=== PATIENT | female | born 1955 | race Caucasian/White ===

== ENCOUNTER 2017-05-04 15:53 | Inpatient (IN) ==
--- NOTE | 2017-05-04 16:17 | Emergency Department Note ---
Disposition Clinical Impression: Congestive heart failure, Obesity, Atrial fibrillation, Elevated troponin, Renal failure, Hyperkalemia, Anemia, Thrombocytopenia, Elevated C-reactive protein (CRP), Diabetes, Chest pain, Cough, Warfarin anticoagulation, History of heart valve replacement Disposition: Admitted As Inpatient Referrals: Enrique Strange MD [Primary Care Provider] - Forms: ED Satisfaction Letter General Adult HPI - General Chief complaint: ED Shortness of Breath/Dyspnea Stated complaint: missed dialysis Time Seen by Provider: 05/04/17 16:14 Source: patient Limitations: no limitations - History of Present Illness HPI Narrative: 61-year-old female reports to the emergency department with concerns for shortness of breath. The patient missed dialysis yesterday. She states she saw her primary care physician had a chest x-ray and was diagnosed with possible early pneumonia and prescribed azithromycin. She describes a cough which is been producing clear sputum. She has known history of atrial fibrillation and cardiac valve replacement and takes Coumadin. There is no history of coughing up blood or syncope. She has had some muscle cramp type pain in her left chest. There is no history of jaw pain or radiating pain she states that when she walked today her oxygen saturations went down to 73% on her home device. The patient also reports her heart rate went up to 141. The patient has a history of atrial fibrillation. There is no history of weakness or numbness the arms or legs or slurred speech or confusion. No history of bleeding of any sort. The patient denies abdominal pain vomiting or diarrhea. The patient denies any history of chronic oxygen dependency or primary lung disease. There is no history of fall or injury. The patient describes leg swelling and abdominal swelling. There is no history of headaches neck stiffness or rash. Pain Scale: 7 - Related Data Home Medications Medication Instructions Recorded Confirmed Levothyroxine [Synthroid] 88 mcg PO DAILY 06/30/15 05/04/17 [place]-3 Fatty Acids/Epa [Neurepa 1 1 gm PO BID 06/30/15 05/04/17 Gram Capsule] Pregabalin [Lyrica] 50 mg PO BID 06/30/15 05/04/17 ALPRAZolam [Xanax 0.5 MG Tablet] 0.5 mg PO TID PRN 08/07/16 05/04/17 Allopurinol [Zyloprim] 200 mg PO DAILY 08/07/16 05/04/17 Aspirin 81 mg PO DAILY 08/07/16 05/04/17 Atorvastatin [Lipitor] 10 mg PO HS 08/07/16 05/04/17 Biotin [Estrada Biotin] 10,000 mcg PO DAILY 08/07/16 05/04/17 Calcitriol [Rocaltrol] 0.25 mcg PO DAILY 08/07/16 05/04/17 Docusate [Colace] 100 mg PO BID PRN 08/07/16 05/04/17 Folic Acid 1 mg PO DAILY 08/07/16 05/04/17 Nystatin POWDER [Nystop] 1 appl TP BID 08/07/16 05/04/17 Oxycodone HCl 15 mg PO BID PRN 08/07/16 05/04/17 Pantoprazole Sodium [Protonix] 40 mg PO DAILY 08/07/16 05/04/17 Sertraline [Zoloft] 100 mg PO DAILY 08/07/16 05/04/17 Albuterol Sulfate [Proair Hfa] 2 puff IH Q4H PRN 02/07/17 05/04/17 Ipratropium/Albuterol Neb [Duoneb] 3 ml IH TID PRN 02/07/17 05/04/17 Warfarin [Coumadin] 10 mg PO SUMOWETHFR 02/07/17 05/04/17 Azithromycin [Zithromax Tri-Juwan] 500 mg PO DAILY 05/04/17 05/04/17 Budesonide/Formoterol 160/4.5 2 puff IH BIDR 05/04/17 05/04/17 [Symbicort 160/4.5] L. Acidophilus/Pectin, [place] 1 each PO DAILY 05/04/17 05/04/17 [Acidophilus Probiotic Capsule] Loratadine [Claritin] 10 mg PO DAILY 05/04/17 05/04/17 Promethazine [Phenergan] 25 mg PO TID PRN 05/04/17 05/04/17 Renal Vitamin [Renal Caps Softgel] 1 mg PO DAILY 05/04/17 05/04/17 Ropinirole HCl [Requip Xl] 4 mg PO HS 05/04/17 05/04/17 Warfarin [Coumadin] 5 mg PO TUSA 05/04/17 05/04/17 predniSONE [PredniSONE] See Taper PO TAPER 05/04/17 05/04/17 Allergies Allergy/AdvReac Type Severity Reaction Status Date / Time MALACHI Inhibitors Allergy Hives Verified 05/04/17 15:58 cephalexin [From Keflex] Allergy Hives Verified 05/04/17 15:58 cephalothin Allergy Hives Verified 05/04/17 15:58 ciprofloxacin [From Cipro] Allergy See Verified 05/04/17 15:58 Comments clindamycin Allergy Hives Verified 05/04/17 15:58 codeine Allergy Hives Verified 05/04/17 15:58 doxycycline Allergy Difficulty Verified 05/04/17 15:58 Breathing fentanyl Allergy See Verified 05/04/17 15:58 Comments Hydromorphone [From Dilaudid] Allergy See Verified 05/04/17 15:58 Comments metoclopramide [From Reglan] Allergy Hives Verified 05/04/17 15:58 metronidazole Allergy Difficulty Verified 05/04/17 15:58 Breathing NSAIDS (Non-Steroidal Allergy Difficulty Verified 05/04/17 15:58 Anti-Inflamma Breathing Penicillins [PCN] Allergy Hives Verified 05/04/17 15:58 Sulfa (Sulfonamide Allergy Difficulty Verified 05/04/17 15:58 Antibiotics) Breathing sulfamethoxazole Allergy Difficulty Verified 05/04/17 15:58 [From Bactrim] Breathing trimethoprim Allergy Hives Verified 05/04/17 15:58 All systems ED: reviewed and negative except as stated. Past Medical History - Past Medical History Medical history: Reports: arthritis, atrial fibrillation, CHF, COPD, diabetes, dialysis, hyperlipidemia, hypertension, migraine, thyroid disease, valvular heart disease, other Surgical history: Reports: appendectomy, cataract, cholecystectomy, heart valve replacement, orthopedic, other Psychiatric history: Reports: anxiety, depression RESOURCE RECOVERY ENGINEER history: Reports: no RESOURCE RECOVERY ENGINEER history - Social History Smoking Status: Former smoker Smokeless Tobacco Status: No Alcohol use: Reports: none Drug use: Reports: none Physical Exam - General Limitations: no limitations General appearance: alert, in no apparent distress - Head Head exam: atraumatic, normocephalic, normal inspection - Eye Eye exam: Present: normal appearance, PERRL, EOMI - ENT ENT exam: normal exam, normal oropharynx, mucous membranes moist, TM's normal bilaterally, normal external ear exam - Neck Neck exam: Present: normal inspection, full ROM, trachea midline. Absent: tenderness - Chest Chest inspection: Present: symmetric chest wall rise. Absent: tenderness - Respiratory Respiratory exam: Present: prolonged expiratory phase. Absent: normal lung sounds bilaterally, respiratory distress, wheezes, stridor, accessory muscle use - Cardiovascular Cardiovascular exam: Present: irregular rhythm, systolic murmur - Abdominal Exam Abdominal exam: Present: soft, Non-Tender, normal bowel sounds. Absent: tenderness, distention, guarding, rebound, rigidity - Extremities Exam Extremities exam: Present: full ROM, normal capillary refill, pedal edema. Absent: normal inspection, tenderness, joint swelling, calf tenderness - Expanded Lower Extremity Exam Hip/Pelvis exam: Present: full ROM Lower leg exam: Absent: Homans' sign - Back Exam Back exam: Present: normal inspection, full ROM. Absent: tenderness, CVA tenderness (R), CVA tenderness (L), vertebral tenderness - Neurological Exam Neurological exam: Present: alert, oriented X3, CN II-XII intact. Absent: motor sensory deficit - Psychiatric Psychiatric exam: Present: normal affect, normal mood - Skin Skin exam: Present: warm, dry, intact, normal color. Absent: rash, cyanosis, diaphoresis, erythema, pallor, mottled Course Vital Signs Temperature 97.4 F L 05/04/17 15:58 Pulse Rate 94 05/04/17 15:58 Respiratory Rate 28 05/04/17 15:58 Blood Pressure 138/61 05/04/17 15:58 O2 Sat by Pulse Oximetry 95 05/04/17 15:58 Temperature 97.4 F L 05/04/17 15:58 Pulse Rate 93 05/04/17 17:29 Respiratory Rate 18 05/04/17 17:29 Blood Pressure 114/63 05/04/17 17:29 O2 Sat by Pulse Oximetry 93 05/04/17 17:29 Oxygen Delivery Oxygen Delivery Room Air Medical Decision Making - [facility] Narrative Medical decision making narrative: The patient is elderly, and complains of cough with dyspnea, the patient reports her oxygen saturations go down to 73% on room air when she ambulates, she states her heart rate went up to 141, she has a known history of atrial fibrillation, she is expressing some chest discomfort, her troponin is elevated , she also appears to have edema and an elevated BNP with symptomatology consistent with CHF, her CRP is notably elevated and she is anemic as well as thrombocytopenic with an elevated white count, the patient has a known cardiac valve replacement. Based on her multiple medical comorbidities and complaints of dyspnea on exertion hypoxemia and chest discomfort with what appears to be an element of acute CHF based on edema, I thought it would be appropriate to admit the patient to the hospital. The patient is taking 500 mg of azithromycin daily. I do not think the patient is necessarily septic. Her lactic acid is negative. Urinalysis pending. Blood cultures ordered. Hyperkalemia orders placed. I have discussed the case with the hospitalist on- call who has accepted the patient to their care. Aspirin was ordered. The patient is currently stable pending admission. - Lab Data Lab results reviewed: Yes I reviewed the patient's lab results. Result diagrams: 05/04/17 16:26 05/04/17 16:26 Lab Results 05/04/17 05/04/17 05/04/17 Range/Units 16:26 16:26 16:26 WBC 11.9 H (4.3-11.1) K/mcL RBC 3.14 L (3.82-4.97) M/mcL Hgb 9.6 L (11.5-15.4) g/dL Hct 29.5 L (35.3-44.9) % MCV 93.9 (83.0-100.0) fL MCH 30.6 (28.0-33.3) pg MCHC 32.5 (31.6-35.5) g/dL RDW 14.6 H (11.5-14.5) % Plt Count 122 L (140-400) K/mcL MPV 13.1 H (9.4-12.4) fL Immature Gran % 0.5 (0-4) % Seg Neutrophils % 89.6 % Lymphocytes % 4.5 % Monocytes % 4.9 % Eosinophils % 0.3 % Basophils % 0.2 % Neutrophils # 10.7 H (1.6-8.9) K/mcL Lymphocytes # 0.5 L (0.6-4.6) K/mcL Monocytes # 0.6 (0.0-1.3) K/mcL Eosinophils # 0.0 (0.0-0.6) K/mcL Basophils # 0.0 (0.0-0.2) K/mcL PT (9.4-12.1) Seconds INR APTT (26.0-36.0) Seconds Sodium 132 L (136-145) mEq/L Potassium 5.8 H (3.5-4.5) mEq/L Chloride 97 L (98-109) mEq/L Carbon Dioxide 23 (19-29) mEq/L BUN 94 H (7-20) mg/dL Creatinine 9.10 H (0.57-1.11) mg/dL Est GFR ( Amer) 5 L (> 60) Est GFR (Non-Af Amer) 4 L (> 60) BUN/Creatinine Ratio 10 (6-26) Glucose 128 H (70-99) mg/dL Calculated Osmolality 305 H (280-300) Lactic Acid 1.2 (0.5-2.2) mmol/L Calcium 9.5 (8.6-10.8) mg/dL Troponin I (0-0.03) ng/mL C-Reactive Protein (Less than 5) mg/L B-Natriuretic Peptide (0-100) pg/mL 05/04/17 05/04/17 05/04/17 Range/Units 16:26 16:26 16:26 WBC (4.3-11.1) K/mcL RBC (3.82-4.97) M/mcL Hgb (11.5-15.4) g/dL Hct (35.3-44.9) % MCV (83.0-100.0) fL MCH (28.0-33.3) pg MCHC (31.6-35.5) g/dL RDW (11.5-14.5) % Plt Count (140-400) K/mcL MPV (9.4-12.4) fL Immature Gran % (0-4) % Seg Neutrophils % % Lymphocytes % % Monocytes % % Eosinophils % % Basophils % % Neutrophils # (1.6-8.9) K/mcL Lymphocytes # (0.6-4.6) K/mcL Monocytes # (0.0-1.3) K/mcL Eosinophils # (0.0-0.6) K/mcL Basophils # (0.0-0.2) K/mcL PT 23.8 H (9.4-12.1) Seconds INR 2.2 APTT 39.7 H (26.0-36.0) Seconds Sodium (136-145) mEq/L Potassium (3.5-4.5) mEq/L Chloride (98-109) mEq/L Carbon Dioxide (19-29) mEq/L BUN (7-20) mg/dL Creatinine (0.57-1.11) mg/dL Est GFR ( Amer) (> 60) Est GFR (Non-Af Amer) (> 60) BUN/Creatinine Ratio (6-26) Glucose (70-99) mg/dL Calculated Osmolality (280-300) Lactic Acid (0.5-2.2) mmol/L Calcium (8.6-10.8) mg/dL Troponin I (0-0.03) ng/mL C-Reactive Protein 57 H (Less than 5) mg/L B-Natriuretic Peptide 780 H (0-100) pg/mL 05/04/17 Range/Units 16:27 WBC (4.3-11.1) K/mcL RBC (3.82-4.97) M/mcL Hgb (11.5-15.4) g/dL Hct (35.3-44.9) % MCV (83.0-100.0) fL MCH (28.0-33.3) pg MCHC (31.6-35.5) g/dL RDW (11.5-14.5) % Plt Count (140-400) K/mcL MPV (9.4-12.4) fL Immature Gran % (0-4) % Seg Neutrophils % % Lymphocytes % % Monocytes % % Eosinophils % % Basophils % % Neutrophils # (1.6-8.9) K/mcL Lymphocytes # (0.6-4.6) K/mcL Monocytes # (0.0-1.3) K/mcL Eosinophils # (0.0-0.6) K/mcL Basophils # (0.0-0.2) K/mcL PT (9.4-12.1) Seconds INR APTT (26.0-36.0) Seconds Sodium (136-145) mEq/L Potassium (3.5-4.5) mEq/L Chloride (98-109) mEq/L Carbon Dioxide (19-29) mEq/L BUN (7-20) mg/dL Creatinine (0.57-1.11) mg/dL Est GFR ( Amer) (> 60) Est GFR (Non-Af Amer) (> 60) BUN/Creatinine Ratio (6-26) Glucose (70-99) mg/dL Calculated Osmolality (280-300) Lactic Acid (0.5-2.2) mmol/L Calcium (8.6-10.8) mg/dL Troponin I 0.06 H* (0-0.03) ng/mL C-Reactive Protein (Less than 5) mg/L B-Natriuretic Peptide (0-100) pg/mL - Radiology Data Radiology results reviewed: Yes I reviewed the patient's radiology results.
[2017-05-04 16:37] LABS: Basophils % 0.2 %; Eosinophils % 0.3 %; Hematocrit 29.5 % (35.3-44.9); Hemoglobin 9.6 g/dL (11.5-15.4); Immature Granulocytes % 0.5 % (0-4); Lymphocytes # 0.5 K/mcL (0.6-4.6); Lymphocytes % 4.5 %; Mean Corpuscular HGB Conc 32.5 g/dL (31.6-35.5); Mean Corpuscular Hemoglobin 30.6 pg (28.0-33.3); Mean Corpuscular Volume 93.9 fL (83.0-100.0); Mean Platelet Volume 13.1 fL (9.4-12.4); Monocytes # 0.6 K/mcL (0.0-1.3); Monocytes % 4.9 %; Neutrophils # 10.7 K/mcL (1.6-8.9); Platelet Count 122 K/mcL (140-400); Red Blood Count 3.14 M/mcL (3.82-4.97); Red Cell Distribution Width 14.6 % (11.5-14.5); Segmented Neutrophils % 89.6 %
[2017-05-04 16:52] LABS: Calcium 9.5 mg/dL (8.6-10.8); Potassium 5.8 mEq/L (3.5-4.5)
[2017-05-04] MEDS ORDERED: Aspirin 325 MG TABLET PO ONE (17:03)
[2017-05-04 17:05] LABS: INR 2.2; Prothrombin Time 23.8 Seconds (9.4-12.1)
[2017-05-04 17:07] LABS: Activated Partial Thrombo Time 39.7 Seconds (26.0-36.0)
[2017-05-04] MEDS ORDERED: Calcium Gluconate 1,000 MG in D5% in Water 100 ML IVPB ONE (17:57)
[2017-05-04] MEDS ORDERED: Albuterol 2.5 MG/3 ML NEBULIZER IH ONE ×2 (17:57→20:00)
[2017-05-04] MEDS ORDERED: *HR* Dextrose 50 % in Water (Syg) 50 ML SYRINGE IVP ONE ×2 (17:57→20:00)
[2017-05-04] MEDS ORDERED: Insulin Human Regular 10 UNIT in 0.9 % Sodium Chloride 10 ML IV ONE (17:58)
[2017-05-04] MEDS ORDERED: Ondansetron 4 MG/2 ML VIAL IVP PRN (20:43)
[2017-05-04] MEDS ORDERED: Naloxone 0.4 MG/ML INJ IVP PRN (20:43)
[2017-05-04] MEDS ORDERED: ALPRAZolam 0.5 MG TABLET PO PRN (20:46)
[2017-05-04] MEDS ORDERED: Ipratropium/Albuterol Neb 3 ML IH PRN (20:46)
[2017-05-04] MEDS ORDERED: Warfarin perPT PO PRN (20:48)
--- NOTE | 2017-05-04 21:07 | Internal Med History&Physical ---
Date of Encounter: 05/04/17 Time of Encounter: 20:40 Assessment and Plan (1) Acute respiratory distress Current visit: Yes Status: Acute Likely multifactorial Secondary to volume overload given missed HD session and COPD exacerbation patient recently finished steroid taper, however given currently clinical presentation, will resume PO steroids She may benefit from a long steroid taper upon discharge Patient will need HD in am. Nephrology consultation placed with Dr. Muir, please follow up Continue O2 supplementation and bronchodilator support will closely monitor respiratory status Leukocytosis can be secondary to recent prednisone therapy, will monitor off abx at this time Guaifenensin/Dextromorphan prn cough (2) ESRD on hemodialysis Current visit: Yes Status: Acute Patient receives HD on T/Thus/Sat Nephrology consultation requested for continuation of HD, please follow up (3) Hyperkalemia Current visit: Yes Status: Acute Likely secondary to Missed HD session No EKG changes reported patient received Calcium gluconate, insulin, dextrose, bicarb, albuterol therapy in the ER will closely monitor (4) CHF (congestive heart failure) Current visit: Yes Status: Chronic 2D echo from Jul 2016 showed LVEF of 60% with normal LV size and systolic function. Mild diastolic dysfunction of left ventricle will continue home meds and ARRT TECHNOLOGIST therapy for volume removal Qualifiers: Congestive heart failure type: diastolic Congestive heart failure chronicity: chronic Qualified Code(s): I50.32 - Chronic diastolic (congestive ) heart failure (5) COPD (chronic obstructive pulmonary disease) Current visit: Yes Status: Acute concern for COPD exacerbation given clinical presentation will continue PO steroids and bronchodilator support O2 supplementation as needed please obtain O2 qualification test prior to discharge Qualifiers: COPD type: unspecified COPD Qualified Code(s): J44.9 - Chronic obstructive pulmonary disease, unspecified (6) Atrial fibrillation Current visit: Yes Status: Chronic Not reported to be on any rate control medications Anticoagulated with Coumadin monitor INR with goal INR: 2-3, currently therapeutic tele monitoring will continue to closely monitor Qualifiers: Atrial fibrillation type: chronic Qualified Code(s): I48.2 - Chronic atrial fibrillation (7) Elevated troponin Current visit: Yes Status: Chronic NO signs of chest pain patient has history of chronically elevated TNI, current level is the lower than her previous levels (8) Morbid obesity with BMI of 45.0-49.9, adult Current visit: Yes Status: Chronic (9) DVT prophylaxis Current visit: Yes Status: Acute anticoagulated with Coumadin Internal Medicine - H&P: HPI Chief complaint: shortness of breath Admitted From: Home Plans for Post Hospital Care: Home History of present illness: Ms. Loza is a 61 year old female with PMH of CHF, Atrial fibrillation on coumadin, COPD, ESRD on HD, HLD, thyroid disease, valvular heart disease, and morbid obesity who is admitted for management of acute respiratory distress. Patient reports of having chronic bronchitis for which she finished her steroid and abx therapy yesterday, and due to worsening cough, she was not able to make it to her HD appointment yesterday(05/03/17). She states she was not able to get her HD done today either and due to worsening of shortness of breath she decided to come to the ER. She reports of having her O2 saturation in the 70s at home which prompted her visit to the ER. Upon arrival to the ER, patient received nebulizer treatments with improvement of her symptoms. She is currently saturating well on room air and reports of feeling better at rest. Denies any headache, chest pain, abd pain, n/v, fever, or chills. Reports of dry cough for the last several months and finisher her steroid therapy and abx yesterday. Former smoker I had a detailed discussion about patient's advance directives, she wishes to be Full code. Past Med Surg Social Fam HX - Past Medical History Medical history: arthritis, atrial fibrillation, CHF, COPD, diabetes, dialysis, hyperlipidemia, hypertension, migraine, thyroid disease, valvular heart disease , other Psychiatric history: anxiety, depression - Past Surgical History Surgical History: cataract, cholecystectomy, heart valve replacement, orthopedic , other - Social History Smoking Status: Former smoker Smokeless Tobacco Status: No Alcohol use: none Drug use: none - Family History Mother Hx Family Cardiac Disorders: Yes (HTN) Hx Family Endocrine Disorder: Yes (DM) Hx Family Medical Disorders: Yes (kidney failure) Father Hx Family Cardiac Disorders: Yes (HTN) Hx Family Cancer: Yes (lung cancer) Hx Family Endocrine Disorder: Yes (DM) Internal Medicine - H&P: Meds Levothyroxine [Synthroid] 88 mcg PO DAILY 06/30/15 [History] [place]-3 Fatty Acids/Epa [Neurepa 1 Gram Capsule] 1 gm PO BID 08/26/15 [History] Pregabalin [Lyrica] 50 mg PO BID 06/30/15 [History] ALPRAZolam [Xanax 0.5 MG Tablet] 0.5 mg PO TID PRN 08/07/16 [History] Allopurinol [Zyloprim] 200 mg PO DAILY 08/07/16 [History] Aspirin 81 mg PO DAILY 08/07/16 [History] Atorvastatin [Lipitor] 10 mg PO HS 08/07/16 [History] Biotin [Estrada Biotin] 10,000 mcg PO DAILY 08/07/16 [History] Calcitriol [Rocaltrol] 0.25 mcg PO DAILY 08/07/16 [History] Docusate [Colace] 100 mg PO BID PRN 08/07/16 [History] Folic Acid 1 mg PO DAILY 08/07/16 [History] Nystatin POWDER [Nystop] 1 appl TP BID 08/07/16 [History] Oxycodone HCl 15 mg PO BID PRN 08/07/16 [History] Pantoprazole Sodium [Protonix] 40 mg PO DAILY 08/07/16 [History] Sertraline [Zoloft] 100 mg PO DAILY 08/07/16 [History] Albuterol Sulfate [Proair Hfa] 2 puff IH Q4H PRN 02/07/17 [History] Ipratropium/Albuterol Neb [Duoneb] 3 ml IH TID PRN 02/07/17 [History] Warfarin [Coumadin] 10 mg PO SUMOWETHFR 02/07/17 [History] Azithromycin [Zithromax Tri-Juwan] 500 mg PO DAILY 05/04/17 [History] Budesonide/Formoterol 160/4.5 [Symbicort 160/4.5] 2 puff IH BIDR 05/04/17 [ History] L. Acidophilus/Pectin, [place] [Acidophilus Probiotic Capsule] 1 each PO DAILY [History] Loratadine [Claritin] 10 mg PO DAILY 05/04/17 [History] Promethazine [Phenergan] 25 mg PO TID PRN 05/04/17 [History] Renal Vitamin [Renal Caps Softgel] 1 mg PO DAILY 05/04/17 [History] Ropinirole HCl [Requip Xl] 4 mg PO HS 05/04/17 [History] Warfarin [Coumadin] 5 mg PO TUSA 05/04/17 [History] predniSONE [PredniSONE] See Taper PO TAPER 05/04/17 [History] Allergies MALACHI Inhibitors Allergy (Verified 05/04/17 15:58) Hives cephalexin [From Keflex] Allergy (Verified 05/04/17 15:58) Hives cephalothin Allergy (Verified 05/04/17 15:58) Hives ciprofloxacin [From Cipro] Allergy (Verified 05/04/17 15:58) See Comments unsure of reaction clindamycin Allergy (Verified 05/04/17 15:58) Hives codeine Allergy (Verified 05/04/17 15:58) Hives doxycycline Allergy (Verified 05/04/17 15:58) Difficulty Breathing fentanyl Allergy (Verified 05/04/17 15:58) See Comments low heart rate Hydromorphone [From Dilaudid] Allergy (Verified 05/04/17 15:58) See Comments low heart rate metoclopramide [From Reglan] Allergy (Verified 05/04/17 15:58) Hives metronidazole Allergy (Verified 05/04/17 15:58) Difficulty Breathing NSAIDS (Non-Steroidal Anti-Inflamma Allergy (Verified 05/04/17 15:58) Difficulty Breathing Penicillins [PCN] Allergy (Verified 05/04/17 15:58) Hives Sulfa (Sulfonamide Antibiotics) Allergy (Verified 05/04/17 15:58) Difficulty Breathing sulfamethoxazole [From Bactrim] Allergy (Verified 05/04/17 15:58) Difficulty Breathing trimethoprim Allergy (Verified 05/04/17 15:58) Hives All Systems PM: A 10-system review of systems was performed and is negative for pertinent findings except as documented above in the HPI. - Constitutional Constitutional: as per HPI - Constitutional Vitals: Temp Pulse Resp BP Pulse Ox 97.5 F L 82 18 134/74 96 05/04/17 19:55 05/04/17 19:55 05/04/17 20:53 05/04/17 19:55 05/04/17 20:53 General appearance: Present: cooperative, A&O X 3, morbidly obese, no acute distress, answers questions appropriately - Head Head exam: Present: atraumatic, normocephalic - Eye Eye exam: Present: conjuntiva pink, sclera anicteric - Respiratory Respiratory exam: Present: wheezes (diffuse expiratory wheezing). Absent: rales , respiratory distress - Cardiovascular Cardiovascular exam: Present: irregular rhythm, +S1, +S2 - GI/Abdominal GI/Abdominal exam: Present: distended (obese), normal bowel sounds, soft, no peritoneal signs. Absent: tenderness - Extremities Exam Extremities exam: Present: pedal edema, warm, radial pulses palpable and symetrical. Absent: calf tenderness - Neurological Exam Neurological exam: Present: alert, oriented X3 - Psychiatric Psychiatric exam: Present: normal affect, normal mood Internal Med - H&P Results - Labs CBC & Chem 7: 05/04/17 16:26 05/04/17 16:26
[2017-05-04] MEDS: REQUIP 4 MG PO SCH (21:29)
[2017-05-04] MEDS: Nystatin POWDER 30 GM BOTTLE TP SCH (21:30)
[2017-05-04] MEDS: Budesonide/Formoterol 160/4.5 MDI IH SCH (21:46)
[2017-05-04] MEDS: Ipratropium/Albuterol Neb 3 ML IH SCH (21:46)
[2017-05-04] MEDS ORDERED: *HR* Warfarin 5 MG TABLET PO ONE (22:30)
[2017-05-05] MEDS: Ipratropium/Albuterol Neb 3 ML IH SCH ×7 (03:04→23:15)
[2017-05-05] MEDS ORDERED: Albuterol 2.5 MG/3 ML NEBULIZER IH PRN (03:19)
[2017-05-05] MEDS ORDERED: *HR* Heparin 5,000 UNIT/ML VIAL SQ SCH (06:00)
[2017-05-05 06:43] LABS: INR 2.5; Prothrombin Time 28.1 Seconds (9.4-12.1)
[2017-05-05 06:52] LABS: Calcium 9.2 mg/dL (8.6-10.8); Magnesium 2.3 mg/dL (1.6-2.6); Phosphorous 6.3 mg/dL (2.3-4.7); Potassium 5.5 mEq/L (3.5-4.5)
[2017-05-05 06:57] LABS: Basophils # 0.1 K/mcL (0.0-0.2); Basophils % 0.4 %; Eosinophils # 0.1 K/mcL (0.0-0.6); Hematocrit 30.6 % (35.3-44.9); Hemoglobin 9.6 g/dL (11.5-15.4); Immature Granulocytes % 1.1 % (0-4); Lymphocytes # 0.7 K/mcL (0.6-4.6); Lymphocytes % 6.4 %; Mean Corpuscular HGB Conc 31.4 g/dL (31.6-35.5); Mean Corpuscular Hemoglobin 30.3 pg (28.0-33.3); Mean Corpuscular Volume 96.5 fL (83.0-100.0); Mean Platelet Volume 13.6 fL (9.4-12.4); Monocytes # 0.5 K/mcL (0.0-1.3); Monocytes % 4.6 %; Platelet Count 117 K/mcL (140-400); Red Blood Count 3.17 M/mcL (3.82-4.97); Red Cell Distribution Width 14.6 % (11.5-14.5); Segmented Neutrophils % 86.5 %
[2017-05-05] MEDS: Budesonide/Formoterol 160/4.5 MDI IH SCH ×2 (07:41→19:49)
[2017-05-05] MEDS: Folic Acid 1 MG TABLET PO SCH (08:08)
[2017-05-05] MEDS: Loratadine 10 MG TABLET PO SCH (08:08)
[2017-05-05] MEDS: Aspirin 81 MG TAB.CHEW PO SCH (08:08)
[2017-05-05] MEDS: Lactobacillus 1 EACH CAP.SPRINK PO SCH (08:08)
[2017-05-05] MEDS: Renal Vitamin 1 MG CAPSULE PO SCH (08:08)
[2017-05-05] MEDS: *HR* OxyCODONE Immed Rel 15 MG TABLET PO PRN ×2 (08:12→19:53)
[2017-05-05] MEDS: Nystatin POWDER 30 GM BOTTLE TP SCH ×2 (08:30→20:53)
[2017-05-05] MEDS: BIOTIN 10,000 MCG PO SCH (08:30)
[2017-05-05] MEDS ORDERED: 0.9 % Sodium Chloride 250 ML IVC PRN (08:55)
[2017-05-05] MEDS ORDERED: predniSONE 20 MG TABLET PO SCH (09:00)
--- NOTE | 2017-05-05 09:44 | Nephrology Consult Note ---
Date of Encounter: 05/05/17 Time of Encounter: 09:10 Assessment and Plan (1) ESRD on hemodialysis Current Visit: Yes Status: Acute Acute respiratory distress most likely secondary to volume overload given missed HD session and COPD exacerbation. HD today, orders given, keeping TTS schedule. Will monitor. History of Present Illness - Reason for Consult end stage renal disease - History of Present Illness Ms. Appiah is a 61 year old female with ESRD, who dialyzes at [facility] on TTS, last dialysis on Sunday. Other PMH-CHF, Afib, valvular heart disease, COPD, morbid obesity.. Ms. Appiah missed HD on due to ongoing bronchitis, SOB and went to PCP and was placed on steroids and Azithromycin. Ms. Appiah states she became more short of breath evening and progressive weakness and heart rate was up to 140). She states she had a spasmodic productive cough that was tinged pale yellow. Upon arrival to the ER, patient received nebulizer treatments with improvement. Hyperkalemic, received Calcium gluconate, insulin, dextrose, bicarb, albuterol therapy in the ER. This morning seen on HD, states breathing easier and cough much improved. Past Med Surg Social Fam HX - Past Medical History Medical history: arthritis, atrial fibrillation, CHF, COPD, diabetes, dialysis, hyperlipidemia, hypertension, migraine, thyroid disease, valvular heart disease , other Psychiatric history: anxiety, depression - Past Surgical History Surgical History: cataract, cholecystectomy, heart valve replacement, orthopedic , other - Social History Smoking Status: Former smoker Smokeless Tobacco Status: No Alcohol use: none Drug use: none - Family History Mother Hx Family Cardiac Disorders: Yes (HTN) Hx Family Endocrine Disorder: Yes (DM) Hx Family Medical Disorders: Yes (kidney failure) Father Hx Family Cardiac Disorders: Yes (HTN) Hx Family Cancer: Yes (lung cancer) Hx Family Endocrine Disorder: Yes (DM) Medications and Allergies Levothyroxine [Synthroid] 88 mcg PO DAILY 06/30/15 [History] [place]-3 Fatty Acids/Epa [Neurepa 1 Gram Capsule] 1 gm PO BID 06/30/15 [History] Pregabalin [Lyrica] 50 mg PO BID 06/30/15 [History] ALPRAZolam [Xanax 0.5 MG Tablet] 0.5 mg PO TID PRN 08/07/16 [History] Allopurinol [Zyloprim] 200 mg PO DAILY 08/07/16 [History] Aspirin 81 mg PO DAILY 08/07/16 [History] Atorvastatin [Lipitor] 10 mg PO HS 08/07/16 [History] Biotin [Estrada Biotin] 10,000 mcg PO DAILY 08/07/16 [History] Calcitriol [Rocaltrol] 0.25 mcg PO DAILY 08/07/16 [History] Docusate [Colace] 100 mg PO BID PRN 08/07/16 [History] Folic Acid 1 mg PO DAILY 08/07/16 [History] Nystatin POWDER [Nystop] 1 appl TP BID 08/07/16 [History] Oxycodone HCl 15 mg PO BID PRN 08/07/16 [History] Pantoprazole Sodium [Protonix] 40 mg PO DAILY 08/07/16 [History] Sertraline [Zoloft] 100 mg PO DAILY 08/07/16 [History] Albuterol Sulfate [Proair Hfa] 2 puff IH Q4H PRN 02/07/17 [History] Ipratropium/Albuterol Neb [Duoneb] 3 ml IH TID PRN 02/07/17 [History] Warfarin [Coumadin] 10 mg PO SUMOWETHFR 02/07/17 [History] Azithromycin [Zithromax [place]] 500 mg PO DAILY 05/04/17 [History] Budesonide/Formoterol 160/4.5 [Symbicort 160/4.5] 2 puff IH BIDR 05/04/17 [ History] L. Acidophilus/Pectin, [place] [Acidophilus Probiotic Capsule] 1 each PO DAILY [History] Loratadine [Claritin] 10 mg PO DAILY 05/04/17 [History] Promethazine [Phenergan] 25 mg PO TID PRN 05/04/17 [History] Renal Vitamin [Renal Caps Softgel] 1 mg PO DAILY 05/04/17 [History] Ropinirole HCl [Requip Xl] 4 mg PO HS 05/04/17 [History] Warfarin [Coumadin] 5 mg PO TUSA 05/04/17 [History] predniSONE [PredniSONE] See Taper PO TAPER 05/04/17 [History] Allergies MALACHI Inhibitors Allergy (Verified 05/04/17 15:58) Hives cephalexin [From Keflex] Allergy (Verified 05/04/17 15:58) Hives cephalothin Allergy (Verified 05/04/17 15:58) Hives ciprofloxacin [From Cipro] Allergy (Verified 05/04/17 15:58) See Comments unsure of reaction clindamycin Allergy (Verified 05/04/17 15:58) Hives codeine Allergy (Verified 05/04/17 15:58) Hives doxycycline Allergy (Verified 05/04/17 15:58) Difficulty Breathing fentanyl Allergy (Verified 05/04/17 15:58) See Comments low heart rate Hydromorphone [From Dilaudid] Allergy (Verified 05/04/17 15:58) See Comments low heart rate metoclopramide [From Reglan] Allergy (Verified 05/04/17 15:58) Hives metronidazole Allergy (Verified 05/04/17 15:58) Difficulty Breathing NSAIDS (Non-Steroidal Anti-Inflamma Allergy (Verified 05/04/17 15:58) Difficulty Breathing Penicillins [PCN] Allergy (Verified 05/04/17 15:58) Hives Sulfa (Sulfonamide Antibiotics) Allergy (Verified 05/04/17 15:58) Difficulty Breathing sulfamethoxazole [From Bactrim] Allergy (Verified 05/04/17 15:58) Difficulty Breathing trimethoprim Allergy (Verified 05/04/17 15:58) Hives Review of Systems All Systems: reviewed and no additional remarkable complaints except as stated Exam - Vital Signs Vital signs: Initial Vital Signs Temp Pulse Resp BP Pulse Ox 97.4 F L 94 28 138/61 95 05/04/17 15:58 05/04/17 15:58 05/04/17 15:58 05/04/17 15:58 05/04/17 15:58 Vital Signs - Last 8 Hours Temp Pulse Resp BP Pulse Ox 05/05/17 07:03 97.5 F L 113 20 150/82 05/05/17 05:59 22 100 05/05/17 03:53 97.7 F 81 18 156/77 96 05/05/17 03:04 20 94 Intake and Output 05/04/17 05/05/17 05/05/17 23:59 07:59 15:59 Intake Total 120.1 / 120.1 240 / 240 Balance 120.1 / 120.1 240 / 240 Intake: IV Fluids 120.1 / 120.1 HumuLIN R 10 UNIT In 10.1 / 10.1 Normal Saline Flush 10 ML @ 1212 mls/hr IV ONCE ONE Rx#:[id number] Calcium Gluconate 1,000 110 / 110 MG In Dextrose 5% 100 ML @ 220 mls/hr IVPB ONCE ONE Rx#:[id number] Oral 240 / 240 Other: Weight 144.4 kg Patient Weight 05/05/17 23:59 Weight 144.4 kg - General Appearance General appearance: well-developed, well-nourished, appears started age, obese EENT: mucous membranes moist Neck: no JVD, no carotid bruit Respiratory: wheezing Cardiology: no edema, irregular rhythm Gastrointestinal: normoactive bowel sounds, no tenderness Integumentary: warm and dry Neurologic: alert and oriented x3 Psychiatric: mood/affect appropriate, cooperative Results - Lab Results 05/05/17 06:19 05/05/17 06:19 Most recent lab results Calcium 9.2 mg/dL (8.6-10.8) 05/05/17 06:19 Phosphorus 6.3 mg/dL (2.3-4.7) H 05/05/17 06:19 Magnesium 2.3 mg/dL (1.6-2.6) 05/05/17 06:19 Consult Discharge Plan - Plan Referrals: Enrique Strange MD [Primary Care Provider] -
[2017-05-05] MEDS ORDERED: 0.9 % Sodium Chloride 1,000 ML ONE (09:45)
[2017-05-05] MEDS ORDERED: Dextrose Gel 15 GM PO PRN ×2 (15:10)
[2017-05-05] MEDS ORDERED: D5% in Water 1,000 ML IVC PRN (15:10)
[2017-05-05] MEDS ORDERED: *HR* Dextrose 50 % in Water (Syg) 50 ML SYRINGE IVP PRN (15:10)
[2017-05-05] MEDS ORDERED: methylPREDNISolone 60 MG in 0.9 % Sodium Chloride 100 ML IVPB SCH (15:15)
--- NOTE | 2017-05-05 15:16 | Internal Med Progress Note ---
Date of Encounter: 05/05/17 Time of Encounter: 15:12 - Assessment and plan (1) Hyperkalemia Current Visit: Yes Status: Acute Assessment and plan: related to missed HD sessions; received medical management in the ER with calcium gluconate/Albuterol/Insulin/D50; expect to correct with HD today; Telemetry monitoring; (2) Acute exacerbation of chronic obstructive pulmonary disease (COPD) Current Visit: Yes Status: Acute Assessment and plan: Continues to have wheezing and dyspnea; will change steroids to IV Solumedrol and taper down as tolerated. Continue scheduled bronchodilators, supplemental O2 ; empiric antibiotics- IV Levaquin. Chest XRay showed no e/o- Pneumonia; (3) Hypothyroidism Current Visit: Yes Status: Chronic Assessment and plan: resume Levothyroxine; Qualifiers: Hypothyroidism type: unspecified Qualified Code(s): E03.9 - Hypothyroidism , unspecified (4) Atrial fibrillation Current Visit: Yes Status: Chronic Assessment and plan: not on rate control agents at home due to issues with bradycardia in the past, per patient; continue anticoagulation with Coumadin; will use low dose Metoprolol for continued tachycardia, specially in the setting of IV steroids; Qualifiers: Atrial fibrillation type: chronic Qualified Code(s): I48.2 - Chronic atrial fibrillation (5) Diabetes Current Visit: Yes Status: Chronic Assessment and plan: Not on medications ay home; however h/o- steroid-induced hyperglycemia; will start Accucheck blood glucose monitoring with sliding scale insulin; Qualifiers: Diabetes mellitus type: type 2 Diabetes mellitus complication status: with kidney complications Diabetes mellitus complication detail: with chronic kidney disease Diabetes mellitus exterminator termite insulin use: without exterminator termite use Chronic kidney disease stage: on chronic dialysis Qualified Code(s): E11.22 - Type 2 diabetes mellitus with diabetic chronic kidney disease; N18.6 - End stage renal disease; Z99.2 - Dependence on renal dialysis (6) History of heart valve replacement Current Visit: Yes Status: Chronic Assessment and plan: s/p TAVR in Dec 2016; (7) Morbid obesity with BMI of 45.0-49.9, adult Current Visit: Yes Status: Chronic (8) ESRD on hemodialysis Current Visit: Yes Status: Chronic Assessment and plan: Nephrology consulted for HD needs and patient underwent HD today; renal diet; (9) CHF (congestive heart failure) Current Visit: Yes Status: Chronic Qualifiers: Congestive heart failure type: diastolic Congestive heart failure chronicity: chronic Qualified Code(s): I50.32 - Chronic diastolic (congestive ) heart failure - Subjective Interval history: Reports wheezing and dyspnea with intermittent cough; came back from HD today; - Constitutional Vitals: Temp Pulse Resp BP Pulse Ox 97.3 F L 113 20 163/61 95 05/05/17 13:25 05/05/17 07:03 05/05/17 13:25 05/05/17 13:25 05/05/17 07:41 General appearance: Present: cooperative, A&O X 3, morbidly obese, answers questions appropriately - Respiratory Respiratory exam: Present: CTAB, wheezes (B/L diffuse wheezing anteriorly and posteriorly). Absent: accessory muscle use, rales, rhonchi - Cardiovascular Cardiovascular exam: Present: irregular rhythm, +S1, +S2, tachycardia. Absent: diastolic murmur, gallop, rubs, systolic murmur - GI/Abdominal GI/Abdominal exam: Present: normal bowel sounds, soft (obese), no peritoneal signs. Absent: distended, tenderness - Extremities Exam Extremities exam: Present: full ROM, warm, radial pulses palpable and symetrical. Absent: calf tenderness, cyanotic, pedal edema - Neurological Exam Neurological exam: Present: CN II-XII intact, oriented X3, no focal deficits. Absent: pronater drift, facial droop, speech deficit Internal Medicine: Result - Labs CBC & Chem 7: 05/05/17 06:19 05/05/17 06:19 Labs: Short CBC 05/05/17 Range/Units 06:19 WBC 11.6 H (4.3-11.1) K/mcL Hgb 9.6 L (11.5-15.4) g/dL Hct 30.6 L (35.3-44.9) % Plt Count 117 L (140-400) K/mcL Neutrophils # 10.0 H (1.6-8.9) K/mcL BMP 05/05/17 06:19 Sodium 132 L Potassium 5.5 H Chloride 95 L Carbon Dioxide 22 BUN 104 H Creatinine 9.55 H Glucose 140 H Calcium 9.2 Cardiac Enzymes 05/04/17 05/05/17 Range/Units 22:30 06:19 Troponin I 0.08 H* 0.08 H* (0-0.03) ng/mL - ABG Interpretation ABG results: PT/INR, D-dimer PT 28.1 Seconds (9.4-12.1) H 05/05/17 06:19 Consult Discharge Plan - Plan Referrals: Enrique Strange MD [Primary Care Provider] -
[2017-05-05] MEDS ORDERED: methylPREDNISolone 125 MG/2 ML VIAL IVP SCH (16:00)
[2017-05-05] MEDS ORDERED: Levofloxacin 500 MG/100 ML 500 MG/100 ML BAG IVPB SCH (16:00)
[2017-05-05] MEDS ORDERED: levoFLOXacin 500 MG TABLET PO SCH (18:00)
[2017-05-05] MEDS ORDERED: *HR* Warfarin 5 MG TABLET PO SCH (18:00)
[2017-05-05] MEDS: predniSONE 20 MG TABLET PO SCH ×2 (18:36→18:37)
[2017-05-05] MEDS: Insulin LISPRO 300 UNITS/3 ML VIAL SQ SCH (18:38)
[2017-05-05] MEDS: Pregabalin 50 MG CAPSULE PO SCH (20:53)
[2017-05-05] MEDS: REQUIP 4 MG PO SCH (20:53)
[2017-05-05] MEDS ORDERED: Insulin LISPRO 300 UNITS/3 ML VIAL SQ SCH (21:00)
[2017-05-06] MEDS: Ipratropium/Albuterol Neb 3 ML IH SCH ×4 (03:52→16:19)
[2017-05-06 04:09] LABS: Basophils % 0.1 %; Immature Granulocytes % 0.4 % (0-4); Lymphocytes # 0.3 K/mcL (0.6-4.6); Lymphocytes % 3.1 %; Mean Corpuscular HGB Conc 32.1 g/dL (31.6-35.5); Mean Corpuscular Hemoglobin 30.4 pg (28.0-33.3); Mean Corpuscular Volume 94.6 fL (83.0-100.0); Monocytes # 0.3 K/mcL (0.0-1.3); Monocytes % 2.9 %; Neutrophils # 8.9 K/mcL (1.6-8.9); Platelet Count 108 K/mcL (140-400); Red Blood Count 2.96 M/mcL (3.82-4.97); Red Cell Distribution Width 14.6 % (11.5-14.5); Segmented Neutrophils % 93.5 %
[2017-05-06 04:11] LABS: INR 3.2; Prothrombin Time 35.2 Seconds (9.4-12.1)
[2017-05-06 04:21] LABS: Albumin 2.9 g/dL (3.5-5.0); Calcium 8.6 mg/dL (8.6-10.8); Phosphorous 4.7 mg/dL (2.3-4.7); Potassium 5.2 mEq/L (3.5-4.5)
[2017-05-06] MEDS: Budesonide/Formoterol 160/4.5 MDI IH SCH (07:44)
[2017-05-06] MEDS: Insulin LISPRO 300 UNITS/3 ML VIAL SQ SCH (08:01)
[2017-05-06] MEDS: Nystatin POWDER 30 GM BOTTLE TP SCH (08:01)
[2017-05-06] MEDS: Renal Vitamin 1 MG CAPSULE PO SCH (08:06)
[2017-05-06] MEDS: Loratadine 10 MG TABLET PO SCH (08:06)
[2017-05-06] MEDS: Lactobacillus 1 EACH CAP.SPRINK PO SCH (08:06)
[2017-05-06] MEDS: Pregabalin 50 MG CAPSULE PO SCH (08:07)
[2017-05-06] MEDS: predniSONE 20 MG TABLET PO SCH (08:07)
[2017-05-06] MEDS: Aspirin 81 MG TAB.CHEW PO SCH (08:07)
[2017-05-06] MEDS: Folic Acid 1 MG TABLET PO SCH (08:07)
[2017-05-06] MEDS: BIOTIN 10,000 MCG PO SCH (08:08)
[2017-05-06] MEDS ORDERED: Insulin DETEMIR 100 UNIT/ML X5UNITS SQ SCH (09:00)
--- NOTE | 2017-05-06 09:20 | Discharge Summary ---
Date of Encounter: 05/06/17 Time of Encounter: 09:14 - Discharge Diagnosis (1) Hyperkalemia Priority: Primary Status: Acute (2) Acute exacerbation of chronic obstructive pulmonary disease (COPD) Priority: Primary Status: Acute (3) Hypothyroidism Priority: Secondary Status: Chronic Qualifiers: Hypothyroidism type: unspecified Qualified Code(s): E03.9 - Hypothyroidism , unspecified (4) Atrial fibrillation Priority: Secondary Status: Chronic Qualifiers: Atrial fibrillation type: chronic Qualified Code(s): I48.2 - Chronic atrial fibrillation (5) Diabetes Priority: Secondary Status: Chronic Qualifiers: Diabetes mellitus type: type 2 Diabetes mellitus complication status: with kidney complications Diabetes mellitus complication detail: with chronic kidney disease Diabetes mellitus care home insulin use: without termite helper use Chronic kidney disease stage: on chronic dialysis Qualified Code(s): E11.22 - Type 2 diabetes mellitus with diabetic chronic kidney disease; N18.6 - End stage renal disease; Z99.2 - Dependence on renal dialysis (6) History of heart valve replacement Priority: Secondary Status: Chronic (7) Morbid obesity with BMI of 45.0-49.9, adult Priority: Secondary Status: Chronic (8) ESRD on hemodialysis Priority: Secondary Status: Chronic (9) CHF (congestive heart failure) Priority: Secondary Status: Chronic Qualifiers: Congestive heart failure type: diastolic Congestive heart failure chronicity: chronic Qualified Code(s): I50.32 - Chronic diastolic (congestive ) heart failure - Discharge Medications Prescriptions: Levofloxacin [Levaquin] 500 mg PO Q48H #3 tablet predniSONE [PredniSONE] 60 mg PO DAILY 12 Days Home Medications: Levothyroxine [Synthroid] 88 mcg PO DAILY 06/30/15 [History] [place]-3 Fatty Acids/Epa [Neurepa 1 Gram Capsule] 1 gm PO BID 06/30/15 [History] Pregabalin [Lyrica] 50 mg PO BID 06/30/15 [History] ALPRAZolam [Xanax 0.5 MG Tablet] 0.5 mg PO TID PRN 08/07/16 [History] Allopurinol [Zyloprim] 200 mg PO DAILY 08/07/16 [History] Aspirin 81 mg PO DAILY 08/07/16 [History] Atorvastatin [Lipitor] 10 mg PO HS 08/07/16 [History] Biotin [Estrada Biotin] 10,000 mcg PO DAILY 08/07/16 [History] Calcitriol [Rocaltrol] 0.25 mcg PO DAILY 08/07/16 [History] Docusate [Colace] 100 mg PO BID PRN 08/07/16 [History] Folic Acid 1 mg PO DAILY 08/07/16 [History] Nystatin POWDER [Nystop] 1 appl TP BID 08/07/16 [History] Oxycodone HCl 15 mg PO BID PRN 08/07/16 [History] Pantoprazole Sodium [Protonix] 40 mg PO DAILY 08/07/16 [History] Sertraline [Zoloft] 100 mg PO DAILY 08/07/16 [History] Albuterol Sulfate [Proair Hfa] 2 puff IH Q4H PRN 02/07/17 [History] Ipratropium/Albuterol Neb [Duoneb] 3 ml IH TID PRN 02/07/17 [History] Warfarin [Coumadin] 10 mg PO SUMOWETHFR 02/07/17 [History] Budesonide/Formoterol 160/4.5 [Symbicort 160/4.5] 2 puff IH BIDR 05/04/17 [ History] L. Acidophilus/Pectin, [place] [Acidophilus Probiotic Capsule] 1 each PO DAILY [History] Loratadine [Claritin] 10 mg PO DAILY 05/04/17 [History] Promethazine [Phenergan] 25 mg PO TID PRN 05/04/17 [History] Renal Vitamin [Renal Caps Softgel] 1 mg PO DAILY 05/04/17 [History] Ropinirole HCl [Requip Xl] 4 mg PO HS 05/04/17 [History] Warfarin [Coumadin] 5 mg PO TUSA 05/04/17 [History] Calcium Carbonate [Tums] 1,500 mg PO TID 05/05/17 [History] Insulin LISPRO [HumaLOG] 0 units SQ HS vial 05/06/17 [Rx] Insulin LISPRO [HumaLOG] 0 units SQ TIDAC vial 05/06/17 [Rx] Levofloxacin [Levaquin] 500 mg PO Q48H #3 tablet 05/06/17 [Rx] predniSONE [PredniSONE] 60 mg PO DAILY 12 Days 05/06/17 [Rx] Allergies/Adverse Reactions: Allergies MALACHI Inhibitors Allergy (Verified 05/04/17 15:58) Hives cephalexin [From Keflex] Allergy (Verified 05/04/17 15:58) Hives cephalothin Allergy (Verified 05/04/17 15:58) Hives ciprofloxacin [From Cipro] Allergy (Verified 05/04/17 15:58) See Comments unsure of reaction clindamycin Allergy (Verified 05/04/17 15:58) Hives codeine Allergy (Verified 05/04/17 15:58) Hives doxycycline Allergy (Verified 05/04/17 15:58) Difficulty Breathing fentanyl Allergy (Verified 05/04/17 15:58) See Comments low heart rate Hydromorphone [From Dilaudid] Allergy (Verified 05/04/17 15:58) See Comments low heart rate metoclopramide [From Reglan] Allergy (Verified 05/04/17 15:58) Hives metronidazole Allergy (Verified 05/04/17 15:58) Difficulty Breathing NSAIDS (Non-Steroidal Anti-Inflamma Allergy (Verified 05/04/17 15:58) Difficulty Breathing Penicillins [PCN] Allergy (Verified 05/04/17 15:58) Hives Sulfa (Sulfonamide Antibiotics) Allergy (Verified 05/04/17 15:58) Difficulty Breathing sulfamethoxazole [From Bactrim] Allergy (Verified 05/04/17 15:58) Difficulty Breathing trimethoprim Allergy (Verified 05/04/17 15:58) Hives Date of admission: 05/04/17 20:43 Primary care physician: Enrique Strange MD Consults: 05/05/17 09:00 Consult to Dialysis [CONS] ONCE 05/05/17 10:01 Consult to Invasive Line Access Team [CONS] Routine Reason for Consult: limited vascular access Line Type: EPIV Discharging clinician: Ashley Pryor Anticipated date of discharge: 05/06/17 - Patient Status Disposition: Home, Self-Care Condition: Fair Functional capacity at discharge: uses cane/walker Overall status at discharge: patient is progressing back to baseline - Discharge Instructions Instructions: Prednisone (By mouth), Levofloxacin (By mouth) Follow Up With: Enrique Strange MD [Primary Care Provider] - (web request) Additional Instructions: F/up for HD TTS - Diet and Activity Activity: resume usual activities as tolerated Diet: diabetic diet, other (renal/dialysis diet) Hospital course: Ms. Loza is a 61 year old female with the above medical problems who was admitted with worsening cough and respiratory distress. Patient was noted to have one missed hemodialysis session due to feeling ill and was noted to have mild hyperkalemia, which somewhat improved with hemodialysis in the hospital. Patient was noted to be in acute exacerbation of COPD and was started on empiric IV antibiotics along with oral steroids, scheduled bronchodilators, inhaled corticosteroids and supplemental oxygen. Patient did well on this regimen and improved significantly. She remained hemodynamically stable while in the hospital. Nephrology was consulted and patient received her hemodialysis session. Patient continued to require supplemental oxygen while in the hospital. Home oxygen evaluation along with 6 minute walk test was completed today and she would benefit from 2 L/m supplemental oxygen via nasal cannula at home and she is noted to be mobile at home. She is otherwise medically stable for discharge with outpatient follow-up. Patient is noted to have steroid-induced hyperglycemia and she does have short- acting insulin at home but does not follow diabetic diet as her blood sugars are usually controlled. She is encouraged to monitor her blood glucose closely while on steroids and to use her insulin and follow a diabetic diet until she completes her oral steroid regimen and she verbalized understanding. - Time Spent with Patient Total time spent providing and/or coordinating discharge services: Greater than 30 minutes (45 min) - Constitutional Vitals: Temp Pulse Resp BP Pulse Ox 97.6 F 79 22 138/70 97 05/06/17 07:11 05/06/17 07:11 05/06/17 07:11 05/06/17 07:11 05/06/17 07:11 General appearance: Present: cooperative, A&O X 3, morbidly obese, answers questions appropriately - Respiratory Respiratory exam: Present: CTAB. Absent: accessory muscle use, rales, rhonchi, wheezes - Cardiovascular Cardiovascular exam: Present: irregular rhythm, +S1, +S2. Absent: diastolic murmur, gallop, rubs, systolic murmur
--- NOTE | 2017-05-06 09:35 | Nephrology Progress Note ---
Date of Encounter: 05/06/17 Time of Encounter: 09:20 - Assessment and Plan (1) ESRD on hemodialysis Current Visit: Yes Status: Chronic Acute respiratory distress most likely secondary to volume overload given missed HD session and COPD exacerbation. Will dilyzes Sunday in [place], keeping TTS schedule. Subjective Interval history: States feeling much better, breathing easier. No new complaints. Objective - Vital Signs Vital signs: Vital Signs Temp Pulse Resp BP Pulse Ox 05/06/17 07:11 97.6 F 79 22 138/70 97 05/06/17 04:37 97.6 F 80 18 132/72 96 05/06/17 03:54 18 97 05/05/17 23:17 18 97 05/05/17 23:16 98.2 F 73 20 116/59 95 05/05/17 19:51 18 96 05/05/17 19:43 97.5 F L 87 18 135/67 95 05/05/17 16:05 98.4 F 110 24 138/75 05/05/17 15:44 18 96 05/05/17 13:25 97.3 F L 20 163/61 05/05/17 12:40 136/62 05/05/17 12:25 136/62 05/05/17 12:10 149/76 05/05/17 11:55 165/68 05/05/17 11:40 154/78 05/05/17 11:25 174/78 05/05/17 11:10 174/78 05/05/17 10:55 154/77 05/05/17 10:40 133/77 05/05/17 10:25 158/69 05/05/17 10:10 177/69 05/05/17 09:55 173/61 05/05/17 09:40 97.5 F L 22 178/71 Intake and Output 05/05/17 05/06/17 05/06/17 23:59 07:59 15:59 Intake Total 120 / 120 Balance 120 / 120 Intake: Oral 120 / 120 Other: Weight 145.9 kg Blood Glucose* 338 246 Patient Weight 05/06/17 23:59 Weight 145.9 kg - General Appearance General appearance: Present: well-developed, well-nourished, appears started age , obese EENT: Present: mucous membranes moist Neck: Present: no JVD Respiratory: Present: wheezing Cardiology: Present: no edema, regular rate, regular rhythm Gastrointestinal: Present: normoactive bowel sounds, no tenderness Integumentary: Present: warm and dry Neurologic: Present: alert and oriented x3 Psychiatric: Present: mood/affect appropriate, cooperative - Lab 05/06/17 03:00 05/06/17 03:00 Most recent lab results Calcium 8.6 mg/dL (8.6-10.8) 05/06/17 03:00 Phosphorus 4.7 mg/dL (2.3-4.7) 05/06/17 03:00 Magnesium 2.3 mg/dL (1.6-2.6) 05/05/17 06:19 Consult Discharge Plan - Plan Additional Instructions: F/up for HD TTS Referrals: Enrique Strange MD [Primary Care Provider] - Prescriptions: Levofloxacin [Levaquin] 500 mg PO Q48H #3 tablet predniSONE [PredniSONE] 60 mg PO DAILY 12 Days
[2017-05-06 10:50] VITALS: BP 155/79
[2017-05-06] MEDS ORDERED: Insulin LISPRO 300 UNITS/3 ML VIAL SQ SCH ×2 (11:30→21:00)
[2017-05-06] MEDS ORDERED: *HR* Warfarin 5 MG TABLET PO SCH (18:00)
--- NOTE | 2017-05-07 09:47 | Electrocardiograph Report ---
[address] [address] Test Date: 2017-05-04 Pat Name: Sandra Loza Department: 102 Room: 2A Gender: F Senior Environmental Consultant: [facility] : 1955 Requested By: Ministerio Humphrey Order Number: [id number] Reading MD: Chapin Moe MD Measurements Intervals [place] Rate: 95 P: [place]: 0 QRS: 44 QRSD: 112 T: 63 QT: 352 QTc: 405 Interpretive Statements ATRIAL FIBRILLATION Electronically Signed On 05-07-2017 9:46:27 EDT by Chapin Moe MD
[2017-05-07 10:56] LABS: Hepatitis B Surface Antibody 0.43 mIU/mL; Hepatitis B Surface Antigen Nonreactive (Nonreactive)
== END 2017-05-06 16:27 | disposition home or self-care (01) | DRG 190 ==
LOC: EMEROO 15:53 → 2ANU 15:53 → SUATTDRO 20:43
PROVIDERS: ADMIT Internal Medicine; ATTEND Internal Medicine

== ENCOUNTER 2017-06-09 06:23 | Inpatient (IN) ==
[2017-06-09] MEDS ORDERED: 0.9 % Sodium Chloride 1,000 ML IVC ONE (06:44)
--- NOTE | 2017-06-09 07:14 | Emergency Department Note ---
Disposition Clinical Impression: Hospital-acquired pneumonia, Anemia, Elevated troponin, ESRD on hemodialysis, Atrial fibrillation, Acute electrocardiogram changes Disposition: Admitted As Inpatient Condition: Fair General Adult HPI - General Chief complaint: ED Shortness of Breath/Dyspnea Stated complaint: SOB Time Seen by Provider: 06/09/17 06:28 Source: patient Limitations: no limitations - History of Present Illness Pain Scale: 6 - Related Data Home Medications Medication Instructions Recorded Confirmed Levothyroxine [Synthroid] 88 mcg PO DAILY 06/30/15 06/09/17 [place]-3 Fatty Acids/Epa [Neurepa 1 1 gm PO BID 06/30/15 06/09/17 Gram Capsule] Pregabalin [Lyrica] 50 mg PO BID 06/30/15 06/09/17 ALPRAZolam [Xanax 0.5 MG Tablet] 0.5 mg PO TID PRN 08/07/16 06/09/17 Allopurinol [Zyloprim] 200 mg PO DAILY 08/07/16 06/09/17 Aspirin 81 mg PO DAILY 08/07/16 06/09/17 Atorvastatin [Lipitor] 10 mg PO HS 08/07/16 06/09/17 Biotin [Estrada Biotin] 10,000 mcg PO DAILY 08/07/16 06/09/17 Calcitriol [Rocaltrol] 0.25 mcg PO DAILY 08/07/16 06/09/17 Docusate [Colace] 100 mg PO BID PRN 08/07/16 06/09/17 Folic Acid 1 mg PO DAILY 08/07/16 06/09/17 Nystatin POWDER [Nystop] 1 appl TP BID 08/07/16 06/09/17 Oxycodone HCl 15 mg PO BID PRN 08/07/16 06/09/17 Pantoprazole Sodium [Protonix] 40 mg PO DAILY 08/07/16 06/09/17 Sertraline [Zoloft] 100 mg PO DAILY 08/07/16 06/09/17 Albuterol Sulfate [Proair Hfa] 2 puff IH Q4H PRN 02/07/17 06/09/17 Ipratropium/Albuterol Neb [Duoneb] 3 ml IH TID PRN 02/07/17 06/09/17 Warfarin [Coumadin] 10 mg PO [place] 02/07/17 06/09/17 Budesonide/Formoterol 160/4.5 2 puff IH BIDR 05/04/17 06/09/17 [Symbicort 160/4.5] Loratadine [Claritin] 10 mg PO DAILY 05/04/17 06/09/17 Promethazine [Phenergan] 25 mg PO TID PRN 05/04/17 06/09/17 Renal Vitamin [Renal Caps Softgel] 1 mg PO DAILY 05/04/17 06/09/17 Ropinirole HCl [Requip Xl] 4 mg PO HS 05/04/17 06/09/17 Warfarin [Coumadin] 5 mg PO TUTHFR 05/04/17 06/09/17 Calcium Carbonate [Tums] 1,500 mg PO TID 05/05/17 06/09/17 Allergies Allergy/AdvReac Type Severity Reaction Status Date / Time MALACHI Inhibitors Allergy Hives Verified 05/04/17 15:58 cephalexin [From Keflex] Allergy Hives Verified 05/04/17 15:58 cephalothin Allergy Hives Verified 05/04/17 15:58 ciprofloxacin [From Cipro] Allergy See Verified 05/04/17 15:58 Comments clindamycin Allergy Hives Verified 05/04/17 15:58 codeine Allergy Hives Verified 05/04/17 15:58 doxycycline Allergy Difficulty Verified 05/04/17 15:58 Breathing fentanyl Allergy See Verified 05/04/17 15:58 Comments Hydromorphone [From Dilaudid] Allergy See Verified 05/04/17 15:58 Comments metoclopramide [From Reglan] Allergy Hives Verified 05/04/17 15:58 metronidazole Allergy Difficulty Verified 05/04/17 15:58 Breathing NSAIDS (Non-Steroidal Allergy Difficulty Verified 05/04/17 15:58 Anti-Inflamma Breathing Penicillins [PCN] Allergy Hives Verified 05/04/17 15:58 Sulfa (Sulfonamide Allergy Difficulty Verified 05/04/17 15:58 Antibiotics) Breathing sulfamethoxazole Allergy Difficulty Verified 05/04/17 15:58 [From Bactrim] Breathing trimethoprim Allergy Hives Verified 05/04/17 15:58 Past Medical History - Past Medical History Medical history: Reports: arthritis, atrial fibrillation, CHF, COPD, diabetes, dialysis, hyperlipidemia, hypertension, migraine, thyroid disease, valvular heart disease, other Surgical history: Reports: cataract, cholecystectomy, heart valve replacement, orthopedic, other Psychiatric history: Reports: anxiety, depression BILLET INSPECTOR history: Reports: no BILLET INSPECTOR history - Social History Smoking Status: Former smoker Smokeless Tobacco Status: No Alcohol use: Reports: none Drug use: Reports: none Physical Exam - General Limitations: no limitations General appearance: alert, in no apparent distress Course Vital Signs Temperature 100.3 F H 06/09/17 06:23 Pulse Rate 110 06/09/17 06:23 Respiratory Rate 22 06/09/17 06:23 Blood Pressure 141/59 06/09/17 06:23 O2 Sat by Pulse Oximetry 94 06/09/17 06:23 Temperature 98.2 F 06/09/17 11:41 Pulse Rate 86 06/09/17 11:41 Respiratory Rate 18 06/09/17 11:41 Blood Pressure 121/71 06/09/17 11:41 O2 Sat by Pulse Oximetry 95 06/09/17 11:41 Oxygen Delivery Oxygen Delivery Nasal Cannula Medical Decision Making - Lab Data Result diagrams: 06/09/17 07:15 06/09/17 07:15 Lab Results 06/09/17 06/09/17 06/09/17 Range/Units 07:15 07:15 07:15 WBC 8.0 (4.3-11.1) K/mcL RBC 2.65 L (3.82-4.97) M/mcL Hgb 7.9 L (11.5-15.4) g/dL Hct 25.3 L (35.3-44.9) % MCV 95.5 (83.0-100.0) fL MCH 29.8 (28.0-33.3) pg MCHC 31.2 L (31.6-35.5) g/dL RDW 14.4 (11.5-14.5) % Plt Count 143 (140-400) K/mcL MPV 12.7 H (9.4-12.4) fL Immature Gran % 0.8 (0-4) % Seg Neutrophils % 84.4 % Lymphocytes % 4.9 % Monocytes % 8.3 % Eosinophils % 1.1 % Basophils % 0.5 % Neutrophils # 6.7 (1.6-8.9) K/mcL Lymphocytes # 0.4 L (0.6-4.6) K/mcL Monocytes # 0.7 (0.0-1.3) K/mcL Eosinophils # 0.1 (0.0-0.6) K/mcL Basophils # 0.0 (0.0-0.2) K/mcL PT 48.8 H* (9.4-12.1) Seconds INR 4.3 APTT 50.2 H (26.0-36.0) Seconds Sodium 134 L (136-145) mEq/L Potassium 4.4 (3.5-4.5) mEq/L Chloride 98 (98-109) mEq/L Carbon Dioxide 24 (19-29) mEq/L BUN 49 H (7-20) mg/dL Creatinine 6.46 H (0.57-1.11) mg/dL Est GFR ( Amer) 8 L (> 60) Est GFR (Non-Af Amer) 7 L (> 60) BUN/Creatinine Ratio 8 (6-26) Glucose 248 H (70-99) mg/dL Calculated Osmolality 299 (280-300) Lactic Acid (0.5-2.2) mmol/L Calcium 9.2 (8.6-10.8) mg/dL Phosphorus 2.8 (2.3-4.7) mg/dL Magnesium 1.9 (1.6-2.6) mg/dL Total Bilirubin 0.4 (0.2-1.2) mg/dL Direct Bilirubin 0.2 (0.0-0.5) mg/dL Indirect Bilirubin 0.2 (0.0-1.2) mg/dL AST 26 (5-34) Units/L ALT 18 (0-55) Units/L Alkaline Phosphatase 95 (38-126) Units/L Troponin I (0-0.03) ng/mL B-Natriuretic Peptide (0-100) pg/mL Serum Total Protein 6.7 (6.0-8.3) g/dL Albumin 2.4 L (3.5-5.0) g/dL Globulin 4.3 H (2.4-3.5) g/dL Albumin/Globulin Ratio 0.6 L (1.1-2.2) Blood Type Antibody Screen Antibody Identification 06/09/17 06/09/17 06/09/17 Range/Units 07:15 07:15 07:15 WBC (4.3-11.1) K/mcL RBC (3.82-4.97) M/mcL Hgb (11.5-15.4) g/dL Hct (35.3-44.9) % MCV (83.0-100.0) fL MCH (28.0-33.3) pg MCHC (31.6-35.5) g/dL RDW (11.5-14.5) % Plt Count (140-400) K/mcL MPV (9.4-12.4) fL Immature Gran % (0-4) % Seg Neutrophils % % Lymphocytes % % Monocytes % % Eosinophils % % Basophils % % Neutrophils # (1.6-8.9) K/mcL Lymphocytes # (0.6-4.6) K/mcL Monocytes # (0.0-1.3) K/mcL Eosinophils # (0.0-0.6) K/mcL Basophils # (0.0-0.2) K/mcL PT (9.4-12.1) Seconds INR APTT (26.0-36.0) Seconds Sodium (136-145) mEq/L Potassium (3.5-4.5) mEq/L Chloride (98-109) mEq/L Carbon Dioxide (19-29) mEq/L BUN (7-20) mg/dL Creatinine (0.57-1.11) mg/dL Est GFR ( Amer) (> 60) Est GFR (Non-Af Amer) (> 60) BUN/Creatinine Ratio (6-26) Glucose (70-99) mg/dL Calculated Osmolality (280-300) Lactic Acid 0.7 (0.5-2.2) mmol/L Calcium (8.6-10.8) mg/dL Phosphorus (2.3-4.7) mg/dL Magnesium (1.6-2.6) mg/dL Total Bilirubin (0.2-1.2) mg/dL Direct Bilirubin (0.0-0.5) mg/dL Indirect Bilirubin (0.0-1.2) mg/dL AST (5-34) Units/L ALT (0-55) Units/L Alkaline Phosphatase (38-126) Units/L Troponin I 0.14 H* (0-0.03) ng/mL B-Natriuretic Peptide 291 H (0-100) pg/mL Serum Total Protein (6.0-8.3) g/dL Albumin (3.5-5.0) g/dL Globulin (2.4-3.5) g/dL Albumin/Globulin Ratio (1.1-2.2) Blood Type Antibody Screen Antibody Identification 06/09/17 Range/Units 07:15 WBC (4.3-11.1) K/mcL RBC (3.82-4.97) M/mcL Hgb (11.5-15.4) g/dL Hct (35.3-44.9) % MCV (83.0-100.0) fL MCH (28.0-33.3) pg MCHC (31.6-35.5) g/dL RDW (11.5-14.5) % Plt Count (140-400) K/mcL MPV (9.4-12.4) fL Immature Gran % (0-4) % Seg Neutrophils % % Lymphocytes % % Monocytes % % Eosinophils % % Basophils % % Neutrophils # (1.6-8.9) K/mcL Lymphocytes # (0.6-4.6) K/mcL Monocytes # (0.0-1.3) K/mcL Eosinophils # (0.0-0.6) K/mcL Basophils # (0.0-0.2) K/mcL PT (9.4-12.1) Seconds INR APTT (26.0-36.0) Seconds Sodium (136-145) mEq/L Potassium (3.5-4.5) mEq/L Chloride (98-109) mEq/L Carbon Dioxide (19-29) mEq/L BUN (7-20) mg/dL Creatinine (0.57-1.11) mg/dL Est GFR ( Amer) (> 60) Est GFR (Non-Af Amer) (> 60) BUN/Creatinine Ratio (6-26) Glucose (70-99) mg/dL Calculated Osmolality (280-300) Lactic Acid (0.5-2.2) mmol/L Calcium (8.6-10.8) mg/dL Phosphorus (2.3-4.7) mg/dL Magnesium (1.6-2.6) mg/dL Total Bilirubin (0.2-1.2) mg/dL Direct Bilirubin (0.0-0.5) mg/dL Indirect Bilirubin (0.0-1.2) mg/dL AST (5-34) Units/L ALT (0-55) Units/L Alkaline Phosphatase (38-126) Units/L Troponin I (0-0.03) ng/mL B-Natriuretic Peptide (0-100) pg/mL Serum Total Protein (6.0-8.3) g/dL Albumin (3.5-5.0) g/dL Globulin (2.4-3.5) g/dL Albumin/Globulin Ratio (1.1-2.2) Blood Type O POSITIVE Antibody Screen POSITIVE Antibody Identification Known Anti-c Attestation Statement - Attestation Attestation: I examined this patient and my medical decision-making was reviewed with the MLP. I agree with the documented findings, disposition and treatment plan as described except to the extent set forth below. Patient is a known end-stage renal disease dialysis patient with chronic anemia who presents with dyspnea, cough, fevers. EKG reviewed by me showing atrial fibrillation. She takes Coumadin. I discussed the management of this case with the mid-level provider Tammie. Patient does not appear in any acute distress on exam. I anticipate the need for admission
[2017-06-09 07:32] LABS: Basophils % 0.5 %; Eosinophils # 0.1 K/mcL (0.0-0.6); Eosinophils % 1.1 %; Hematocrit 25.3 % (35.3-44.9); Immature Granulocytes % 0.8 % (0-4); Lymphocytes # 0.4 K/mcL (0.6-4.6); Lymphocytes % 4.9 %; Mean Corpuscular HGB Conc 31.2 g/dL (31.6-35.5); Mean Corpuscular Hemoglobin 29.8 pg (28.0-33.3); Mean Corpuscular Volume 95.5 fL (83.0-100.0); Mean Platelet Volume 12.7 fL (9.4-12.4); Monocytes # 0.7 K/mcL (0.0-1.3); Monocytes % 8.3 %; Neutrophils # 6.7 K/mcL (1.6-8.9); Platelet Count 143 K/mcL (140-400); Red Blood Count 2.65 M/mcL (3.82-4.97); Red Cell Distribution Width 14.4 % (11.5-14.5); Segmented Neutrophils % 84.4 %
[2017-06-09 07:37] LABS: Activated Partial Thrombo Time 50.2 Seconds (26.0-36.0)
[2017-06-09 07:41] LABS: INR 4.3; Prothrombin Time 48.8 Seconds (9.4-12.1)
[2017-06-09 07:53] LABS: Potassium 4.4 mEq/L (3.5-4.5)
[2017-06-09 07:54] LABS: Albumin 2.4 g/dL (3.5-5.0); Albumin/Globulin Ratio 0.6 (1.1-2.2); Bilirubin,Direct 0.2 mg/dL (0.0-0.5); Bilirubin,Indirect 0.2 mg/dL (0.0-1.2); Bilirubin,Total 0.4 mg/dL (0.2-1.2); Calcium 9.2 mg/dL (8.6-10.8); Globulin 4.3 g/dL (2.4-3.5); Magnesium 1.9 mg/dL (1.6-2.6); Phosphorous 2.8 mg/dL (2.3-4.7); Total Protein 6.7 g/dL (6.0-8.3)
[2017-06-09 07:55] LABS: Hemoglobin 7.9 g/dL (11.5-15.4)
--- NOTE | 2017-06-09 08:08 | Emergency Department Note ---
Disposition Clinical Impression: Hospital-acquired pneumonia, Elevated troponin, ESRD on hemodialysis, Acute electrocardiogram changes Anemia Qualifiers: Anemia type: unspecified type Qualified Code(s): D64.9 - Anemia, unspecified Atrial fibrillation Qualifiers: Atrial fibrillation type: chronic Qualified Code(s): I48.2 - Chronic atrial fibrillation Disposition: Admitted As Inpatient Condition: Fair Referrals: NONE,PCP [Primary Care Provider] - Forms: ED Satisfaction Letter SOB HPI - General Chief Complaint: ED Shortness of Breath/Dyspnea Stated Complaint: SOB Time Seen by Provider: 06/09/17 06:28 Source: patient, family Mode of arrival: private vehicle Limitations: no limitations Nursing Notes Reviewed: Yes Vital Signs Reviewed: Yes - History of Present Illness Pt Subjective Complaint: shortness of breath Onset (ago): day(s) (3) Context: other (Hx of COPD and anemia, but cough is different than usual and feeling fatigued) Severity: mild ("not bad at all when resting") Consistency/Duration: intermittent Improves with: rest Worsens with: exertion, coughing Known history of: COPD, diabetes, other (A-fib, ESRD - was supposed to be dialyzed this AM, Valve replaced 12/22) Associated symptoms: Reports: fever, cough, sputum production. Denies: chest pain, pain with inspiration, wheezing, orthopnea, lower extremity pain, parasthesias, palpitations, hemoptysis, diaphoresis, nausea/vomiting, syncope, abdominal pain, rash, sense of impending doom Treatment prior to arrival: none Cough present: Yes Cough Description: Involuntary, Productive Cough Frequency: Intermittent Sputum production: Yes Sputum Amount: Scant Sputum Color: White - Related Data Home oxygen amount: 2 liters Home Medications Medication Instructions Recorded Confirmed Levothyroxine [Synthroid] 88 mcg PO DAILY 06/30/15 05/04/17 [place]-3 Fatty Acids/Epa [Neurepa 1 1 gm PO BID 06/30/15 05/04/17 Gram Capsule] Pregabalin [Lyrica] 50 mg PO BID 06/30/15 05/04/17 ALPRAZolam [Xanax 0.5 MG Tablet] 0.5 mg PO TID PRN 08/07/16 05/04/17 Allopurinol [Zyloprim] 200 mg PO DAILY 08/07/16 05/04/17 Aspirin 81 mg PO DAILY 08/07/16 05/04/17 Atorvastatin [Lipitor] 10 mg PO HS 08/07/16 05/04/17 Biotin [Estrada Biotin] 10,000 mcg PO DAILY 08/07/16 05/04/17 Calcitriol [Rocaltrol] 0.25 mcg PO DAILY 08/07/16 05/04/17 Docusate [Colace] 100 mg PO BID PRN 08/07/16 05/04/17 Folic Acid 1 mg PO DAILY 08/07/16 05/04/17 Nystatin POWDER [Nystop] 1 appl TP BID 08/07/16 05/04/17 Oxycodone HCl 15 mg PO BID PRN 08/07/16 05/04/17 Pantoprazole Sodium [Protonix] 40 mg PO DAILY 08/07/16 05/04/17 Sertraline [Zoloft] 100 mg PO DAILY 08/07/16 05/04/17 Albuterol Sulfate [Proair Hfa] 2 puff IH Q4H PRN 02/07/17 05/04/17 Ipratropium/Albuterol Neb [Duoneb] 3 ml IH TID PRN 02/07/17 05/04/17 Warfarin [Coumadin] 10 mg PO SUMOWETHFR 02/07/17 05/04/17 Budesonide/Formoterol 160/4.5 2 puff IH BIDR 05/04/17 05/04/17 [Symbicort 160/4.5] L. Acidophilus/Pectin, [place] 1 each PO DAILY 05/04/17 05/04/17 [Acidophilus Probiotic Capsule] Loratadine [Claritin] 10 mg PO DAILY 05/04/17 05/04/17 Promethazine [Phenergan] 25 mg PO TID PRN 05/04/17 05/04/17 Renal Vitamin [Renal Caps Softgel] 1 mg PO DAILY 05/04/17 05/04/17 Ropinirole HCl [Requip Xl] 4 mg PO HS 05/04/17 05/04/17 Warfarin [Coumadin] 5 mg PO TUSA 05/04/17 05/04/17 Calcium Carbonate [Tums] 1,500 mg PO TID 05/05/17 05/06/17 Previous Rx's Medication Instructions Recorded Insulin LISPRO [HumaLOG] 0 units SQ HS vial 05/06/17 Insulin LISPRO [HumaLOG] 0 units SQ TIDAC vial 05/06/17 Levofloxacin [Levaquin] 500 mg PO Q48H #3 tablet 05/06/17 predniSONE [PredniSONE] 60 mg PO DAILY 12 Days 05/06/17 Allergies Allergy/AdvReac Type Severity Reaction Status Date / Time MALACHI Inhibitors Allergy Hives Verified 05/04/17 15:58 cephalexin [From Keflex] Allergy Hives Verified 05/04/17 15:58 cephalothin Allergy Hives Verified 05/04/17 15:58 ciprofloxacin [From Cipro] Allergy See Verified 05/04/17 15:58 Comments clindamycin Allergy Hives Verified 05/04/17 15:58 codeine Allergy Hives Verified 05/04/17 15:58 doxycycline Allergy Difficulty Verified 05/04/17 15:58 Breathing fentanyl Allergy See Verified 05/04/17 15:58 Comments Hydromorphone [From Dilaudid] Allergy See Verified 05/04/17 15:58 Comments metoclopramide [From Reglan] Allergy Hives Verified 05/04/17 15:58 metronidazole Allergy Difficulty Verified 05/04/17 15:58 Breathing NSAIDS (Non-Steroidal Allergy Difficulty Verified 05/04/17 15:58 Anti-Inflamma Breathing Penicillins [PCN] Allergy Hives Verified 05/04/17 15:58 Sulfa (Sulfonamide Allergy Difficulty Verified 05/04/17 15:58 Antibiotics) Breathing sulfamethoxazole Allergy Difficulty Verified 05/04/17 15:58 [From Bactrim] Breathing trimethoprim Allergy Hives Verified 05/04/17 15:58 All systems ED: reviewed and negative except as stated. Constitutional: Reports: fever, chills. Denies: weakness, weight change, night sweats Eyes: Denies: eye pain, eye discharge, vision change ENT ED: Denies: throat pain, congestion, dysphagia Cardiovascular: Reports: as per HPI, dyspnea on exertion. Denies: chest pain, palpitations, orthopnea, edema ("no more than usual") Respiratory: Reports: as per HPI, cough, dyspnea, sputum production. Denies: wheezes, hemoptysis, stridor Gastrointestinal: Denies: abdominal pain, nausea, vomiting, diarrhea Genitourinary: Denies: dysuria Musculoskeletal: Reports: joint swelling ("Right knee is always swollen"). Denies: back pain, neck pain Integumentary: Denies: rash Neurological: Denies: headache, confusion, vertigo Endocrine: Reports: as per HPI, fatigue Hematological/Lymphatic: Reports: easy bleeding ("INR was a little high yesterday at the clinic"), easy bruising. Denies: lymphadenopathy Past Medical History - Past Medical History Attestation: Yes The following information was validated with the patient. 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 Absent: scleral icterus, conjunctival injection, periorbital swelling - ENT ENT exam: mucous membranes moist - Neck Neck exam: Present: normal inspection, full ROM, trachea midline. Absent: meningismus - Chest Chest inspection: Present: normal inspection - Respiratory Respiratory exam: Present: normal lung sounds bilaterally. Absent: respiratory distress, wheezes, stridor, accessory muscle use, prolonged expiratory phase - Cardiovascular Cardiovascular exam: Present: tachycardia, irregular rhythm. Absent: rubs, gallop, clicks - Abdominal Exam Abdominal exam: Present: soft, Non-Tender. Absent: mass - Extremities Exam Extremities exam: Present: normal capillary refill, pedal edema (mild, bilateral , symmetric). Absent: tenderness - Neurological Exam Neurological exam: Present: alert, oriented X3, CN II-XII intact. Absent: motor sensory deficit - Psychiatric Psychiatric exam: Present: normal affect, normal mood - Skin Skin exam: Present: warm, dry, intact, normal color Course Course Narrative: 61-year-old obese diabetic female with end-stage renal disease on dialysis, atrial fibrillation on Coumadin, status post valve repair in December of this year at [place]. She presents from home with family for evaluation of fatigue and shortness of breath, more so than usual, for the past three days. She also complains of intermittent fever, chills, and a cough that is different than her usual cough. She does have a history of COPD and anemia. She states that her hemoglobin was 7.9 when it was drawn at the dialysis center two days ago. She has been receiving Aranesp injections. She recently underwent a thorough evaluation for the anemia by her PCP. She does not know the results of these tests yet. She was supposed to go to dialysis this morning but was feeling very sleepy, fatigued and was short of breath when trying to walk. Her family member talked her into coming here instead. On exam, she appears tired but not weak or toxic. She has no focal neurologic deficit. She is not tachypneic and she is able to speak in complete sentences without becoming short of breath. She is intermittently tachycardic with her heart rate ranging between 90 and 110, and atrial fibrillation. She has mild nonpitting symmetric lower extremity edema in the feet and ankles. Her left knee is edematous as well. However, this is chronic. She has negative Homans sign. Her mental status is normal. Her neuro exam is normal. Labs and an x-ray have been ordered. EKG hazard been done. It shows atrial fibrillation rate of 106 with acute changes in lead V5 Compared to April of this year. Patient's oxygen saturation has remained above 93% on 2 L by nasal cannula. Chest x-ray shows possible bilateral infiltrates in the bases. CBC shows stable anemia, normal platelet count, normal white blood cell count. Creatinine is at her baseline 6.9, glucose is 200 something. Potassium is normal. Lactic acid is normal. Type and screen was done. She is O+. Blood cultures were obtained 2. Order was placed for sputum culture, but she has not produced any. Urinalysis is ordered, although I do not think she makes any urine. Patient was recently admitted to the hospital. She was discharged the first week of May. Given her fever, dyspnea on exertion different cough, increased oxygen requirement, generalized malaise and fatigue along with the x- ray findings and concern for hospital-acquired pneumonia. Patient has multiple antibiotic allergies. Two options for hospital-acquired pneumonia, include Azactam and vancomycin. These choices were discussed with Dr. Muir, and the hospitalist. They are in agreement with this plan. Patient to be admitted. - Consultations Consultation #1: Case was discussed with Dr. Muir. He is familiar with this patient. He recommends that the patient be admitted to the hospitalist and he will arrange for her to be dialyzed today. He agrees with the plan to use Azactam and vancomycin to treat the probable hospital-acquired pneumonia. The hospitalist has been paged. Time: 08:10 Vital Signs Temperature 100.3 F H 06/09/17 06:23 Pulse Rate 110 06/09/17 06:23 Respiratory Rate 22 06/09/17 06:23 Blood Pressure 141/59 06/09/17 06:23 O2 Sat by Pulse Oximetry 94 06/09/17 06:23 Temperature 100.3 F H 06/09/17 06:23 Pulse Rate 110 06/09/17 06:23 Respiratory Rate 22 06/09/17 06:23 Blood Pressure 141/59 06/09/17 06:23 O2 Sat by Pulse Oximetry 91 06/09/17 07:30 Oxygen Delivery Oxygen Delivery Nasal Cannula Shortness of Breath/Dyspnea - Medical Records Medical records reviewed: Yes I reviewed the patient's medical records. - Lab Data Lab results reviewed: Yes I reviewed the patient's lab results. Lab results narrative: Laboratory Last Values WBC 8.0 K/mcL (4.3-11.1) 06/09/17 07:15 RBC 2.65 M/mcL (3.82-4.97) L 06/09/17 07:15 Hgb 7.9 g/dL (11.5-15.4) L 06/09/17 07:15 Hct 25.3 % (35.3-44.9) L 06/09/17 07:15 MCV 95.5 fL (83.0-100.0) 06/09/17 07:15 MCH 29.8 pg (28.0-33.3) 06/09/17 07:15 MCHC 31.2 g/dL (31.6-35.5) L 06/09/17 07:15 RDW 14.4 % (11.5-14.5) 06/09/17 07:15 Plt Count 143 K/mcL (140-400) 06/09/17 07:15 MPV 12.7 fL (9.4-12.4) H 06/09/17 07:15 Immature Gran % 0.8 % (0-4) 06/09/17 07:15 Seg Neutrophils % 84.4 % 06/09/17 07:15 Lymphocytes % 4.9 % 06/09/17 07:15 Monocytes % 8.3 % 06/09/17 07:15 Eosinophils % 1.1 % 06/09/17 07:15 Basophils % 0.5 % 06/09/17 07:15 Neutrophils # 6.7 K/mcL (1.6-8.9) 06/09/17 07:15 Lymphocytes # 0.4 K/mcL (0.6-4.6) L 06/09/17 07:15 Monocytes # 0.7 K/mcL (0.0-1.3) 06/09/17 07:15 Eosinophils # 0.1 K/mcL (0.0-0.6) 06/09/17 07:15 Basophils # 0.0 K/mcL (0.0-0.2) 06/09/17 07:15 PT 48.8 Seconds (9.4-12.1) H* 06/09/17 07:15 INR 4.3 06/09/17 07:15 APTT 50.2 Seconds (26.0-36.0) H 06/09/17 07:15 Sodium 134 mEq/L (136-145) L 06/09/17 07:15 Potassium 4.4 mEq/L (3.5-4.5) 06/09/17 07:15 Chloride 98 mEq/L (98-109) 06/09/17 07:15 Carbon Dioxide 24 mEq/L (19-29) 06/09/17 07:15 BUN 49 mg/dL (7-20) H 06/09/17 07:15 Creatinine 6.46 mg/dL (0.57-1.11) H 06/09/17 07:15 Est GFR ( Amer) 8 (> 60) L 06/09/17 07:15 Est GFR (Non-Af Amer) 7 (> 60) L 06/09/17 07:15 BUN/Creatinine Ratio 8 (6-26) 06/09/17 07:15 Glucose 248 mg/dL (70-99) H 06/09/17 07:15 Calculated Osmolality 299 (280-300) 06/09/17 07:15 Lactic Acid 0.7 mmol/L (0.5-2.2) 06/09/17 07:15 Calcium 9.2 mg/dL (8.6-10.8) 06/09/17 07:15 Phosphorus 2.8 mg/dL (2.3-4.7) 06/09/17 07:15 Magnesium 1.9 mg/dL (1.6-2.6) 06/09/17 07:15 Total Bilirubin 0.4 mg/dL (0.2-1.2) 06/09/17 07:15 Direct Bilirubin 0.2 mg/dL (0.0-0.5) 06/09/17 07:15 Indirect Bilirubin 0.2 mg/dL (0.0-1.2) 06/09/17 07:15 AST 26 Units/L (5-34) 06/09/17 07:15 ALT 18 Units/L (0-55) 06/09/17 07:15 Alkaline Phosphatase 95 Units/L (38-126) 06/09/17 07:15 Troponin I 0.14 ng/mL (0-0.03) H* 06/09/17 07:15 B-Natriuretic Peptide 291 pg/mL (0-100) H 06/09/17 07:15 Serum Total Protein 6.7 g/dL (6.0-8.3) 06/09/17 07:15 Albumin 2.4 g/dL (3.5-5.0) L 06/09/17 07:15 Globulin 4.3 g/dL (2.4-3.5) H 06/09/17 07:15 Albumin/Globulin Ratio 0.6 (1.1-2.2) L 06/09/17 07:15 Blood Type O POSITIVE 06/09/17 07:15 Antibody Screen POSITIVE 06/09/17 07:15 Result diagrams: 06/09/17 07:15 06/09/17 07:15 Lab Results 06/09/17 06/09/17 06/09/17 Range/Units 07:15 07:15 07:15 WBC 8.0 (4.3-11.1) K/mcL RBC 2.65 L (3.82-4.97) M/mcL Hgb 7.9 L (11.5-15.4) g/dL Hct 25.3 L (35.3-44.9) % MCV 95.5 (83.0-100.0) fL MCH 29.8 (28.0-33.3) pg MCHC 31.2 L (31.6-35.5) g/dL RDW 14.4 (11.5-14.5) % Plt Count 143 (140-400) K/mcL MPV 12.7 H (9.4-12.4) fL Immature Gran % 0.8 (0-4) % Seg Neutrophils % 84.4 % Lymphocytes % 4.9 % Monocytes % 8.3 % Eosinophils % 1.1 % Basophils % 0.5 % Neutrophils # 6.7 (1.6-8.9) K/mcL Lymphocytes # 0.4 L (0.6-4.6) K/mcL Monocytes # 0.7 (0.0-1.3) K/mcL Eosinophils # 0.1 (0.0-0.6) K/mcL Basophils # 0.0 (0.0-0.2) K/mcL PT 48.8 H* (9.4-12.1) Seconds INR 4.3 APTT 50.2 H (26.0-36.0) Seconds Sodium 134 L (136-145) mEq/L Potassium 4.4 (3.5-4.5) mEq/L Chloride 98 (98-109) mEq/L Carbon Dioxide 24 (19-29) mEq/L BUN 49 H (7-20) mg/dL Creatinine 6.46 H (0.57-1.11) mg/dL Est GFR ( Amer) 8 L (> 60) Est GFR (Non-Af Amer) 7 L (> 60) BUN/Creatinine Ratio 8 (6-26) Glucose 248 H (70-99) mg/dL Calculated Osmolality 299 (280-300) Lactic Acid (0.5-2.2) mmol/L Calcium 9.2 (8.6-10.8) mg/dL Phosphorus 2.8 (2.3-4.7) mg/dL Magnesium 1.9 (1.6-2.6) mg/dL Total Bilirubin 0.4 (0.2-1.2) mg/dL Direct Bilirubin 0.2 (0.0-0.5) mg/dL Indirect Bilirubin 0.2 (0.0-1.2) mg/dL AST 26 (5-34) Units/L ALT 18 (0-55) Units/L Alkaline Phosphatase 95 (38-126) Units/L Troponin I (0-0.03) ng/mL B-Natriuretic Peptide (0-100) pg/mL Serum Total Protein 6.7 (6.0-8.3) g/dL Albumin 2.4 L (3.5-5.0) g/dL Globulin 4.3 H (2.4-3.5) g/dL Albumin/Globulin Ratio 0.6 L (1.1-2.2) Blood Type 06/09/17 06/09/17 06/09/17 Range/Units 07:15 07:15 07:15 WBC (4.3-11.1) K/mcL RBC (3.82-4.97) M/mcL Hgb (11.5-15.4) g/dL Hct (35.3-44.9) % MCV (83.0-100.0) fL MCH (28.0-33.3) pg MCHC (31.6-35.5) g/dL RDW (11.5-14.5) % Plt Count (140-400) K/mcL MPV (9.4-12.4) fL Immature Gran % (0-4) % Seg Neutrophils % % Lymphocytes % % Monocytes % % Eosinophils % % Basophils % % Neutrophils # (1.6-8.9) K/mcL Lymphocytes # (0.6-4.6) K/mcL Monocytes # (0.0-1.3) K/mcL Eosinophils # (0.0-0.6) K/mcL Basophils # (0.0-0.2) K/mcL PT (9.4-12.1) Seconds INR APTT (26.0-36.0) Seconds Sodium (136-145) mEq/L Potassium (3.5-4.5) mEq/L Chloride (98-109) mEq/L Carbon Dioxide (19-29) mEq/L BUN (7-20) mg/dL Creatinine (0.57-1.11) mg/dL Est GFR ( Amer) (> 60) Est GFR (Non-Af Amer) (> 60) BUN/Creatinine Ratio (6-26) Glucose (70-99) mg/dL Calculated Osmolality (280-300) Lactic Acid 0.7 (0.5-2.2) mmol/L Calcium (8.6-10.8) mg/dL Phosphorus (2.3-4.7) mg/dL Magnesium (1.6-2.6) mg/dL Total Bilirubin (0.2-1.2) mg/dL Direct Bilirubin (0.0-0.5) mg/dL Indirect Bilirubin (0.0-1.2) mg/dL AST (5-34) Units/L ALT (0-55) Units/L Alkaline Phosphatase (38-126) Units/L Troponin I 0.14 H* (0-0.03) ng/mL B-Natriuretic Peptide 291 H (0-100) pg/mL Serum Total Protein (6.0-8.3) g/dL Albumin (3.5-5.0) g/dL Globulin (2.4-3.5) g/dL Albumin/Globulin Ratio (1.1-2.2) Blood Type 06/09/17 Range/Units 07:15 WBC (4.3-11.1) K/mcL RBC (3.82-4.97) M/mcL Hgb (11.5-15.4) g/dL Hct (35.3-44.9) % MCV (83.0-100.0) fL MCH (28.0-33.3) pg MCHC (31.6-35.5) g/dL RDW (11.5-14.5) % Plt Count (140-400) K/mcL MPV (9.4-12.4) fL Immature Gran % (0-4) % Seg Neutrophils % % Lymphocytes % % Monocytes % % Eosinophils % % Basophils % % Neutrophils # (1.6-8.9) K/mcL Lymphocytes # (0.6-4.6) K/mcL Monocytes # (0.0-1.3) K/mcL Eosinophils # (0.0-0.6) K/mcL Basophils # (0.0-0.2) K/mcL PT (9.4-12.1) Seconds INR APTT (26.0-36.0) Seconds Sodium (136-145) mEq/L Potassium (3.5-4.5) mEq/L Chloride (98-109) mEq/L Carbon Dioxide (19-29) mEq/L BUN (7-20) mg/dL Creatinine (0.57-1.11) mg/dL Est GFR ( Amer) (> 60) Est GFR (Non-Af Amer) (> 60) BUN/Creatinine Ratio (6-26) Glucose (70-99) mg/dL Calculated Osmolality (280-300) Lactic Acid (0.5-2.2) mmol/L Calcium (8.6-10.8) mg/dL Phosphorus (2.3-4.7) mg/dL Magnesium (1.6-2.6) mg/dL Total Bilirubin (0.2-1.2) mg/dL Direct Bilirubin (0.0-0.5) mg/dL Indirect Bilirubin (0.0-1.2) mg/dL AST (5-34) Units/L ALT (0-55) Units/L Alkaline Phosphatase (38-126) Units/L Troponin I (0-0.03) ng/mL B-Natriuretic Peptide (0-100) pg/mL Serum Total Protein (6.0-8.3) g/dL Albumin (3.5-5.0) g/dL Globulin (2.4-3.5) g/dL Albumin/Globulin Ratio (1.1-2.2) Blood Type O POSITIVE - Radiology Data Radiology results reviewed: Yes I reviewed the patient's radiology results. Chest X-Ray 06/09/17 06:45 IMPRESSION: Persistent and slightly worsening of airspace changes in the lung bases which could represent edema or infiltrates. Follow up to resolution is suggested. D/ / 06/09/2017 07:18:15 Daysi Ingram MD / tuan Interpreting Provider: Daysi Ingram MD - EKG Data EKG attestation: Yes I reviewed and interpreted this EKG. Rate: Reports: tachycardia Rhythm: Reports: A.Fib Q waves: Reports: v5 When compared to previous EKG there are: changes noted Interpretation: Reports: nonspecific ST-T wave changes - Core Measures Measure Exclusions: not indicated
[2017-06-09] MEDS ORDERED: Vancomycin 1,000 MG in D5% in Water 250 ML IVPB ONE ×3 (08:16→12:00)
[2017-06-09] MEDS ORDERED: Aztreonam 1,000 MG in D5% in Water (Mini-Bag+) 100 ML IVPB SCH (09:00)
[2017-06-09] MEDS ORDERED: *HR* OxyCODONE Immed Rel 15 MG TABLET PO PRN (10:12)
[2017-06-09] MEDS ORDERED: Naloxone 0.4 MG/ML INJ IVP PRN (10:41)
[2017-06-09] MEDS ORDERED: Ondansetron 4 MG/2 ML VIAL IVP PRN (10:41)
[2017-06-09] MEDS ORDERED: D5% in Water 1,000 ML IVC PRN (11:36)
[2017-06-09] MEDS ORDERED: *HR* Dextrose 50 % in Water (Syg) 50 ML SYRINGE IVP PRN (11:36)
[2017-06-09] MEDS ORDERED: Dextrose Gel 15 GM PO PRN ×2 (11:36)
[2017-06-09] MEDS ORDERED: ALPRAZolam 0.5 MG TABLET PO PRN (11:37)
--- NOTE | 2017-06-09 11:52 | Nephrology Consult Note ---
Date of Encounter: 06/09/17 Time of Encounter: 11:46 Assessment and Plan (1) ESRD (end stage renal disease) on dialysis Current Visit: Yes Status: Acute 1. ESRD. Pt is due for dialyis, will arrange for HD 2. Anemia of chronic disease. resume out pt dose of aranesp 3 Bone metabolism. cont calcitriol. f/u serum po4 4. HCAP. cont abx as per primary service. Has COPD on home o2 5. h/o CHF, chronic a.fib, s/p TVAR sx. coumadin. bp is stable, current hr in 80 's History of Present Illness - Reason for Consult end stage renal disease - Chief Complaint esrd - History of Present Illness 61 yr old female came to ER with SOB, cough productive of minimal whitish sputum for the last 1 week. has associated fever, temp was 100.5 at home. SOB is worse with exertion, improves with rest. has minimal chest discomfort with exertion. pt kruger h/o COPD on 2 lts of o2 at home v/s in ER; t 100.3, p 110, bp 141/59, sat 94 % on 2 lts CXR; bibasilar infiltrative changes. LABS; wbc 8, bun 49, cr 6.4 Past Med Surg Social Fam HX - Past Medical History Medical history: arthritis, atrial fibrillation, CHF, COPD, diabetes, dialysis, hyperlipidemia, hypertension, migraine, thyroid disease, valvular heart disease , other Psychiatric history: anxiety, depression - Past Surgical History Surgical History: cataract, cholecystectomy, heart valve replacement, orthopedic , other - Social History Smoking Status: Former smoker Smokeless Tobacco Status: No Alcohol use: none Drug use: none - Family History Mother Hx Family Cardiac Disorders: Yes (HTN) Hx Family Endocrine Disorder: Yes (DM) Father Hx Family Cardiac Disorders: Yes (HTN) Hx Family Cancer: Yes (lung cancer) Hx Family Endocrine Disorder: Yes (DM) Medications and Allergies Levothyroxine [Synthroid] 88 mcg PO DAILY 06/30/15 [History] [place]-3 Fatty Acids/Epa [Neurepa 1 Gram Capsule] 1 gm PO BID 06/30/15 [History] Pregabalin [Lyrica] 50 mg PO BID 06/30/15 [History] ALPRAZolam [Xanax 0.5 MG Tablet] 0.5 mg PO TID PRN 08/07/16 [History] Allopurinol [Zyloprim] 200 mg PO DAILY 08/07/16 [History] Aspirin 81 mg PO DAILY 08/07/16 [History] Atorvastatin [Lipitor] 10 mg PO HS 08/07/16 [History] Biotin [Estrada Biotin] 10,000 mcg PO DAILY 08/07/16 [History] Calcitriol [Rocaltrol] 0.25 mcg PO DAILY 08/07/16 [History] Docusate [Colace] 100 mg PO BID PRN 08/07/16 [History] Folic Acid 1 mg PO DAILY 08/07/16 [History] Nystatin POWDER [Nystop] 1 appl TP BID 08/07/16 [History] Oxycodone HCl 15 mg PO BID PRN 08/07/16 [History] Pantoprazole Sodium [Protonix] 40 mg PO DAILY 08/07/16 [History] Sertraline [Zoloft] 100 mg PO DAILY 08/07/16 [History] Albuterol Sulfate [Proair Hfa] 2 puff IH Q4H PRN 02/07/17 [History] Ipratropium/Albuterol Neb [Duoneb] 3 ml IH TID PRN 02/07/17 [History] Warfarin [Coumadin] 10 mg PO [place] 02/07/17 [History] Budesonide/Formoterol 160/4.5 [Symbicort 160/4.5] 2 puff IH BIDR 05/04/17 [ History] Loratadine [Claritin] 10 mg PO DAILY 05/04/17 [History] Promethazine [Phenergan] 25 mg PO TID PRN 05/04/17 [History] Renal Vitamin [Renal Caps Softgel] 1 mg PO DAILY 05/04/17 [History] Ropinirole HCl [Requip Xl] 4 mg PO HS 05/04/17 [History] Warfarin [Coumadin] 5 mg PO TUTHFR 05/04/17 [History] Calcium Carbonate [Tums] 1,500 mg PO TID 05/05/17 [History] Allergies MALACHI Inhibitors Allergy (Verified 05/04/17 15:58) Hives cephalexin [From Keflex] Allergy (Verified 05/04/17 15:58) Hives cephalothin Allergy (Verified 06/30/17 15:58) Hives ciprofloxacin [From Cipro] Allergy (Verified 05/04/17 15:58) See Comments unsure of reaction clindamycin Allergy (Verified 05/04/17 15:58) Hives codeine Allergy (Verified 05/04/17 15:58) Hives doxycycline Allergy (Verified 05/04/17 15:58) Difficulty Breathing fentanyl Allergy (Verified 05/04/17 15:58) See Comments low heart rate Hydromorphone [From Dilaudid] Allergy (Verified 05/04/17 15:58) See Comments low heart rate metoclopramide [From Reglan] Allergy (Verified 05/04/17 15:58) Hives metronidazole Allergy (Verified 05/04/17 15:58) Difficulty Breathing NSAIDS (Non-Steroidal Anti-Inflamma Allergy (Verified 05/04/17 15:58) Difficulty Breathing Penicillins [PCN] Allergy (Verified 05/04/17 15:58) Hives Sulfa (Sulfonamide Antibiotics) Allergy (Verified 05/04/17 15:58) Difficulty Breathing sulfamethoxazole [From Bactrim] Allergy (Verified 05/04/17 15:58) Difficulty Breathing trimethoprim Allergy (Verified 05/04/17 15:58) Hives Review of Systems All Systems review (narrative): GEN; poor apetite, generalized weakness ; makes minimal urine Exam - Vital Signs Vital signs: Initial Vital Signs Temp Pulse Resp BP Pulse Ox 100.3 F H 110 22 141/59 94 06/09/17 06:23 06/09/17 06:23 06/09/17 06:23 06/09/17 06:23 06/09/17 06:23 Vital Signs - Last 8 Hours Temp Pulse Resp BP Pulse Ox 06/09/17 11:41 98.2 F 86 18 121/71 95 06/09/17 09:51 98.1 F 86 18 127/76 95 06/09/17 09:33 95 06/09/17 08:54 22 129/73 Intake and Output 06/08/17 06/09/17 06/09/17 23:59 07:59 15:59 Intake Total 0 / 0 Output Total 0 / 0 Balance 0 / 0 Intake: Oral 0 / 0 Output: Urine 0 / 0 Other: Weight 142 kg Blood Glucose* 231 Patient Weight 06/09/17 23:59 Weight 142 kg - General Appearance Exam: HENT; PERRL, pallor neck; supple, no JVD, no lymphadenopathy, carotid bruit presnt CVS; s1s2 present, reg SM gr 2/6 prom in the rt upper sternal borde RESP; good air entry, no crackles, or wheezing ABD; soft, NT, BS present, no organomegaly EXT; no edena, D pulse palpable CROWN POUNCER;alert, oiented x 3, cn grossly intact Results - Lab Results 06/09/17 07:15 06/09/17 07:15 Most recent lab results Calcium 9.2 mg/dL (8.6-10.8) 06/09/17 07:15 Phosphorus 2.8 mg/dL (2.3-4.7) 06/09/17 07:15 Magnesium 1.9 mg/dL (1.6-2.6) 06/09/17 07:15 Consult Discharge Plan - Plan Referrals: NONE,PCP [Primary Care Provider] -
--- NOTE | 2017-06-09 11:58 | Internal Med History&Physical ---
<Masood Feldman - Last Filed: 06/09/17 12:29> Date of Encounter: 06/09/17 Time of Encounter: 11:00 Assessment and Plan (1) Sepsis Current visit: Yes Status: Acute Patient presents on admission to ED meeting sepsis criteria based on temperature 100.3 F, pulse rate of 110, and respiratory rate of 22. Patient's current WBC is 8.0. Sepsis protocol to be followed based on this criteria. Due to patient's current GFR of 7, will use IV fluids judiciously. IV aztreonam and IV vancomycin administered in the ED and will be continued. Timed lactic acids ordered. Patient placed on continuous cardiac telemetry and supplemental O2 with continuous SPO2 monitoring. Follow-up labs ordered, as well as blood cultures 2, sputum culture, and urine culture. Patient to be monitored closely for signs of increasing infection, cardiac, and or respiratory distress. Qualifiers: Sepsis type: sepsis due to unspecified organism Qualified Code(s): A41.9 - Sepsis, unspecified organism (2) Hospital-acquired pneumonia Current visit: Yes Status: Acute Patient presents with suspected hospital-acquired pneumonia based on chest x- ray today which shows persistent and slightly worsening of airspace changes in the lung bases which could represent edema or infiltrates. Patient reports unusual cough with sputum production. Blood cultures 2 ordered as well as sputum culture and urine culture. Will continue IV aztreonam and IV vancomycin with pharmacy dosing. Follow-up labs ordered to monitor WBCs. (3) Chest pain Current visit: Yes Status: Acute Patient presents with chest pain she describes as centralized nonradiating which is most likely due to current shortness of breath, cough, and pneumonia diagnosis. Initial troponin was 0.14 so patient to be placed on continuous cardiac telemetry with supplemental O2 and continuous SaO2 monitoring. Troponins to be trended x2. Will administer aspirin therapy. Will continue patient's statin and BP medications. Qualifiers: Chest pain type: unspecified Qualified Code(s): R07.9 - Chest pain, unspecified (4) Acute exacerbation of chronic obstructive pulmonary disease (COPD) Current visit: Yes Status: Acute Patient presents with complaint of shortness of breath and acute exacerbation of COPD. Patient placed on supplemental O2 with continuous SPO2 monitoring and duo nebs ordered every 4. Will monitor patient and vital signs. (5) Elevated troponin Current visit: Yes Status: Acute Patient presents with initial troponin of 0.14 in the ED. Troponins trended 2. (6) Anemia Current visit: Yes Status: Chronic Patient presents with history of chronic anemia. Patient's hemoglobin is currently 7.9 and hematocrit is 25.3, both of which are down from previous lab draws. H&H ordered to monitor patient's anemia status. Patient was previously typed and screened and blood type is O+. We will transfuse patient with RBCs if necessary. Patient is agreeable to this. Qualifiers: Anemia type: unspecified type Qualified Code(s): D64.9 - Anemia, unspecified (7) ESRD (end stage renal disease) on dialysis Current visit: Yes Status: Chronic Patient presents with chronic end-stage renal disease requiring dialysis. Patient's current GFR is 7 and patient was to be dialyzed today but came to ED due to feeling poorly. Nephrology consult placed in ED with Dr. Muir with plans to dialyze patient today. Will use IV fluids judiciously, monitor I&O, and patient's daily weight. (8) Atrial fibrillation Current visit: Yes Status: Chronic Patient presents with history of chronic atrial fibrillation. Patient's tachycardia today most likely due to infection status. Patient placed on continuous cardiac telemetry and will be monitored closely. Qualifiers: Atrial fibrillation type: chronic Qualified Code(s): I48.2 - Chronic atrial fibrillation (9) CHF (congestive heart failure) Current visit: Yes Status: Chronic Patient presents with history of chronic CHF. Upon admission, patient is negative for bilateral LE edema. Will continue patient's lasix PO and consider adding IVP lasix if patient becomes fluid overloaded. Supplemental O2 ordered as well as duo nebs every 4. Qualifiers: Congestive heart failure type: diastolic Congestive heart failure chronicity: chronic Qualified Code(s): I50.32 - Chronic diastolic (congestive ) heart failure (10) Diabetes Current visit: Yes Status: Chronic Patient presents with history of chronic diabetes but does not currently use insulin or oral hypoglycemics. Blood glucose before meals at bedtime and low- dose correction insulin sliding scale ordered with hypoglycemia protocol. A1c ordered. Qualifiers: Diabetes mellitus type: type 2 Diabetes mellitus complication status: with kidney complications Diabetes mellitus complication detail: with chronic kidney disease Diabetes mellitus terminal make up operator insulin use: without terminal make up operator use Chronic kidney disease stage: on chronic dialysis Qualified Code(s): E11.22 - Type 2 diabetes mellitus with diabetic chronic kidney disease; N18.6 - End stage renal disease; Z99.2 - Dependence on renal dialysis (11) HTN (hypertension) Current visit: Yes Status: Chronic Patient presents with history of chronic hypertension but does not currently take any medication for HTN. Will monitor patient vital signs and consider adding Lopressor if blood pressure becomes elevated. Qualifiers: Hypertension type: essential hypertension Qualified Code(s): I10 - Essential (primary) hypertension (12) HLD (hyperlipidemia) Current visit: Yes Status: Chronic Patient presents with history of chronic hyperlipidemia. Lipid panel ordered. Will continue patient's atorvastatin. Qualifiers: Hyperlipidemia type: pure hypercholesterolemia Qualified Code(s): E78.00 - Pure hypercholesterolemia, unspecified; E78.0 - Pure hypercholesterolemia (13) DVT prophylaxis Current visit: Yes Status: Acute Patient placed on DVT prophylaxis to current admission protocol and bedrest status. Due to possibility of bleeding and decreasing Hgb and HCT, patient will have placement of SCDs bilaterally on LEs. Internal Medicine - H&P: HPI Chief complaint: SOB/Dyspnea Admitted From: Emergency Dept Plans for Post Hospital Care: Home History of present illness: Ms. Loza is a 61 year old female who presents from the ED with chief complaint of shortness of breath and dyspnea. Patient states she has had bronchitis off and on since mid December which has progressively worsened. She states she has developed a cough which is different than usual with some sputum production, fever, and shortness of breath with or without exertion. She reports some chest pain that is non-radiating and is improved with deep breathing. Patient was due to be dialyzed today whenever she felt extremely fatigued and came to the ED. Patient has a history of chronic anemia, COPD, arthritis, atrial fibrillation, CHF, diabetes, chronic kidney disease requiring dialysis, HLD, HTN, migraine, thyroid disease, and valvular heart disease. Patient denies abdominal pain nausea, vomiting, diarrhea, dysuria, headache, confusion, changes in vision, sore throat, presyncope, or syncope. CXR today shows persistent and slightly worsening airspace changes in the lung bases which could represent edema or infiltrates. Patient was started on IV aztreonam and IV vancomycin in the ED with consult to nephrology placed. Patient to be dialyzed today. Plan is to continue IV antibiotics, placed patient on continuous cardiac telemetry, trend troponins 2, administer supplemental O2 with continuous SPO2 monitoring, obtain fecal occult due to anemia and Hgb and HCT changes, administer duo nebs every 4, and follow-up labs with H&H. Upon admission to the ED patient's temperature was 100.3 F, heart rate was 110 bpm, and respiratory rate was 22. Patient's current white blood count is 8.0. Based on patient's vital signs, she meets sepsis criteria. Blood cultures 2 ordered along with sputum culture and urine culture. Patient to monitor closely for signs of increased infection, cardiac, and/or respiratory distress. Time spent with patient greater than 40 minutes. Past Med Surg Social Fam HX - Past Medical History Source: patient Medical history: arthritis, atrial fibrillation, CHF, COPD, diabetes, dialysis, hyperlipidemia, hypertension, migraine, thyroid disease, valvular heart disease , other Psychiatric history: anxiety, depression - Past Surgical History Surgical History: cataract (Bilateral), heart valve replacement, orthopedic, other (Back surgery) - Social History Smoking Status: Former smoker Smokeless Tobacco Status: No Alcohol use: none Drug use: none Current living situation: Home, With Family Activity Level: Uses cane/walker Recent Out of Country Travel Within the Last 8 Weeks: No Exposure or Possible Exposure to Illness During Travel: No - Family History Mother Hx Family Cardiac Disorders: Yes (HTN) Hx Family Endocrine Disorder: Yes (DM) Father Hx Family Cardiac Disorders: Yes (HTN) Hx Family Cancer: Yes (lung cancer) Hx Family Endocrine Disorder: Yes (DM) Internal Medicine - H&P: Meds Levothyroxine [Synthroid] 88 mcg PO DAILY 06/30/15 [History] [place]-3 Fatty Acids/Epa [Neurepa 1 Gram Capsule] 1 gm PO BID 06/30/15 [History] Pregabalin [Lyrica] 50 mg PO BID 06/30/15 [History] ALPRAZolam [Xanax 0.5 MG Tablet] 0.5 mg PO TID PRN 08/07/16 [History] Allopurinol [Zyloprim] 200 mg PO DAILY 08/07/16 [History] Aspirin 81 mg PO DAILY 08/07/16 [History] Atorvastatin [Lipitor] 10 mg PO HS 08/07/16 [History] Biotin [[place]strada Biotin] 10,000 mcg PO DAILY 08/07/16 [History] Calcitriol [Rocaltrol] 0.25 mcg PO DAILY 08/07/16 [History] Docusate [Colace] 100 mg PO BID PRN 08/07/16 [History] Folic Acid 1 mg PO DAILY 08/07/16 [History] Nystatin POWDER [Nystop] 1 appl TP BID 08/07/16 [History] Oxycodone HCl 15 mg PO BID PRN 08/07/16 [History] Pantoprazole Sodium [Protonix] 40 mg PO DAILY 08/07/16 [History] Sertraline [Zoloft] 100 mg PO DAILY 08/07/16 [History] Albuterol Sulfate [Proair Hfa] 2 puff IH Q4H PRN 02/07/17 [History] Ipratropium/Albuterol Neb [Duoneb] 3 ml IH TID PRN 02/07/17 [History] Warfarin [Coumadin] 10 mg PO [place] 02/07/17 [History] Budesonide/Formoterol 160/4.5 [Symbicort 160/4.5] 2 puff IH BIDR 05/04/17 [ History] Loratadine [Claritin] 10 mg PO DAILY 05/04/17 [History] Promethazine [Phenergan] 25 mg PO TID PRN 05/04/17 [History] Renal Vitamin [Renal Caps Softgel] 1 mg PO DAILY 05/04/17 [History] Ropinirole HCl [Requip Xl] 4 mg PO HS 05/04/17 [History] Warfarin [Coumadin] 5 mg PO TUTHFR 05/04/17 [History] Calcium Carbonate [Tums] 1,500 mg PO TID 05/05/17 [History] Allergies MALACHI Inhibitors Allergy (Verified 05/04/17 15:58) Hives cephalexin [From Keflex] Allergy (Verified 05/04/17 15:58) Hives cephalothin Allergy (Verified 05/04/17 15:58) Hives ciprofloxacin [From Cipro] Allergy (Verified 05/04/17 15:58) See Comments unsure of reaction clindamycin Allergy (Verified 05/04/17 15:58) Hives codeine Allergy (Verified 05/04/17 15:58) Hives doxycycline Allergy (Verified 05/04/17 15:58) Difficulty Breathing fentanyl Allergy (Verified 05/04/17 15:58) See Comments low heart rate Hydromorphone [From Dilaudid] Allergy (Verified 05/04/17 15:58) See Comments low heart rate metoclopramide [From Reglan] Allergy (Verified 05/04/17 15:58) Hives metronidazole Allergy (Verified 05/04/17 15:58) Difficulty Breathing NSAIDS (Non-Steroidal Anti-Inflamma Allergy (Verified 05/04/17 15:58) Difficulty Breathing Penicillins [PCN] Allergy (Verified 05/04/17 15:58) Hives Sulfa (Sulfonamide Antibiotics) Allergy (Verified 05/04/17 15:58) Difficulty Breathing sulfamethoxazole [From Bactrim] Allergy (Verified 05/04/17 15:58) Difficulty Breathing trimethoprim Allergy (Verified 05/04/17 15:58) Hives All Systems PM: A 10-system review of systems was performed and is negative for pertinent findings except as documented above in the HPI. - Constitutional Constitutional: as per HPI, fatigue, fever(s), weakness - EENT Eyes: no change in vision, no discharge, no pain, no photophobia Ears: no ear discharge, no ear pain, no tinnitus Nose, mouth and throat: no dysphagia, no nasal discharge, no neck pain, no sore throat - Breasts Breasts: as per HPI - Cardiovascular Cardiovascular ROS IM: as per HPI, chest pain, dyspnea, dyspnea on exertion, irregular heart rhythm - Respiratory Respiratory: as per HPI, cough, dyspnea, dyspnea on exertion, wheezing - Gastrointestinal Gastrointestinal: no abdominal pain, no diarrhea, no hematemesis, no hematochezia, no melena, no nausea, no vomiting - Genitourinary Genitourinary: no change in urinary stream, no dysuria, no flank pain, no hematuria Menstruation: as per HPI - Musculoskeletal Musculoskeletal ROS IM: no numbness, no tingling - Integumentary Integumentary IM: no rash, no unusual bruising - Neurological Neurological ROS: no confusion, no convulsions, no focal weakness, no numbness, no tingling, no tremor(s) - Psychiatric Psychiatric: as per HPI - Endocrine Endocrine IM: as per HPI - Hematologic/Lymphatic Hematologic/Lymphatic: as per HPI, easy bleeding - Allergic/Immunologic Allergic/Immunologic: as per HPI - Constitutional Vitals: Temp Pulse Resp BP Pulse Ox 98.1 F 86 18 127/76 95 06/09/17 09:51 06/09/17 09:51 06/09/17 09:51 06/09/17 09:51 06/09/17 09:51 General appearance: Present: cooperative, mild distress, A&O X 3, morbidly obese , pleasant, answers questions appropriately - Head Head exam: Present: atraumatic, normocephalic - Eye Eye exam: Present: PERRL, conjuntiva pink, sclera anicteric Pupils: Present: PERRL - ENT ENT exam: Present: normal exam, normal external ear exam - Neck Neck exam general surgery: Present: normal inspection, supple, trachea midline. Absent: lymphadenopathy - Respiratory Respiratory exam: Present: accessory muscle use, wheezes. Absent: rales, rhonchi - Cardiovascular Cardiovascular exam: Present: irregular rhythm - GI/Abdominal GI/Abdominal exam: Present: normal bowel sounds, soft, no peritoneal signs. Absent: distended, tenderness - Rectal Rectal exam: Present: deferred - Additional comments: exam deferred. - Extremities Exam Extremities exam: Present: warm, radial pulses palpable and symetrical. Absent : calf tenderness, cyanotic, pedal edema - Back Exam Back exam: Present: normal inspection - Neurological Exam Neurological exam: Present: CN II-XII intact, oriented X3, no focal deficits. Absent: pronater drift, facial droop, speech deficit - Psychiatric Psychiatric exam: Present: normal affect, normal mood - Skin Skin exam: Present: dry, intact Internal Med - H&P Results - Labs CBC & Chem 7: 06/09/17 07:15 06/09/17 07:15 - EKG Data Prior EKG available for review: yes When compared to previous EKG: there are significant changes Interpretation IM: suggestive of ischemia EKG comments: 06/09/17 12:03 EKG dated 05/04/17 shows atrial fibrillation. EKG dated 06/09/17 shows atrial fibrillation with rapid ventricular response and possible lateral myocardial infarction of indeterminate age. - Diagnostic Studies Chest x-ray Additional comments: Impressions Chest X-Ray 06/09/17 06:45 IMPRESSION: Persistent and slightly worsening of airspace changes in the lung bases which could represent edema or infiltrates. Follow up to resolution is suggested. D/ / 06/09/2017 07:18:15 Daysi Ingram MD / tuan Interpreting Provider: Daysi Ingram MD <Obed Aguilar - Last Filed: 06/09/17 15:36> Date of Encounter: 06/09/17 Internal Medicine - H&P: HPI History of present illness: Ms. Loza is a 61 year old female All Systems PM: A 10-system review of systems was performed and is negative for pertinent findings except as documented above in the HPI. - Constitutional Vitals: Temp Pulse Resp BP Pulse Ox 98.2 F 86 18 121/71 95 06/09/17 11:41 06/09/17 11:41 06/09/17 11:41 06/09/17 11:41 06/09/17 11:41 Internal Med - H&P Results - Labs CBC & Chem 7: 06/09/17 07:15 06/09/17 07:15 Labs: Cardiac Enzymes 06/09/17 Range/Units 12:16 Troponin I 0.13 H* (0-0.03) ng/mL - Attending Attestation I have personally performed a face to face evaluation on this patient and I discussed the assessment and plan with the nurse practitioner. I have reviewed and agree with the documented care plan. History and Exam by me shows: Ms. Loza is a 61 year old female history of chronic anemia, COPD, arthritis, atrial fibrillation, CHF, diabetes, chronic kidney disease requiring dialysis, HLD, HTN, migraine, thyroid disease, and valvular heart disease who presents to the ED with chief complaint of shortness of breath and dyspnea. Patient states she has had bronchitis off and on since mid December which has progressively worsened. She states she has developed a cough which is different than usual with some sputum production, fever, and shortness of breath with or without exertion. She reports some chest pain that is non-radiating and is improved with deep breathing. Patient was due to be dialyzed today whenever she felt extremely fatigued and came to the ED. Patient was started on IV aztreonam and IV vancomycin in the ED with consult to nephrology placed. Patient to be dialyzed today. Plan is to continue IV antibiotics, placed patient on continuous cardiac telemetry, trend troponins 2, administer supplemental O2 with continuous SPO2 monitoring, obtain fecal occult due to anemia and Hgb and HCT changes, administer duo nebs every 4, and follow-up labs with H&H. Upon admission to the ED patient's temperature was 100.3 F, heart rate was 110 bpm, and respiratory rate was 22. Gen: A, A, O x 3 Chest: Diminished BS b/l basal regions, moderate wheezing and rales + Heart : S1 S2 +, Irregular rate and rythm, 2/6 ESM A/P 1. Sepsis with MLL PNA 2. MLL PNA - mostly bacterial Her CXR showed - patchi infiltrates b/l basal regions, inc vascualr congestion Cont duoneb No need of steroid snow Cont broad spec abx Aztreonam for now since she had h/o ESBL inf in the past d/c vancomycin Scheduled for HD today 3. Atypical chest pain due to ESRD - she is at high risk will check serial troponin EKG in AM May need stress test once pt sepsis / PNA improves 4. YAJAIRA - Non compliance with CPAP requested to bring her own CPAP tonight Talked to the pt and her daughter at bed side and explained to them current care Pt does need to stay in the hospital more than 2 night, so will make her full admission
[2017-06-09] MEDS ORDERED: Vancomycin 2,000 MG in D5% in Water 250 ML IVPB SCH (12:00)
[2017-06-09] MEDS ORDERED: 0.9 % Sodium Chloride 250 ML IVC PRN (12:58)
[2017-06-09] MEDS ORDERED: 0.9 % Sodium Chloride 1,000 ML PRIME SCH (13:00)
[2017-06-09] MEDS ORDERED: 0.9 % Sodium Chloride 1,000 ML ONE (14:22)
[2017-06-09] MEDS: Ipratropium/Albuterol Neb 3 ML IH SCH ×4 (15:02→23:55)
[2017-06-09] MEDS: Insulin LISPRO 300 UNITS/3 ML VIAL SQ SCH ×2 (17:44→20:12)
[2017-06-09 17:50] LABS: Hepatitis B Surface Antigen Nonreactive (Nonreactive)
[2017-06-09] MEDS ORDERED: Warfarin perPT PO PRN (18:00)
[2017-06-09] MEDS: FATTY ACIDS PO SCH (20:03)
[2017-06-09] MEDS: EPA PO SCH (20:03)
[2017-06-09] MEDS: rOPINIRole 1 MG TABLET PO SCH (20:03)
[2017-06-09] MEDS: Pregabalin 50 MG CAPSULE PO SCH (20:03)
[2017-06-09] MEDS: OMEGA PO SCH (20:03)
[2017-06-09] MEDS: Aztreonam 1,000 MG in D5% in Water (Mini-Bag+) 100 ML IVPB SCH (20:03)
[2017-06-09] MEDS: Nystatin POWDER 30 GM BOTTLE TP SCH (20:05)
[2017-06-10] MEDS: Aztreonam 1,000 MG in D5% in Water (Mini-Bag+) 100 ML IVPB SCH ×3 (02:08→17:36)
[2017-06-10] MEDS: Ipratropium/Albuterol Neb 3 ML IH SCH ×6 (04:03→23:49)
[2017-06-10] MEDS: *HR* OxyCODONE Immed Rel 15 MG TABLET PO PRN ×2 (05:50→20:17)
[2017-06-10 05:53] LABS: Basophils % 0.4 %; Eosinophils # 0.1 K/mcL (0.0-0.6); Eosinophils % 1.6 %; Hematocrit 21.9 % (35.3-44.9); Hemoglobin 6.9 g/dL (11.5-15.4); Immature Granulocytes % 0.9 % (0-4); Lymphocytes # 0.5 K/mcL (0.6-4.6); Lymphocytes % 8.3 %; Mean Corpuscular HGB Conc 31.5 g/dL (31.6-35.5); Mean Corpuscular Hemoglobin 30.1 pg (28.0-33.3); Mean Corpuscular Volume 95.6 fL (83.0-100.0); Mean Platelet Volume 12.5 fL (9.4-12.4); Monocytes # 0.5 K/mcL (0.0-1.3); Monocytes % 9.5 %; Neutrophils # 4.4 K/mcL (1.6-8.9); Platelet Count 133 K/mcL (140-400); Red Blood Count 2.29 M/mcL (3.82-4.97); Red Cell Distribution Width 14.4 % (11.5-14.5); Segmented Neutrophils % 79.3 %
[2017-06-10 06:02] LABS: INR 4.4
[2017-06-10 06:03] LABS: Prothrombin Time 49.3 Seconds (9.4-12.1)
[2017-06-10 06:07] LABS: Calcium 8.5 mg/dL (8.6-10.8); Chol/HDL Ratio 3.4 (0-4.9); Magnesium 1.6 mg/dL (1.6-2.6); Potassium 3.4 mEq/L (3.5-4.5)
[2017-06-10 06:58] LABS: Hemoglobin A1C 7.6 %
[2017-06-10] MEDS: Loratadine 10 MG TABLET PO SCH (08:58)
[2017-06-10] MEDS: Aspirin 81 MG TAB.CHEW PO SCH (08:58)
[2017-06-10] MEDS: Renal Vitamin 1 MG CAPSULE PO SCH (08:58)
[2017-06-10] MEDS: Pregabalin 50 MG CAPSULE PO SCH ×2 (08:58→20:17)
[2017-06-10] MEDS: Folic Acid 1 MG TABLET PO SCH (08:59)
[2017-06-10] MEDS ORDERED: Pantoprazole 40 MG VIAL IVP SCH (09:00)
[2017-06-10] MEDS: Insulin LISPRO 300 UNITS/3 ML VIAL SQ SCH ×4 (09:01→20:21)
[2017-06-10] MEDS: (Biotin [Mega Biotin] 10,000 MCG) PO SCH (09:01)
[2017-06-10] MEDS: OMEGA PO SCH ×2 (09:02→20:32)
[2017-06-10] MEDS: FATTY ACIDS PO SCH ×2 (09:02→20:32)
[2017-06-10] MEDS: EPA PO SCH ×2 (09:02→20:32)
--- NOTE | 2017-06-10 10:52 | Internal Med Progress Note ---
Date of Encounter: 06/10/17 Time of Encounter: 10:49 - Assessment and plan (1) Sepsis Current Visit: Yes Status: Acute Assessment and plan: Improving Afebrile since y/d WBC - WNL Cont broad spec abx Aztreonam for now f/u on blood cx and sputum cx Qualifiers: Sepsis type: sepsis due to unspecified organism Qualified Code(s): A41.9 - Sepsis, unspecified organism (2) Hospital-acquired pneumonia Current Visit: Yes Status: Acute Assessment and plan: mostly bacterial PNA does have MLL infiltrates cont broad spec abx Aztreonam for now no need of Vancomcyin since she never had MRSA in the past and pt does not look that toxic cont duoneb and O2 No need of steroids (3) Anemia Current Visit: Yes Status: Acute Assessment and plan: due to chronic disease - ESRD however with her cardiac history and CP, will try to keep her Hb above 7.0 will give 1 U PRBC also will give Arnesp check stool for hemoccult Qualifiers: Anemia type: unspecified type Qualified Code(s): D64.9 - Anemia, unspecified (4) Chest pain Current Visit: Yes Status: Acute Assessment and plan: Stable Troponin @ 0.12 No more CP cont ASA, Statin..Not on any B james nirmala check with her regular Card Dr. Moe she may get benefit with Stress test ..will consult card NPO after mid night Qualifiers: Chest pain type: unspecified Qualified Code(s): R07.9 - Chest pain, unspecified (5) Elevated troponin Current Visit: Yes Status: Acute Assessment and plan: mostly due to demand ishcemia + ESRD stable Trop (6) Diastolic CHF Current Visit: Yes Status: Chronic Assessment and plan: not in exacerbation resumed home meds Qualifiers: Qualified Code(s): I50.32 - Chronic diastolic (congestive) heart failure (7) S/P TAVR (transcatheter aortic valve replacement) Current Visit: Yes Status: Chronic Assessment and plan: stable (8) COPD (chronic obstructive pulmonary disease) Current Visit: No Status: Chronic Assessment and plan: not in exacerbation she does have chronic hypoxic rep failure uses 2 lit O2 at home resumed her home INH Qualifiers: COPD type: unspecified COPD Qualified Code(s): J44.9 - Chronic obstructive pulmonary disease, unspecified (9) ESRD (end stage renal disease) on dialysis Current Visit: Yes Status: Chronic Assessment and plan: cont HD as Nephro Tue/Anita/Sat (10) DVT prophylaxis Current Visit: Yes Status: Acute Assessment and plan: on Coumadin (11) HTN (hypertension) Current Visit: Yes Status: Chronic Assessment and plan: stable Qualifiers: Hypertension type: essential hypertension Qualified Code(s): I10 - Essential (primary) hypertension (12) HLD (hyperlipidemia) Current Visit: Yes Status: Chronic Assessment and plan: on statin Qualifiers: Hyperlipidemia type: pure hypercholesterolemia Qualified Code(s): E78.00 - Pure hypercholesterolemia, unspecified; E78.0 - Pure hypercholesterolemia - Subjective Interval history: Ms. Loza is a 61 year old female history of chronic anemia, COPD, arthritis, atrial fibrillation, CHF, diabetes, chronic kidney disease requiring dialysis, HLD, HTN, migraine, thyroid disease, and valvular heart disease who presents to the ED with chief complaint of shortness of breath and dyspnea. Pt was admitted for acute chest pain and Sepsis with MLL PNA. Pt stated she is feeling lot better today. Denied any more CP / SOB . No abd pain . - Constitutional Vitals: Temp Pulse Resp BP Pulse Ox 98.0 F 88 18 144/66 98 06/10/17 08:00 06/10/17 08:00 06/10/17 08:00 06/10/17 08:00 06/10/17 09:17 General appearance: Present: cooperative, A&O X 3, morbidly obese, pleasant, answers questions appropriately - Head Head exam: Present: atraumatic, normal inspection - Neck Neck exam general surgery: Present: supple - Respiratory Respiratory exam: Present: decreased breath sounds, wheezes. Absent: rales, respiratory distress, rhonchi - Cardiovascular Cardiovascular exam: Present: irregular rhythm, +S1, +S2. Absent: systolic murmur - GI/Abdominal GI/Abdominal exam: Present: normal bowel sounds, soft. Absent: rebound, rigid, tenderness - Extremities Exam Extremities exam: Absent: calf tenderness, pedal edema, tenderness - Neurological Exam Neurological exam: Present: alert, oriented X3 - Psychiatric Psychiatric exam: Present: normal affect, normal mood Internal Medicine: Result - Labs CBC & Chem 7: 06/10/17 05:07 06/10/17 05:07 Labs: Short CBC 06/10/17 Range/Units 05:07 WBC 5.6 (4.3-11.1) K/mcL Hgb 6.9 L (11.5-15.4) g/dL Hct 21.9 L (35.3-44.9) % Plt Count 133 L (140-400) K/mcL Neutrophils # 4.4 (1.6-8.9) K/mcL BMP 06/10/17 05:07 Sodium 139 Potassium 3.4 L D Chloride 96 L Carbon Dioxide 33 H BUN 28 H D Creatinine 4.63 H Glucose 164 H Calcium 8.5 L Cardiac Enzymes 06/09/17 06/09/17 Range/Units 12:16 18:17 Troponin I 0.13 H* 0.12 H* (0-0.03) ng/mL - ABG Interpretation ABG results: PT/INR, D-dimer PT 49.3 Seconds (9.4-12.1) H* 06/10/17 05:07 Consult Discharge Plan - Plan Referrals: NONE,PCP [Primary Care Provider] -
--- NOTE | 2017-06-10 11:37 | Nephrology Progress Note ---
Date of Encounter: 06/10/17 Time of Encounter: 11:27 - Assessment and Plan (1) ESRD (end stage renal disease) on dialysis Current Visit: Yes Status: Chronic 1. ESRD, had prolonged bleeding from fistula site after dialysis yesterday. she does not get heparin on HD. INR was elevated at 4.3. if ppt continues to have prolonged bleeding after dialysis in future inspite on therapeutic INR will plan for Fistulogram 2. Anemia of Chronic disease. HB is further low at 6.9 prob sec to prolonged bleeding after dialysis. To get stool occult blood to r/o GI bleed. Check out pt dose of Aranesp in a.m and resume at a higher dose transfuse as needed. 3. Bone metabolism. serum po4 is nl. cont calcitriol, check PTH level. mild hypoaklemia. hold potassium suppl Subjective Principal diagnosis: esrd Interval history: afebrile, overnight, continues to have cough, not bringing up much sputum. denies chest pain. had bleeding from the AVF site after dialysis and pressure bandage was applied. Objective - Vital Signs Vital signs: Vital Signs Temp Pulse Resp BP Pulse Ox 06/10/17 11:15 18 99 06/10/17 09:17 98 06/10/17 08:00 98.0 F 88 18 144/66 99 06/10/17 04:04 18 98 06/10/17 03:46 98 F 91 18 129/59 96 06/09/17 23:55 18 98 06/09/17 22:48 97.8 F 88 18 122/57 93 06/09/17 20:23 18 98 06/09/17 20:18 97.8 F 94 18 128/63 97 06/09/17 19:23 98.8 F 20 137/64 06/09/17 18:40 120/56 06/09/17 18:25 128/65 06/09/17 18:10 126/69 06/09/17 17:55 125/68 06/09/17 17:40 132/79 06/09/17 17:25 128/59 06/09/17 17:10 117/63 06/09/17 16:57 98.0 F 88 15 107/56 95 06/09/17 16:55 107/56 06/09/17 16:40 108/61 08/05/17 16:25 126/61 06/09/17 16:10 121/68 06/09/17 15:55 133/66 06/09/17 15:40 97.8 F 18 132/66 06/09/17 11:41 98.2 F 86 18 121/71 95 Intake and Output 06/09/17 06/10/17 06/10/17 23:59 07:59 15:59 Intake Total 460 / 460 100 / 100 0 / 0 Output Total 2600 / 2600 0 / 0 Balance -2140 / -2140 100 / 100 0 / 0 Intake: IV Fluids 100 / 100 100 / 100 Azactam 1,000 MG In 100 / 100 100 / 100 Dextrose 5% (Minibag+) 100 ML 100 ML @ 200 mls/ hr IVPB Q8H [facility] Rx#: [id number] Oral 240 / 240 0 / 0 Free Water 120 / 120 Output: Urine 0 / 0 0 / 0 Total Dialysis (HD) 2600 / 2600 Output Other: Meal Dinner Percent of Meal Consumed 70% Weight 141.2 kg Blood Glucose* 130 167 Hemodialysis Net Fluid 2000 Removed (mL) Patient Weight 06/10/17 23:59 Weight 141.2 kg - General Appearance Exam: CVS; s1s2 present, irregula, SM 2/6 rad to carotids RESP; good air entry, clear ABD; soft, NT, BS present, no orgnaomegaly EXT; no edema. DP pulses palpable. AVF site, no bleeding UPHOLSTERER OUTSIDE; alert, oriented x 3 - Lab 06/10/17 05:07 06/10/17 05:07 Most recent lab results Calcium 8.5 mg/dL (8.6-10.8) L 06/10/17 05:07 Phosphorus 2.8 mg/dL (2.3-4.7) 06/09/17 07:15 Magnesium 1.6 mg/dL (1.6-2.6) 06/10/17 05:07 Consult Discharge Plan - Plan Referrals: NONE,PCP [Primary Care Provider] -
[2017-06-10] MEDS: Nystatin POWDER 30 GM BOTTLE TP SCH ×2 (12:31→20:22)
[2017-06-10] MEDS ORDERED: 0.9 % Sodium Chloride 250 ML ONE (13:32)
[2017-06-10] MEDS: rOPINIRole 1 MG TABLET PO SCH (20:17)
[2017-06-11] MEDS: Aztreonam 1,000 MG in D5% in Water (Mini-Bag+) 100 ML IVPB SCH ×3 (01:45→17:10)
[2017-06-11 04:04] LABS: Basophils % 0.5 %; Eosinophils # 0.1 K/mcL (0.0-0.6); Hematocrit 24.6 % (35.3-44.9); Hemoglobin 7.8 g/dL (11.5-15.4); Immature Granulocytes % 1.3 % (0-4); Lymphocytes # 0.5 K/mcL (0.6-4.6); Lymphocytes % 8.9 %; Mean Corpuscular HGB Conc 31.7 g/dL (31.6-35.5); Mean Corpuscular Hemoglobin 29.9 pg (28.0-33.3); Mean Corpuscular Volume 94.3 fL (83.0-100.0); Monocytes # 0.6 K/mcL (0.0-1.3); Monocytes % 9.4 %; Neutrophils # 4.7 K/mcL (1.6-8.9); Platelet Count 154 K/mcL (140-400); Red Blood Count 2.61 M/mcL (3.82-4.97); Red Cell Distribution Width 15.2 % (11.5-14.5); Segmented Neutrophils % 77.9 %
[2017-06-11] MEDS: Ipratropium/Albuterol Neb 3 ML IH SCH ×6 (04:11→23:49)
[2017-06-11 04:16] LABS: INR 3.3; Prothrombin Time 37.5 Seconds (9.4-12.1)
[2017-06-11 04:24] LABS: Albumin 2.2 g/dL (3.5-5.0); Calcium 8.9 mg/dL (8.6-10.8); Phosphorous 3.5 mg/dL (2.3-4.7); Potassium 3.8 mEq/L (3.5-4.5)
[2017-06-11 04:25] LABS: Calcium 8.9 mg/dL (8.6-10.8); Potassium 3.8 mEq/L (3.5-4.5)
[2017-06-11] MEDS: Loratadine 10 MG TABLET PO SCH (08:23)
[2017-06-11] MEDS: Pregabalin 50 MG CAPSULE PO SCH ×2 (08:24→20:44)
[2017-06-11] MEDS: Aspirin 81 MG TAB.CHEW PO SCH (08:24)
[2017-06-11] MEDS: Renal Vitamin 1 MG CAPSULE PO SCH (08:24)
[2017-06-11] MEDS: Folic Acid 1 MG TABLET PO SCH (08:24)
[2017-06-11] MEDS: Insulin LISPRO 300 UNITS/3 ML VIAL SQ SCH ×4 (08:24→20:46)
[2017-06-11] MEDS: FATTY ACIDS PO SCH (08:27)
[2017-06-11] MEDS: EPA PO SCH (08:27)
[2017-06-11] MEDS: (Biotin [Mega Biotin] 10,000 MCG) PO SCH (08:27)
[2017-06-11] MEDS: OMEGA PO SCH (08:27)
[2017-06-11] MEDS ORDERED: Perflutren Lipid Microsphere 1.3 ML in 0.9 % Sodium Chloride 8.7 ML IVP ONE (10:00)
[2017-06-11] MEDS ORDERED: *HR* FentaNYL (PF) 100 MCG/2 ML VIAL IVP PRN (10:47)
[2017-06-11] MEDS ORDERED: *HR* Midazolam HCl 5 MG/5 ML VIAL IVP PRN (10:48)
[2017-06-11] MEDS ORDERED: 0.9 % Sodium Chloride 500 ML IVC ONE (10:48)
[2017-06-11] MEDS: Nystatin POWDER 30 GM BOTTLE TP SCH ×2 (12:00→18:16)
--- NOTE | 2017-06-11 12:00 | Nephrology Progress Note ---
Date of Encounter: 06/11/17 Time of Encounter: 11:15 - Assessment and Plan (1) ESRD on hemodialysis Current Visit: Yes Status: Chronic No HD today, will dialyze tomorrow, keeping TTS schedule. Hgb 7.8. Subjective Principal diagnosis: esrd Interval history: Sitting up in bed. States breathing easier. Non productive cough. Family at bedside. Objective - Vital Signs Vital signs: Vital Signs Temp Pulse Resp BP Pulse Ox 06/11/17 11:20 98.2 F 96 17 124/62 99 06/11/17 11:08 18 97 06/11/17 07:53 17 96 06/11/17 07:45 97.8 F 101 18 146/53 97 06/11/17 04:12 20 98 06/11/17 03:54 98.3 F 110 19 126/70 98 06/10/17 23:50 18 98 06/10/17 23:32 98.5 F 105 17 138/71 98 06/10/17 20:27 20 98 06/10/17 19:19 98.2 F 96 18 138/71 99 06/10/17 16:31 98.3 F 91 18 126/67 96 06/10/17 15:54 15 96 06/10/17 14:20 98.4 F 88 18 137/83 06/10/17 13:45 99.1 F 102 18 152/75 97 06/10/17 13:37 98.3 F 87 18 127/62 97 06/10/17 12:20 98.6 F 91 18 125/63 98 Intake and Output 06/10/17 06/11/17 06/11/17 23:59 07:59 15:59 Intake Total 450 / 450 100 / 100 240 / 240 Balance 450 / 450 100 / 100 240 / 240 Intake: IV Fluids 100 / 100 100 / 100 Azactam 1,000 MG In 100 / 100 100 / 100 Dextrose 5% (Minibag+) 100 ML 100 ML @ 200 mls/ hr IVPB Q8H [facility] Rx#: [id number] Oral 240 / 240 Blood Product 350 / 350 Rbcs Leuko Poor As-1 350 / 350 Unit [id number] Other: Meal Breakfast Percent of Meal Consumed 100% Weight 142.1 kg Blood Glucose* 143 142 183 Patient Weight 06/11/17 23:59 Weight 142.1 kg - General Appearance General appearance: Present: well-developed, well-nourished, appears started age , obese EENT: Present: mucous membranes moist Neck: Present: no JVD Respiratory: Present: wheezing Cardiology: Present: no edema, irregular rhythm Gastrointestinal: Present: normoactive bowel sounds, no tenderness Integumentary: Present: warm and dry Neurologic: Present: alert and oriented x3 Psychiatric: Present: mood/affect appropriate, cooperative - Lab 06/11/17 03:30 06/11/17 03:30 Most recent lab results Calcium 8.9 mg/dL (8.6-10.8) 06/11/17 03:30 Phosphorus 3.5 mg/dL (2.3-4.7) 06/11/17 03:30 Magnesium 1.6 mg/dL (1.6-2.6) 06/10/17 05:07 Consult Discharge Plan - Plan Referrals: Enrique Strange MD [Partnered Physician] - (web request 06/11/2017)
--- NOTE | 2017-06-11 15:10 | Electrocardiograph Report ---
[address] [place], [place] [address] Test Date: 2017-06-09 Pat Name: Sandra Loza Department: 102 Room: 2A Gender: F Supply Chain Director: : 1955 Requested By: Tammie Brooks Order Number: [id number] Reading MD: Maryjane Mcnulty Measurements Intervals [place] Rate: 106 P: PA: 0 QRS: 11 QRSD: 114 T: 97 QT: 335 QTc: 397 Interpretive Statements ATRIAL FIBRILLATION WITH RAPID VENTRICULAR RESPONSE Electronically Signed On 06-10-2017 12:07:23 EDT by Maryjane Mcnulty
[2017-06-11] MEDS: *HR* OxyCODONE Immed Rel 15 MG TABLET PO PRN (15:11)
--- NOTE | 2017-06-11 15:23 | Electrocardiograph Report ---
[place] [address] Test Date: 2017-06-10 Pat Name: Sandra Loza Department: 112 Room: 2A Gender: F Project Management: : 1955 Requested By: Obed Aguilar Order Number: [id number] Reading MD: Chapin Moe MD Measurements Intervals [place] Rate: 91 P: DE: 0 QRS: 22 QRSD: 109 T: 92 QT: 372 QTc: 421 Interpretive Statements ATRIAL FIBRILLATION BASELINE ARTIFACT Electronically Signed On 06-11-2017 8:19:05 EDT by Chapin Moe MD
[2017-06-11] MEDS ORDERED: *HR* Warfarin 5 MG TABLET PO ONE (18:00)
--- NOTE | 2017-06-11 18:00 | Internal Med Progress Note ---
Date of Encounter: 06/11/17 Time of Encounter: 17:56 - Assessment and plan (1) Sepsis Current Visit: Yes Status: Acute Assessment and plan: Improving Afebrile since last 2 days WBC - WNL Cont broad spec abx Aztreonam for now blood cx - no growth so far and sputum cx- P Qualifiers: Sepsis type: sepsis due to unspecified organism Qualified Code(s): A41.9 - Sepsis, unspecified organism (2) Hospital-acquired pneumonia Current Visit: Yes Status: Acute Assessment and plan: mostly bacterial PNA does have MLL infiltrates cont broad spec abx Aztreonam for now no need of Vancomcyin since she never had MRSA in the past and pt does not look that toxic cont duoneb and O2 No need of steroids (3) Anemia Current Visit: Yes Status: Acute Assessment and plan: due to chronic disease - ESRD however with her cardiac history and CP, will try to keep her Hb above 7.0 gave her 1 U PRBC Hb improved to 7.8 Cont Arnesp as an out pt Qualifiers: Anemia type: unspecified type Qualified Code(s): D64.9 - Anemia, unspecified (4) Chest pain Current Visit: Yes Status: Acute Assessment and plan: Stable Troponin @ 0.12 Atypical CP - mostly musculoskeletal Spoke to Child Welfare Specialist, did not recommend any further work since she just had LHC in few months ago which showed mild CAD only cont ASA, Statin Reviewed 2D echo showedd normal LVEF 60-65%, mild concentric LVH, mild diastolic dysfunction, mild pulm HTN Qualifiers: Chest pain type: unspecified Qualified Code(s): R07.9 - Chest pain, unspecified (5) Elevated troponin Current Visit: Yes Status: Acute Assessment and plan: mostly due to demand ishcemia + ESRD stable Trop (6) Diastolic CHF Current Visit: Yes Status: Chronic Assessment and plan: not in exacerbation resumed home meds Qualifiers: Qualified Code(s): I50.32 - Chronic diastolic (congestive) heart failure (7) S/P TAVR (transcatheter aortic valve replacement) Current Visit: Yes Status: Chronic Assessment and plan: stable (8) COPD (chronic obstructive pulmonary disease) Current Visit: No Status: Chronic Assessment and plan: not in exacerbation she does have chronic hypoxic rep failure uses 2 lit O2 at home resumed her home INH Qualifiers: COPD type: unspecified COPD Qualified Code(s): J44.9 - Chronic obstructive pulmonary disease, unspecified (9) ESRD (end stage renal disease) on dialysis Current Visit: Yes Status: Chronic Assessment and plan: cont HD as Nephro Tue/Anita/Sat (10) DVT prophylaxis Current Visit: Yes Status: Acute Assessment and plan: on Coumadin (11) HTN (hypertension) Current Visit: Yes Status: Chronic Assessment and plan: stable Qualifiers: Hypertension type: essential hypertension Qualified Code(s): I10 - Essential (primary) hypertension (12) HLD (hyperlipidemia) Current Visit: Yes Status: Chronic Assessment and plan: on statin Qualifiers: Hyperlipidemia type: pure hypercholesterolemia Qualified Code(s): E78.00 - Pure hypercholesterolemia, unspecified; E78.0 - Pure hypercholesterolemia - Subjective Interval history: Ms. Loza is a 61 year old female history of chronic anemia, COPD, arthritis, atrial fibrillation, CHF, diabetes, chronic kidney disease requiring dialysis, HLD, HTN, migraine, thyroid disease, and valvular heart disease who presents to the ED with chief complaint of shortness of breath and dyspnea. Pt was admitted for acute chest pain and Sepsis with MLL PNA. Pt stated she is feeling lot better today. Denied any more CP / SOB . No abd pain . - Constitutional Vitals: Temp Pulse Resp BP Pulse Ox 99.0 F 98 17 153/72 98 06/11/17 16:31 06/11/17 16:31 06/11/17 16:31 06/11/17 16:31 06/11/17 16:31 General appearance: Present: cooperative, A&O X 3, morbidly obese, pleasant, answers questions appropriately - Head Head exam: Present: atraumatic, normal inspection - Neck Neck exam general surgery: Present: supple. Absent: lymphadenopathy, thyromegaly - Respiratory Respiratory exam: Present: decreased breath sounds, wheezes. Absent: rales, respiratory distress, rhonchi - Cardiovascular Cardiovascular exam: Present: RRR, +S1, +S2, systolic murmur - GI/Abdominal GI/Abdominal exam: Present: normal bowel sounds, soft. Absent: rebound, rigid, tenderness - Extremities Exam Extremities exam: Present: pedal edema. Absent: calf tenderness, tenderness - Neurological Exam Neurological exam: Present: alert, oriented X3 - Psychiatric Psychiatric exam: Present: normal affect, normal mood Internal Medicine: Result - Labs CBC & Chem 7: 06/11/17 03:30 06/11/17 03:30 Labs: Short CBC 06/11/17 Range/Units 03:30 WBC 6.1 (4.3-11.1) K/mcL Hgb 7.8 L (11.5-15.4) g/dL Hct 24.6 L (35.3-44.9) % Plt Count 154 (140-400) K/mcL Neutrophils # 4.7 (1.6-8.9) K/mcL BMP 06/11/17 06/11/17 03:30 03:30 Sodium 137 136 Potassium 3.8 3.8 Chloride 95 L 94 L Carbon Dioxide 32 H 31 H BUN 42 H D 41 H Creatinine 6.26 H 6.27 H Glucose 157 H 157 H Calcium 8.9 8.9 Liver Function 06/11/17 Range/Units 03:30 Albumin 2.2 L (3.5-5.0) g/dL - ABG Interpretation ABG results: PT/INR, D-dimer PT 37.5 Seconds (9.4-12.1) H 06/11/17 03:30 Consult Discharge Plan - Plan Referrals: Enrique Strange MD [Partnered Physician] - (web request 06/11/2017)
[2017-06-11] MEDS: rOPINIRole 1 MG TABLET PO SCH (20:44)
[2017-06-11] MEDS: Acetaminophen 325 MG TABLET PO PRN (21:46)
[2017-06-12] MEDS: Aztreonam 1,000 MG in D5% in Water (Mini-Bag+) 100 ML IVPB SCH ×2 (01:42→14:31)
[2017-06-12] MEDS: Ipratropium/Albuterol Neb 3 ML IH SCH ×3 (04:05→11:13)
[2017-06-12 05:13] LABS: INR 2.2
[2017-06-12] MEDS: *HR* OxyCODONE Immed Rel 15 MG TABLET PO PRN (05:51)
[2017-06-12] MEDS: Renal Vitamin 1 MG CAPSULE PO SCH (08:11)
[2017-06-12] MEDS: Aspirin 81 MG TAB.CHEW PO SCH (08:12)
[2017-06-12] MEDS: Loratadine 10 MG TABLET PO SCH (08:12)
[2017-06-12] MEDS: Folic Acid 1 MG TABLET PO SCH (08:13)
[2017-06-12] MEDS: Pregabalin 50 MG CAPSULE PO SCH (08:13)
[2017-06-12] MEDS: Acetaminophen 325 MG TABLET PO PRN (08:13)
[2017-06-12] MEDS: Insulin LISPRO 300 UNITS/3 ML VIAL SQ SCH ×2 (08:14→12:59)
--- NOTE | 2017-06-12 08:14 | Nephrology Progress Note ---
Date of Encounter: 06/12/17 Time of Encounter: 07:55 - Assessment and Plan (1) ESRD on hemodialysis Current Visit: Yes Status: Chronic HD today, keeping TTS schedule. Orders given. Subjective Principal diagnosis: esrd Interval history: Sitting up in bed. States breathing easier and feels better. Thinks will go home today. Objective - Vital Signs Vital signs: Vital Signs Temp Pulse Resp BP Pulse Ox 06/12/17 07:28 97.4 F L 79 20 120/72 98 06/12/17 04:21 97.6 F 118 20 144/76 95 06/12/17 04:05 16 97 06/11/17 23:49 97 06/11/17 23:16 99.0 F 86 16 145/71 96 06/11/17 19:53 16 97 06/11/17 18:44 99.9 F H 96 16 134/78 96 06/11/17 16:31 99.0 F 98 17 153/72 98 06/11/17 15:40 16 98 06/11/17 11:20 98.2 F 96 17 124/62 99 06/11/17 11:08 18 97 Intake and Output 06/11/17 06/12/17 06/12/17 23:59 07:59 15:59 Intake Total 100 / 100 100 / 100 Output Total 0 / 0 Balance 100 / 100 100 / 100 Intake: IV Fluids 100 / 100 100 / 100 Azactam 1,000 MG In 100 / 100 100 / 100 Dextrose 5% (Minibag+) 100 ML 100 ML @ 200 mls/ hr IVPB Q8H [facility] Rx#: [id number] Oral 0 / 0 Output: Urine 0 / 0 Other: Weight 143.4 kg Blood Glucose* 175 174 Patient Weight 06/12/17 23:59 Weight 143.4 kg - General Appearance General appearance: Present: well-developed, well-nourished, appears started age , obese EENT: Present: mucous membranes moist Neck: Present: no JVD Cardiology: Present: no edema, irregular rhythm Gastrointestinal: Present: normoactive bowel sounds, no tenderness Integumentary: Present: warm and dry Neurologic: Present: alert and oriented x3 Psychiatric: Present: mood/affect appropriate, cooperative - Lab 06/11/17 03:30 06/11/17 03:30 Most recent lab results Calcium 8.9 mg/dL (8.6-10.8) 06/11/17 03:30 Phosphorus 3.5 mg/dL (2.3-4.7) 06/11/17 03:30 Magnesium 1.6 mg/dL (1.6-2.6) 06/10/17 05:07 Consult Discharge Plan - Plan Referrals: Enrique Strange MD [Partnered Physician] - (web request 06/11/2017)
[2017-06-12 09:01] LABS: Calcium 9.7 mg/dL (8.6-10.8); Potassium 4.1 mEq/L (3.5-4.5)
[2017-06-12 09:11] LABS: Hematocrit 25.5 % (35.3-44.9); Mean Corpuscular HGB Conc 31.4 g/dL (31.6-35.5); Mean Corpuscular Volume 95.5 fL (83.0-100.0); Mean Platelet Volume 12.2 fL (9.4-12.4); Platelet Count 152 K/mcL (140-400); Red Blood Count 2.67 M/mcL (3.82-4.97); Red Cell Distribution Width 14.7 % (11.5-14.5)
[2017-06-12] MEDS ORDERED: 0.9 % Sodium Chloride 250 ML IVC PRN (09:32)
[2017-06-12] MEDS ORDERED: 0.9 % Sodium Chloride 1,000 ML PRIME SCH (09:45)
--- NOTE | 2017-06-12 13:09 | Discharge Summary ---
Date of Encounter: 06/12/17 Time of Encounter: 13:04 - Discharge Diagnosis (1) Sepsis Priority: Primary Status: Resolved Qualifiers: Sepsis type: sepsis due to unspecified organism Qualified Code(s): A41.9 - Sepsis, unspecified organism (2) Hospital-acquired pneumonia Priority: Primary Status: Resolved (3) Anemia Priority: Secondary Status: Acute Qualifiers: Anemia type: unspecified type Qualified Code(s): D64.9 - Anemia, unspecified (4) Chest pain Priority: Secondary Status: Acute Qualifiers: Chest pain type: unspecified Qualified Code(s): R07.9 - Chest pain, unspecified (5) Elevated troponin Priority: Secondary Status: Acute (6) Diastolic CHF Priority: Secondary Status: Chronic Qualifiers: Qualified Code(s): I50.30 - Unspecified diastolic (congestive) heart failure (7) S/P TAVR (transcatheter aortic valve replacement) Priority: Secondary Status: Chronic (8) COPD (chronic obstructive pulmonary disease) Priority: Secondary Status: Chronic Qualifiers: COPD type: unspecified COPD Qualified Code(s): J44.9 - Chronic obstructive pulmonary disease, unspecified (9) ESRD (end stage renal disease) on dialysis Priority: Secondary Status: Chronic (10) HTN (hypertension) Priority: Secondary Status: Chronic Qualifiers: Hypertension type: essential hypertension Qualified Code(s): I10 - Essential (primary) hypertension (11) HLD (hyperlipidemia) Priority: Secondary Status: Chronic Qualifiers: Hyperlipidemia type: pure hypercholesterolemia Qualified Code(s): E78.00 - Pure hypercholesterolemia, unspecified; E78.0 - Pure hypercholesterolemia - Discharge Medications Prescriptions: levoFLOXacin [Levaquin] 500 mg PO Q48H #3 tablet Home Medications: Levothyroxine [Synthroid] 88 mcg PO DAILY 06/30/15 [History] [place]-3 Fatty Acids/Epa [Neurepa 1 Gram Capsule] 1 gm PO BID 06/30/15 [History] Pregabalin [Lyrica] 50 mg PO BID 06/30/15 [History] ALPRAZolam [Xanax 0.5 MG Tablet] 0.5 mg PO TID PRN 08/07/16 [History] Allopurinol [Zyloprim] 200 mg PO DAILY 08/07/16 [History] Aspirin 81 mg PO DAILY 08/07/16 [History] Atorvastatin [Lipitor] 10 mg PO HS 08/07/16 [History] Biotin [Estrada Biotin] 10,000 mcg PO DAILY 08/07/16 [History] Calcitriol [Rocaltrol] 0.25 mcg PO DAILY 08/07/16 [History] Docusate [Colace] 100 mg PO BID PRN 08/07/16 [History] Folic Acid 1 mg PO DAILY 08/07/16 [History] Nystatin POWDER [Nystop] 1 appl TP BID 08/07/16 [History] Oxycodone HCl 15 mg PO BID PRN 08/07/16 [History] Pantoprazole Sodium [Protonix] 40 mg PO DAILY 08/07/16 [History] Sertraline [Zoloft] 100 mg PO DAILY 08/07/16 [History] Albuterol Sulfate [Proair Hfa] 2 puff IH Q4H PRN 02/07/17 [History] Ipratropium/Albuterol Neb [Duoneb] 3 ml IH TID PRN 02/07/17 [History] Warfarin [Coumadin] 10 mg PO [place] 02/07/17 [History] Budesonide/Formoterol 160/4.5 [Symbicort 160/4.5] 2 puff IH BIDR 05/04/17 [ History] Loratadine [Claritin] 10 mg PO DAILY 05/04/17 [History] Promethazine [Phenergan] 25 mg PO TID PRN 05/04/17 [History] Renal Vitamin [Renal Caps Softgel] 1 mg PO DAILY 05/04/17 [History] Ropinirole HCl [Requip Xl] 4 mg PO HS 05/04/17 [History] Warfarin [Coumadin] 5 mg PO TUTHFR 05/04/17 [History] Calcium Carbonate [Tums] 1,500 mg PO TID 05/05/17 [History] levoFLOXacin [Levaquin] 500 mg PO Q48H #3 tablet 06/12/17 [Rx] Allergies/Adverse Reactions: Allergies MALACHI Inhibitors Allergy (Verified 05/04/17 15:58) Hives cephalexin [From Keflex] Allergy (Verified 05/04/17 15:58) Hives cephalothin Allergy (Verified 05/04/17 15:58) Hives clindamycin Allergy (Verified 05/04/17 15:58) Hives codeine Allergy (Verified 05/04/17 15:58) Hives fentanyl Allergy (Verified 05/04/17 15:58) See Comments low heart rate Hydromorphone [From Dilaudid] Allergy (Verified 05/04/17 15:58) See Comments low heart rate metoclopramide [From Reglan] Allergy (Verified 05/04/17 15:58) Hives metronidazole Allergy (Verified 05/04/17 15:58) Difficulty Breathing NSAIDS (Non-Steroidal Anti-Inflamma Allergy (Verified 05/04/17 15:58) Difficulty Breathing Penicillins [PCN] Allergy (Verified 05/04/17 15:58) Hives Sulfa (Sulfonamide Antibiotics) Allergy (Verified 05/04/17 15:58) Difficulty Breathing sulfamethoxazole [From Bactrim] Allergy (Verified 05/04/17 15:58) Difficulty Breathing trimethoprim Allergy (Verified 05/04/17 15:58) Hives Procedures/tests Complete & Pending: Procedures Performed prior 72 hours Category Date Time Status EKG [ECG 12 lead ECG] [ECG] Routine Y 06/10/17 10:34 Completed EV echocardiogram w enhance Routine Y 06/11/17 07:49 Completed Date of admission: 06/09/17 08:28 Primary care physician: PCP NONE Consults: 06/09/17 13:00 Consult to Dialysis [CONS] ONCE 06/09/17 14:27 Consult to Wound Care [CONS] Routine Reason for Consult: Patient has several cyst-like lesions in her groin that are seeping fluid. Wound culture done. Call Completed: No 06/12/17 09:45 Consult to Dialysis [CONS] ONCE - Patient Status Disposition: Home, Self-Care Condition: Good Overall status at discharge: patient is back to baseline - Discharge Instructions Follow Up With: Enrique Strange MD [Partnered Physician] - 06/19/17 1:15 pm (web request 2016) Additional Instructions: Need to f/u with Contractor [employer] Dr. Moe in 2 weeks f/u with PCP in one week Take abx Levofloxacin every other after HD x 3 doses starting from today Hospital course: Ms. Loza is a 61 year old female history of chronic anemia, COPD, arthritis, atrial fibrillation, CHF, diabetes, chronic kidney disease requiring dialysis, HLD, HTN, migraine, thyroid disease, and valvular heart disease who presents to the ED with chief complaint of shortness of breath and dyspnea. Pt was admitted for acute chest pain and Sepsis with MLL PNA. Pt was started on broad spectrum abx with Aztreonam and continued on supportive care with bronchodilators. Her symptoms started improving, she remained afebrile through out this hospitalization. Her chest pain seems to be atypical, mostly musculoskletal. Her elevated Troponin due to sepsis and ESRD. She had 2 D Echo done which showed normal LVEF 60-65%, mild concentric LVH, mild diastolic dysfunction, mild pulm HTN. Spoke to pt's regular aluminizer team, since she had mild CAD in her LHC from 08/20, no further work up recommended now other than f/u with Dr. Moe as an out pt in 2 weeks. Will d/c her home today in stable condition. - Time Spent with Patient Total time spent providing and/or coordinating discharge services: - Constitutional Vitals: Temp Pulse Resp BP Pulse Ox 97.4 F L 79 18 120/72 97 06/12/17 07:28 06/12/17 07:28 06/12/17 08:30 06/12/17 07:28 06/12/17 08:30 General appearance: Present: cooperative, A&O X 3, morbidly obese, pleasant, answers questions appropriately - Head Head exam: Present: atraumatic, normal inspection - Neck Neck exam general surgery: Present: supple. Absent: thyromegaly - Respiratory Respiratory exam: Present: decreased breath sounds, wheezes. Absent: rales, respiratory distress, rhonchi - Cardiovascular Cardiovascular exam: Present: RRR, +S1, +S2, systolic murmur - GI/Abdominal GI/Abdominal exam: Present: normal bowel sounds, soft. Absent: tenderness - Extremities Exam Extremities exam: Absent: calf tenderness, pedal edema, tenderness - Psychiatric Psychiatric exam: Present: normal affect, normal mood
[2017-06-12 14:03] VITALS: BP 119/55
[2017-06-12] MEDS ORDERED: Aminoglycoside Consult 1 EACH MC ONE (15:25)
[2017-06-12] MEDS ORDERED: *HR* Warfarin 7.5 MG TABLET PO ONE (18:00)
== END 2017-06-12 15:26 | disposition home or self-care (01) | DRG 871 ==
LOC: 2ANU 06:23 → EMEROO 06:23 → OBSVTOIN 08:28 → 2ANU 09:11
PROVIDERS: ADMIT Nurse Practitioner Family; ATTEND Internal Medicine

== ENCOUNTER 2017-08-28 04:12 | Inpatient (IN) ==
[2017-08-28] MEDS ORDERED: Ondansetron ODT 4 MG TAB.RAPDIS SL ONE (04:32)
[2017-08-28] MEDS ORDERED: Ipratropium/Albuterol Neb 3 ML IH ONE (04:38)
--- NOTE | 2017-08-28 04:47 | Emergency Department Note ---
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 Denies: headache, neck pain, numbness - Related Data Home Medications Medication Instructions Recorded Confirmed Levothyroxine [Synthroid] 88 mcg PO DAILY 06/30/15 06/09/17 [place]-3 Fatty Acids/Epa [Neurepa 1 1 gm PO BID 06/30/15 06/09/17 Gram Capsule] Pregabalin [Lyrica] 50 mg PO BID 06/30/15 06/09/17 ALPRAZolam [Xanax 0.5 MG Tablet] 0.5 mg PO TID PRN 08/07/16 06/09/17 Allopurinol [Zyloprim] 200 mg PO DAILY 08/07/16 06/09/17 Aspirin 81 mg PO DAILY 08/07/16 06/09/17 Atorvastatin [Lipitor] 10 mg PO HS 08/07/16 06/09/17 Biotin [Estrada Biotin] 10,000 mcg PO DAILY 08/07/16 06/09/17 Calcitriol [Rocaltrol] 0.25 mcg PO DAILY 08/07/16 06/09/17 Docusate [Colace] 100 mg PO BID PRN 08/07/16 06/09/17 Folic Acid 1 mg PO DAILY 08/07/16 06/09/17 Nystatin POWDER [Nystop] 1 appl TP BID 08/07/16 06/09/17 Oxycodone HCl 15 mg PO BID PRN 08/07/16 06/09/17 Pantoprazole Sodium [Protonix] 40 mg PO DAILY 08/07/16 06/09/17 Sertraline [Zoloft] 100 mg PO DAILY 08/07/16 06/09/17 Albuterol Sulfate [Proair Hfa] 2 puff IH Q4H PRN 02/07/17 06/09/17 Ipratropium/Albuterol Neb [Duoneb] 3 ml IH TID PRN 02/07/17 06/09/17 Warfarin [Coumadin] 10 mg PO [place] 02/07/17 06/09/17 Budesonide/Formoterol 160/4.5 2 puff IH BIDR 05/04/17 06/09/17 [Symbicort 160/4.5] Loratadine [Claritin] 10 mg PO DAILY 05/04/17 06/09/17 Promethazine [Phenergan] 25 mg PO TID PRN 05/04/17 06/09/17 Renal Vitamin [Renal Caps Softgel] 1 mg PO DAILY 05/04/17 06/09/17 Ropinirole HCl [Requip Xl] 4 mg PO HS 05/04/17 06/09/17 Warfarin [Coumadin] 5 mg PO TUTHFR 05/04/17 06/09/17 Calcium Carbonate [Tums] 1,500 mg PO TID 05/05/17 06/09/17 Previous Rx's Medication Instructions Recorded levoFLOXacin [Levaquin] 500 mg PO Q48H #3 tablet 06/12/17 Compr.stocking,Knee,Reg,X-Lrg 1 each MC DAILY PRN #2 each 06/16/17 [T.e.d. Anti-Embolism Stocking] Allergies Allergy/AdvReac Type Severity Reaction Status Date / Time MALACHI Inhibitors Allergy Hives Verified 06/16/17 11:27 cephalexin [From Keflex] Allergy Hives Verified 06/16/17 11:27 cephalothin Allergy Hives Verified 06/16/17 11:27 clindamycin Allergy Hives Verified 06/16/17 11:27 codeine Allergy Hives Verified 06/16/17 11:27 fentanyl Allergy See Verified 06/16/17 11:27 Comments Hydromorphone [From Dilaudid] Allergy See Verified 06/16/17 11:27 Comments metoclopramide [From Reglan] Allergy Hives Verified 06/16/17 11:27 metronidazole Allergy Difficulty Verified 06/16/17 11:27 Breathing NSAIDS (Non-Steroidal Allergy Difficulty Verified 06/16/17 11:27 Anti-Inflamma Breathing Penicillins [PCN] Allergy Hives Verified 06/16/17 11:27 Sulfa (Sulfonamide Allergy Difficulty Verified 06/16/17 11:27 Antibiotics) Breathing sulfamethoxazole Allergy Difficulty Verified 06/16/17 11:27 [From Bactrim] Breathing trimethoprim Allergy Hives Verified 06/16/17 11:27 All systems ED: reviewed and negative except as stated. Constitutional: Denies: fever, chills Eyes: Denies: vision change ENT ED: Denies: throat pain Cardiovascular: Denies: chest pain, palpitations Respiratory: Denies: cough Gastrointestinal: Reports: nausea. Denies: abdominal pain, vomiting Genitourinary: Denies: dysuria Musculoskeletal: Reports: as per HPI. 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 Absent: tenderness - Chest Chest inspection: Absent: symmetric chest wall rise - Respiratory Respiratory exam: Present: wheezes, stridor. Absent: respiratory distress - Cardiovascular Cardiovascular exam: Present: tachycardia, irregular rhythm, normal heart sounds - Abdominal Exam Abdominal exam: Present: soft, Non-Tender - Extremities Exam Extremities exam: Present: normal capillary refill - Expanded Lower Extremity Exam Hip/Pelvis exam: Present: tenderness. Absent: full ROM (decreased ROM on right ) Upper leg exam: Absent: full ROM, tenderness Knee exam: Present: full ROM. Absent: tenderness Lower leg exam: Present: full ROM Ankle exam: Present: full ROM Foot/toe exam: Present: full ROM Neurovascular/Tendon exam: Absent: pulse deficit Gait: observed and limited by pain - Back Exam Back exam: Present: full ROM, tenderness (lumbar, worse on right), vertebral tenderness (lumbar) - Neurological Exam Neurological exam: Present: alert - Expanded Neurological Exam Patient oriented to: Present: person, time Speech: Present: fluid speech Motor strength - LUE: 4/5 Motor strength - RUE: 4/5 Motor strength - LLE: 4/5 Coma Scale Eye Opening: To Voice Coma Scale Motor Response: Obeys Commands Coma Scale Verbal Response: Confused Coma Scale Total: 13 - Psychiatric Psychiatric exam: Present: normal affect, normal mood - Skin Skin exam: Present: warm, dry, intact, normal color. Absent: rash, cyanosis, diaphoresis Course Course Narrative: Patient is a 62-year-old female arrives via squad from home with reported fall. Patient states that she fell from a seated position for under her head. She complains of headache, and right hip pain. She has a known history of CHF, A. fib, chronic kidney disease on dialysis on Sunday's with the fistula. She is taking Coumadin. Her sister is at bedside and they do live together. Sister mentions patient seemed more confused yesterday, and mentions patient had been complaining of chills but no fever at home. Patient was able to ambulate from squad stretcher to exam room bed. She has lumbar tenderness worse on the right some midline tenderness. She has mentioned history of chronic back pain and previous surgeries. No cervical tenderness. She describes frontal headache. She has limited range of motion of her right hip, with pain with hip flexion. Squad report O2 saturation on room air present. Sr. states that patient uses oxygen at home but had not today. Patient states that she has been noncompliant with her CPAP. Although she does say that she has been taking albuterol. Patient is slightly tachycardic, with a temperature of 100.[address] Hoyt who also had face time with tash. We will CT head, neck, arm or spine. chest x-ray. X-rays of right hip and femur. Zofran for nausea. She declines analgesics at this point. Mild stridor, bilateral wheezing. DuoNeb was ordered. - Reevaluation(s) Reevaluation #1: Due to shift change, care of patient will be transferred to day shift provider Chase Choudhury CNP who will handle further evaluation and dispo. I did discuss pt with Chase. Plans to admit for AMS, infection, hip pain. Reviewed work up with Dr. Hoyt who was in agreement. Abx have been ordered as well. Plan for diaylsis. Pt state duoneb helped her breathing. Vitals stable. Time: 06:18 Vital Signs Temperature 100.2 F H 08/28/17 04:16 Pulse Rate 113 08/28/17 04:16 Respiratory Rate 20 08/28/17 04:16 Blood Pressure 144/99 08/28/17 04:16 O2 Sat by Pulse Oximetry 95 08/28/17 04:16 Temperature 100.2 F H 08/28/17 04:16 Pulse Rate 100 08/28/17 05:37 Respiratory Rate 18 08/28/17 05:37 Blood Pressure 103/69 08/28/17 05:37 O2 Sat by Pulse Oximetry 98 08/28/17 05:37 Oxygen Delivery Oxygen Delivery Nasal Cannula Fall - Lab Data Result diagrams: 08/28/17 05:11 08/28/17 05:11 Lab Results 08/28/17 08/28/17 08/28/17 Range/Units 05:11 05:11 05:11 WBC 9.2 (4.3-11.1) K/mcL RBC 3.87 (3.82-4.97) M/mcL Hgb 11.5 (11.5-15.4) g/dL Hct 36.9 (35.3-44.9) % MCV 95.3 (83.0-100.0) fL MCH 29.7 (28.0-33.3) pg MCHC 31.2 L (31.6-35.5) g/dL RDW 14.6 H (11.5-14.5) % Plt Count 128 L (140-400) K/mcL MPV 12.1 (9.4-12.4) fL Immature Gran % 0.3 (0-4) % Seg Neutrophils % 90.8 % Lymphocytes % 3.7 % Monocytes % 3.3 % Eosinophils % 1.1 % Basophils % 0.8 % Neutrophils # 8.3 (1.6-8.9) K/mcL Lymphocytes # 0.3 L (0.6-4.6) K/mcL Monocytes # 0.3 (0.0-1.3) K/mcL Eosinophils # 0.1 (0.0-0.6) K/mcL Basophils # 0.1 (0.0-0.2) K/mcL PT 17.1 H (9.4-12.1) Seconds INR 1.6 APTT 39.7 H (26.0-36.0) Seconds Sodium 138 (136-145) mEq/L Potassium 5.2 H (3.5-4.5) mEq/L Chloride 99 (98-109) mEq/L Carbon Dioxide 24 (19-29) mEq/L BUN 46 H (7-20) mg/dL Creatinine 7.83 H (0.57-1.11) mg/dL Est GFR ( Amer) 6 L (> 60) Est GFR (Non-Af Amer) 5 L (> 60) BUN/Creatinine Ratio 6 (6-26) Glucose 212 H (70-99) mg/dL Calculated Osmolality 304 H (280-300) Lactic Acid (0.5-2.2) mmol/L Calcium 9.9 (8.6-10.8) mg/dL Total Bilirubin 0.5 (0.2-1.2) mg/dL Direct Bilirubin 0.2 (0.0-0.5) mg/dL Indirect Bilirubin 0.3 (0.0-1.2) mg/dL AST 23 (5-34) Units/L ALT 12 (0-55) Units/L Alkaline Phosphatase 94 (38-126) Units/L Troponin I (0-0.03) ng/mL Serum Total Protein 7.0 (6.0-8.3) g/dL Albumin 3.2 L (3.5-5.0) g/dL Globulin 3.8 H (2.4-3.5) g/dL Albumin/Globulin Ratio 0.8 L (1.1-2.2) Urine Color (Yellow) Urine Clarity (Clear) Urine pH (5.0-8.0) pH Units Ur Specific [place] (1.010-1.025) Urine Protein (Neg-Trace) mg/dL Urine Glucose (UA) (Normal) mg/dL Urine Ketones (Negative) mg/dL Urine Blood (Negative) Urine Nitrite (Negative) Urine Bilirubin (Negative) Urine Urobilinogen (Normal) mg/dL Ur Leukocyte Esterase (Negative) Urine Microscopic RBC (0-3) per hpf Urine Microscopic WBC (0-3) per hpf Ur Squamous Epith Cells (None-Few) per lpf Urine Bacteria (None-Few) per hpf Ur Culture Indicated? (NO) 08/28/17 08/28/17 08/28/17 Range/Units 05:11 05:11 05:20 WBC (4.3-11.1) K/mcL RBC (3.82-4.97) M/mcL Hgb (11.5-15.4) g/dL Hct (35.3-44.9) % MCV (83.0-100.0) fL MCH (28.0-33.3) pg MCHC (31.6-35.5) g/dL RDW (11.5-14.5) % Plt Count (140-400) K/mcL MPV (9.4-12.4) fL Immature Gran % (0-4) % Seg Neutrophils % % Lymphocytes % % Monocytes % % Eosinophils % % Basophils % % Neutrophils # (1.6-8.9) K/mcL Lymphocytes # (0.6-4.6) K/mcL Monocytes # (0.0-1.3) K/mcL Eosinophils # (0.0-0.6) K/mcL Basophils # (0.0-0.2) K/mcL PT (9.4-12.1) Seconds INR APTT (26.0-36.0) Seconds Sodium (136-145) mEq/L Potassium (3.5-4.5) mEq/L Chloride (98-109) mEq/L Carbon Dioxide (19-29) mEq/L BUN (7-20) mg/dL Creatinine (0.57-1.11) mg/dL Est GFR ( Amer) (> 60) Est GFR (Non-Af Amer) (> 60) BUN/Creatinine Ratio (6-26) Glucose (70-99) mg/dL Calculated Osmolality (280-300) Lactic Acid 1.2 (0.5-2.2) mmol/L Calcium (8.6-10.8) mg/dL Total Bilirubin (0.2-1.2) mg/dL Direct Bilirubin (0.0-0.5) mg/dL Indirect Bilirubin (0.0-1.2) mg/dL AST (5-34) Units/L ALT (0-55) Units/L Alkaline Phosphatase (38-126) Units/L Troponin I 0.10 H* (0-0.03) ng/mL Serum Total Protein (6.0-8.3) g/dL Albumin (3.5-5.0) g/dL Globulin (2.4-3.5) g/dL Albumin/Globulin Ratio (1.1-2.2) Urine Color Dark Yellow (Yellow) Urine Clarity Turbid A (Clear) Urine pH 5.0 (5.0-8.0) pH Units Ur Specific [place] 1.022 (1.010-1.025) Urine Protein 100 H (Neg-Trace) mg/dL Urine Glucose (UA) Normal (Normal) mg/dL Urine Ketones Negative (Negative) mg/dL Urine Blood Large H (Negative) Urine Nitrite Negative (Negative) Urine Bilirubin Small H (Negative) Urine Urobilinogen Normal (Normal) mg/dL Ur Leukocyte Esterase Large H (Negative) Urine Microscopic RBC TNTC H (0-3) per hpf Urine Microscopic WBC TNTC H (0-3) per hpf Ur Squamous Epith Cells Many H (None-Few) per lpf Urine Bacteria None Seen (None-Few) per hpf Ur Culture Indicated? YES A (NO) - EKG Data EKG attestation: Yes I reviewed and interpreted this EKG. EKG results narrative: A. fib with RVR, ventricular rate 101, QRS 105, QT/QTC 324/382. Attestation Statement - Attestation Attestation: I, Errol Hoyt DO have provided Obsy-ju-neld time during the care of this patient. Detailed review the presentation, symptoms, medical history were discussed and reviewed with the mid-level provider Ulices Hernandez PA-C/GLASS MAKER. Medical intervention labs and imaging studies were reviewed in detail. See full documentation of physical exam and course of care in the mid-level provider 's note. I agree with the determined course of care, medical interventio,n and disposition put forth by the mid-level provider. See below documentation for changes or alterations in documentation. 62-year-old female presents emergency room for evaluation of confusion, productive cough, generalized malaise, mechanical fall today. Currently on Coumadin secondary to dialysis. She is a Sunday dialysis patient. Has had ear infections in the past but denies any recent trauma or injury besides a fall today. Patient has coarse wheezing on auscultation the lungs heart is regular abdomen is soft nontender nondistended she does not guard to protect in his extremities. Head is visibly atraumatic pupils equal round and reactive to light. Patient will have CT imaging of the head and neck chest x-ray EKG labs including troponin blood cultures urinalysis and CBC and chemistry to be resulted. Patient will most likely need admission the hospital for definitive management of what appears to be generalized malaise confusion and altered mentation secondary to infectious etiology. See detailed documentation of physical exam, medical intervention, medical decision-making and disposition of the mid-level provider's note
[2017-08-28 05:35] LABS: Basophils # 0.1 K/mcL (0.0-0.2); Basophils % 0.8 %; Eosinophils # 0.1 K/mcL (0.0-0.6); Eosinophils % 1.1 %; Hematocrit 36.9 % (35.3-44.9); Hemoglobin 11.5 g/dL (11.5-15.4); Immature Granulocytes % 0.3 % (0-4); Lymphocytes # 0.3 K/mcL (0.6-4.6); Lymphocytes % 3.7 %; Mean Corpuscular HGB Conc 31.2 g/dL (31.6-35.5); Mean Corpuscular Hemoglobin 29.7 pg (28.0-33.3); Mean Corpuscular Volume 95.3 fL (83.0-100.0); Mean Platelet Volume 12.1 fL (9.4-12.4); Monocytes # 0.3 K/mcL (0.0-1.3); Monocytes % 3.3 %; Neutrophils # 8.3 K/mcL (1.6-8.9); Platelet Count 128 K/mcL (140-400); Red Blood Count 3.87 M/mcL (3.82-4.97); Red Cell Distribution Width 14.6 % (11.5-14.5); Segmented Neutrophils % 90.8 %
[2017-08-28 05:40] LABS: INR 1.6; Prothrombin Time 17.1 Seconds (9.4-12.1)
[2017-08-28 05:43] LABS: Activated Partial Thrombo Time 39.7 Seconds (26.0-36.0)
[2017-08-28 05:47] LABS: Bilirubin,Urine Small (Negative); Blood,Urine Large (Negative); Clarity,Urine Turbid (Clear); Color,Urine Dark Yellow (Yellow); Glucose,Urine (UA) Normal (Normal); Ketones,Urine Negative (Negative); Leukocyte Esterase,Urine Large (Negative); Nitrite,Urine Negative (Negative); Protein,Urine 100 mg/dL (Neg-Trace); Specific Gravity,Urine 1.022 (1.010-1.025); Urobilinogen,Urine Normal (Normal)
[2017-08-28] MEDS ORDERED: Vancomycin 2,000 MG in D5% in Water 500 ML IVPB ONE (05:48)
[2017-08-28] MEDS ORDERED: Aztreonam 2,000 MG in D5% in Water (Mini-Bag+) 100 ML IVPB STA (05:48)
[2017-08-28 05:49] LABS: Bacteria,Urine None Seen per hpf (None-Few); Squamous Epithelial Cell,Urine Many per lpf (None-Few); WBC,Urine TNTC per hpf (0-3)
[2017-08-28 05:50] LABS: Albumin 3.2 g/dL (3.5-5.0); Albumin/Globulin Ratio 0.8 (1.1-2.2); Bilirubin,Direct 0.2 mg/dL (0.0-0.5); Bilirubin,Indirect 0.3 mg/dL (0.0-1.2); Bilirubin,Total 0.5 mg/dL (0.2-1.2); Calcium 9.9 mg/dL (8.6-10.8); Globulin 3.8 g/dL (2.4-3.5); Potassium 5.2 mEq/L (3.5-4.5)
[2017-08-28] MEDS ORDERED: Levofloxacin 750 MG/150 ML 750 MG/150 ML BAG IVPB ONE (05:52)
[2017-08-28 06:06] LABS: RBC,Urine TNTC per hpf (0-3)
--- NOTE | 2017-08-28 06:17 | Emergency Department Note ---
Disposition Clinical Impression: Hip pain, right, Acute cystitis with hematuria, Generalized weakness Altered mental status Qualifiers: Altered mental status type: unspecified Qualified Code(s): R41.82 - Altered mental status, unspecified Disposition: Admitted As Inpatient Condition: Fair Referrals: Enrique Strange MD [Primary Care Provider] - Time of Disposition: 07:48 Fall HPI - General Chief Complaint: ED Extremity Injury, Lower Stated Complaint: right hip pains Time Seen by Provider: 08/28/17 04:19 Source: patient - History of Present Illness Place Fall Occurred: home Associated symptoms (after fall): Reports: weakness, shortness of breath, confusion (per patient's sister). Denies: headache, neck pain, numbness - Related Data Home Medications Medication Instructions Recorded Confirmed Levothyroxine [Synthroid] 88 mcg PO DAILY 06/30/15 08/28/17 Pregabalin [Lyrica] 50 mg PO BID 06/30/15 08/28/17 Allopurinol [Zyloprim] 200 mg PO DAILY 08/07/16 08/28/17 Aspirin 81 mg PO DAILY 08/07/16 08/28/17 Atorvastatin [Lipitor] 10 mg PO HS 08/07/16 08/28/17 Biotin [Estrada Biotin] 10,000 mcg PO DAILY 08/07/16 08/28/17 Calcitriol [Rocaltrol] 0.25 mcg PO DAILY 08/07/16 08/28/17 Docusate [Colace] 100 mg PO BID PRN 08/07/16 08/28/17 Folic Acid 1 mg PO DAILY 08/07/16 08/28/17 Nystatin POWDER [Nystop] 1 appl TP BID 08/07/16 08/28/17 Oxycodone HCl 15 mg PO BID PRN 08/07/16 08/28/17 Pantoprazole Sodium [Protonix] 40 mg PO DAILY 08/07/16 08/28/17 Sertraline [Zoloft] 100 mg PO DAILY 08/07/16 08/28/17 Albuterol Sulfate [Proair Hfa] 2 puff IH Q4H PRN 02/07/17 08/28/17 Ipratropium/Albuterol Neb [Duoneb] 3 ml IH TID PRN 02/07/17 08/28/17 Warfarin [Coumadin] 10 mg PO SUMOFR 02/07/17 08/28/17 Budesonide/Formoterol 160/4.5 2 puff IH BIDR 05/04/17 08/28/17 [Symbicort 160/4.5] Loratadine [Claritin] 10 mg PO DAILY 05/04/17 08/28/17 Renal Vitamin [Renal Caps Softgel] 1 mg PO DAILY 05/04/17 08/28/17 Ropinirole HCl [Requip Xl] 4 mg PO HS 05/04/17 08/28/17 Warfarin [Coumadin] 5 mg PO TUWETHSA 05/04/17 08/28/17 Calcium Carbonate [Tums] 1,500 mg PO TID 05/05/17 08/28/17 Lottie-3 Acid Ethyl Esters [Lovaza] 2 gm PO BID 08/28/17 08/28/17 Lottie-3/Dha/Epa/Fish Oil [Lottie 3 1,000 mg PO BID 08/28/17 08/28/17 500 Softgel] Allergies Allergy/AdvReac Type Severity Reaction Status Date / Time MALACHI Inhibitors Allergy Hives Verified 06/16/17 11:27 cephalexin [From Keflex] Allergy Hives Verified 06/16/17 11:27 cephalothin Allergy Hives Verified 06/16/17 11:27 clindamycin Allergy Hives Verified 06/16/17 11:27 codeine Allergy Hives Verified 06/16/17 11:27 fentanyl Allergy See Verified 06/16/17 11:27 Comments Hydromorphone [From Dilaudid] Allergy See Verified 06/16/17 11:27 Comments metoclopramide [From Reglan] Allergy Hives Verified 06/16/17 11:27 metronidazole Allergy Difficulty Verified 06/16/17 11:27 Breathing NSAIDS (Non-Steroidal Allergy Difficulty Verified 06/16/17 11:27 Anti-Inflamma Breathing Penicillins [PCN] Allergy Hives Verified 06/16/17 11:27 Sulfa (Sulfonamide Allergy Difficulty Verified 06/16/17 11:27 Antibiotics) Breathing sulfamethoxazole Allergy Difficulty Verified 06/16/17 11:27 [From Bactrim] Breathing trimethoprim Allergy Hives Verified 06/16/17 11:27 Constitutional: Denies: fever, chills Eyes: Denies: vision change ENT ED: Denies: throat pain Cardiovascular: Denies: chest pain, palpitations Respiratory: Denies: cough Gastrointestinal: Reports: nausea. Denies: abdominal pain, vomiting Genitourinary: Denies: dysuria Musculoskeletal: Reports: as per HPI. Denies: neck pain Integumentary: Denies: rash Neurological: Reports: headache Endocrine: Denies: fatigue Hematological/Lymphatic: Denies: easy bleeding Allergic/Immunologic: Denies: facial swelling Fall PMH - Past Medical History Medical history: Reports: arthritis, atrial fibrillation, CHF, COPD, diabetes, dialysis, hyperlipidemia, hypertension, migraine, thyroid disease, valvular heart disease, other Surgical history: Reports: cataract, cholecystectomy, heart valve replacement, orthopedic, other Psychiatric history: Reports: anxiety, depression [employer]ING [employer]ACHINE [employer] history: Reports: no [employer]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 Please see Ulices's documentation for any care performed prior to my arrival. Briefly, this is a 62-year-old female brought by squad from home status post fall. The patient stated that she fell from a seated position while sitting on her bed. She states that she leaned forward to grab something off the floor when she fell, landing on her face and knees. At the time of her arrival, she complained of headache and right hip pain. The patient lives at home with her sister. The sister states that the patient seemed more confused yesterday than normal and is complaining of chills but no outright fever. Before workup was performed. Imaging is pending at this time. Plan is to admit the patient for generalized weakness, altered mental status, and a urinary tract infection. 0700: I spoke with Dr. 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 She is a Sunday, , Sunday dialysis patient. 0745: I spoke with Dr. Pryor of the hospitalist service who has accepted patient for admission to the hospital under her care. Vital Signs Temperature 100.2 F H 08/28/17 04:16 Pulse Rate 113 08/28/17 04:16 Respiratory Rate 20 08/28/17 04:16 Blood Pressure 144/99 08/28/17 04:16 O2 Sat by Pulse Oximetry 95 08/28/17 04:16 Temperature 100.2 F H 08/28/17 04:16 Pulse Rate 111 08/28/17 07:14 Respiratory Rate 18 08/28/17 07:14 Blood Pressure 137/46 08/28/17 06:51 O2 Sat by Pulse Oximetry 93 08/28/17 07:31 Oxygen Delivery Oxygen Delivery Nasal Cannula Fall - Medical Records Medical records reviewed: Yes I reviewed the patient's medical records. - Lab Data Lab results reviewed: Yes I reviewed the patient's lab results. Lab results narrative: Laboratory Last Values WBC 9.2 K/mcL (4.3-11.1) 08/28/17 05:11 RBC 3.87 M/mcL (3.82-4.97) 08/28/17 05:11 Hgb 11.5 g/dL (11.5-15.4) 08/28/17 05:11 Hct 36.9 % (35.3-44.9) 08/28/17 05:11 MCV 95.3 fL (83.0-100.0) 08/28/17 05:11 MCH 29.7 pg (28.0-33.3) 08/28/17 05:11 MCHC 31.2 g/dL (31.6-35.5) L 08/28/17 05:11 RDW 14.6 % (11.5-14.5) H 08/28/17 05:11 Plt Count 128 K/mcL (140-400) L 08/28/17 05:11 MPV 12.1 fL (9.4-12.4) 08/28/17 05:11 Immature Gran % 0.3 % (0-4) 08/28/17 05:11 Seg Neutrophils % 90.8 % 08/28/17 05:11 Lymphocytes % 3.7 % 08/28/17 05:11 Monocytes % 3.3 % 08/28/17 05:11 Eosinophils % 1.1 % 08/28/17 05:11 Basophils % 0.8 % 08/28/17 05:11 Neutrophils # 8.3 K/mcL (1.6-8.9) 08/28/17 05:11 Lymphocytes # 0.3 K/mcL (0.6-4.6) L 08/28/17 05:11 Monocytes # 0.3 K/mcL (0.0-1.3) 08/28/17 05:11 Eosinophils # 0.1 K/mcL (0.0-0.6) 08/28/17 05:11 Basophils # 0.1 K/mcL (0.0-0.2) 08/28/17 05:11 PT 17.1 Seconds (9.4-12.1) H 08/28/17 05:11 INR 1.6 08/28/17 05:11 APTT 39.7 Seconds (26.0-36.0) H 08/28/17 05:11 Sodium 138 mEq/L (136-145) 08/28/17 05:11 Potassium 5.2 mEq/L (3.5-4.5) H 08/28/17 05:11 Chloride 99 mEq/L (98-109) 08/28/17 05:11 Carbon Dioxide 24 mEq/L (19-29) 08/28/17 05:11 BUN 46 mg/dL (7-20) H 08/28/17 05:11 Creatinine 7.83 mg/dL (0.57-1.11) H 08/28/17 05:11 Est GFR ( Amer) 6 (> 60) L 08/28/17 05:11 Est GFR (Non-Af Amer) 5 (> 60) L 08/28/17 05:11 BUN/Creatinine Ratio 6 (6-26) 08/28/17 05:11 Glucose 212 mg/dL (70-99) H 08/28/17 05:11 Calculated Osmolality 304 (280-300) H 08/28/17 05:11 Lactic Acid 1.2 mmol/L (0.5-2.2) 08/28/17 05:11 Calcium 9.9 mg/dL (8.6-10.8) 08/28/17 05:11 Total Bilirubin 0.5 mg/dL (0.2-1.2) 08/28/17 05:11 Direct Bilirubin 0.2 mg/dL (0.0-0.5) 08/28/17 05:11 Indirect Bilirubin 0.3 mg/dL (0.0-1.2) 08/28/17 05:11 AST 23 Units/L (5-34) 08/28/17 05:11 ALT 12 Units/L (0-55) 08/28/17 05:11 Alkaline Phosphatase 94 Units/L (38-126) 08/28/17 05:11 Troponin I 0.10 ng/mL (0-0.03) H* 08/28/17 05:11 B-Natriuretic Peptide 277 pg/mL (0-100) H 08/28/17 05:11 Serum Total Protein 7.0 g/dL (6.0-8.3) 08/28/17 05:11 Albumin 3.2 g/dL (3.5-5.0) L 08/28/17 05:11 Globulin 3.8 g/dL (2.4-3.5) H 08/28/17 05:11 Albumin/Globulin Ratio 0.8 (1.1-2.2) L 08/28/17 05:11 Urine Color Dark Yellow (Yellow) 08/28/17 05:20 Urine Clarity Turbid (Clear) A 08/28/17 05:20 Urine pH 5.0 pH Units (5.0-8.0) 08/28/17 05:20 Ur Specific [place] 1.022 (1.010-1.025) 08/28/17 05:20 Urine Protein 100 mg/dL (Neg-Trace) H 08/28/17 05:20 Urine Glucose (UA) Normal mg/dL (Normal) 08/28/17 05:20 Urine Ketones Negative mg/dL (Negative) 08/28/17 05:20 Urine Blood Large (Negative) H 08/28/17 05:20 Urine Nitrite Negative (Negative) 08/28/17 05:20 Urine Bilirubin Small (Negative) H 08/28/17 05:20 Urine Urobilinogen Normal mg/dL (Normal) 08/28/17 05:20 Ur Leukocyte Esterase Large (Negative) H 08/28/17 05:20 Urine Microscopic RBC TNTC per hpf (0-3) H 08/28/17 05:20 Urine Microscopic WBC TNTC per hpf (0-3) H 08/28/17 05:20 Ur Squamous Epith Cells Many per lpf (None-Few) H 08/28/17 05:20 Urine Bacteria None Seen per hpf (None-Few) 08/28/17 05:20 Ur Culture Indicated? YES (NO) A 08/28/17 05:20 Result diagrams: 08/28/17 05:11 08/28/17 05:11 Lab Results 08/28/17 08/28/17 08/28/17 Range/Units 05:11 05:11 05:11 WBC 9.2 (4.3-11.1) K/mcL RBC 3.87 (3.82-4.97) M/mcL Hgb 11.5 (11.5-15.4) g/dL Hct 36.9 (35.3-44.9) % MCV 95.3 (83.0-100.0) fL MCH 29.7 (28.0-33.3) pg MCHC 31.2 L (31.6-35.5) g/dL RDW 14.6 H (11.5-14.5) % Plt Count 128 L (140-400) K/mcL MPV 12.1 (9.4-12.4) fL Immature Gran % 0.3 (0-4) % Seg Neutrophils % 90.8 % Lymphocytes % 3.7 % Monocytes % 3.3 % Eosinophils % 1.1 % Basophils % 0.8 % Neutrophils # 8.3 (1.6-8.9) K/mcL Lymphocytes # 0.3 L (0.6-4.6) K/mcL Monocytes # 0.3 (0.0-1.3) K/mcL Eosinophils # 0.1 (0.0-0.6) K/mcL Basophils # 0.1 (0.0-0.2) K/mcL PT 17.1 H (9.4-12.1) Seconds INR 1.6 APTT 39.7 H (26.0-36.0) Seconds Sodium (136-145) mEq/L Potassium (3.5-4.5) mEq/L Chloride (98-109) mEq/L Carbon Dioxide (19-29) mEq/L BUN (7-20) mg/dL Creatinine (0.57-1.11) mg/dL Est GFR ( Amer) (> 60) Est GFR (Non-Af Amer) (> 60) BUN/Creatinine Ratio (6-26) Glucose (70-99) mg/dL Calculated Osmolality (280-300) Lactic Acid (0.5-2.2) mmol/L Calcium (8.6-10.8) mg/dL Total Bilirubin (0.2-1.2) mg/dL Direct Bilirubin (0.0-0.5) mg/dL Indirect Bilirubin (0.0-1.2) mg/dL AST (5-34) Units/L ALT (0-55) Units/L Alkaline Phosphatase (38-126) Units/L Troponin I (0-0.03) ng/mL B-Natriuretic Peptide 277 H (0-100) pg/mL Serum Total Protein (6.0-8.3) g/dL Albumin (3.5-5.0) g/dL Globulin (2.4-3.5) g/dL Albumin/Globulin Ratio (1.1-2.2) Urine Color (Yellow) Urine Clarity (Clear) Urine pH (5.0-8.0) pH Units Ur Specific [place] (1.010-1.025) Urine Protein (Neg-Trace) mg/dL Urine Glucose (UA) (Normal) mg/dL Urine Ketones (Negative) mg/dL Urine Blood (Negative) Urine Nitrite (Negative) Urine Bilirubin (Negative) Urine Urobilinogen (Normal) mg/dL Ur Leukocyte Esterase (Negative) Urine Microscopic RBC (0-3) per hpf Urine Microscopic WBC (0-3) per hpf Ur Squamous Epith Cells (None-Few) per lpf Urine Bacteria (None-Few) per hpf Ur Culture Indicated? (NO) 08/28/17 08/28/17 08/28/17 Range/Units 05:11 05:11 05:11 WBC (4.3-11.1) K/mcL RBC (3.82-4.97) M/mcL Hgb (11.5-15.4) g/dL Hct (35.3-44.9) % MCV (83.0-100.0) fL MCH (28.0-33.3) pg MCHC (31.6-35.5) g/dL RDW (11.5-14.5) % Plt Count (140-400) K/mcL MPV (9.4-12.4) fL Immature Gran % (0-4) % Seg Neutrophils % % Lymphocytes % % Monocytes % % Eosinophils % % Basophils % % Neutrophils # (1.6-8.9) K/mcL Lymphocytes # (0.6-4.6) K/mcL Monocytes # (0.0-1.3) K/mcL Eosinophils # (0.0-0.6) K/mcL Basophils # (0.0-0.2) K/mcL PT (9.4-12.1) Seconds INR APTT (26.0-36.0) Seconds Sodium 138 (136-145) mEq/L Potassium 5.2 H (3.5-4.5) mEq/L Chloride 99 (98-109) mEq/L Carbon Dioxide 24 (19-29) mEq/L BUN 46 H (7-20) mg/dL Creatinine 7.83 H (0.57-1.11) mg/dL Est GFR ( Amer) 6 L (> 60) Est GFR (Non-Af Amer) 5 L (> 60) BUN/Creatinine Ratio 6 (6-26) Glucose 212 H (70-99) mg/dL Calculated Osmolality 304 H (280-300) Lactic Acid 1.2 (0.5-2.2) mmol/L Calcium 9.9 (8.6-10.8) mg/dL Total Bilirubin 0.5 (0.2-1.2) mg/dL Direct Bilirubin 0.2 (0.0-0.5) mg/dL Indirect Bilirubin 0.3 (0.0-1.2) mg/dL AST 23 (5-34) Units/L ALT 12 (0-55) Units/L Alkaline Phosphatase 94 (38-126) Units/L Troponin I 0.10 H* (0-0.03) ng/mL B-Natriuretic Peptide (0-100) pg/mL Serum Total Protein 7.0 (6.0-8.3) g/dL Albumin 3.2 L (3.5-5.0) g/dL Globulin 3.8 H (2.4-3.5) g/dL Albumin/Globulin Ratio 0.8 L (1.1-2.2) Urine Color (Yellow) Urine Clarity (Clear) Urine pH (5.0-8.0) pH Units Ur Specific [place] (1.010-1.025) Urine Protein (Neg-Trace) mg/dL Urine Glucose (UA) (Normal) mg/dL Urine Ketones (Negative) mg/dL Urine Blood (Negative) Urine Nitrite (Negative) Urine Bilirubin (Negative) Urine Urobilinogen (Normal) mg/dL Ur Leukocyte Esterase (Negative) Urine Microscopic RBC (0-3) per hpf Urine Microscopic WBC (0-3) per hpf Ur Squamous Epith Cells (None-Few) per lpf Urine Bacteria (None-Few) per hpf Ur Culture Indicated? (NO) 08/28/17 Range/Units 05:20 WBC (4.3-11.1) K/mcL RBC (3.82-4.97) M/mcL Hgb (11.5-15.4) g/dL Hct (35.3-44.9) % MCV (83.0-100.0) fL MCH (28.0-33.3) pg MCHC (31.6-35.5) g/dL RDW (11.5-14.5) % Plt Count (140-400) K/mcL MPV (9.4-12.4) fL Immature Gran % (0-4) % Seg Neutrophils % % Lymphocytes % % Monocytes % % Eosinophils % % Basophils % % Neutrophils # (1.6-8.9) K/mcL Lymphocytes # (0.6-4.6) K/mcL Monocytes # (0.0-1.3) K/mcL Eosinophils # (0.0-0.6) K/mcL Basophils # (0.0-0.2) K/mcL PT (9.4-12.1) Seconds INR APTT (26.0-36.0) Seconds Sodium (136-145) mEq/L Potassium (3.5-4.5) mEq/L Chloride (98-109) mEq/L Carbon Dioxide (19-29) mEq/L BUN (7-20) mg/dL Creatinine (0.57-1.11) mg/dL Est GFR ( Amer) (> 60) Est GFR (Non-Af Amer) (> 60) BUN/Creatinine Ratio (6-26) Glucose (70-99) mg/dL Calculated Osmolality (280-300) Lactic Acid (0.5-2.2) mmol/L Calcium (8.6-10.8) mg/dL Total Bilirubin (0.2-1.2) mg/dL Direct Bilirubin (0.0-0.5) mg/dL Indirect Bilirubin (0.0-1.2) mg/dL AST (5-34) Units/L ALT (0-55) Units/L Alkaline Phosphatase (38-126) Units/L Troponin I (0-0.03) ng/mL B-Natriuretic Peptide (0-100) pg/mL Serum Total Protein (6.0-8.3) g/dL Albumin (3.5-5.0) g/dL Globulin (2.4-3.5) g/dL Albumin/Globulin Ratio (1.1-2.2) Urine Color Dark Yellow (Yellow) Urine Clarity Turbid A (Clear) Urine pH 5.0 (5.0-8.0) pH Units Ur Specific [place] 1.022 (1.010-1.025) Urine Protein 100 H (Neg-Trace) mg/dL Urine Glucose (UA) Normal (Normal) mg/dL Urine Ketones Negative (Negative) mg/dL Urine Blood Large H (Negative) Urine Nitrite Negative (Negative) Urine Bilirubin Small H (Negative) Urine Urobilinogen Normal (Normal) mg/dL Ur Leukocyte Esterase Large H (Negative) Urine Microscopic RBC TNTC H (0-3) per hpf Urine Microscopic WBC TNTC H (0-3) per hpf Ur Squamous Epith Cells Many H (None-Few) per lpf Urine Bacteria None Seen (None-Few) per hpf Ur Culture Indicated? YES A (NO) - Radiology Data Radiology results reviewed: Yes I reviewed the patient's radiology results. Cervical Spine CT 08/28/17 04:26 IMPRESSION: No acute abnormality of the cervical spine. D/ / Willi Mazariegos MD / Willi Mazariegos MD Interpreting Provider: Willi Mazariegos MD Femur X-Ray 08/28/17 04:26 IMPRESSION: Slightly limited exam. No acute osseous abnormality in the pelvis. No acute osseous abnormality in the right femur. If there is continued clinical concern for occult fracture, follow-up radiographs or MRI may be helpful for further evaluation. D/ / Izabel Wall MD / Izabel Wall MD Interpreting Provider: Izabel Wall MD Head CT 08/28/17 04:26 IMPRESSION: No acute intracranial abnormality. D/ / Willi Mazariegos MD / Willi Mazariegos MD Interpreting Provider: Willi Mazariegos MD Pelvis X-Ray 08/28/17 04:26 IMPRESSION: Slightly limited exam. No acute osseous abnormality in the pelvis. No acute osseous abnormality in the right femur. If there is continued clinical concern for occult fracture, follow-up radiographs or MRI may be helpful for further evaluation. D/ / Izabel Wall MD / Izabel Wall MD Interpreting Provider: Izabel Wall MD Chest X-Ray 08/28/17 04:28 IMPRESSION: Increasing interstitial opacities in the lungs may represent mild developing edema or pneumonia superimposed on chronic lung disease. D/ / Izabel Wall MD / Izabel Wall MD Interpreting Provider: Izabel Wall MD Lumbar Spine CT 08/28/17 04:40 IMPRESSION: Moderate retrolisthesis at L3-L4 with presence of intervertebral prosthesis at this level. The prosthesis projects partially into the ventral epidural space. There is laminectomy at this level. Moderate diffuse degenerative disease without evidence of gross disc protrusion No evidence acute fracture Osteopenia D/ / Willi Mazariegos MD / Willi Mazariegos MD Interpreting Provider: Willi Mazariegos MD
[2017-08-28] MEDS ORDERED: Ondansetron 4 MG/2 ML VIAL IVP PRN (10:53)
[2017-08-28] MEDS ORDERED: Acetaminophen 325 MG TABLET PO PRN (10:53)
[2017-08-28] MEDS ORDERED: Ipratropium/Albuterol Neb 3 ML IH PRN (10:57)
[2017-08-28] MEDS ORDERED: Vancomycin 1 EACH in D5% in Water 250 ML IVPB SCH (11:00)
--- NOTE | 2017-08-28 11:02 | Internal Med History&Physical ---
Date of Encounter: 08/28/17 Time of Encounter: 10:15 Assessment and Plan (1) UTI (urinary tract infection) Current visit: Yes Status: Acute Routine urine dipstick showed moderate leukocyte esterase, too numerous to count WBC, no bacteria. Difficult to assess the accuracy in dialysis patients due to oliguria. Continue IV antibiotics and follow up urine culture. Qualifiers: Urinary tract infection type: site unspecified Hematuria presence: without hematuria Qualified Code(s): N39.0 - Urinary tract infection, site not specified (2) Pneumonia Current visit: Yes Status: Acute Chest x-ray reviewed independently-shows bilateral interstitial infiltrates could be pulmonary edema, underlying infiltrates cannot be excluded. Patient did present with cough and low-grade fever, tachycardia and generalized weakness and hypoxia. She has penicillin allergies. Continue IV aztreonam, Levaquin and vancomycin and follow up blood cultures. Send urine Legionella and Streptococcus pneumoniae antigens. Continue supportive care and supplemental oxygen as needed. Qualifiers: Pneumonia type: due to unspecified organism Laterality: bilateral Lung location: unspecified part of lung Qualified Code(s): J18.9 - Pneumonia, unspecified organism (3) Congestive heart failure Current visit: Yes Status: Chronic Does not seem to be in acute exacerbation. Continue home medications. Qualifiers: Congestive heart failure type: diastolic Congestive heart failure chronicity: chronic Qualified Code(s): I50.32 - Chronic diastolic (congestive ) heart failure (4) Atrial fibrillation Current visit: Yes Status: Chronic Currently rate controlled. Not on rate control medications at home. Continue long-term anticoagulation with Coumadin. INR is noted to be 1.6 today. Qualifiers: Atrial fibrillation type: chronic Qualified Code(s): I48.2 - Chronic atrial fibrillation (5) Elevated troponin Current visit: Yes Status: Chronic Likely due to demand ischemia with underlying ESRD and hypoxemia. Previous values of troponin are consistent with the current value of 0.1. Continue telemetry monitoring and cycle troponins. (6) Hyperkalemia Current visit: Yes Status: Acute Due to end-stage renal disease. Plan to receive hemodialysis today. Continue to follow. (7) Diabetes Current visit: Yes Status: Chronic Patient reports she is currently not on any medications for diabetes. Accu- Chek blood glucose monitoring with sliding scale insulin if needed. Diabetic and renal diet. 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 Continue calcitriol, calcium carbonate and multivitamins. (9) COPD (chronic obstructive pulmonary disease) Current visit: Yes Status: Chronic Does not seem to be in acute exacerbation. Continue when necessary bronchodilators, Symbicort. Patient is supposed to be on home oxygen per nursing notes, however she is noted to be noncompliant. Currently requiring 2- 3 L/m supplemental oxygen via nasal cannula. Continue to wean down FiO2. Qualifiers: COPD type: unspecified COPD Qualified Code(s): J44.9 - Chronic obstructive pulmonary disease, unspecified (10) Hypothyroidism Current visit: Yes Status: Chronic Resume levothyroxine. Qualifiers: Hypothyroidism type: unspecified Qualified Code(s): E03.9 - Hypothyroidism , unspecified (11) HTN (hypertension) Current visit: Yes Status: Chronic Blood pressure noted to be slightly elevated. Expect to be improving with dialysis. Continue to monitor. Qualifiers: Hypertension type: essential hypertension Qualified Code(s): I10 - Essential (primary) hypertension (12) HLD (hyperlipidemia) Current visit: Yes Status: Chronic Continue statin. Qualifiers: Hyperlipidemia type: unspecified Qualified Code(s): E78.5 - Hyperlipidemia , unspecified (13) S/P TAVR (transcatheter aortic valve replacement) Current visit: Yes Status: Chronic Continue anticoagulation with Coumadin as above. Internal Medicine - H&P: HPI Chief complaint: Fall, altered mental status Admitted From: Emergency Dept Plans for Post Hospital Care: Home History of present illness: Ms. Loza is a 62 year old female with history of end-stage renal disease, aortic valve replacement and atrial fibrillation, was brought in by family after sustaining a fall at home. Patient is currently extremely drowsy and is unable to provide a detailed history. History is also obtained from review of emergency room records and previous medical records. 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 Imaging studies done in the emergency room showed no evidence of acute fracture or trauma. Patient also reports having low-grade fevers and chills at home along with cough for the last few days. Also reports intermittent retrosternal chest pain but is unable to elaborate on these complaints. No syncope, hemoptysis, leg swelling. She also denies urinary complaints like hematuria, burning micturition, dysuria. Past Med Surg Social Fam HX - Past Medical History Medical history: arthritis, atrial fibrillation, CHF, COPD, diabetes, dialysis, hyperlipidemia, hypertension, migraine, renal disease, thyroid disease, valvular heart disease (AVR), other Psychiatric history: anxiety, depression - Past Surgical History Surgical History: cataract, cholecystectomy, heart valve replacement, orthopedic , other - Social History Smoking Status: Former smoker Smokeless Tobacco Status: No Alcohol use: none Drug use: none Occupational status: disabled Current living situation: Home, With Family Activity Level: Wheelchair bound Recent Out of Country Travel Within the Last 8 Weeks: No Exposure or Possible Exposure to Illness During Travel: No - Family History Mother Hx Family Cardiac Disorders: Yes (HTN) Hx Family Endocrine Disorder: Yes (DM) Father Hx Family Cardiac Disorders: Yes (HTN) Hx Family Cancer: Yes (lung cancer) Hx Family Endocrine Disorder: Yes (DM) Internal Medicine - H&P: Meds Levothyroxine [Synthroid] 88 mcg PO DAILY 06/30/15 [History] Pregabalin [Lyrica] 50 mg PO BID 06/30/15 [History] Allopurinol [Zyloprim] 200 mg PO DAILY 08/07/16 [History] Aspirin 81 mg PO DAILY 08/07/16 [History] Atorvastatin [Lipitor] 10 mg PO HS 08/07/16 [History] Biotin [Estrada Biotin] 10,000 mcg PO DAILY 08/07/16 [History] Calcitriol [Rocaltrol] 0.25 mcg PO DAILY 08/07/16 [History] Docusate [Colace] 100 mg PO BID PRN 08/07/16 [History] Folic Acid 1 mg PO DAILY 08/07/16 [History] Nystatin POWDER [Nystop] 1 appl TP BID 08/07/16 [History] Oxycodone HCl 15 mg PO BID PRN 08/07/16 [History] Pantoprazole Sodium [Protonix] 40 mg PO DAILY 08/07/16 [History] Sertraline [Zoloft] 100 mg PO DAILY 08/07/16 [History] Albuterol Sulfate [Proair Hfa] 2 puff IH Q4H PRN 02/07/17 [History] Ipratropium/Albuterol Neb [Duoneb] 3 ml IH TID PRN 02/07/17 [History] Warfarin [Coumadin] 10 mg PO SUMOFR 02/07/17 [History] Budesonide/Formoterol 160/4.5 [Symbicort 160/4.5] 2 puff IH BIDR 05/04/17 [ History] Loratadine [Claritin] 10 mg PO DAILY 05/04/17 [History] Renal Vitamin [Renal Caps Softgel] 1 mg PO DAILY 05/04/17 [History] Ropinirole HCl [Requip Xl] 4 mg PO HS 05/04/17 [History] Warfarin [Coumadin] 5 mg PO TUWETHSA 05/04/17 [History] Calcium Carbonate [Tums] 1,500 mg PO TID 05/05/17 [History] [place]-3 Acid Ethyl Esters [Lovaza] 2 gm PO BID 08/28/17 [History] [place]-3/Dha/Epa/Fish Oil [[place] 3 500 Softgel] 1,000 mg PO BID 08/28/17 [History ] 3 Allergy/AdvReac Type Severity Reaction Status Date / Time MALACHI Inhibitors Allergy Hives Verified 06/16/17 11:27 cephalexin [From Keflex] Allergy Hives Verified 06/16/17 11:27 cephalothin Allergy Hives Verified 06/16/17 11:27 clindamycin Allergy Hives Verified 06/16/17 11:27 codeine Allergy Hives Verified 06/16/17 11:27 fentanyl Allergy See Verified 06/16/17 11:27 Comments Hydromorphone [From Dilaudid] Allergy See Verified 06/16/17 11:27 Comments metoclopramide [From Reglan] Allergy Hives Verified 06/16/17 11:27 metronidazole Allergy Difficulty Verified 06/16/17 11:27 Breathing NSAIDS (Non-Steroidal Allergy Difficulty Verified 06/16/17 11:27 Anti-Inflamma Breathing Penicillins [PCN] Allergy Hives Verified 06/16/17 11:27 Sulfa (Sulfonamide Allergy Difficulty Verified 06/16/17 11:27 Antibiotics) Breathing sulfamethoxazole Allergy Difficulty Verified 06/16/17 11:27 [From Bactrim] Breathing trimethoprim Allergy Hives Verified 06/16/17 11:27 All Systems PM: A 10-system review of systems was performed and is negative for pertinent findings except as documented above in the HPI. - Constitutional Constitutional: chills, fever(s) - EENT Eyes: no change in vision, no discharge, no pain, no photophobia Ears: no ear discharge, no ear pain, no tinnitus Nose, mouth and throat: no dysphagia, no nasal discharge, no neck pain, no sore throat - Cardiovascular Cardiovascular ROS IM: chest pain - Respiratory Respiratory: cough - Gastrointestinal Gastrointestinal: vomiting, no abdominal pain, no diarrhea, no hematemesis, no hematochezia, no melena, no nausea - Genitourinary Genitourinary: no change in urinary stream, no dysuria, no flank pain, no hematuria - Musculoskeletal Musculoskeletal ROS IM: muscle weakness, no numbness, no tingling - Integumentary Integumentary IM: no rash, no unusual bruising - Neurological Neurological ROS: no confusion, no convulsions, no focal weakness, no numbness, no tingling, no tremor(s) - Hematologic/Lymphatic Hematologic/Lymphatic: no easy bruising - Constitutional Vitals: Temp Pulse Resp BP Pulse Ox 98.4 F 106 18 160/66 94 08/28/17 09:12 08/28/17 09:12 08/28/17 09:12 08/28/17 09:12 08/28/17 09:12 General appearance: Present: A&O X 3 (extremely drowsy, keeps nodding off) - Respiratory Respiratory exam: Present: CTAB (Bilateral coarse breath sounds, bibasal crackles. No active wheezing or rhonchi.). Absent: accessory muscle use, rales , rhonchi, wheezes - Cardiovascular Cardiovascular exam: Present: irregular rhythm, +S1, +S2. Absent: diastolic murmur, gallop, rubs, systolic murmur - GI/Abdominal GI/Abdominal exam: Present: normal bowel sounds, soft (OBese), no peritoneal signs. Absent: distended, tenderness - Extremities Exam Extremities exam: Present: warm, radial pulses palpable and symmetrical. Absent : calf tenderness, cyanotic, pedal edema - Neurological Exam Neurological exam: Present: CN II-XII intact, oriented X3, no focal deficits, strengths equal and symetr throughout (Decreased motor power in bilateral lower extremities). Absent: pronater drift, facial droop, speech deficit - Skin Skin exam: Present: dry, intact Internal Med - H&P Results - Labs CBC & Chem 7: 08/28/17 05:11 08/28/17 05:11 - EKG Data -: EKG Interpreted by Myself Rate: normal (Atrial fibrillation, rate controlled)
--- NOTE | 2017-08-28 12:55 | Nephrology Consult Note ---
Date of Encounter: 08/28/17 Time of Encounter: 12:53 Assessment and Plan (1) ESRD on hemodialysis Current Visit: Yes Status: Chronic Patient will undergo dialysis today. Her potassium is currently 5.2. She will be dialyzed on a 2K bath. Her hemoglobin is 11.5 so at this point she does not require any Aranesp or Procrit. (2) History of heart valve replacement Current Visit: No Status: Chronic (3) S/P TAVR (transcatheter aortic valve replacement) Current Visit: Yes Status: Chronic (4) UTI (urinary tract infection) Current Visit: Yes Status: Acute Qualifiers: Urinary tract infection type: site unspecified Hematuria presence: without hematuria Qualified Code(s): N39.0 - Urinary tract infection, site not specified History of Present Illness - History of Present Illness This is a 62-year-old female who has end-stage renal disease in the setting of diabetes and hypertension. Patient receives dialysis and tighten every Sunday. Patient was at home earlier this morning. She said she dropped something on the floor she went to pick it up and she sustained a fall. She presented to the emergency room for further evaluation and management. She also apparently was somewhat lethargic in the emergency room according to the medical record. Currently she is fairly alert although not quite back to her usual baseline. Urinalysis suggests a possible urinary tract infection. Chest x-ray suggests either pulmonary edema and/or pneumonia. Therefore the patient has been placed on empiric antibiotics. She will be scheduled to get her usual dialysis later today. She denies any shortness of breath. She does have a cough this is rather mild. She has had multiple hospitalizations in the past for pneumonia and/or acute bronchitis. Not Complaining of any fevers or chills. She is not complaining of any dysuria or frequency. Past Med Surg Social Fam HX - Past Medical History Medical history: arthritis, atrial fibrillation, CHF, COPD, diabetes, dialysis, hyperlipidemia, hypertension, migraine, renal disease, thyroid disease, valvular heart disease (AVR), other Psychiatric history: anxiety, depression - Past Surgical History Surgical History: cataract, cholecystectomy, heart valve replacement, orthopedic , other - Social History Smoking Status: Former smoker Smokeless Tobacco Status: No Alcohol use: none Drug use: none - Family History Mother Hx Family Cardiac Disorders: Yes (HTN) Hx Family Endocrine Disorder: Yes (DM) Father Hx Family Cardiac Disorders: Yes (HTN) Hx Family Cancer: Yes (lung cancer) Hx Family Endocrine Disorder: Yes (DM) Medications and Allergies Levothyroxine [Synthroid] 88 mcg PO DAILY 06/30/15 [History] Pregabalin [Lyrica] 50 mg PO BID 06/30/15 [History] Allopurinol [Zyloprim] 200 mg PO DAILY 08/07/16 [History] Aspirin 81 mg PO DAILY 08/07/16 [History] Atorvastatin [Lipitor] 10 mg PO HS 08/07/16 [History] Biotin [Estrada Biotin] 10,000 mcg PO DAILY 08/07/16 [History] Calcitriol [Rocaltrol] 0.25 mcg PO DAILY 08/07/16 [History] Docusate [Colace] 100 mg PO BID PRN 08/07/16 [History] Folic Acid 1 mg PO DAILY 08/07/16 [History] Nystatin POWDER [Nystop] 1 appl TP BID 08/07/16 [History] Oxycodone HCl 15 mg PO BID PRN 08/07/16 [History] Pantoprazole Sodium [Protonix] 40 mg PO DAILY 08/07/16 [History] Sertraline [Zoloft] 100 mg PO DAILY 08/07/16 [History] Albuterol Sulfate [Proair Hfa] 2 puff IH Q4H PRN 02/07/17 [History] Ipratropium/Albuterol Neb [Duoneb] 3 ml IH TID PRN 02/07/17 [History] Warfarin [Coumadin] 10 mg PO SUMOFR 02/07/17 [History] Budesonide/Formoterol 160/4.5 [Symbicort 160/4.5] 2 puff IH BIDR 05/04/17 [ History] Loratadine [Claritin] 10 mg PO DAILY 05/04/17 [History] Renal Vitamin [Renal Caps Softgel] 1 mg PO DAILY 05/04/17 [History] Ropinirole HCl [Requip Xl] 4 mg PO HS 05/04/17 [History] Warfarin [Coumadin] 5 mg PO TUWETHSA 05/04/17 [History] Calcium Carbonate [Tums] 1,500 mg PO TID 05/05/17 [History] [place]-3 Acid Ethyl Esters [Lovaza] 2 gm PO BID 08/28/17 [History] [place]-3/Dha/Epa/Fish Oil [[place] 3 500 Softgel] 1,000 mg PO BID 08/28/17 [History ] 3 Allergy/AdvReac Type Severity Reaction Status Date / Time MALACHI Inhibitors Allergy Hives Verified 06/16/17 11:27 cephalexin [From Keflex] Allergy Hives Verified 06/16/17 11:27 cephalothin Allergy Hives Verified 06/16/17 11:27 clindamycin Allergy Hives Verified 06/16/17 11:27 codeine Allergy Hives Verified 06/16/17 11:27 fentanyl Allergy See Verified 06/16/17 11:27 Comments Hydromorphone [From Dilaudid] Allergy See Verified 06/16/17 11:27 Comments metoclopramide [From Reglan] Allergy Hives Verified 06/16/17 11:27 metronidazole Allergy Difficulty Verified 06/16/17 11:27 Breathing NSAIDS (Non-Steroidal Allergy Difficulty Verified 06/16/17 11:27 Anti-Inflamma Breathing Penicillins [PCN] Allergy Hives Verified 06/16/17 11:27 Sulfa (Sulfonamide Allergy Difficulty Verified 06/16/17 11:27 Antibiotics) Breathing sulfamethoxazole Allergy Difficulty Verified 06/16/17 11:27 [From Bactrim] Breathing trimethoprim Allergy Hives Verified 06/16/17 11:27 Review of Systems Constitutional: as per HPI, weakness Nose, mouth and throat: as per HPI Cardiovascular: as per HPI, dyspnea on exertion, edema Respiratory: cough, dyspnea on exertion Gastrointestinal: no abdominal pain, no change in bowel habits Musculoskeletal: as per HPI Integumentary: no hirsutism, no striae Neurological: weakness Psychiatric: no depression, no difficulty concentrating Endocrine: as per HPI Hematologic/Lymphatic: no easy bruising, no lymphadenopathy Exam - Vital Signs Vital signs: Initial Vital Signs Temp Pulse Resp BP Pulse Ox 100.2 F H 113 20 144/99 95 08/28/17 04:16 08/28/17 04:16 08/28/17 04:16 08/28/17 04:16 08/28/17 04:16 Vital Signs - Last 8 Hours Temp Pulse Resp BP Pulse Ox 08/28/17 11:59 98.3 F 89 17 121/63 97 - General Appearance Exam: Patient is alert and oriented. She is no acute distress. Vital signs are stable. Neck supple. Lungs sounds otherwise clear. There is no wheezing. Heart regular rate and rhythm with a 2/6 ejection murmur. Abdomen is obese. Bowel sounds are present. No masses or tenderness noted. There is minimal lower extremity swelling. Is a functioning AV fistula in the left upper extremity. Results - Lab Results 08/28/17 05:11 08/28/17 05:11 Most recent lab results Calcium 9.9 mg/dL (8.6-10.8) 08/28/17 05:11 Consult Discharge Plan - Plan
[2017-08-28] MEDS ORDERED: 0.9 % Sodium Chloride 250 ML IVC PRN (12:56)
[2017-08-28] MEDS ORDERED: 0.9 % Sodium Chloride 2,000 ML ONE (14:08)
--- NOTE | 2017-08-28 17:41 | Electrocardiograph Report ---
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
[2017-08-28] MEDS ORDERED: Warfarin perPT PO PRN (18:00)
[2017-08-28] MEDS: *HR* Warfarin 5 MG TABLET PO SCH (19:03)
[2017-08-28 19:28] LABS: Hepatitis B Surface Antigen Nonreactive (Nonreactive)
[2017-08-28] MEDS: Aztreonam 500 MG in D5% in Water 100 ML IVPB SCH ×2 (19:41→20:50)
[2017-08-28] MEDS: Pregabalin 50 MG CAPSULE PO SCH (19:43)
[2017-08-28] MEDS: Budesonide/Formoterol 160/4.5 MDI IH SCH (20:35)
[2017-08-28] MEDS: Nystatin POWDER 30 GM BOTTLE TP SCH (20:54)
[2017-08-28] MEDS ORDERED: FISH OIL PO SCH (21:00)
[2017-08-28] MEDS ORDERED: EPA PO SCH (21:00)
[2017-08-28] MEDS ORDERED: (Omega-3 Acid Ethyl Esters [Lovaza] 2 GM) PO SCH (21:00)
[2017-08-28] MEDS ORDERED: [UNRECOGNIZED DRUG - OTHER] PO SCH (21:00)
[2017-08-28] MEDS ORDERED: DHA PO SCH (21:00)
[2017-08-28] MEDS ORDERED: OMEGA PO SCH (21:00)
[2017-08-28] MEDS ORDERED: (Ropinirole Hcl [Requip Xl] 4 MG) PO SCH (21:00)
[2017-08-29 04:12] LABS: Basophils % 0.5 %; Eosinophils # 0.2 K/mcL (0.0-0.6); Eosinophils % 2.7 %; Hematocrit 31.7 % (35.3-44.9); Hemoglobin 10.1 g/dL (11.5-15.4); Immature Granulocytes % 0.4 % (0-4); Lymphocytes # 0.7 K/mcL (0.6-4.6); Lymphocytes % 7.6 %; Mean Corpuscular HGB Conc 31.9 g/dL (31.6-35.5); Mean Corpuscular Hemoglobin 30.3 pg (28.0-33.3); Mean Corpuscular Volume 95.2 fL (83.0-100.0); Monocytes # 0.5 K/mcL (0.0-1.3); Monocytes % 6.2 %; Platelet Count 106 K/mcL (140-400); Red Blood Count 3.33 M/mcL (3.82-4.97); Red Cell Distribution Width 14.2 % (11.5-14.5); Segmented Neutrophils % 82.6 %
[2017-08-29 04:17] LABS: INR 1.8; Prothrombin Time 19.8 Seconds (9.4-12.1)
[2017-08-29] MEDS: Aztreonam 500 MG in D5% in Water 100 ML IVPB SCH ×3 (04:52→21:32)
[2017-08-29] MEDS: Levofloxacin 500 MG/100 ML 500 MG/100 ML BAG IVPB SCH (06:40)
--- NOTE | 2017-08-29 07:51 | Nephrology Progress Note ---
Date of Encounter: 08/29/17 Time of Encounter: 07:50 - Assessment and Plan (1) ESRD on hemodialysis Current Visit: Yes Status: Chronic The patient is stable from a renal perspective. She will continue to receive dialysis every Sunday. She is on empiric and biotics for a possible urinary tract infection. (2) History of heart valve replacement Current Visit: No Status: Chronic (3) S/P TAVR (transcatheter aortic valve replacement) Current Visit: Yes Status: Chronic (4) UTI (urinary tract infection) Current Visit: Yes Status: Acute Qualifiers: Urinary tract infection type: site unspecified Hematuria presence: without hematuria Qualified Code(s): N39.0 - Urinary tract infection, site not specified Subjective Interval history: Patient reports she is feeling better. She is less confused. She is requesting to go home. Culture results remain negative. She continues on empiric antibiotics for possible UTI. Vital signs are stable. White count is normal. Objective - Vital Signs Vital signs: Vital Signs Temp Pulse Resp BP Pulse Ox 08/29/17 07:37 97.6 F 76 18 132/61 98 08/29/17 04:37 98.5 F 78 16 99/50 97 08/29/17 01:20 98.1 F 79 16 123/56 97 08/28/17 20:46 98.5 F 73 14 116/65 93 08/28/17 20:40 18 93 08/28/17 18:05 97.1 F L 15 155/82 08/28/17 17:55 140/84 08/28/17 17:40 157/84 08/28/17 17:25 130/65 08/28/17 17:10 137/69 08/28/17 16:55 134/69 08/28/17 16:25 124/58 08/28/17 15:55 112/55 08/28/17 15:25 131/64 08/28/17 14:55 126/65 08/28/17 14:25 98.1 F 17 127/63 08/28/17 11:59 98.3 F 89 17 121/63 97 Intake and Output 08/28/17 08/28/17 08/29/17 15:59 23:59 07:59 Intake Total 600 / 1100 Output Total 3600 / 3600 Balance 600 / 1100 -3600 / -3600 Intake: Oral 0 / 0 Intake, Rinseback and Flushes 600 / 600 Output: Urine 0 / 0 Total Dialysis (HD) Output 3600 / 3600 Other: Weight 136.4 kg Blood Glucose* 156 Hemodialysis Net Fluid Removed 1569 3000 (mL) Patient Weight 08/29/17 23:59 Weight 136.4 kg - General Appearance Exam: Patient is alert and oriented. She is in no acute distress. Lungs clear to auscultation. Heart regular rate and rhythm. Abdomen is benign. There is no lower extremity swelling. Is an AV fistula in the left upper extremity. - Lab 08/29/17 03:38 08/28/17 05:11 Most recent lab results Calcium 9.9 mg/dL (8.6-10.8) 08/28/17 05:11 Consult Discharge Plan - Plan Referrals: Enrique Strange MD [Primary Care Provider] -
[2017-08-29] MEDS: Budesonide/Formoterol 160/4.5 MDI IH SCH ×2 (08:03→20:39)
[2017-08-29] MEDS ORDERED: (Biotin [Mega Biotin] 10,000 MCG) PO SCH (09:00)
[2017-08-29] MEDS: Renal Vitamin 1 MG CAPSULE PO SCH (09:13)
[2017-08-29] MEDS: Pregabalin 50 MG CAPSULE PO SCH (09:13)
[2017-08-29] MEDS: Aspirin 81 MG TAB.CHEW PO SCH (09:13)
[2017-08-29] MEDS: Folic Acid 1 MG TABLET PO SCH (09:14)
[2017-08-29 11:42] LABS: Hepatitis B Surface Antibody 0.31 mIU/mL
[2017-08-29] MEDS ORDERED: Dextrose Gel 15 GM PO PRN ×2 (13:32)
[2017-08-29] MEDS ORDERED: D5% in Water 1,000 ML IVC PRN (13:32)
[2017-08-29] MEDS ORDERED: *HR* Dextrose 50 % in Water (Syg) 50 ML SYRINGE IVP PRN (13:32)
[2017-08-29] MEDS: Nystatin POWDER 30 GM BOTTLE TP SCH ×3 (13:34→21:33)
[2017-08-29] MEDS: *HR* Warfarin 5 MG TABLET PO SCH (17:09)
[2017-08-29] MEDS: Insulin LISPRO 300 UNITS/3 ML VIAL SQ SCH ×2 (17:09→21:33)
--- NOTE | 2017-08-29 18:16 | Internal Med Progress Note ---
Date of Encounter: 08/29/17 Time of Encounter: 11:00 - Assessment and plan (1) Hospital-acquired pneumonia Current Visit: No Status: Resolved Assessment and plan: -We will continue IV antibiotics for HAP coverage (2) COPD (chronic obstructive pulmonary disease) Current Visit: Yes Status: Chronic Assessment and plan: Stable; continue home inhalers Qualifiers: COPD type: unspecified COPD Qualified Code(s): J44.9 - Chronic obstructive pulmonary disease, unspecified (3) ESRD (end stage renal disease) on dialysis Current Visit: No Status: Chronic Assessment and plan: Hemodialysis per nephrology (4) Anemia Current Visit: No Status: Acute Assessment and plan: Stable; suspect secondary to chronic kidney disease Qualifiers: Chronic kidney disease stage: on chronic dialysis Qualified Code(s): N18.6 - End stage renal disease; D63.1 - Anemia in chronic kidney disease; D63.1 - Anemia in chronic kidney disease; Z99.2 - Dependence on renal dialysis; Z99.2 - Dependence on renal dialysis; Z99.2 - Dependence on renal dialysis; Z99.2 - Dependence on renal dialysis (5) CHF (congestive heart failure) Current Visit: No Status: Chronic Assessment and plan: Stable; continue home medications Qualifiers: Congestive heart failure type: diastolic Congestive heart failure chronicity: chronic Qualified Code(s): I50.32 - Chronic diastolic (congestive ) heart failure (6) Hypothyroidism Current Visit: Yes Status: Chronic Assessment and plan: Continue home levothyroxine Qualifiers: Hypothyroidism type: unspecified Qualified Code(s): E03.9 - Hypothyroidism , unspecified - Subjective Interval history: No acute events overnight - Constitutional Vitals: Temp Pulse Resp BP Pulse Ox 98.0 F 64 20 134/82 98 08/29/17 15:59 08/29/17 15:59 08/29/17 15:59 08/29/17 15:59 08/29/17 15:59 General appearance: Present: A&O X 3 (extremely drowsy, keeps nodding off) - Respiratory Respiratory exam: Present: CTAB. Absent: accessory muscle use, rales, rhonchi, wheezes - Cardiovascular Cardiovascular exam: Present: RRR, +S1, +S2. Absent: diastolic murmur, gallop, rubs, systolic murmur Internal Medicine: Result - Labs CBC & Chem 7: 08/29/17 03:38 08/28/17 05:11 Labs: Short CBC 08/29/17 Range/Units 03:38 WBC 8.5 (4.3-11.1) K/mcL Hgb 10.1 L (11.5-15.4) g/dL Hct 31.7 L (35.3-44.9) % Plt Count 106 L (140-400) K/mcL Neutrophils # 7.0 (1.6-8.9) K/mcL Cardiac Enzymes 08/28/17 08/29/17 Range/Units 18:55 00:48 Troponin I 0.18 H* 0.16 H* (0-0.03) ng/mL - ABG Interpretation ABG results: PT/INR, D-dimer PT 19.8 Seconds (9.4-12.1) H 08/29/17 03:38 Consult Discharge Plan - Plan Referrals: Enrique Strange MD [Primary Care Provider] -
[2017-08-29] MEDS: rOPINIRole 1 MG TABLET PO SCH (21:32)
[2017-08-30 05:18] LABS: INR 1.6; Prothrombin Time 17.1 Seconds (9.4-12.1)
[2017-08-30] MEDS: Aztreonam 500 MG in D5% in Water 100 ML IVPB SCH ×3 (06:25→21:55)
[2017-08-30 07:46] LABS: Hematocrit 31.8 % (35.3-44.9); Hemoglobin 10.2 g/dL (11.5-15.4); Mean Corpuscular HGB Conc 32.1 g/dL (31.6-35.5); Mean Corpuscular Hemoglobin 30.1 pg (28.0-33.3); Mean Corpuscular Volume 93.8 fL (83.0-100.0); Mean Platelet Volume 12.5 fL (9.4-12.4); Platelet Count 111 K/mcL (140-400); Red Blood Count 3.39 M/mcL (3.82-4.97); Red Cell Distribution Width 14.1 % (11.5-14.5)
[2017-08-30] MEDS ORDERED: 0.9 % Sodium Chloride 250 ML IVC PRN ×2 (07:58→08:05)
[2017-08-30 07:59] LABS: Calcium 8.6 mg/dL (8.6-10.8); Potassium 4.7 mEq/L (3.5-4.5)
[2017-08-30] MEDS: Budesonide/Formoterol 160/4.5 MDI IH SCH ×2 (08:07→20:23)
[2017-08-30] MEDS: Renal Vitamin 1 MG CAPSULE PO SCH (08:14)
[2017-08-30] MEDS: Aspirin 81 MG TAB.CHEW PO SCH (08:14)
[2017-08-30] MEDS: Folic Acid 1 MG TABLET PO SCH (08:14)
[2017-08-30] MEDS: Insulin LISPRO 300 UNITS/3 ML VIAL SQ SCH ×4 (08:15→20:55)
[2017-08-30] MEDS: Nystatin POWDER 30 GM BOTTLE TP SCH ×2 (08:15→20:58)
[2017-08-30] MEDS: Pregabalin 50 MG CAPSULE PO SCH (08:15)
[2017-08-30] MEDS: *HR* OxyCODONE Immed Rel 15 MG TABLET PO PRN (08:21)
--- NOTE | 2017-08-30 09:25 | Nephrology Progress Note ---
Date of Encounter: 08/30/17 Time of Encounter: 08:55 - Assessment and Plan (1) ESRD on hemodialysis Current Visit: Yes Status: Chronic ESRD-HD today, keeping TTS schedule. Orders given. Urine culture-final, no growth. Subjective Interval history: Seen on HD. States feelng better, no new complaints. Seems at patient baseline for mentation. Wants to go home. Objective - Vital Signs Vital signs: Vital Signs Temp Pulse Resp BP Pulse Ox 08/30/17 08:09 18 98 08/30/17 08:07 97.6 F 78 18 127/65 99 08/30/17 03:56 97.8 F 90 18 132/73 90 08/29/17 23:19 98.6 F 89 17 166/74 97 08/29/17 20:43 18 98 08/29/17 20:02 98.2 F 75 18 137/70 96 08/29/17 15:59 98.0 F 64 20 134/82 98 08/29/17 11:09 98.0 F 77 20 137/70 98 Intake and Output 08/29/17 08/30/17 08/30/17 23:59 07:59 15:59 Intake Total 560 / 560 Balance 560 / 560 Intake: IV Fluids 200 / 200 Azactam 500 MG In Dextrose 5% 200 / 200 100 ML @ 200 mls/hr IVPB Q8H [facility] Rx#:[id number] Oral 360 / 360 Other: Meal Dinner Percent of Meal Consumed 0% Weight 144.242 kg Blood Glucose* 142 114 Patient Weight 08/30/17 23:59 Weight 144.242 kg - General Appearance General appearance: Present: well-developed, well-nourished, appears started age , obese EENT: Present: mucous membranes moist Neck: Present: no JVD Respiratory: Present: clear Cardiology: Present: no edema, regular rate, regular rhythm Gastrointestinal: Present: normoactive bowel sounds, no tenderness Integumentary: Present: warm and dry Neurologic: Present: alert and oriented x3 Psychiatric: Present: mood/affect appropriate, cooperative - Lab 08/30/17 07:22 08/30/17 07:22 Most recent lab results Calcium 8.6 mg/dL (8.6-10.8) 08/30/17 07:22 Consult Discharge Plan - Plan Referrals: Enrique Strange MD [Primary Care Provider] -
[2017-08-30] MEDS: *HR* Warfarin 5 MG TABLET PO SCH (16:24)
--- NOTE | 2017-08-30 17:59 | Internal Med Progress Note ---
Date of Encounter: 08/30/17 Time of Encounter: 13:00 - Assessment and plan (1) Hospital-acquired pneumonia Current Visit: No Status: Resolved Assessment and plan: -Patient still with productive cough -We will continue IV antibiotics for HAP coverage (2) COPD (chronic obstructive pulmonary disease) Current Visit: Yes Status: Chronic Assessment and plan: Stable; continue home inhalers Qualifiers: COPD type: unspecified COPD Qualified Code(s): J44.9 - Chronic obstructive pulmonary disease, unspecified (3) ESRD (end stage renal disease) on dialysis Current Visit: No Status: Chronic Assessment and plan: Hemodialysis per nephrology (4) Anemia Current Visit: No Status: Acute Assessment and plan: Stable; suspect secondary to chronic kidney disease Qualifiers: Chronic kidney disease stage: stage 3 (moderate) Qualified Code(s): N18.3 - Chronic kidney disease, stage 3 (moderate); D63.1 - Anemia in chronic kidney disease; D63.1 - Anemia in chronic kidney disease (5) CHF (congestive heart failure) Current Visit: No Status: Chronic Assessment and plan: Stable; continue home medications Qualifiers: Congestive heart failure type: diastolic Congestive heart failure chronicity: chronic Qualified Code(s): I50.32 - Chronic diastolic (congestive ) heart failure (6) Hypothyroidism Current Visit: Yes Status: Chronic Assessment and plan: Continue home levothyroxine Qualifiers: Hypothyroidism type: unspecified Qualified Code(s): E03.9 - Hypothyroidism , unspecified (7) DVT prophylaxis Current Visit: Yes Status: Acute Assessment and plan: -Continue home dose of Coumadin. - Subjective Interval history: The patient still reports increased productive cough - Constitutional Vitals: Temp Pulse Resp BP Pulse Ox 98.1 F 81 17 157/68 99 08/30/17 16:09 08/30/17 16:09 08/30/17 16:09 08/30/17 16:09 08/30/17 16:09 General appearance: Present: A&O X 3 (extremely drowsy, keeps nodding off) - Respiratory Respiratory exam: Present: CTAB, wheezes. Absent: accessory muscle use, rales, respiratory distress, rhonchi - Cardiovascular Cardiovascular exam: Present: RRR, +S1, +S2. Absent: diastolic murmur, gallop, rubs, systolic murmur Internal Medicine: Result - Labs CBC & Chem 7: 08/30/17 07:22 08/30/17 07:22 Labs: Short CBC 08/30/17 Range/Units 07:22 WBC 7.6 (4.3-11.1) K/mcL Hgb 10.2 L (11.5-15.4) g/dL Hct 31.8 L (35.3-44.9) % Plt Count 111 L (140-400) K/mcL BMP 08/30/17 07:22 Sodium 132 L Potassium 4.7 H Chloride 96 L Carbon Dioxide 26 BUN 44 H Creatinine 6.70 H Glucose 128 H Calcium 8.6 - ABG Interpretation ABG results: PT/INR, D-dimer PT 17.1 Seconds (9.4-12.1) H 08/30/17 04:52 Consult Discharge Plan - Plan Referrals: Enrique Strange MD [Primary Care Provider] -
[2017-08-30] MEDS ORDERED: Vancomycin 500 MG in D5% in Water (Mini-Bag+) 100 ML IVPB ONE (18:00)
[2017-08-30] MEDS: rOPINIRole 1 MG TABLET PO SCH (20:50)
[2017-08-30] MEDS: Pregabalin 25 MG CAPSULE PO SCH (20:54)
[2017-08-31 05:27] LABS: INR 1.4; Prothrombin Time 15.1 Seconds (9.4-12.1)
[2017-08-31] MEDS: Aztreonam 500 MG in D5% in Water 100 ML IVPB SCH ×2 (05:59→14:08)
[2017-08-31] MEDS: Budesonide/Formoterol 160/4.5 MDI IH SCH (08:10)
[2017-08-31] MEDS: Insulin LISPRO 300 UNITS/3 ML VIAL SQ SCH ×4 (08:24→21:10)
[2017-08-31] MEDS: Renal Vitamin 1 MG CAPSULE PO SCH (08:26)
[2017-08-31] MEDS: Aspirin 81 MG TAB.CHEW PO SCH (08:26)
[2017-08-31] MEDS: Folic Acid 1 MG TABLET PO SCH (08:26)
[2017-08-31] MEDS: Pregabalin 50 MG CAPSULE PO SCH (08:26)
[2017-08-31] MEDS: Levofloxacin 500 MG/100 ML 500 MG/100 ML BAG IVPB SCH (08:26)
[2017-08-31] MEDS: Nystatin POWDER 30 GM BOTTLE TP SCH ×2 (08:39→21:10)
--- NOTE | 2017-08-31 09:11 | Nephrology Progress Note ---
Date of Encounter: 08/31/17 Time of Encounter: 08:55 - Assessment and Plan (1) ESRD on hemodialysis Current Visit: Yes Status: Chronic ESRD-No HD today, keeping TTS schedule. Urine culture-final, no growth. Subjective Interval history: Sitting up in bed. States feeling better, no new complaints. Seems at patient baseline for mentation. Wants to go home. Objective - Vital Signs Vital signs: Vital Signs Temp Pulse Resp BP Pulse Ox 08/31/17 07:58 97.8 F 72 17 124/68 98 08/31/17 05:27 98.1 F 75 16 124/54 98 08/31/17 00:53 98.4 F 77 18 121/73 98 08/30/17 20:23 17 98 08/30/17 19:49 98.4 F 74 18 146/67 98 08/30/17 16:09 98.1 F 81 17 157/68 99 08/30/17 13:11 97.8 F 73 19 136/97 99 08/30/17 13:00 98 F 16 151/82 08/30/17 12:30 141/82 08/30/17 12:15 138/60 08/30/17 12:00 139/46 08/30/17 11:45 127/44 08/30/17 11:30 141/68 08/30/17 11:15 135/54 08/30/17 11:00 134/64 08/30/17 10:45 138/80 08/30/17 10:30 126/67 08/30/17 10:15 134/65 08/30/17 10:00 119/49 08/30/17 09:45 159/74 08/30/17 09:30 163/81 08/30/17 09:15 171/70 Intake and Output 08/30/17 08/31/17 08/31/17 23:59 07:59 15:59 Intake Total 340 / 340 0 / 0 340 / 340 Output Total 0 / 0 Balance 340 / 340 0 / 0 340 / 340 Intake: IV Fluids 100 / 100 0 / 0 100 / 100 Azactam 500 MG In Dextrose 5% 100 / 100 0 / 0 100 / 100 100 ML @ 200 mls/hr IVPB Q8H [facility] Rx#:[id number] Oral 240 / 240 240 / 240 Output: Urine 0 / 0 Other: Meal Dinner Breakfast Percent of Meal Consumed 100% 100% Blood Glucose* 161 120 - General Appearance General appearance: Present: well-developed, well-nourished, appears started age , obese EENT: Present: mucous membranes moist Neck: Present: no JVD Respiratory: Present: clear Cardiology: Present: no edema, regular rate, regular rhythm Gastrointestinal: Present: normoactive bowel sounds, no tenderness Integumentary: Present: warm and dry Neurologic: Present: alert and oriented x3 Psychiatric: Present: mood/affect appropriate, cooperative - Lab 08/30/17 07:22 08/30/17 07:22 Most recent lab results Calcium 8.6 mg/dL (8.6-10.8) 08/30/17 07:22 Consult Discharge Plan - Plan Referrals: Enrique Strange MD [Primary Care Provider] -
[2017-08-31 09:36] LABS: Basophils # 0.1 K/mcL (0.0-0.2); Eosinophils # 0.4 K/mcL (0.0-0.6); Eosinophils % 5.7 %; Hematocrit 33.4 % (35.3-44.9); Immature Granulocytes % 3.5 % (0-4); Lymphocytes # 0.8 K/mcL (0.6-4.6); Lymphocytes % 11.4 %; Mean Corpuscular HGB Conc 32.9 g/dL (31.6-35.5); Mean Corpuscular Hemoglobin 30.1 pg (28.0-33.3); Mean Corpuscular Volume 91.5 fL (83.0-100.0); Mean Platelet Volume 12.5 fL (9.4-12.4); Monocytes # 0.5 K/mcL (0.0-1.3); Monocytes % 6.7 %; Neutrophils # 4.9 K/mcL (1.6-8.9); Platelet Count 131 K/mcL (140-400); Red Blood Count 3.65 M/mcL (3.82-4.97); Red Cell Distribution Width 14.3 % (11.5-14.5); Segmented Neutrophils % 71.7 %
[2017-08-31 10:47] LABS: Calcium 9.3 mg/dL (8.6-10.8); Potassium 4.7 mEq/L (3.5-4.5)
[2017-08-31] MEDS: *HR* OxyCODONE Immed Rel 15 MG TABLET PO PRN (14:08)
[2017-08-31] MEDS: Ipratropium/Albuterol Neb 3 ML IH SCH (16:03)
[2017-08-31] MEDS: *HR* Warfarin 10 MG TABLET PO SCH (16:58)
--- NOTE | 2017-08-31 17:31 | Internal Med Progress Note ---
Date of Encounter: 08/31/17 Time of Encounter: 11:00 - Assessment and plan (1) Hospital-acquired pneumonia Current Visit: No Status: Resolved Assessment and plan: -Patient still with productive cough -Patient has been afebrile without leukocytosis; sputum cultures are pending. -Will continue IV antibiotics for HAP coverage with IV Aztreonam, IV Levaquin and IV vancomycin. (2) COPD (chronic obstructive pulmonary disease) Current Visit: Yes Status: Chronic Assessment and plan: Stable; continue home inhalers Qualifiers: COPD type: unspecified COPD Qualified Code(s): J44.9 - Chronic obstructive pulmonary disease, unspecified (3) ESRD (end stage renal disease) on dialysis Current Visit: No Status: Chronic Assessment and plan: Hemodialysis per nephrology (4) Anemia Current Visit: No Status: Acute Assessment and plan: Stable; suspect secondary to chronic kidney disease Qualifiers: Chronic kidney disease stage: stage 3 (moderate) Qualified Code(s): N18.3 - Chronic kidney disease, stage 3 (moderate); D63.1 - Anemia in chronic kidney disease; D63.1 - Anemia in chronic kidney disease (5) CHF (congestive heart failure) Current Visit: No Status: Chronic Assessment and plan: Stable; continue home medications Qualifiers: Congestive heart failure type: diastolic Congestive heart failure chronicity: chronic Qualified Code(s): I50.32 - Chronic diastolic (congestive ) heart failure (6) Hypothyroidism Current Visit: Yes Status: Chronic Assessment and plan: Continue home levothyroxine Qualifiers: Hypothyroidism type: unspecified Qualified Code(s): E03.9 - Hypothyroidism , unspecified (7) DVT prophylaxis Current Visit: Yes Status: Acute Assessment and plan: -Continue home dose of Coumadin. - Subjective Interval history: Patient still reports a persistent cough this morning but does admit to some improvement in her symptoms. - Constitutional Vitals: Temp Pulse Resp BP Pulse Ox 98.2 F 78 16 123/66 99 08/31/17 15:33 08/31/17 15:33 08/31/17 15:33 08/31/17 15:33 08/31/17 15:33 General appearance: Present: A&O X 3 (extremely drowsy, keeps nodding off) - Respiratory Respiratory exam: Present: CTAB. Absent: accessory muscle use, rales, rhonchi, wheezes - Cardiovascular Cardiovascular exam: Present: RRR, +S1, +S2. Absent: diastolic murmur, gallop, rubs, systolic murmur Internal Medicine: Result - Labs CBC & Chem 7: 08/31/17 09:25 08/31/17 10:27 Labs: Short CBC 08/31/17 Range/Units 09:25 WBC 6.8 (4.3-11.1) K/mcL Hgb 11.0 L (11.5-15.4) g/dL Hct 33.4 L (35.3-44.9) % Plt Count 131 L (140-400) K/mcL Neutrophils # 4.9 (1.6-8.9) K/mcL BMP 08/31/17 10:27 Sodium 133 L Potassium 4.7 H Chloride 96 L Carbon Dioxide 25 BUN 34 H D Creatinine 5.27 H Glucose 168 H Calcium 9.3 - ABG Interpretation ABG results: PT/INR, D-dimer PT 15.1 Seconds (9.4-12.1) H 08/31/17 04:34 Consult Discharge Plan - Plan Referrals: Enrique Strange MD [Primary Care Provider] - 09/07/17 1:15 pm (please follow up as schedule...)
[2017-08-31] MEDS: AZTREONAM IVP SCH (21:07)
[2017-08-31] MEDS: WATER FOR INJ IVP SCH (21:07)
[2017-08-31] MEDS: rOPINIRole 1 MG TABLET PO SCH (21:09)
[2017-09-01] MEDS: Ipratropium/Albuterol Neb 3 ML IH SCH ×8 (00:08→23:03)
[2017-09-01] MEDS: Budesonide/Formoterol 160/4.5 MDI IH SCH ×3 (01:01→19:37)
[2017-09-01] MEDS: WATER FOR INJ IVP SCH ×3 (05:44→20:29)
[2017-09-01] MEDS: AZTREONAM IVP SCH ×3 (05:44→20:29)
[2017-09-01 07:11] LABS: INR 1.3; Prothrombin Time 14.5 Seconds (9.4-12.1)
[2017-09-01] MEDS: Insulin LISPRO 300 UNITS/3 ML VIAL SQ SCH ×4 (08:11→20:31)
[2017-09-01] MEDS: Folic Acid 1 MG TABLET PO SCH (08:12)
[2017-09-01] MEDS: Aspirin 81 MG TAB.CHEW PO SCH (08:12)
[2017-09-01] MEDS: Renal Vitamin 1 MG CAPSULE PO SCH (08:12)
[2017-09-01] MEDS: Pregabalin 50 MG CAPSULE PO SCH (08:12)
[2017-09-01] MEDS: Nystatin POWDER 30 GM BOTTLE TP SCH ×2 (08:13→20:10)
[2017-09-01] MEDS ORDERED: 0.9 % Sodium Chloride 250 ML IVC PRN (08:17)
--- NOTE | 2017-09-01 08:21 | Nephrology Progress Note ---
Date of Encounter: 09/01/17 Time of Encounter: 08:10 - Assessment and Plan (1) ESRD on hemodialysis Current Visit: Yes Status: Chronic ESRD- HD today, keeping TTS schedule, orders given. Subjective Interval history: Sitting up in bed. States feeling better, no new complaints. Seems at patient baseline for mentation. States told staying thru weekend. Objective - Vital Signs Vital signs: Vital Signs Temp Pulse Resp BP Pulse Ox 09/01/17 08:06 17 100 09/01/17 07:53 97.7 F 89 17 123/69 100 09/01/17 04:56 98.5 F 88 16 121/53 98 09/01/17 03:45 15 95 09/01/17 01:02 16 121/53 98 09/01/17 00:11 98.3 F 83 16 133/62 98 08/31/17 19:55 98.5 F 78 18 135/55 99 08/31/17 16:03 14 100 08/31/17 15:33 98.2 F 78 16 123/66 99 08/31/17 12:33 97.9 F 78 16 131/76 99 Intake and Output 08/31/17 09/01/17 09/01/17 23:59 07:59 15:59 Intake Total 0 / 0 Balance 0 / 0 Intake: IV Fluids 0 / 0 Azactam 500 MG Water for inj. ( 0 / 0 sterile) 5 ML In Syringe 1 EACH @ 150 mls/hr IVP Q8H [facility] Rx#: [id number] Other: Blood Glucose* 151 110 - General Appearance General appearance: Present: well-developed, well-nourished, appears started age , obese EENT: Present: mucous membranes moist Neck: Present: no JVD Respiratory: Present: clear Cardiology: Present: no edema, regular rate, regular rhythm Gastrointestinal: Present: normoactive bowel sounds, no tenderness Integumentary: Present: warm and dry Neurologic: Present: alert and oriented x3 Psychiatric: Present: mood/affect appropriate, cooperative - Lab 08/31/17 09:25 08/31/17 10:27 Most recent lab results Calcium 9.3 mg/dL (8.6-10.8) 08/31/17 10:27 Consult Discharge Plan - Plan Referrals: Enrique Strange MD [Primary Care Provider] - 09/07/17 1:15 pm (please follow up as schedule...)
[2017-09-01] MEDS ORDERED: 0.9 % Sodium Chloride 1,000 ML PRIME SCH (08:30)
[2017-09-01 08:50] LABS: Basophils % 0.6 %; Eosinophils # 0.3 K/mcL (0.0-0.6); Eosinophils % 4.5 %; Hematocrit 34.7 % (35.3-44.9); Hemoglobin 11.1 g/dL (11.5-15.4); Immature Granulocytes % 0.1 % (0-4); Lymphocytes # 0.8 K/mcL (0.6-4.6); Lymphocytes % 11.3 %; Mean Corpuscular Hemoglobin 29.4 pg (28.0-33.3); Mean Corpuscular Volume 91.8 fL (83.0-100.0); Monocytes # 0.5 K/mcL (0.0-1.3); Monocytes % 6.6 %; Neutrophils # 5.3 K/mcL (1.6-8.9); Platelet Count 125 K/mcL (140-400); Red Blood Count 3.78 M/mcL (3.82-4.97); Red Cell Distribution Width 14.1 % (11.5-14.5); Segmented Neutrophils % 76.9 %
[2017-09-01 09:01] LABS: Calcium 9.4 mg/dL (8.6-10.8)
[2017-09-01] MEDS: *HR* Warfarin 5 MG TABLET PO SCH (17:55)
--- NOTE | 2017-09-01 19:00 | Internal Med Progress Note ---
Date of Encounter: 09/01/17 Time of Encounter: 11:00 - Assessment and plan (1) Hospital-acquired pneumonia Current Visit: No Status: Resolved Assessment and plan: -Patient still with productive cough -Patient has been afebrile without leukocytosis; sputum cultures are pending. -Will continue IV antibiotics for HAP coverage with IV Aztreonam, IV Levaquin and IV vancomycin. (2) COPD (chronic obstructive pulmonary disease) Current Visit: Yes Status: Chronic Assessment and plan: Stable; continue home inhalers Qualifiers: COPD type: unspecified COPD Qualified Code(s): J44.9 - Chronic obstructive pulmonary disease, unspecified (3) ESRD (end stage renal disease) on dialysis Current Visit: No Status: Chronic Assessment and plan: Hemodialysis per nephrology (4) Anemia Current Visit: No Status: Acute Assessment and plan: Stable; suspect secondary to chronic kidney disease Qualifiers: Chronic kidney disease stage: stage 3 (moderate) Qualified Code(s): N18.3 - Chronic kidney disease, stage 3 (moderate); D63.1 - Anemia in chronic kidney disease; D63.1 - Anemia in chronic kidney disease (5) CHF (congestive heart failure) Current Visit: No Status: Chronic Assessment and plan: Stable; continue home medications Qualifiers: Congestive heart failure type: diastolic Congestive heart failure chronicity: chronic Qualified Code(s): I50.32 - Chronic diastolic (congestive ) heart failure (6) Hypothyroidism Current Visit: Yes Status: Chronic Assessment and plan: Continue home levothyroxine Qualifiers: Hypothyroidism type: unspecified Qualified Code(s): E03.9 - Hypothyroidism , unspecified (7) DVT prophylaxis Current Visit: Yes Status: Acute Assessment and plan: -Continue home dose of Coumadin. - Subjective Interval history: Patient still reports a persistent cough this morning but does admit to some improvement in her symptoms. - Constitutional Vitals: Temp Pulse Resp BP Pulse Ox 98.7 F 101 18 146/73 93 09/01/17 16:15 09/01/17 16:15 09/01/17 16:15 09/01/17 16:15 09/01/17 16:15 General appearance: Present: A&O X 3 (extremely drowsy, keeps nodding off) - Respiratory Respiratory exam: Present: CTAB. Absent: accessory muscle use, rales, rhonchi, wheezes - Cardiovascular Cardiovascular exam: Present: RRR, +S1, +S2. Absent: diastolic murmur, gallop, rubs, systolic murmur Internal Medicine: Result - Labs CBC & Chem 7: 09/01/17 08:28 09/01/17 08:28 Labs: Short CBC 09/01/17 Range/Units 08:28 WBC 6.8 (4.3-11.1) K/mcL Hgb 11.1 L (11.5-15.4) g/dL Hct 34.7 L (35.3-44.9) % Plt Count 125 L (140-400) K/mcL Neutrophils # 5.3 (1.6-8.9) K/mcL BMP 09/01/17 08:28 Sodium 129 L Potassium 5.0 H Chloride 92 L Carbon Dioxide 26 BUN 47 H D Creatinine 6.44 H Glucose 94 Calcium 9.4 - ABG Interpretation ABG results: PT/INR, D-dimer PT 14.5 Seconds (9.4-12.1) H 09/01/17 06:31 Consult Discharge Plan - Plan Referrals: Enrique Strange MD [Primary Care Provider] - 09/07/17 1:15 pm (please follow up as schedule...)
[2017-09-01] MEDS: Pregabalin 25 MG CAPSULE PO SCH (20:29)
[2017-09-01] MEDS: rOPINIRole 1 MG TABLET PO SCH (20:29)
[2017-09-01] MEDS ORDERED: Vancomycin 500 MG in D5% in Water (Mini-Bag+) 100 ML IVPB ONE (22:00)
[2017-09-02 03:57] LABS: INR 1.3; Prothrombin Time 14.6 Seconds (9.4-12.1)
[2017-09-02] MEDS: Ipratropium/Albuterol Neb 3 ML IH SCH ×6 (04:20→23:31)
[2017-09-02] MEDS: AZTREONAM IVP SCH ×3 (05:41→21:07)
[2017-09-02] MEDS: WATER FOR INJ IVP SCH ×3 (05:41→21:07)
[2017-09-02] MEDS: Levofloxacin 500 MG/100 ML 500 MG/100 ML BAG IVPB SCH (07:02)
[2017-09-02] MEDS: Budesonide/Formoterol 160/4.5 MDI IH SCH ×2 (07:41→20:47)
[2017-09-02] MEDS: Renal Vitamin 1 MG CAPSULE PO SCH (08:00)
[2017-09-02] MEDS: Folic Acid 1 MG TABLET PO SCH (08:01)
[2017-09-02] MEDS: Pregabalin 50 MG CAPSULE PO SCH (08:01)
[2017-09-02] MEDS: Aspirin 81 MG TAB.CHEW PO SCH (08:01)
[2017-09-02] MEDS: Nystatin POWDER 30 GM BOTTLE TP SCH (08:02)
[2017-09-02] MEDS: Insulin LISPRO 300 UNITS/3 ML VIAL SQ SCH ×3 (08:02→17:23)
--- NOTE | 2017-09-02 08:29 | Nephrology Progress Note ---
Date of Encounter: 09/02/17 Time of Encounter: 08:20 - Assessment and Plan (1) ESRD on hemodialysis Current Visit: Yes Status: Chronic ESRD-No HD today, keeping TTS schedule. Subjective Interval history: Sitting on edge of bed eating breakfast. States feeling better, no new complaints. Seems at patient baseline for mentation. States told staying thru weekend. Objective - Vital Signs Vital signs: Vital Signs Temp Pulse Resp BP Pulse Ox 09/02/17 07:41 18 96 09/02/17 07:13 98.6 F 84 16 129/71 97 09/02/17 04:20 18 97 09/02/17 03:53 97.9 F 87 18 149/53 96 09/01/17 23:27 98.3 F 94 18 152/68 97 09/01/17 23:03 18 95 09/01/17 20:07 98.4 F 76 18 125/64 97 09/01/17 19:37 18 99 09/01/17 16:15 98.7 F 101 18 146/73 93 09/01/17 15:59 99 09/01/17 15:33 18 100 09/01/17 14:27 97.9 F 78 20 155/65 99 09/01/17 12:55 97.8 F 16 163/74 09/01/17 12:35 158/63 09/01/17 12:20 161/72 09/01/17 12:05 137/68 09/01/17 11:50 143/77 09/01/17 11:35 143/54 09/01/17 11:20 138/74 09/01/17 11:05 137/76 09/01/17 10:50 133/70 09/01/17 10:35 144/69 09/01/17 10:20 138/77 09/01/17 10:05 121/66 09/01/17 09:50 131/67 09/01/17 09:35 144/79 09/01/17 09:20 159/72 09/01/17 09:05 97.4 F L 18 141/80 Intake and Output 09/01/17 09/02/17 09/02/17 23:59 07:59 15:59 Intake Total 355 / 355 250 / 250 Balance 355 / 355 250 / 250 Intake: IV Fluids 5 / 5 Azactam 500 MG Water for inj. ( 5 / 5 sterile) 5 ML In Syringe 1 EACH @ 150 mls/hr IVP Q8H [facility] Rx#: [id number] Oral 350 / 350 250 / 250 Other: Weight 139.162 kg Blood Glucose* 191 152 Patient Weight 09/02/17 23:59 Weight 139.162 kg - General Appearance General appearance: Present: well-developed, well-nourished, appears started age , obese EENT: Present: mucous membranes moist Neck: Present: no JVD Respiratory: Present: clear Cardiology: Present: no edema, regular rate, regular rhythm Gastrointestinal: Present: normoactive bowel sounds, no tenderness Integumentary: Present: warm and dry Neurologic: Present: alert and oriented x3 Psychiatric: Present: mood/affect appropriate, cooperative - Lab 09/01/17 08:28 09/01/17 08:28 Most recent lab results Calcium 9.4 mg/dL (8.6-10.8) 09/01/17 08:28 Consult Discharge Plan - Plan Referrals: Enrique Strange MD [Primary Care Provider] - 09/07/17 1:15 pm (please follow up as schedule...)
[2017-09-02 11:45] LABS: Basophils # 0.1 K/mcL (0.0-0.2); Eosinophils # 0.3 K/mcL (0.0-0.6); Eosinophils % 4.6 %; Hematocrit 33.7 % (35.3-44.9); Hemoglobin 10.8 g/dL (11.5-15.4); Immature Granulocytes % 0.3 % (0-4); Lymphocytes # 0.5 K/mcL (0.6-4.6); Lymphocytes % 7.7 %; Mean Corpuscular Hemoglobin 29.8 pg (28.0-33.3); Mean Corpuscular Volume 93.1 fL (83.0-100.0); Mean Platelet Volume 12.5 fL (9.4-12.4); Monocytes # 0.4 K/mcL (0.0-1.3); Neutrophils # 4.6 K/mcL (1.6-8.9); Platelet Count 138 K/mcL (140-400); Red Blood Count 3.62 M/mcL (3.82-4.97); Red Cell Distribution Width 14.2 % (11.5-14.5); Segmented Neutrophils % 79.4 %
[2017-09-02 11:58] LABS: Calcium 9.1 mg/dL (8.6-10.8); Potassium 4.9 mEq/L (3.5-4.5)
--- NOTE | 2017-09-02 14:49 | Internal Med Progress Note ---
Date of Encounter: 09/02/17 Time of Encounter: 11:00 - Assessment and plan (1) Hospital-acquired pneumonia Current Visit: No Status: Resolved Assessment and plan: -Patient still with productive cough -Chest x-ray showed increasing interstitial opacities in the lungs may represent mild developing edema or pneumonia superimposed on chronic lung disease. -Patient has been afebrile without leukocytosis; Gram stain of sputum showed gram-positive cocci. -Will continue IV antibiotics for HAP coverage with IV Aztreonam, IV Levaquin and IV vancomycin. (2) COPD (chronic obstructive pulmonary disease) Current Visit: Yes Status: Chronic Assessment and plan: Stable; continue home inhalers Qualifiers: COPD type: unspecified COPD Qualified Code(s): J44.9 - Chronic obstructive pulmonary disease, unspecified (3) ESRD (end stage renal disease) on dialysis Current Visit: No Status: Chronic Assessment and plan: Hemodialysis per nephrology (4) Anemia Current Visit: No Status: Acute Assessment and plan: Stable; suspect secondary to chronic kidney disease Qualifiers: Chronic kidney disease stage: on chronic dialysis Qualified Code(s): N18.6 - End stage renal disease; D63.1 - Anemia in chronic kidney disease; D63.1 - Anemia in chronic kidney disease; Z99.2 - Dependence on renal dialysis; Z99.2 - Dependence on renal dialysis; Z99.2 - Dependence on renal dialysis; Z99.2 - Dependence on renal dialysis (5) CHF (congestive heart failure) Current Visit: No Status: Chronic Assessment and plan: Stable; continue home medications Qualifiers: Congestive heart failure type: diastolic Congestive heart failure chronicity: chronic Qualified Code(s): I50.32 - Chronic diastolic (congestive ) heart failure (6) Hypothyroidism Current Visit: Yes Status: Chronic Assessment and plan: Continue home levothyroxine Qualifiers: Hypothyroidism type: unspecified Qualified Code(s): E03.9 - Hypothyroidism , unspecified (7) DVT prophylaxis Current Visit: Yes Status: Acute Assessment and plan: -Continue home dose of Coumadin. - Subjective Interval history: Patient still reports a persistent cough this morning but does admit to some improvement in her symptoms. - Constitutional Vitals: Temp Pulse Resp BP Pulse Ox 98.9 F 89 16 135/70 95 09/02/17 11:52 09/02/17 11:52 09/02/17 11:52 09/02/17 11:52 09/02/17 11:52 General appearance: Present: A&O X 3 (extremely drowsy, keeps nodding off) - Respiratory Respiratory exam: Present: CTAB, wheezes (Bilateral expiratory wheezes). Absent : accessory muscle use, rales, rhonchi - Cardiovascular Cardiovascular exam: Present: RRR, +S1, +S2. Absent: diastolic murmur, gallop, rubs, systolic murmur Internal Medicine: Result - Labs CBC & Chem 7: 09/02/17 11:30 09/02/17 11:30 Labs: Short CBC 09/02/17 Range/Units 11:30 WBC 5.8 (4.3-11.1) K/mcL Hgb 10.8 L (11.5-15.4) g/dL Hct 33.7 L (35.3-44.9) % Plt Count 138 L (140-400) K/mcL Neutrophils # 4.6 (1.6-8.9) K/mcL BMP 09/02/17 11:30 Sodium 136 D Potassium 4.9 H Chloride 100 Carbon Dioxide 22 BUN 40 H Creatinine 5.13 H Glucose 110 H Calcium 9.1 - ABG Interpretation ABG results: PT/INR, D-dimer PT 14.6 Seconds (9.4-12.1) H 09/02/17 03:11 Consult Discharge Plan - Plan Referrals: Enrique Strange MD [Primary Care Provider] - 09/07/17 1:15 pm (please follow up as schedule...)
[2017-09-02] MEDS: *HR* Warfarin 10 MG TABLET PO SCH (17:23)
[2017-09-02] MEDS: rOPINIRole 1 MG TABLET PO SCH (21:07)
[2017-09-03] MEDS: *HR* OxyCODONE Immed Rel 15 MG TABLET PO PRN (00:14)
[2017-09-03] MEDS: Nystatin POWDER 30 GM BOTTLE TP SCH ×2 (00:15→08:08)
[2017-09-03] MEDS: Insulin LISPRO 300 UNITS/3 ML VIAL SQ SCH ×3 (00:15→12:15)
[2017-09-03 03:07] LABS: INR 1.4; Prothrombin Time 14.9 Seconds (9.4-12.1)
[2017-09-03] MEDS: Ipratropium/Albuterol Neb 3 ML IH SCH ×3 (03:27→11:26)
[2017-09-03] MEDS: WATER FOR INJ IVP SCH (06:07)
[2017-09-03] MEDS: AZTREONAM IVP SCH (06:07)
[2017-09-03] MEDS ORDERED: Vancomycin 500 MG in D5% in Water (Mini-Bag+) 100 ML IVPB ONE (06:40)
[2017-09-03] MEDS: Budesonide/Formoterol 160/4.5 MDI IH SCH (07:47)
[2017-09-03] MEDS: Aspirin 81 MG TAB.CHEW PO SCH (08:07)
[2017-09-03] MEDS: Renal Vitamin 1 MG CAPSULE PO SCH (08:07)
[2017-09-03] MEDS: Folic Acid 1 MG TABLET PO SCH (08:07)
[2017-09-03] MEDS: Pregabalin 50 MG CAPSULE PO SCH (08:07)
--- NOTE | 2017-09-03 09:11 | Nephrology Progress Note ---
Date of Encounter: 09/03/17 Time of Encounter: 08:50 - Assessment and Plan (1) ESRD on hemodialysis Current Visit: Yes Status: Chronic ESRD-No HD today, keeping TTS schedule. Subjective Interval history: Sitting on edge of bed eating breakfast. States feeling better, no new complaints. Seems at patient baseline for mentation. States told staying thru weekend. Objective - Vital Signs Vital signs: Vital Signs Temp Pulse Resp BP Pulse Ox 09/03/17 07:28 97.8 F 82 16 138/64 97 09/03/17 04:15 97.5 F L 87 17 117/55 95 09/03/17 03:27 17 97 09/02/17 23:31 17 94 09/02/17 22:57 98.1 F 89 17 143/66 94 09/02/17 20:47 16 97 09/02/17 19:32 98.0 F 91 17 153/63 94 09/02/17 16:20 98.0 F 92 17 115/80 94 09/02/17 11:52 98.9 F 89 16 135/70 95 09/02/17 11:24 18 95 Intake and Output 09/02/17 09/03/17 09/03/17 23:59 07:59 15:59 Intake Total 405 / 405 400 / 400 Output Total 0 / 0 Balance 405 / 405 400 / 400 Intake: IV Fluids 5 / 5 Azactam 500 MG Water for inj. ( 5 / 5 sterile) 5 ML In Syringe 1 EACH @ 150 mls/hr IVP Q8H [facility] Rx#: [id number] Oral 400 / 400 400 / 400 Output: Urine 0 / 0 Other: Weight 140 kg Blood Glucose* 119 102 Patient Weight 09/03/17 23:59 Weight 140 kg - General Appearance General appearance: Present: well-developed, well-nourished, appears started age , obese EENT: Present: mucous membranes moist Neck: Present: no JVD Respiratory: Present: clear Cardiology: Present: no edema, regular rate, regular rhythm Gastrointestinal: Present: normoactive bowel sounds, no tenderness Integumentary: Present: warm and dry Neurologic: Present: alert and oriented x3 Psychiatric: Present: mood/affect appropriate, cooperative - Lab 09/02/17 11:30 09/02/17 11:30 Most recent lab results Calcium 9.1 mg/dL (8.6-10.8) 09/02/17 11:30 Consult Discharge Plan - Plan Referrals: Enrique Strange MD [Primary Care Provider] - 09/07/17 1:15 pm (please follow up as schedule...)
[2017-09-03 09:59] LABS: Hematocrit 34.5 % (35.3-44.9); Mean Corpuscular HGB Conc 31.9 g/dL (31.6-35.5); Mean Corpuscular Hemoglobin 29.5 pg (28.0-33.3); Mean Corpuscular Volume 92.5 fL (83.0-100.0); Mean Platelet Volume 12.4 fL (9.4-12.4); Platelet Count 146 K/mcL (140-400); Red Blood Count 3.73 M/mcL (3.82-4.97); Red Cell Distribution Width 14.5 % (11.5-14.5)
[2017-09-03 10:16] LABS: Calcium 9.7 mg/dL (8.6-10.8); Potassium 5.2 mEq/L (3.5-4.5)
[2017-09-03 11:41] VITALS: BP 136/76
--- NOTE | 2017-09-03 14:38 | Discharge Summary ---
Date of Encounter: 09/03/17 Time of Encounter: 11:00 - Discharge Diagnosis (1) Hospital-acquired pneumonia Priority: Primary Status: Resolved (2) COPD (chronic obstructive pulmonary disease) Priority: Secondary Status: Chronic Qualifiers: COPD type: unspecified COPD Qualified Code(s): J44.9 - Chronic obstructive pulmonary disease, unspecified (3) ESRD (end stage renal disease) on dialysis Priority: Secondary Status: Chronic (4) Anemia Priority: Secondary Status: Acute Qualifiers: Chronic kidney disease stage: on chronic dialysis Qualified Code(s): N18.6 - End stage renal disease; D63.1 - Anemia in chronic kidney disease; D63.1 - Anemia in chronic kidney disease; Z99.2 - Dependence on renal dialysis; Z99.2 - Dependence on renal dialysis; Z99.2 - Dependence on renal dialysis; Z99.2 - Dependence on renal dialysis (5) CHF (congestive heart failure) Priority: Secondary Status: Chronic Qualifiers: Congestive heart failure type: diastolic Congestive heart failure chronicity: chronic Qualified Code(s): I50.32 - Chronic diastolic (congestive ) heart failure (6) Hypothyroidism Priority: Secondary Status: Chronic Qualifiers: Hypothyroidism type: unspecified Qualified Code(s): E03.9 - Hypothyroidism , unspecified - Discharge Medications Prescriptions: levoFLOXacin [Levaquin] 500 mg PO DAILY #4 tablet Home Medications: Levothyroxine [Synthroid] 88 mcg PO DAILY 06/30/15 [History] Pregabalin [Lyrica] 50 mg PO BID 06/30/15 [History] Allopurinol [Zyloprim] 200 mg PO DAILY 08/07/16 [History] Aspirin 81 mg PO DAILY 08/07/16 [History] Atorvastatin [Lipitor] 10 mg PO HS 08/07/16 [History] Biotin [Estrada Biotin] 10,000 mcg PO DAILY 08/07/16 [History] Calcitriol [Rocaltrol] 0.25 mcg PO DAILY 08/07/16 [History] Docusate [Colace] 100 mg PO BID PRN 08/07/16 [History] Folic Acid 1 mg PO DAILY 08/07/16 [History] Nystatin POWDER [Nystop] 1 appl TP BID 08/07/16 [History] Oxycodone HCl 15 mg PO BID PRN 08/07/16 [History] Pantoprazole Sodium [Protonix] 40 mg PO DAILY 08/07/16 [History] Sertraline [Zoloft] 100 mg PO DAILY 08/07/16 [History] Albuterol Sulfate [Proair Hfa] 2 puff IH Q4H PRN 02/07/17 [History] Ipratropium/Albuterol Neb [Duoneb] 3 ml IH TID PRN 02/07/17 [History] Warfarin [Coumadin] 10 mg PO SUMOFR 02/07/17 [History] Budesonide/Formoterol 160/4.5 [Symbicort 160/4.5] 2 puff IH BIDR 05/04/17 [ History] Loratadine [Claritin] 10 mg PO DAILY 05/04/17 [History] Renal Vitamin [Renal Caps Softgel] 1 mg PO DAILY 05/04/17 [History] Ropinirole HCl [Requip Xl] 4 mg PO HS 05/04/17 [History] Warfarin [Coumadin] 5 mg PO TUWETHSA 05/04/17 [History] Calcium Carbonate [Tums] 1,500 mg PO TID 05/05/17 [History] Coral-3 Acid Ethyl Esters [Lovaza] 2 gm PO BID 08/28/17 [History] Coral-3/Dha/Epa/Fish Oil [Coral 3 500 Softgel] 1,000 mg PO BID 08/28/17 [History ] levoFLOXacin [Levaquin] 500 mg PO DAILY #4 tablet 09/03/17 [Rx] Allergies/Adverse Reactions: 3 Allergy/AdvReac Type Severity Reaction Status Date / Time MALACHI Inhibitors Allergy Hives Verified 06/16/17 11:27 cephalexin [From Keflex] Allergy Hives Verified 06/16/17 11:27 cephalothin Allergy Hives Verified 06/16/17 11:27 clindamycin Allergy Hives Verified 06/16/17 11:27 codeine Allergy Hives Verified 06/16/17 11:27 fentanyl Allergy See Verified 06/16/17 11:27 Comments Hydromorphone [From Dilaudid] Allergy See Verified 06/16/17 11:27 Comments metoclopramide [From Reglan] Allergy Hives Verified 06/16/17 11:27 metronidazole Allergy Difficulty Verified 06/16/17 11:27 Breathing NSAIDS (Non-Steroidal Allergy Difficulty Verified 06/16/17 11:27 Anti-Inflamma Breathing Penicillins [PCN] Allergy Hives Verified 06/16/17 11:27 Sulfa (Sulfonamide Allergy Difficulty Verified 06/16/17 11:27 Antibiotics) Breathing sulfamethoxazole Allergy Difficulty Verified 06/16/17 11:27 [From Bactrim] Breathing trimethoprim Allergy Hives Verified 06/16/17 11:27 Date of admission: 08/28/17 10:53 Primary care physician: Enrique Strange MD Consults: 08/28/17 13:00 Consult to Dialysis [CONS] ONCE 08/30/17 08:00 Consult to Dialysis [CONS] ONCE 08/30/17 08:15 Consult to Dialysis [CONS] ONCE 09/01/17 08:30 Consult to Dialysis [CONS] ONCE - Patient Status Disposition: Home Health Service Condition: Fair - Discharge Instructions Follow Up With: Enrique Strange MD [Primary Care Provider] - 09/07/17 1:15 pm (please follow up as schedule...) Forms: ED Satisfaction Letter - Diet and Activity Activity: as per physical therapy, resume usual activities as tolerated Hospital course: Patient is a 62 year old female with past medical history significant for end- stage renal disease, aortic valve replacement and atrial fibrillation, who presented to the ER on 08/28/17 with cough and drowsiness. 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 In the ER, imaging of the cervical/lumbar spine, pelvis and femur showed no acute findings for fracture. Head CT showed no acute findings as well. Chest x -ray however did show increasing interstitial opacities in the lungs may represent mild developing edema or pneumonia superimposed on chronic lung disease. She was admitted to the medical floor for treatment of acute hypoxic respiratory failure secondary to hospital-acquired pneumonia and ongoing management of end-stage renal disease. During patients hospital stay, she was treated for hospital-acquired pneumonia with IV aztreonam (PCN allergy), Levaquin and vancomycin. As a result, her hypoxia resolved and patient was weaned off her supplemental oxygen and was no longer short of breath on room air. Gram stain of sputum showed gram-positive cocci. Patient will be discharged to continue a 4 day course of Levaquin and to follow- up with her primary care provider. - Time Spent with Patient Total time spent providing and/or coordinating discharge services: Less than 30 minutes - Constitutional Vitals: Temp Pulse Resp BP Pulse Ox 97.8 F 82 16 136/76 96 09/03/17 11:00 09/03/17 11:00 09/03/17 11:00 09/03/17 11:00 09/03/17 11:00 General appearance: Present: A&O X 3 (extremely drowsy, keeps nodding off)
--- NOTE | 2017-09-03 14:42 | Physician Discharge Referral ---
Home Health/Hosp Referral Info Transfer to: Home Health - Diagnosis (1) Hospital-acquired pneumonia Priority: Primary Status: Resolved (2) COPD (chronic obstructive pulmonary disease) Status: Chronic (3) ESRD (end stage renal disease) on dialysis Status: Chronic (4) Anemia Status: Acute (5) CHF (congestive heart failure) Status: Chronic (6) Hypothyroidism Status: Chronic - Respiratory Orders Smoking Cessation: Smoking cessation has been advised. For more information, call the [place] Tobacco Quit Line at 1-770-PCMZ-NOW. - Services Needed Following services are medically necessary services: Nursing, Physical Therapy, Occupational Therapy - Transfer Medications Prescriptions: levoFLOXacin [Levaquin] 500 mg PO DAILY #4 tablet Home Medications: Levothyroxine [Synthroid] 88 mcg PO DAILY 06/30/15 [History] Pregabalin [Lyrica] 50 mg PO BID 06/30/15 [History] Allopurinol [Zyloprim] 200 mg PO DAILY 08/07/16 [History] Aspirin 81 mg PO DAILY 08/07/16 [History] Atorvastatin [Lipitor] 10 mg PO HS 08/07/16 [History] Biotin [Estrada Biotin] 10,000 mcg PO DAILY 08/07/16 [History] Calcitriol [Rocaltrol] 0.25 mcg PO DAILY 08/07/16 [History] Docusate [Colace] 100 mg PO BID PRN 08/07/16 [History] Folic Acid 1 mg PO DAILY 08/07/16 [History] Nystatin POWDER [Nystop] 1 appl TP BID 08/07/16 [History] Oxycodone HCl 15 mg PO BID PRN 08/07/16 [History] Pantoprazole Sodium [Protonix] 40 mg PO DAILY 08/07/16 [History] Sertraline [Zoloft] 100 mg PO DAILY 08/07/16 [History] Albuterol Sulfate [Proair Hfa] 2 puff IH Q4H PRN 02/07/17 [History] Ipratropium/Albuterol Neb [Duoneb] 3 ml IH TID PRN 02/07/17 [History] Warfarin [Coumadin] 10 mg PO SUMOFR 02/07/17 [History] Budesonide/Formoterol 160/4.5 [Symbicort 160/4.5] 2 puff IH BIDR 05/04/17 [ History] Loratadine [Claritin] 10 mg PO DAILY 05/04/17 [History] Renal Vitamin [Renal Caps Softgel] 1 mg PO DAILY 05/04/17 [History] Ropinirole HCl [Requip Xl] 4 mg PO HS 05/04/17 [History] Warfarin [Coumadin] 5 mg PO TUWETHSA 05/04/17 [History] Calcium Carbonate [Tums] 1,500 mg PO TID 05/05/17 [History] [place]-3 Acid Ethyl Esters [Lovaza] 2 gm PO BID 08/28/17 [History] Lowgap-3/Dha/Epa/Fish Oil [Lowgap 3 500 Softgel] 1,000 mg PO BID 08/28/17 [History ] levoFLOXacin [Levaquin] 500 mg PO DAILY #4 tablet 09/03/17 [Rx] Allergies/Adverse Reactions: 3 Allergy/AdvReac Type Severity Reaction Status Date / Time MALACHI Inhibitors Allergy Hives Verified 06/16/17 11:27 cephalexin [From Keflex] Allergy Hives Verified 06/16/17 11:27 cephalothin Allergy Hives Verified 06/16/17 11:27 clindamycin Allergy Hives Verified 06/16/17 11:27 codeine Allergy Hives Verified 06/16/17 11:27 fentanyl Allergy See Verified 06/16/17 11:27 Comments Hydromorphone [From Dilaudid] Allergy See Verified 06/16/17 11:27 Comments metoclopramide [From Reglan] Allergy Hives Verified 06/16/17 11:27 metronidazole Allergy Difficulty Verified 06/16/17 11:27 Breathing NSAIDS (Non-Steroidal Allergy Difficulty Verified 06/16/17 11:27 Anti-Inflamma Breathing Penicillins [PCN] Allergy Hives Verified 06/16/17 11:27 Sulfa (Sulfonamide Allergy Difficulty Verified 06/16/17 11:27 Antibiotics) Breathing sulfamethoxazole Allergy Difficulty Verified 06/16/17 11:27 [From Bactrim] Breathing trimethoprim Allergy Hives Verified 06/16/17 11:27 Certification: Further, I certify that my clinical findings support that this patient is homebound (i.e. absences from home require considerable and taxing effort and are for medical reasons or temple services or infrequently or short duration when for other reasons) because: Homebound Reason: Leaving home requires considerable and taxing effort due to condition Attestation: My signature below is to certify that this patient is under my care and that I, or nurse practitioner, or a physician's parking assistant working with me, has a face-to -face encounter with this patient.
[2017-09-03] MEDS ORDERED: Aminoglycoside Consult 1 EACH MC ONE (15:36)
== END 2017-09-03 15:37 | disposition home health service (06) | DRG 193 ==
LOC: EMEROO 04:12 → 2ANU 04:12
PROVIDERS: ADMIT Internal Medicine; ATTEND Hospitalist

== ENCOUNTER 2019-03-16 15:51 | Inpatient (IN) ==
[2019-03-16] MEDS ORDERED: Ipratropium/Albuterol Neb 3 ML IH ONE (15:58)
[2019-03-16] MEDS ORDERED: methylPREDNISolone 125 MG/2 ML VIAL IVP ONE (15:58)
[2019-03-16] MEDS ORDERED: methylPREDNISolone 125 MG/2 ML VIAL ONE (16:13)
--- NOTE | 2019-03-16 16:37 | Emergency Department Note ---
Disposition Clinical Impression: Acute exacerbation of chronic obstructive airways disease, ESRD (end stage renal disease) on dialysis Disposition: Admitted As Inpatient Referrals: NONE,PCP [Primary Care Provider] - General Adult HPI - General Chief complaint: ED Shortness of Breath/Dyspnea Stated complaint: GREGORY Time Seen by Provider: 03/16/19 15:58 Source: patient, family Limitations: no limitations Nursing Notes Reviewed: Yes Vital Signs Reviewed: Yes - History of Present Illness HPI Narrative: Attestation note: Patient was seen with the emergency medicine resident/nurse practitioner/physician recycling assistant/transitional resident/medical student: Dr. JANIS VIRAMONTES I have personally performed a face to face evaluation on this patient. I have reviewed and agree with history and physical examination patient management and disposition. Briefly the salient points of the case are as follows: 63-year-old female history of end-stage renal disease arrived by private vehicle for shortness breath. Large built female comes in with her family members. Patient says she has been worked up for fever without origin sepsis in the recent past. Patient meets SIRS criteria with tachypnea and tachycardia and a fever 100.8 axillary. Patient's chest has bilateral expiratory wheezes patient is being placed on BiPAP patient having IV steroids getting triple DuoNeb screening labs patient is very hypertensive systolic above 210. Patient will be getting a chest x-ray and screening labs. With admission anticipated. Providing 45 minutes of critical care service for this patient. Disposition pending Pain Scale: 0 - Related Data Home Medications Medication Instructions Recorded Confirmed Levothyroxine [Synthroid] 88 mcg PO DAILY 06/30/15 03/04/19 Aspirin 81 mg PO DAILY 08/07/16 03/04/19 Atorvastatin [Lipitor] 10 mg PO HS 08/07/16 03/04/19 Folic Acid 1 mg PO DAILY 08/07/16 03/04/19 Oxycodone HCl 15 mg PO BID PRN 08/07/16 03/04/19 Pantoprazole Sodium [Protonix] 40 mg PO DAILY 08/07/16 03/04/19 Sertraline [Zoloft] 100 mg PO DAILY 08/07/16 03/04/19 Renal Vitamin [Renal Caps Softgel] 1 mg PO DAILY 05/04/17 03/04/19 Ropinirole HCl [Requip Xl] 4 mg PO HS 05/04/17 03/04/19 Levalbuterol HCl [Xopenex Neb] 1.25 mg IH Q6HR PRN 08/16/18 03/04/19 Allopurinol [Zyloprim 100 MG] 200 mg PO DAILY 10/28/18 03/04/19 Pregabalin [Lyrica] 50 mg PO BID 10/28/18 03/04/19 Ergocalciferol (VITAMIN D2) 50,000 unit PO SA 11/06/18 03/04/19 [Vitamin D2] Levalbuterol Tartrate [Xopenex Hfa] 1 puff IH Q4H PRN 11/06/18 03/04/19 [place]-3 Acid Ethyl Esters [Lovaza] 2 gm PO BID 11/06/18 03/04/19 Nortriptyline [Pamelor] 10 mg PO HS 01/16/19 03/04/19 Biotin 1,000 mcg PO DAILY 02/16/19 03/04/19 Lactulose 30 gm PO DAILY PRN 02/16/19 03/04/19 Sucroferric Oxyhydroxide [Velphoro] 500 mg PO TIDWM 02/16/19 03/04/19 Docusate Sodium [Dulcolax Stool 100 mg PO DAILY PRN 03/04/19 03/04/19 Softener] Previous Rx's Medication Instructions Recorded amLODIPine [Norvasc] 5 mg PO DAILY #30 tablet 02/28/19 predniSONE [PredniSONE] 40 mg PO DAILY #14 tablet 02/28/19 Amiodarone [Cordarone] 200 mg PO DAILY 30 Days #30 tablet 03/10/19 Warfarin [Coumadin] 7.5 mg PO 1800 7 Days #7 tablet 03/10/19 Allergies Allergy/AdvReac Type Severity Reaction Status Date / Time MALACHI Inhibitors Allergy Hives Verified 03/16/19 16:15 cephalexin [From Keflex] Allergy Hives Verified 03/16/19 16:15 cephalothin Allergy Hives Verified 03/16/19 16:15 ciprofloxacin [From Cipro] Allergy See Verified 03/16/19 16:15 Comments clindamycin Allergy Swelling Verified 03/16/19 16:15 of Lip/Tongue/Throat codeine Allergy Hives Verified 03/16/19 16:15 doxycycline Allergy Nausea Verified 03/16/19 16:15 fentanyl Allergy See Verified 03/16/19 16:15 Comments hydromorphone [From Dilaudid] Allergy See Verified 03/16/19 16:15 Comments metoclopramide [From Reglan] Allergy Hives Verified 03/16/19 16:15 metronidazole Allergy Difficulty Verified 03/16/19 16:15 Breathing NSAIDS (Non-Steroidal Allergy Difficulty Verified 03/16/19 16:15 Anti-Inflamma Breathing Penicillins [PCN] Allergy Swelling Verified 03/16/19 16:15 of Lip/Tongue/Throat Sulfa (Sulfonamide Allergy Difficulty Verified 03/16/19 16:15 Antibiotics) Breathing sulfamethoxazole Allergy Difficulty Verified 03/16/19 16:15 [From Bactrim] Breathing trimethoprim Allergy Hives Verified 03/16/19 16:15 Past Medical History - Past Medical History Medical history: Reports: atrial fibrillation, CHF, COPD, coronary artery disease, diabetes, dialysis, hyperlipidemia, hypertension, renal disease, thyroid disease Surgical history: Reports: cholecystectomy, heart valve replacement, orthopedic, other Psychiatric history: Reports: anxiety, depression [employer] history: Reports: no [employer] history - Social History Smoking Status: Former smoker Smokeless Tobacco Status: No Alcohol use: Reports: none Drug use: Reports: none Physical Exam - General Limitations: no limitations General appearance: alert, anxious Course Vital Signs Temperature 100.9 F H 03/16/19 15:58 Pulse Rate 111 03/16/19 15:58 Respiratory Rate 28 03/16/19 15:58 Blood Pressure 207/88 03/16/19 15:58 O2 Sat by Pulse Oximetry 100 03/16/19 15:58 Temperature 100.9 F H 03/16/19 15:58 Pulse Rate 111 03/16/19 15:58 Respiratory Rate 34 03/16/19 16:07 Blood Pressure 207/88 03/16/19 16:07 O2 Sat by Pulse Oximetry 100 03/16/19 16:09 Oxygen Delivery Oxygen Delivery Non Rebreather Mask
--- NOTE | 2019-03-16 16:39 | Emergency Department Note ---
Disposition Clinical Impression: Acute exacerbation of chronic obstructive airways disease, ESRD on hemodialysis Community acquired pneumonia Qualifiers: Laterality: left Lung location: lower lobe of lung Qualified Code(s): J18.1 - Lobar pneumonia, unspecified organism Sepsis Qualifiers: Sepsis type: sepsis due to unspecified organism Qualified Code(s): A41.9 - Se psis, unspecified organism Disposition: Home, Self-Care Condition: Serious Referrals: NONE,PCP [Primary Care Provider] - Forms: ED Satisfaction Letter Time of Disposition: 17:15 General Adult HPI - General Chief complaint: ED Shortness of Breath/Dyspnea Stated complaint: GREGORY Time Seen by Provider: 03/16/19 15:58 Source: patient, family Mode of arrival: EMS Limitations: no limitations Nursing Notes Reviewed: Yes Vital Signs Reviewed: Yes - History of Present Illness HPI Narrative: 63 yo female with past medical history of end-stage renal disease on dialysis, COPD, diabetes presents to the emergency department after sudden onset of shortness of breath. Sister states that the patient was feeling fine this morning when she all of a sudden developed chills and was having trouble merary athing. Patient had a similar episode to this one time before and was admitted for sepsis with pneumonia and assumed COPD exacerbation. Patient currently denies chest pain, abdominal pain, nausea and vomiting. She is having a difficult time breathing and it is hard for her to provide sufficient history. Pain Scale: 0 - Related Data Home Medications Medication Instructions Recorded Confirmed Levothyroxine [Synthroid] 88 mcg PO DAILY 06/30/15 03/04/19 Aspirin 81 mg PO DAILY 08/07/16 03/04/19 Atorvastatin [Lipitor] 10 mg PO HS 08/07/16 03/04/19 Folic Acid 1 mg PO DAILY 08/07/16 03/04/19 Oxycodone HCl 15 mg PO BID PRN 08/07/16 03/04/19 Pantoprazole Sodium [Protonix] 40 mg PO DAILY 08/07/16 03/04/19 Sertraline [Zoloft] 100 mg PO DAILY 08/07/16 03/04/19 Renal Vitamin [Renal Caps Softgel] 1 mg PO DAILY 05/04/17 03/04/19 Ropinirole HCl [Requip Xl] 4 mg PO HS 05/04/17 03/04/19 Levalbuterol HCl [Xopenex Neb] 1.25 mg IH Q6HR PRN 08/16/18 03/04/19 Allopurinol [Zyloprim 100 MG] 200 mg PO DAILY 10/28/18 03/04/19 Pregabalin [Lyrica] 50 mg PO BID 10/28/18 03/04/19 Ergocalciferol (VITAMIN D2) 50,000 unit PO SA 11/06/18 03/04/19 [Vitamin D2] Levalbuterol Tartrate [Xopenex Hfa] 1 puff IH Q4H PRN 11/06/18 03/04/19 Rozet-3 Acid Ethyl Esters [Lovaza] 2 gm PO BID 11/06/18 03/04/19 Nortriptyline [Pamelor] 10 mg PO HS 01/16/19 03/04/19 Biotin 1,000 mcg PO DAILY 02/16/19 03/04/19 Lactulose 30 gm PO DAILY PRN 02/16/19 03/04/19 Sucroferric Oxyhydroxide [Velphoro] 500 mg PO TIDWM 02/16/19 03/04/19 Docusate Sodium [Dulcolax Stool 100 mg PO DAILY PRN 03/04/19 03/04/19 Softener] Previous Rx's Medication Instructions Recorded amLODIPine [Norvasc] 5 mg PO DAILY #30 tablet 02/28/19 predniSONE [PredniSONE] 40 mg PO DAILY #14 tablet 02/28/19 Amiodarone [Cordarone] 200 mg PO DAILY 30 Days #30 tablet 03/10/19 Warfarin [Coumadin] 7.5 mg PO 1800 7 Days #7 tablet 03/10/19 Allergies Allergy/AdvReac Type Severity Reaction Status Date / Time MALACHI Inhibitors Allergy Hives Verified 03/16/19 16:15 cephalexin [From Keflex] Allergy Hives Verified 03/16/19 16:15 cephalothin Allergy Hives Verified 03/16/19 16:15 ciprofloxacin [From Cipro] Allergy See Verified 03/16/19 16:15 Comments clindamycin Allergy Swelling Verified 03/16/19 16:15 of Lip/Tongue/Throat codeine Allergy Hives Verified 03/16/19 16:15 doxycycline Allergy Nausea Verified 03/16/19 16:15 fentanyl Allergy See Verified 03/16/19 16:15 Comments hydromorphone [From Dilaudid] Allergy See Verified 03/16/19 16:15 Comments metoclopramide [From Reglan] Allergy Hives Verified 03/16/19 16:15 metronidazole Allergy Difficulty Verified 03/16/19 16:15 Breathing NSAIDS (Non-Steroidal Allergy Difficulty Verified 03/16/19 16:15 Anti-Inflamma Breathing Penicillins [PCN] Allergy Swelling Verified 03/16/19 16:15 of Lip/Tongue/Throat Sulfa (Sulfonamide Allergy Difficulty Verified 03/16/19 16:15 Antibiotics) Breathing sulfamethoxazole Allergy Difficulty Verified 03/16/19 16:15 [From Bactrim] Breathing trimethoprim Allergy Hives Verified 03/16/19 16:15 All systems ED: reviewed and negative except as stated. Review of Systems: As Per HPI Constitutional: Reports: chills Cardiovascular: Reports: dyspnea on exertion. Denies: chest pain, palpitations, orthopnea, edema, syncope Respiratory: Reports: cough, dyspnea, wheezes. Denies: hemoptysis, stridor Gastrointestinal: Denies: abdominal pain, nausea, vomiting, diarrhea Musculoskeletal: Denies: back pain, neck pain Integumentary: Denies: rash Neurological: Denies: headache, weakness, numbness, paresthesias Endocrine: Reports: fatigue Past Medical History - Past Medical History Attestation: Yes The following information was validated with the patient. Source: patient, obtained from family Medical history: Reports: atrial fibrillation, CHF, COPD, coronary artery disease, diabetes, dialysis, hyperlipidemia, hypertension, renal disease, t hyroid disease Surgical history: Reports: cholecystectomy, heart valve replacement, orthopedic, other Psychiatric history: Reports: anxiety, depression TEAM MANAGER history: Reports: no TEAM MANAGER history - Social History Smoking Status: Former smoker Smokeless Tobacco Status: No Alcohol use: Reports: none Drug use: Reports: none Physical Exam - General Limitations: no limitations General appearance: alert, anxious - Head Head exam: atraumatic, normocephalic - Eye Eye exam: Present: normal appearance, PERRL, EOMI - Neck Neck exam: Present: normal inspection. Absent: tenderness, lymphadenopathy - Chest Chest inspection: Present: normal inspection. Absent: tenderness, rash - Respiratory Respiratory exam: Present: respiratory distress, wheezes, other (diminished breath sounds) - Cardiovascular Cardiovascular exam: Present: normal rhythm, tachycardia - Abdominal Exam Abdominal exam: Present: soft, Non-Tender. Absent: distention, guarding, rebou nd, rigidity - Extremities Exam Extremities exam: Present: pedal edema (1+ pedal edema bilaterally) - Neurological Exam Neurological exam: Present: alert, oriented X3 - Psychiatric Psychiatric exam: Present: normal affect, normal mood - Skin Skin exam: Present: warm, dry, intact Course Vital Signs Temperature 100.9 F H 03/16/19 15:58 Pulse Rate 111 03/16/19 15:58 Respiratory Rate 28 03/16/19 15:58 Blood Pressure 207/88 03/16/19 15:58 O2 Sat by Pulse Oximetry 100 03/16/19 15:58 Temperature 100.9 F H 03/16/19 15:58 Pulse Rate 100 03/16/19 17:34 Respiratory Rate 22 03/16/19 17:34 Blood Pressure 184/84 03/16/19 17:34 O2 Sat by Pulse Oximetry 100 03/16/19 17:34 Oxygen Delivery Oxygen Delivery Bipap Medical Decision Making - [facility] Narrative Medical decision making narrative: Patient presents via EMS with the chief complaint of shortness of breath. Patient met sepsis criteria upon admission and was in respiratory distress. Respiratory therapy was called to bedside and BiPAP was initiated with 2 nebs. Patient ordered Solu-Medrol she is diffusely wheezing. As patient is on dialysis we will not initiate a fluid bolus at this time. Broad-spectrum antibiotics will be administered to the patient for suspected pneumonia. Patient will undergo his history, EKG, basic labs, blood cultures, troponin and lactic acid and disposition will be to admit the patient once stabilized. - Medical Records Medical records reviewed: Yes I reviewed the patient's medical records. - Lab Data Lab results reviewed: Yes I reviewed the patient's lab results. Result diagrams: 03/16/19 15:58 03/16/19 15:58 Lab Results 03/16/19 03/16/19 03/16/19 Range/Units 15:58 15:58 15:58 WBC 9.6 (4.3-11.1) K/mcL RBC 3.09 L (3.82-4.97) M/mcL Hgb 9.3 L (11.5-15.4) g/dL Hct 29.8 L (35.3-44.9) % MCV 96.4 (83.0-100.0) fL MCH 30.1 (28.0-33.3) pg MCHC 31.2 L (31.6-35.5) g/dL RDW 16.1 H (11.5-14.5) % Plt Count 118 L D (140-400) K/mcL MPV 13.5 H (9.4-12.4) fL Immature Gran % 0.4 (0-4) % Seg Neutrophils % 82.8 % Lymphocytes % 7.5 % Monocytes % 8.1 % Eosinophils % 1.0 % Basophils % 0.2 % Neutrophils # 7.9 (1.6-8.9) K/mcL Lymphocytes # 0.7 (0.6-4.6) K/mcL Monocytes # 0.8 (0.0-1.3) K/mcL Eosinophils # 0.1 (0.0-0.6) K/mcL Basophils # 0.0 (0.0-0.2) K/mcL PT (9.4-12.1) Seconds INR VBG pH (7.32-7.42) pH Units VBG pCO2 (41-51) mmHg VBG pO2 (25-50) mmHg VBG HCO3 (21-27) mEq/L Sodium 136 (136-145) mEq/L Potassium 4.2 (3.5-5.1) mEq/L Chloride 92 L (98-107) mEq/L Carbon Dioxide 28 (23-29) mEq/L BUN 80 H (8-23) mg/dL Creatinine 5.67 H (0.60-1.20) mg/dL Est GFR ( Amer) 9 L (> 60) Est GFR (Non-Af Amer) 8 L (> 60) BUN/Creatinine Ratio 14 (6-26) Glucose 330 H (70-105) mg/dL Calculated Osmolality 319 H (280-300) Lactic Acid (0.5-2.2) mmol/L Calcium 8.5 L (8.6-10.3) mg/dL Troponin I 0.10 H* (< 0.04) ng/mL B-Natriuretic Peptide 386 H (Less than 100) pg/mL 03/16/19 03/16/19 03/16/19 Range/Units 15:59 16:24 16:39 WBC (4.3-11.1) K/mcL RBC (3.82-4.97) M/mcL Hgb (11.5-15.4) g/dL Hct (35.3-44.9) % MCV (83.0-100.0) fL MCH (28.0-33.3) pg MCHC (31.6-35.5) g/dL RDW (11.5-14.5) % Plt Count (140-400) K/mcL MPV (9.4-12.4) fL Immature Gran % (0-4) % Seg Neutrophils % % Lymphocytes % % Monocytes % % Eosinophils % % Basophils % % Neutrophils # (1.6-8.9) K/mcL Lymphocytes # (0.6-4.6) K/mcL Monocytes # (0.0-1.3) K/mcL Eosinophils # (0.0-0.6) K/mcL Basophils # (0.0-0.2) K/mcL PT 18.4 H (9.4-12.1) Seconds INR 1.6 VBG pH 7.30 L (7.32-7.42) pH Units VBG pCO2 61 H (41-51) mmHg VBG pO2 47 (25-50) mmHg VBG HCO3 30 H (21-27) mEq/L Sodium (136-145) mEq/L Potassium (3.5-5.1) mEq/L Chloride (98-107) mEq/L Carbon Dioxide (23-29) mEq/L BUN (8-23) mg/dL Creatinine (0.60-1.20) mg/dL Est GFR ( Amer) (> 60) Est GFR (Non-Af Amer) (> 60) BUN/Creatinine Ratio (6-26) Glucose (70-105) mg/dL Calculated Osmolality (280-300) Lactic Acid 1.3 (0.5-2.2) mmol/L Calcium (8.6-10.3) mg/dL Troponin I (< 0.04) ng/mL B-Natriuretic Peptide (Less than 100) pg/mL - Radiology Data Radiology results reviewed: Yes I reviewed the patient's radiology results. - EKG Data EKG #1 EKG attestation: Yes I reviewed and interpreted this EKG. EKG results narrative: EKG obtained at 16:01 on 03/16/2019 Heart rate 10 8 bpm, QRS duration 113, QT 369, QTC 495 Atrial fibrillation with 2 PVCs noted in the rhythm strip. No signs of ST segment elevations or depressions. Patient was shaking during exam therefore there is a wandering baseline. No significant changes when compared to previous EKG dated 02/16/2019.
[2019-03-16 16:41] LABS: Basophils % 0.2 %; Eosinophils # 0.1 K/mcL (0.0-0.6); Hematocrit 29.8 % (35.3-44.9); Hemoglobin 9.3 g/dL (11.5-15.4); Immature Granulocytes % 0.4 % (0-4); Lymphocytes # 0.7 K/mcL (0.6-4.6); Lymphocytes % 7.5 %; Mean Corpuscular HGB Conc 31.2 g/dL (31.6-35.5); Mean Corpuscular Hemoglobin 30.1 pg (28.0-33.3); Mean Corpuscular Volume 96.4 fL (83.0-100.0); Mean Platelet Volume 13.5 fL (9.4-12.4); Monocytes # 0.8 K/mcL (0.0-1.3); Monocytes % 8.1 %; Neutrophils # 7.9 K/mcL (1.6-8.9); Platelet Count 118 K/mcL (140-400); Red Blood Count 3.09 M/mcL (3.82-4.97); Red Cell Distribution Width 16.1 % (11.5-14.5); Segmented Neutrophils % 82.8 %
[2019-03-16 16:45] LABS: VBG HCO3 30 mEq/L (21-27); VBG PCO2 61 mmHg (41-51); VBG PO2 47 mmHg (25-50)
[2019-03-16 16:50] LABS: INR 1.6; Prothrombin Time 18.4 Seconds (9.4-12.1)
[2019-03-16 17:01] LABS: Calcium 8.5 mg/dL (8.6-10.3); Potassium 4.2 mEq/L (3.5-5.1)
[2019-03-16 17:04] LABS: Troponin I 0.1 ng/mL (< 0.04)
[2019-03-16] MEDS ORDERED: Azithromycin 500 MG in D5% in Water 250 ML IVPB ONE (17:09)
[2019-03-16] MEDS ORDERED: Levofloxacin 750 MG/150 ML 750 MG/150 ML BAG IVPB ONE (17:09)
--- NOTE | 2019-03-16 17:23 | Internal Med History&Physical ---
Date of Encounter: 03/16/19 Time of Encounter: 17:20 Internal Medicine - H&P: HPI Chief complaint: fever sob Admitted From: Emergency Dept History of present illness: Ms. Loza is a 63 year old female atrial fibrillation, CHF, COPD on 2 L home oxygen, coronary artery disease, diabetes, history of ESRD on dialysis Sunday, hyperlipidemia, hypertension, renal disease, thyroid disease,cholecystectomy, heart valve replacement brought to ER with complaint of sudden onset of fever more than 101 associated with chills and shortness of breath started this afternoon while at home is staying with her sister. Sister called EMS and was brought to ER. In ER patient was found to have high temperature 100.9, tachycardia tachypnea meeting sepsis criteria. Initial treatment IV Solu-Medrol and DuoNeb was given as concern for COPD exacerbation as patient had bilaterally expiratory wheezing as per ER note. BiPAP was restarted in the ER Chest x-ray with concern of pneumonia. Patient was also found to be hypertensive. ER physician called on-call hospitalists for the admission with diagnosis of sepsis, COPD exacerbation, pneumonia. Last discharge 6 days ago-discharge diagnosis pneumonia with new onset A. fib started on Coumadin, fever of unknown origin and supposed to see a family counselor on OPD basis. Had ALBERT and ruled out any vegetation, CT abdomen and pelvis with no underlying source of infection Slight elevation of troponin but with no acute ST-T change in the EKG. Past Med Surg Social Fam HX - Past Medical History Medical history: atrial fibrillation, CHF, COPD, coronary artery disease, diabetes, dialysis, hyperlipidemia, hypertension, renal disease, thyroid disease Additional medical history: LUMBAGO, DYSURIA, DISKITIS, OBESITY, DIABETIC NEUROPATHY, GOUT, SLEEP APNEA Psychiatric history: anxiety, depression - Past Surgical History Surgical History: cholecystectomy, heart valve replacement, orthopedic, other Additional surgical history: BACK SURGERY, NASAL SX, CARPAL TUNNEL SX, DIALYSIS CATH, VEIN SX, LABIA SX - Social History Smoking Status: Former smoker Smokeless Tobacco Status: No Alcohol use: none Drug use: none - Family History Mother Living Status: Hx Family Cardiac Disorders: Yes (HTN) Hx Family Respiratory Disorders: No Hx Family Cancer: No Hx Family GI Disorders: No Hx Family Endocrine Disorder: Yes (DM) Hx Family Neuromuscular Disorders: No Hx Family Neurologic Disorders: No Hx Family HEENT Disorders: No Hx Family Autoimmune Disorders: No Father Living Status: Hx Family Cardiac Disorders: Yes (HTN) Hx Family Respiratory Disorders: No Hx Family Cancer: Yes (lung cancer) Hx Family GI Disorders: No Hx Family Endocrine Disorder: Yes (DM) Hx Family Neuromuscular Disorders: No Hx Family Neurologic Disorders: No Hx Family HEENT Disorders: No Hx Family Autoimmune Disorders: No Internal Medicine - H&P: Meds Levothyroxine [Synthroid] 88 mcg PO DAILY 06/30/15 [History] Aspirin 81 mg PO DAILY 08/07/16 [History] Atorvastatin [Lipitor] 10 mg PO HS 08/07/16 [History] Folic Acid 1 mg PO DAILY 08/07/16 [History] Oxycodone HCl 15 mg PO BID PRN 08/07/16 [History] Pantoprazole Sodium [Protonix] 40 mg PO DAILY 08/07/16 [History] Sertraline [Zoloft] 100 mg PO DAILY 08/07/16 [History] Renal Vitamin [Renal Caps Softgel] 1 mg PO DAILY 05/04/17 [History] Ropinirole HCl [Requip Xl] 4 mg PO HS 05/04/17 [History] Levalbuterol HCl [Xopenex Neb] 1.25 mg IH Q6HR PRN 08/16/18 [History] Allopurinol [Zyloprim 100 MG] 200 mg PO DAILY 10/28/18 [History] Pregabalin [Lyrica] 50 mg PO BID 10/28/18 [History] Ergocalciferol (VITAMIN D2) [Vitamin D2] 50,000 unit PO SA 11/06/18 [History] Levalbuterol Tartrate [Xopenex Hfa] 1 puff IH Q4H PRN 11/06/18 [History] Diboll-3 Acid Ethyl Esters [Lovaza] 2 gm PO BID 11/06/18 [History] Nortriptyline [Pamelor] 10 mg PO HS 01/16/19 [History] Biotin 1,000 mcg PO DAILY 02/16/19 [History] Lactulose 30 gm PO DAILY PRN 02/16/19 [History] Sucroferric Oxyhydroxide [Velphoro] 500 mg PO TIDWM 02/16/19 [History] amLODIPine [Norvasc] 5 mg PO DAILY #30 tablet 02/28/19 [Rx] predniSONE [PredniSONE] 40 mg PO DAILY #14 tablet 02/28/19 [Rx] Docusate Sodium [Dulcolax Stool Softener] 100 mg PO DAILY PRN 03/04/19 [History] Amiodarone [Cordarone] 200 mg PO DAILY 30 Days #30 tablet 03/10/19 [Rx] Warfarin [Coumadin] 7.5 mg PO 1800 7 Days #7 tablet 03/10/19 [Rx] Allergy/AdvReac Type Severity Reaction Status Date / Time MALACHI Inhibitors Allergy Hives Verified 03/16/19 16:15 cephalexin [From Keflex] Allergy Hives Verified 03/16/19 16:15 cephalothin Allergy Hives Verified 03/16/19 16:15 ciprofloxacin [From Cipro] Allergy See Verified 03/16/19 16:15 Comments clindamycin Allergy Swelling Verified 03/16/19 16:15 of Lip/Tongue/Throat codeine Allergy Hives Verified 03/16/19 16:15 doxycycline Allergy Nausea Verified 03/16/19 16:15 fentanyl Allergy See Verified 03/16/19 16:15 Comments hydromorphone [From Dilaudid] Allergy See Verified 03/16/19 16:15 Comments metoclopramide [From Reglan] Allergy Hives Verified 03/16/19 16:15 metronidazole Allergy Difficulty Verified 03/16/19 16:15 Breathing NSAIDS (Non-Steroidal Allergy Difficulty Verified 03/16/19 16:15 Anti-Inflamma Breathing Penicillins [PCN] Allergy Swelling Verified 03/16/19 16:15 of Lip/Tongue/Throat Sulfa (Sulfonamide Allergy Difficulty Verified 03/16/19 16:15 Antibiotics) Breathing sulfamethoxazole Allergy Difficulty Verified 03/16/19 16:15 [From Bactrim] Breathing trimethoprim Allergy Hives Verified 03/16/19 16:15 All Systems PM: A 10-system review of systems was performed and is negative for pertinent findings except as documented above in the HPI. - Constitutional Vitals: Temp Pulse Resp BP Pulse Ox 100.9 F H 111 34 207/88 100 03/16/19 15:58 03/16/19 15:58 03/16/19 16:07 03/16/19 16:07 03/16/19 16:09 Exam: General appearance: Patient on BiPAP. Family at bedside, morbidly obese Head exam: Atraumatic Eye exam: EOMI, PERRLA ENT exam: Moist oral mucosa Neck nontender, supple Respiratory exam: Decreased breath sound bilaterally with few scattered expiratory wheezing Cardiovascular exam: Regular rate and rhythm, no systolic murmur Abdominal exam: Soft, nontender, nondistended, positive bowel sounds Extremities exam: No calf tenderness, +1/2 pedal edema Present: Skin-no rash, warm, dry, intact Neurological exam: Alert, awake, oriented 3, CN II-XII intact, no focal deficits. No facial droop. Normal speech. Internal Med - H&P Results - Labs CBC & Chem 7: 03/16/19 15:58 03/16/19 15:58 Labs: Short CBC 03/16/19 Range/Units 15:58 WBC 9.6 (4.3-11.1) K/mcL Hgb 9.3 L (11.5-15.4) g/dL Hct 29.8 L (35.3-44.9) % Plt Count 118 L D (140-400) K/mcL Neutrophils # 7.9 (1.6-8.9) K/mcL BMP 03/16/19 15:58 Sodium 136 Potassium 4.2 Chloride 92 L Carbon Dioxide 28 BUN 80 H Creatinine 5.67 H Glucose 330 H Calcium 8.5 L Cardiac Enzymes 03/16/19 Range/Units 15:58 Troponin I 0.10 H* (< 0.04) ng/mL - ABG Interpretation ABG results: 03/16/19 16:39 VBG pH 7.30 L VBG pCO2 61 H VBG pO2 47 VBG HCO3 30 H - Impressions ITS Impressions Chest X-Ray 03/16/19 15:58 IMPRESSION: Ill-defined increased density in the left lung base raising the question of pneumonia. Prominent markings bilaterally is likely technical from low volume portable technique. D/ / Brien Graves / Brien Graves Interpreting Provider: Brien Graves - Summary of Assessment and Plan Summary of Assessment and Plan: SOB- multiple differential cardiac versus pulmonary as mentioned below COPD EXACERBATION-in ER IV Solu-Medrol 125 mg loading dose given along with DuoNeb. Patient is on prednisone 40 mg daily at this time. Will start Solu- Medrol 60 mg every 8 hours, DuoNeb, BiPAP, oxygen supplementation. Will consult mediation commissioner if needed PNEUMONIA-fever, cough, shortness of breath, abnormal chest x-ray. Is started vancomycin and cefepime. Patient had MRSA nasal swab positive during last ad mission. Will repeat MRSA nasal swab. Respiratory panel ordered Urine Legionella and streptococcal pneumonia antigen ordered Blood culture drawn in the ER XR/XR chest 1V portable IMPRESSION: Ill-defined increased density in the left lung base raising the question of pneumonia. Prominent markings bilaterally is likely technical from low volume portable technique. Sepsis-meeting sepsis criteria fever, tachypnea and tachycardia. Most likely due to pneumonia. Lactic acid normal. Continue above mentioned antibiotic Fever of unknown origin-patient had extensive workup during last admission. She was fever free since last admission until today. Will rule out any new source of infection. Will also consult ID and family counselor. NST [place] -raised troponin but no chest pain could be demand ischemia but will rule out underlying cardiac etiology as patient has underlying complicated cardiac history. Patient had sudden onset of shortness of breath. Serial troponin, will keep patient in 2 [place]. Consulted cardiology and a started heparin drip. ESRD-consulted nephrology. Dialysis Sunday Hypertensive urgency -needs better control and blood pressure.Not done. Will restart amlodipine 10 mg, beta james,hydralazine when necessary. Close monitoring Diabetes [id number], sliding scale insulin high. Diabetic diet when able to eat Atrial fibrillation-stable. Slight tachycardia. Will restart amiodarone and Coumadin. Pharmacy consultation for Coumadin dose as subtherapeutic INR. INR daily. Heparin drip continue Status post TAVR transcatheter aortic valve replacement)-(Bioprosthetic AVR OHS 2005, TAVR 2017)- stable DVT Px-heparin drip - Time Spent With Patient Total time spent is greater than 50% in coordination of care (as documented) at patient's floor/unit and/or counseling patient: Greater than 35 minutes
[2019-03-16] MEDS ORDERED: Naloxone 0.4 MG/ML INJ IVP PRN (18:24)
[2019-03-16] MEDS ORDERED: Ondansetron 4 MG/2 ML VIAL IVP PRN (18:24)
[2019-03-16] MEDS ORDERED: *HR* Heparin 5,000 UNIT/ML VIAL IVP ONE (18:33)
[2019-03-16] MEDS ORDERED: *HR* Heparin 5,000 UNIT/ML VIAL IVP PRN ×2 (18:33)
[2019-03-16] MEDS ORDERED: Heparin 25,000 UNIT/250 ML D5W 25,000 UNIT/250 ML IV.SOLN IVC SCH (18:45)
[2019-03-16] MEDS ORDERED: Cefepime HCl 2,000 MG in Water for inj. (sterile) 20 ML 20 ML IVP ONE (19:00)
[2019-03-16] MEDS ORDERED: Nitroglycerin 0.4 MG TAB.SUBL SL PRN (19:06)
[2019-03-16 19:30] LABS: Hematocrit 26.3 % (35.3-44.9); Hemoglobin 8.3 g/dL (11.5-15.4); Mean Corpuscular HGB Conc 31.6 g/dL (31.6-35.5); Mean Corpuscular Hemoglobin 30.6 pg (28.0-33.3); Mean Platelet Volume 13.2 fL (9.4-12.4); Red Blood Count 2.71 M/mcL (3.82-4.97); Red Cell Distribution Width 16.1 % (11.5-14.5)
[2019-03-16 19:32] LABS: Platelet Count 98 K/mcL (140-400)
[2019-03-16 19:40] LABS: Heparin anti-factor XA UFH 0.04 IU/mL (0.30-0.70)
[2019-03-16 19:41] LABS: INR 1.7; Prothrombin Time 19.5 Seconds (9.4-12.1)
[2019-03-16] MEDS ORDERED: *HR* Warfarin 5 MG TABLET PO ONE (20:00)
[2019-03-16] MEDS: Aspirin 81 MG TAB.CHEW PO SCH (21:58)
[2019-03-16] MEDS: methylPREDNISolone 125 MG/2 ML VIAL IVP SCH (22:58)
[2019-03-16 23:07] LABS: Adenovirus Not Detected (Not Detect); Bordetella Pertussis Not Detected (Not Detect); Chlamydophila pneumoniae Not Detected (Not Detect); Coronavirus 229E Not Detected (Not Detect); Coronavirus HKU1 Not Detected (Not Detect); Coronavirus NL63 Not Detected (Not Detect); Coronavirus OC43 Not Detected (Not Detect); Human Metapneumovirus Not Detected (Not Detect); Human Rhinovirus/Enterovirus Not Detected (Not Detect); Influenza A Subtype 2009 H1 Not Detected (Not Detect); Influenza A Untypeable Not Detected (Not Detect); Influenza B Not Detected (Not Detect); Mycoplasma pneumoniae Not Detected (Not Detect); Parainfluenza Virus 1 Not Detected (Not Detect); Parainfluenza Virus 2 Not Detected (Not Detect); Parainfluenza Virus 3 DETECTED (Not Detect); Parainfluenza Virus 4 Not Detected (Not Detect); Respiratory Syncytial Virus Not Detected (Not Detect)
[2019-03-17 01:37] LABS: Hemoglobin 7.8 g/dL (11.5-15.4); Immature Granulocytes % 0.5 % (0-4)
[2019-03-17 01:39] LABS: Immature Platelets 10.5 % (1.1-6.1); Lymphocytes # 0.2 K/mcL (0.6-4.6); Lymphocytes % 3.7 %; Mean Corpuscular HGB Conc 31.2 g/dL (31.6-35.5); Mean Corpuscular Volume 96.2 fL (83.0-100.0); Mean Platelet Volume 13.9 fL (9.4-12.4); Monocytes # 0.1 K/mcL (0.0-1.3); Monocytes % 1.6 %; Neutrophils # 5.8 K/mcL (1.6-8.9); Red Cell Distribution Width 16.1 % (11.5-14.5); Segmented Neutrophils % 94.2 %
[2019-03-17 01:41] LABS: Platelet Count 84 K/mcL (140-400)
[2019-03-17 01:43] LABS: Prothrombin Time 22.6 Seconds (9.4-12.1)
[2019-03-17 06:36] LABS: Calcium 8.4 mg/dL (8.6-10.3); Potassium 5.5 mEq/L (3.5-5.1)
[2019-03-17] MEDS ORDERED: Lactulose Oral Soln 20 GM/30 ML UDC PO PRN (07:17)
[2019-03-17] MEDS ORDERED: Levalbuterol 1 PUFF INHALER IH PRN (07:17)
[2019-03-17] MEDS ORDERED: Levalbuterol Neb 1.25 MG/3 ML IH PRN (07:17)
[2019-03-17] MEDS ORDERED: *HR* Dextrose 50 % in Water (Syg) 50 ML SYRINGE IVP PRN (07:19)
[2019-03-17] MEDS ORDERED: D5% in Water 1,000 ML IVC PRN (07:19)
[2019-03-17] MEDS ORDERED: Dextrose Gel 15 GM/37.5 ML TUBE PO PRN ×2 (07:19)
[2019-03-17 08:08] LABS: Hepatitis B Surface Antibody < 3.10 mIU/mL
[2019-03-17 08:19] LABS: Hepatitis B Surface Antigen Nonreactive (Nonreactive)
[2019-03-17] MEDS ORDERED: 0.9 % Sodium Chloride 250 ML IVC PRN (08:21)
[2019-03-17] MEDS ORDERED: 0.9 % Sodium Chloride 1,000 ML PRIME SCH (08:30)
[2019-03-17] MEDS ORDERED: 0.9 % Sodium Chloride 2,000 ML ONE (08:36)
[2019-03-17] MEDS ORDERED: NON-FORMULARY MEDICATION 1 EACH EACH (Omega-3 Acid Ethyl Esters [Lovaza] 2 GM) PO SCH (09:00)
[2019-03-17] MEDS ORDERED: Vancomycin 1 EACH in EMPTY BAG 1 EACH IVPB SCH (09:00)
[2019-03-17] MEDS ORDERED: BIOTIN 1000 MCG PO SCH (09:00)
[2019-03-17] MEDS: Renal Vitamin 1 CAP CAPSULE PO SCH (09:05)
[2019-03-17] MEDS: *HR* Amiodarone 200 MG TABLET PO SCH (09:05)
[2019-03-17] MEDS: Aspirin 81 MG TAB.CHEW PO SCH (09:05)
[2019-03-17] MEDS: Pregabalin 50 MG CAPSULE PO SCH ×2 (09:05→21:32)
[2019-03-17] MEDS: Folic Acid 1 MG TABLET PO SCH (09:06)
[2019-03-17] MEDS: methylPREDNISolone 125 MG/2 ML VIAL IVP SCH (09:06)
--- NOTE | 2019-03-17 09:19 | Cardiology Consult Note ---
Date of Encounter: 03/17/19 Time of Encounter: 09:15 Assessment and Plan (1) Elevated troponin Current Visit: No Status: Chronic Per Cardiology: Hx of nonobstructive CAD. Ef 55% on echo 02/2019. Denied any chest pain. Troponins 0.10, 0.11, 0.13. Has history of chronic troponin elevation and actually peak of 0.22 1 month ago at time of last cardiology consult. Suspected demand ischemia in setting of pneumonia, Parainfleunza +, and end-stage renal d isease. No cardiac rehabilitation consult warranted. We will discontinue heparin drip as patient is already anticoagulated with Coumadin with INR of 2.0. On aspirin, statin, beta james. Has allergy to ACEI. Discussed and reviewed with Dr. Moe, no further recs, signing off, will re- arrange pending f/u this week to after this stay. [facility]:08/2016: Lesion Findings/Interventions * Left Main Coronary Artery The LMCA is angiographically free of disease. * Left Anterior Descending There is a 20% stenosis in the Mid LAD. * Circumflex There is a 20% stenosis in the Proximal Circumflex. * Right Coronary Artery The RCA is angiographically free of disease. The Right PDA is angiographically free of disease. (2) Atrial fibrillation Current Visit: No Status: Chronic Per Cardiology: Known history of atrial fibrillation. Tele reviewed average heart rate is 12 hours 76, currently A. fib in the 60s to 80s-- rate controlled. On amiodarone 200 mg by mouth daily and Lopressor 25 mg by mouth twice a day. Anticoagulated with Coumadin with INR currently 2.0. Again we will discontinue IV heparin drip. Qualifiers: Atrial fibrillation type: chronic Qualified Code(s): I48.2 - Chronic atrial fibrillation (3) Warfarin anticoagulation Current Visit: No Status: Chronic Per Cardiology: On Coumadin for afib. Target INR 2.0-3.0. (4) Anemia Current Visit: No Status: Chronic Per Cardiology: Hx of anemia (ESRD). Monitor-- Hep. gtt stopped. Denies any active bleeding or blood loss. Qualifiers: Anemia type: due to chronic kidney disease Chronic kidney disease stage: on chronic dialysis Qualified Code(s): N18.6 - End stage renal disease; D63.1 - Anemia in chronic kidney disease; Z99.2 - Dependence on renal dialysis (5) History of heart valve replacement Current Visit: No Status: Chronic Per Cardiology: ALBERT 03/06/19: Impressions: No evidence for intracardiac vegetation. Bioprosthetic aortic valve leaflets demonstrate normal mobility. Transvalvular aortic gradients are elevated possibly due to [id number] implant (Bioprosthetic AVR OHS 2006, TAVR 2017). Calculated aortic valve area is normal. Mild paravalvular aortic regurgitation. Normal LV and RV systolic function. Severe bi-atrial enlargement. Mild mitral regurgitation. Moderate tricuspid regurgitation. Grade I plaquing of the descending thoracic aorta. Has pending follow-up with cardiology this week, we will reschedule for this hospital stay. (6) ESRD on hemodialysis Current Visit: Yes Status: Chronic Per Cardiology: Seen today during HD. Discussion w patient/family: The assessment and plan as outlined above was discussed with the patient and/or family members who expressed understanding and agreement. All questions were answered. Thank you for involving us in the care of your patient. Please call with any questions. History of Present Illness Consult date: 03/17/19 Requesting physician: Cari Medina Consult reason: Elevated Trop Chief complaint: Fever, SOB History of present illness: Previous medical records reviewed: "Ms. Loza is a 63 year old female atrial fibrillation, CHF, COPD on 2 L home oxygen, coronary artery disease, diabetes, history of ESRD on dialysis Sunday, hyperlipidemia, hypertension, renal disease, thyroid disease,cholecystectomy, heart valve replacement brought to ER with complaint of sudden onset of fever more than 101 associated with chills and shortness of b reath started this afternoon while at home is staying with her sister". Cardiology C/S for elevated trops. Denies any CP. Reports came in due to concerns of fever and sob. Confirmed above information. Reports occasional bilateral lower extremity swelling. She denies any palpitations, dizziness, syncope, falls. Denies any active bleeding or blood loss. Reports compliance of medications at home. Past Med Surg Social Fam HX - Past Medical History Attestation: Yes The following information was validated with the patient. Source: patient, old records reviewed Medical history: atrial fibrillation, CHF, COPD, coronary artery disease, diabetes, dialysis, hyperlipidemia, hypertension, renal disease, thyroid disease Additional medical history: LUMBAGO, DYSURIA, DISKITIS, OBESITY, DIABETIC NEUROPATHY, GOUT, SLEEP APNEA Psychiatric history: anxiety, depression - Past Surgical History Surgical History: cholecystectomy, heart valve replacement, orthopedic, other Additional surgical history: BACK SURGERY, NASAL SX, CARPAL TUNNEL SX, DIALYSIS CATH, VEIN SX, LABIA SX - Social History Smoking Status: Former smoker Smokeless Tobacco Status: No Alcohol use: none Drug use: none - Family History Mother Living Status: Hx Family Cardiac Disorders: Yes (HTN) Hx Family Respiratory Disorders: No Hx Family Cancer: No Hx Family GI Disorders: No Hx Family Endocrine Disorder: Yes (DM) Hx Family Neuromuscular Disorders: No Hx Family Neurologic Disorders: No Hx Family HEENT Disorders: No Hx Family Autoimmune Disorders: No Father Living Status: Hx Family Cardiac Disorders: Yes (HTN) Hx Family Respiratory Disorders: No Hx Family Cancer: Yes (lung cancer) Hx Family GI Disorders: No Hx Family Endocrine Disorder: Yes (DM) Hx Family Neuromuscular Disorders: No Hx Family Neurologic Disorders: No Hx Family HEENT Disorders: No Hx Family Autoimmune Disorders: No Medications and Allergies Levothyroxine [Synthroid] 88 mcg PO DAILY 06/30/15 [History] Aspirin 81 mg PO DAILY 08/07/16 [History] Atorvastatin [Lipitor] 10 mg PO HS 08/07/16 [History] Folic Acid 1 mg PO DAILY 08/07/16 [History] Oxycodone HCl 15 mg PO BID PRN 08/07/16 [History] Pantoprazole Sodium [Protonix] 40 mg PO DAILY 08/07/16 [History] Sertraline [Zoloft] 100 mg PO DAILY 08/07/16 [History] Renal Vitamin [Renal Caps Softgel] 1 mg PO DAILY 05/04/17 [History] Ropinirole HCl [Requip Xl] 4 mg PO HS 05/04/17 [History] Levalbuterol HCl [Xopenex Neb] 1.25 mg IH Q6HR PRN 08/16/18 [History] Allopurinol [Zyloprim 100 MG] 200 mg PO DAILY 10/28/18 [History] Pregabalin [Lyrica] 50 mg PO BID 10/28/18 [History] Ergocalciferol (VITAMIN D2) [Vitamin D2] 50,000 unit PO SA 11/06/18 [History] Levalbuterol Tartrate [Xopenex Hfa] 1 puff IH Q4H PRN 11/06/18 [History] Pax-3 Acid Ethyl Esters [Lovaza] 2 gm PO BID 11/06/18 [History] Nortriptyline [Pamelor] 10 mg PO HS 01/16/19 [History] Biotin 1,000 mcg PO DAILY 02/16/19 [History] Lactulose 30 gm PO DAILY PRN 02/16/19 [History] Sucroferric Oxyhydroxide [Velphoro] 500 mg PO TIDWM 02/16/19 [History] amLODIPine [Norvasc] 5 mg PO DAILY #30 tablet 02/28/19 [Rx] Docusate Sodium [Dulcolax Stool Softener] 100 mg PO DAILY PRN 03/04/19 [History] Amiodarone [Cordarone] 200 mg PO DAILY 30 Days #30 tablet 03/10/19 [Rx] Insulin ASPART [NovoLOG] 0 units SQ TIDWM 03/16/19 [History] Allergy/AdvReac Type Severity Reaction Status Date / Time MALACHI Inhibitors Allergy Hives Verified 03/16/19 16:15 cephalexin [From Keflex] Allergy Hives Verified 03/16/19 16:15 cephalothin Allergy Hives Verified 03/16/19 16:15 ciprofloxacin [From Cipro] Allergy See Verified 03/16/19 16:15 Comments clindamycin Allergy Swelling Verified 03/16/19 16:15 of Lip/Tongue/Throat codeine Allergy Hives Verified 03/16/19 16:15 doxycycline Allergy Nausea Verified 03/16/19 16:15 fentanyl Allergy See Verified 03/16/19 16:15 Comments hydromorphone [From Dilaudid] Allergy See Verified 03/16/19 16:15 Comments metoclopramide [From Reglan] Allergy Hives Verified 03/16/19 16:15 metronidazole Allergy Difficulty Verified 03/16/19 16:15 Breathing NSAIDS (Non-Steroidal Allergy Difficulty Verified 03/16/19 16:15 Anti-Inflamma Breathing Penicillins [PCN] Allergy Swelling Verified 03/16/19 16:15 of Lip/Tongue/Throat Sulfa (Sulfonamide Allergy Difficulty Verified 03/16/19 16:15 Antibiotics) Breathing sulfamethoxazole Allergy Difficulty Verified 03/16/19 16:15 [From Bactrim] Breathing trimethoprim Allergy Hives Verified 03/16/19 16:15 All Systems Review: The remainder of the systems were reviewed and are negative - Constitutional Constitutional: fever(s) - Cardiovascular Cardiovascular: as per HPI, dyspnea at rest, leg edema Physical Examination Vital Signs, Last 4 Hours Temp Pulse Resp BP Pulse Ox 03/17/19 07:07 97.6 F 86 20 115/92 90 General: Conversant, No Apparent Distress HEENT: Atraumatic, Normocephaly, Mucus Membranes Moist Neck: No JVD, Normal carotid pulses Cardiac: No Murmur, Other (Irregularly irregular) Lungs: Normal Breath Sounds, No Wheeze, Rales, Rhonchi, Other (diminished breath sounds anteriorly-- seen during dialysis) Neuro: Alert and responsive, No focal deficits noted Abdomen: Soft, Non-Tender Skin: No rashes noted on visualized skin Musculoskeletal: No Chest Wall Tenderness Extremities: No Clubbing, No Cyanosis, No Edema, Normal Pulses Results 03/17/19 00:57 03/17/19 05:53 Lab Results Laboratory Tests 03/16/19 03/16/19 03/16/19 15:58 15:58 19:14 Hgb Hct INR Potassium Creatinine Troponin I 0.10 H* 0.11 H* B-Natriuretic Peptide 386 H Nasal Screen MRSA (PCR) Parainfluenza 3 (PCR) 03/16/19 03/16/19 03/17/19 21:18 21:18 00:57 Hgb 7.8 L Hct 25.0 L INR Potassium Creatinine Troponin I B-Natriuretic Peptide Nasal Screen MRSA (PCR) Positive A Parainfluenza 3 (PCR) DETECTED A 03/17/19 03/17/19 03/17/19 00:57 00:57 05:53 Hgb Hct INR 2.0 Potassium 5.5 H D Creatinine 6.12 H Troponin I 0.13 H* B-Natriuretic Peptide Nasal Screen MRSA (PCR) Parainfluenza 3 (PCR) ITS Impressions Chest X-Ray 03/16/19 15:58 IMPRESSION: Ill-defined increased density in the left lung base raising the question of pneumonia. Prominent markings bilaterally is likely technical from low volume portable technique. D/ / Brien Graves / Brien Graves Interpreting Provider: Brien Graves Active Medications Allopurinol (Zyloprim) 200 mg PO DAILY [facility] Stop: 09/16/19 09:01 Last Admin: 03/17/19 09:06 Dose: 200 mg Documented by: Amiodarone HCl (Cordarone) 200 mg PO DAILY [facility] Stop: 09/16/19 09:01 Last Admin: 03/17/19 09:05 Dose: 200 mg Documented by: Aspirin (Aspirin) 81 mg PO DAILY [facility] Stop: 09/15/19 09:01 Last Admin: 03/17/19 09:05 Dose: 81 mg Documented by: Atorvastatin Calcium (Lipitor) 20 mg PO HS [facility] Stop: 09/15/19 21:01 Last Admin: 03/16/19 22:59 Dose: 20 mg Documented by: Dextrose/Water (Dextrose 50% (Syg)) 25 ml IVP AD PRN PRN Reason: Hypoglycemia Stop: 09/16/19 07:20 Docusate Sodium (Colace) 100 mg PO DAILY PRN; Protocol PRN Reason: STOOL SOFTENER Stop: 09/16/19 07:18 Ergocalciferol (Drisdol (50,000 Unit)) 50,000 unit PO SA [facility] Stop: 09/21/19 07:18 Folic Acid (Folic Acid) 1 mg PO DAILY [facility] Stop: 09/16/19 09:01 Last Admin: 03/17/19 09:06 Dose: 1 mg Documented by: Glucagon (Glucagen) 1 mg IM ONCE PRN PRN Reason: Hypoglycemia Stop: 09/16/19 07:20 Glucose (Gluctose) 15 gm PO ONCE PRN PRN Reason: Hypoglycemia Stop: 09/16/19 07:20 Glucose (Gluctose) 30 gm PO ONCE PRN PRN Reason: Hypoglycemia Stop: 09/16/19 07:20 Heparin Sodium (Porcine) (Heparin) 4,000 unit IVP Q6HR PRN PRN Reason: SEE COMMENTS Stop: 09/15/19 18:34 Heparin Sodium (Porcine) (Heparin) 2,000 unit IVP Q6H PRN PRN Reason: SEE COMMENTS Stop: 09/15/19 18:34 Hydralazine HCl (Hydralazine) 10 mg IVP Q6HR PRN PRN Reason: Hypertension Stop: 09/15/19 19:00 Cefepime HCl 1,000 mg/ Sterile (Water) 10 mls @ 300 mls/hr IVP Q24H [facility] Stop: 09/16/19 16:01 Vancomycin HCl 1 each/ (Miscellaneous) 250 mls @ 0 mls/hr IVPB RPHPROT [facility]; Protocol Stop: 09/16/19 09:01 Heparin Sodium/Dextrose (Heparin 25,000 Unit/250 Ml D5w) 25,000 unit in 250 mls @ 10.008 mls/hr IVC .Q24H [facility]; Protocol Stop: 09/15/19 18:46 Last Titration: 03/17/19 07:27 Dose: 7.87 unit/kg/hr, 10 mls/hr Documented by: Dextrose (Dextrose 5%) 1,000 mls @ 100 mls/hr IVC .Q10H PRN PRN Reason: HYPOGLYCEMIA Stop: 09/16/19 07:20 Sodium Chloride (0.9 % Sodium Chloride) 250 mls @ 937.5 mls/hr IVC .Q16M PRN PRN Reason: Hypotension Stop: 09/16/19 08:22 Sodium Chloride (0.9 % Sodium Chloride) 1,000 mls @ 0 mls/hr PRIME .Q0M [facility] Stop: 09/16/19 08:31 Insulin Human Lispro (Humalog) 0 units SQ HS [facility]; Protocol Stop: 09/16/19 21:01 Insulin Human Lispro (Humalog) 0 units SQ TIDAC [facility]; Protocol Stop: 09/16/19 07:31 Lactulose (Lactulose) 30 gm PO DAILY PRN PRN Reason: Constipation Stop: 09/16/19 07:18 Levalbuterol HCl (Xopenex) 1 puff IH Q4H PRN PRN Reason: Dyspnea Stop: 09/16/19 07:18 Levalbuterol HCl (Xopenex) 1.25 mg IH Q6HR PRN PRN Reason: Shortness Of Breath Stop: 09/16/19 07:18 Levothyroxine Sodium (Synthroid) 88 mcg PO 0630 [facility] Stop: 09/16/19 07:31 Methylprednisolone (Solu-Medrol) 60 mg IVP Q8HR [facility] Stop: 09/16/19 00:01 Last Admin: 03/17/19 09:06 Dose: 60 mg Documented by: Metoprolol Tartrate (Lopressor) 25 mg PO BID [facility] Stop: 09/15/19 21:01 Last Admin: 03/17/19 09:06 Dose: 25 mg Documented by: Naloxone HCl (Narcan) 0.4 mg IVP Q2MPRN PRN PRN Reason: SEE COMMENTS Stop: 09/15/19 18:25 Nitroglycerin (Nitroglycerin) 0.4 mg SL Q5MPRN PRN PRN Reason: Chest Pain Stop: 09/15/19 19:07 Non-Formulary Medication (Ropinirole Hcl [Requip Xl]) 4 mg PO HS [facility] Stop: 09/16/19 21:01 Nortriptyline HCl (Pamelor) 10 mg PO HS [facility] Stop: 09/16/19 21:01 Omeprazole (Prilosec) 20 mg PO DAILY [facility] Stop: 09/16/19 09:01 Last Admin: 03/17/19 09:05 Dose: 20 mg Documented by: Ondansetron HCl (Zofran) 4 mg IVP Q8HR PRN PRN Reason: Nausea And Vomiting Stop: 09/15/19 18:25 Oxycodone HCl (Roxicodone) 15 mg PO BID PRN; Protocol PRN Reason: Moderate Pain Stop: 09/16/19 07:18 Pregabalin (Lyrica) 50 mg PO BID [facility] Stop: 09/16/19 09:01 Last Admin: 03/17/19 09:05 Dose: 50 mg Documented by: Sertraline HCl (Zoloft) 100 mg PO DAILY [facility] Stop: 09/16/19 09:01 Last Admin: 03/17/19 09:06 Dose: 100 mg Documented by: Vitamin B Complex/Vit C/Folic Acid (Renal Caps Softgel) 1 cap PO DAILY [facility] Stop: 09/16/19 09:01 Last Admin: 03/17/19 09:05 Dose: 1 cap Documented by: Warfarin Sodium (Coumadin Perpt) 1 each PO DAILY@1800 PRN PRN Reason: SEE COMMENTS Stop: 09/16/19 18:01 - Imaging and Cardiology Chest Xray: report reviewed Other Results: ALBERT 03/06/19: - EKG Interpretation EKG results cardiology: personally reviewed, other (Average heart rate on telemetry last above are 76, atrial fibrillation) Consult Discharge Plan - Plan Referrals: NONE,PCP [Primary Care Provider] -
[2019-03-17] MEDS: *HR* OxyCODONE Immed Rel 15 MG TABLET PO PRN (09:20)
[2019-03-17] MEDS: Insulin LISPRO 300 UNITS/3 ML VIAL SQ SCH ×4 (09:21→21:32)
--- NOTE | 2019-03-17 09:32 | Infectious Disease Consult ---
Infectious Disease-Consult - Encounter Date/Time Date of Encounter: 03/17/19 Time of Encounter: 10:00 - Data of Consult Patient: known to practice within the last 3 years Reason for consult: Fever unknown origin, sepsis Consult date: 03/17/19 Requesting Physician: Freeman Thompson Primary Care Provider: PCP NONE - HPI HPI: Ms. Loza is a 63-year-old female with a past medical history of A. fib, CHF, COPD, CAD, diabetes, end-stage renal disease on hemodialysis, hyperlipidemia, hypertension, status post T aVR 2017. The patient was admitted to the hospital 03/16/19 for acute exacerbation of COPD, end-stage renal disease, and community- acquired pneumonia. We are consulted 03/17/19 for further workup and treatment recommendations for fever of unknown origin and sepsis. Briefly, the patient is a 63-year-old female with a past medical history as stated above. The patient is known to the infectious disease service as we were consulted on her case during her most recent hospitalization. At that time, the patient developed sepsis-like picture, although no source of infection was identified. Apparently, the patient came back to the emergency department with complaints of sudden onset shortness of breath and chills. Upon arrival, she was febrile, tachycardic, tachypneic, and hypertensive. Her white blood cell count was normal. Creatinine was elevated consistent with her end-stage renal disease. Lactic acid was normal. BNP was elevated at 386. Her troponin was positive at 0.10. She had a chest x-ray that showed an ill-defined increased density in the left lung base raising the question of pneumonia. Cultures were obtained 2 sets. She was started empirically on vancomycin and cefepime and admitted to the hospital for further evaluation. Since admission, the patient has been afebrile. Her white blood cell count remains normal. Her MRSA nasal screen was positive. Respiratory infectious panel was positive for parainfluenza 3. Strep pneumococcal and legionella urinary antigens have been ordered, but are pending collection. Cardiology has been consulted for elevated troponins. Currently, she is on vancomycin and cefepime. We have been asked to evaluate and make further recommendations. During my exam today, the patient states that she started feeling poorly the day prior to admission. She started having shortness of breath, fevers, chills, fatigue, weakness, shortness of breath. She reports a sore throat and right ear pain prior to admission. Reports a dry hacking cough. Denies chest pain. Reports chronic headache that is at baseline. Denies neck pain or stiffness. Denies nausea, vomiting, diarrhea, or constipation. She denies urinary complaints and makes very little urine secondary to her end-stage renal disease. States her appetite was not very good prior to admission and remains poor at this time. Denies back, flank, extremity, or joint pain. States she had thrush and was started on Magic mouthwash by her PCP and it seems to have resolved. Denies new skin lesions. The patient lives at home. She does not work outside the home. She denies any tobacco, alcohol, or illicit drug use. She goes to dialysis Sunday, Sunday, and Sunday. - ROS Review of Systems: All systems reviewed and no additional remarkable complaints except as stated. - Results CBC & Chem 7: 03/17/19 00:57 03/17/19 05:53 - Exam Vitals: Temp Pulse Resp BP Pulse Ox 97.6 F 86 20 115/92 90 03/17/19 07:07 03/17/19 07:07 03/17/19 07:07 03/17/19 07:07 03/17/19 07:07 Exam: Head: Atraumatic, normal inspection, normocephalic. Temporal artery biopsy site noted to the left temporal area with mild ecchymosis noted. No surrounding erythema, warmth, tenderness, or drainage noted. Eye: EOMI, PERRLA, no scleral icterus noted. ENT: Mucous membranes moist. No odontogenic infection noted. Neck: Normal inspection, no meningismus. Respiratory: Clear to auscultation. No rales, respiratory distress, rhonchi, or wheezes noted. Cardiovascular: Regular rate and rhythm, S1 and S2 audible. No murmurs, rubs, or gallops. GI: Soft, obese, normal bowel sounds. Extremities:No joint swelling, pedal edema, or tenderness noted. AV fistula noted to the left forearm, currently accessed for hemodialysis. Back: Normal inspection. No vertebral tenderness noted. Neurological: Alert, oriented 3, no focal deficits. Psychiatric: normal affect, normal mood. Skin: Dry, intact, warm. Normal color. No rashes. Levothyroxine [Synthroid] 88 mcg PO DAILY 06/30/15 [History] Aspirin 81 mg PO DAILY 08/07/16 [History] Atorvastatin [Lipitor] 10 mg PO HS 08/07/16 [History] Folic Acid 1 mg PO DAILY 08/07/16 [History] Oxycodone HCl 15 mg PO BID PRN 08/07/16 [History] Pantoprazole Sodium [Protonix] 40 mg PO DAILY 08/07/16 [History] Sertraline [Zoloft] 100 mg PO DAILY 08/07/16 [History] Renal Vitamin [Renal Caps Softgel] 1 mg PO DAILY 05/04/17 [History] Ropinirole HCl [Requip Xl] 4 mg PO HS 05/04/17 [History] Levalbuterol HCl [Xopenex Neb] 1.25 mg IH Q6HR PRN 08/16/18 [History] Allopurinol [Zyloprim 100 MG] 200 mg PO DAILY 10/28/18 [History] Pregabalin [Lyrica] 50 mg PO BID 10/28/18 [History] Ergocalciferol (VITAMIN D2) [Vitamin D2] 50,000 unit PO SA 11/06/18 [History] Levalbuterol Tartrate [Xopenex Hfa] 1 puff IH Q4H PRN 11/06/18 [History] [place]-3 Acid Ethyl Esters [Lovaza] 2 gm PO BID 11/06/18 [History] Nortriptyline [Pamelor] 10 mg PO HS 01/16/19 [History] Biotin 1,000 mcg PO DAILY 02/16/19 [History] Lactulose 30 gm PO DAILY PRN 02/16/19 [History] Sucroferric Oxyhydroxide [Velphoro] 500 mg PO TIDWM 02/16/19 [History] amLODIPine [Norvasc] 5 mg PO DAILY #30 tablet 02/28/19 [Rx] Docusate Sodium [Dulcolax Stool Softener] 100 mg PO DAILY PRN 03/04/19 [History] Amiodarone [Cordarone] 200 mg PO DAILY 30 Days #30 tablet 03/10/19 [Rx] Insulin ASPART [NovoLOG] 0 units SQ TIDWM 03/16/19 [History] Allergy/AdvReac Type Severity Reaction Status Date / Time MALACHI Inhibitors Allergy Hives Verified 03/16/19 16:15 cephalexin [From Keflex] Allergy Hives Verified 03/16/19 16:15 cephalothin Allergy Hives Verified 03/16/19 16:15 ciprofloxacin [From Cipro] Allergy See Verified 03/16/19 16:15 Comments clindamycin Allergy Swelling Verified 03/16/19 16:15 of Lip/Tongue/Throat codeine Allergy Hives Verified 03/16/19 16:15 doxycycline Allergy Nausea Verified 03/16/19 16:15 fentanyl Allergy See Verified 03/16/19 16:15 Comments hydromorphone [From Dilaudid] Allergy See Verified 03/16/19 16:15 Comments metoclopramide [From Reglan] Allergy Hives Verified 03/16/19 16:15 metronidazole Allergy Difficulty Verified 03/16/19 16:15 Breathing NSAIDS (Non-Steroidal Allergy Difficulty Verified 03/16/19 16:15 Anti-Inflamma Breathing Penicillins [PCN] Allergy Swelling Verified 03/16/19 16:15 of Lip/Tongue/Throat Sulfa (Sulfonamide Allergy Difficulty Verified 03/16/19 16:15 Antibiotics) Breathing sulfamethoxazole Allergy Difficulty Verified 03/16/19 16:15 [From Bactrim] Breathing trimethoprim Allergy Hives Verified 03/16/19 16:15 - Assessment and Plan (1) Sepsis Current Visit: Yes Status: Acute The patient had 3 sepsis criteria on admission. Likely secondary to pneumonia. Improved. Afebrile overnight. Tachycardia and tachypnea have resolved. Blood cultures drawn 03/16/19 are pending 2 sets. Qualifiers: Sepsis type: sepsis due to unspecified organism Qualified Code(s): A41.9 - Sepsis, unspecified organism SNOMED Code(s): 96307240 (2) HCAP (healthcare-associated pneumonia) Current Visit: No Status: Acute Location: Left base. Causative organism: Parainfluenza 3, but cannot rule out superimposed bacterial infection. Chest x-ray showed a left lung base density concerning for pneumonia. MRSA screen was positive. Respiratory infectious panel was positive for parainfluenza 3. Strep pneumococcal legionella urinary antigens have been ordered and are pending collection. Low index of suspicion for aspiration. The patient was recently hospitalized at [facility] at high risk for MDR organisms. Currently on vancomycin and cefepime. SNOMED Code(s): 690411214, 129110895 (3) Acute exacerbation of chronic obstructive airways disease Current Visit: Yes Status: Acute Management per the primary team. SNOMED Code(s): 421858292 (4) Acute respiratory failure with hypoxia Current Visit: No Status: Acute Likely secondary to pneumonia and COPD. Required BiPAP in the ER. Improved. Management per the primary team. SNOMED Code(s): 17463070, 496283275 (5) Allergy to multiple antibiotics Current Visit: No Status: Acute Keflex-hives. Cipro-unknown. Clindamycin-swelling of the lips, tongue, face. Doxycycline-nausea Flagyl-shortness of breath. Penicillin-swelling of the lips, tongue, face. Sulfa-shortness of breath SNOMED Code(s): 715735357886848 (6) Afib Current Visit: No Status: Chronic Qualifiers: Qualified Code(s): I48.91 - Unspecified atrial fibrillation SNOMED Code(s): 05906262 (7) Thrombocytopenia Current Visit: No Status: Chronic SNOMED Code(s): 338726160 (8) CHF (congestive heart failure) Current Visit: No Status: Chronic Qualifiers: Heart failure chronicity: unspecified Qualified Code(s): I50.9 - Heart failure, unspecified SNOMED Code(s): 15490543 (9) History of heart valve replacement Current Visit: No Status: Chronic Status post TAPVR 2016. SNOMED Code(s): 978572975, 182845914 (10) Morbid obesity with BMI of 40.0-44.9, adult Current Visit: No Status: Chronic SNOMED Code(s): 513784364, 99110868892586 (11) Temporal arteritis Current Visit: No Status: Resolved Status post biopsy that was negative. Evaluated by rheumatology who opted to continue treatment preemptively. SNOMED Code(s): 568235099 (12) ESRD (end stage renal disease) on dialysis Current Visit: Yes Status: Chronic Nephrology consult and following. SNOMED Code(s): 071625333 - Recommendations Recommendations: Await blood cultures to finalize. Await S. pneumo and Legionella UATs. Since sputum for culture if the patient is able to provide an adequate specimen. Contact and droplet precautions per hospital policy. Continue cefepime 1 g IV daily (dose adjusted for ESRD status). Continue vancomycin IV. Pharmacy to dose. Goal trough approximately 15. Duration of treatment depends on the clinical picture. Monitor for drug toxicity and dose adjust antibiotics. Past Med Surg Social Fam HX - Past Medical History Medical history: atrial fibrillation, CHF, COPD, coronary artery disease, diabetes, dialysis, hyperlipidemia, hypertension, renal disease, thyroid disease Additional medical history: LUMBAGO, DYSURIA, DISKITIS, OBESITY, DIABETIC NEUROPATHY, GOUT, SLEEP APNEA Psychiatric history: anxiety, depression - Past Surgical History Surgical History: cholecystectomy, heart valve replacement, orthopedic, other Additional surgical history: BACK SURGERY, NASAL SX, CARPAL TUNNEL SX, DIALYSIS CATH, VEIN SX, LABIA SX - Social History Smoking Status: Former smoker Smokeless Tobacco Status: No Alcohol use: none Drug use: none - Family History Mother Living Status: Hx Family Cardiac Disorders: Yes (HTN) Hx Family Respiratory Disorders: No Hx Family Cancer: No Hx Family GI Disorders: No Hx Family Endocrine Disorder: Yes (DM) Hx Family Neuromuscular Disorders: No Hx Family Neurologic Disorders: No Hx Family HEENT Disorders: No Hx Family Autoimmune Disorders: No Father Living Status: Hx Family Cardiac Disorders: Yes (HTN) Hx Family Respiratory Disorders: No Hx Family Cancer: Yes (lung cancer) Hx Family GI Disorders: No Hx Family Endocrine Disorder: Yes (DM) Hx Family Neuromuscular Disorders: No Hx Family Neurologic Disorders: No Hx Family HEENT Disorders: No Hx Family Autoimmune Disorders: No Consult Discharge Plan - Plan Referrals: NONE,PCP [Primary Care Provider] - - Attending Attestation I have personally performed a face to face evaluation on this patient. I have reviewed and agree with the care plan. History and Exam by me shows: This is an addendum to original report dictated by Radha Garcia CNP. Please refer to Radha's note for full details. Patient is 63-year-old woman well-known to our service was recently admitted with intermittent fevers and we have found no obvious source of infection. Patient comes back with a pneumonia is likely viral with possible superimposed bacterial infection. Further questioning patient tells me both of her sisters had URI symptoms and had a viral syndrome when she went home. Currently patient appears comfortable lying in bed in no acute distress does not appear toxic Assessment and plan: 1.Sepsis 2.Healthcare associated pneumonia causative organism parainfluenza virus 3. MRSA screen positive. 3.Acute exacerbation of COPD 4.Acute failure with hypoxia 5.Recent temporal arteritis with retinal artery emboli I believe 6.History of heart valve replacement 7.congestive heart failure 8.End-stage renal disease on hemodialysis. Has a fistula in the left upper extremity Recommendations will continue current antibiotics for now continue vancomycin/cefepim duration of treatment depends on clinical picture
--- NOTE | 2019-03-17 11:10 | Nephrology Consult Note ---
Date of Encounter: 03/17/19 Time of Encounter: 11:10 Assessment and Plan (1) ESRD (end stage renal disease) on dialysis Current Visit: Yes Status: Chronic HD MWF. Renal vitamins. Renal dose medications. Renal diet. Additional dialysis and ultrafiltration as needed. Patient was seen on dialysis (2) Acute exacerbation of chronic obstructive airways disease Current Visit: Yes Status: Acute Per the primary team. No wheezing appreciated on her anterior chest. (3) Anemia Current Visit: No Status: Acute Transfuse as needed. Qualifiers: Anemia type: unspecified type Qualified Code(s): D64.9 - Anemia, unspecified (4) Diabetes Current Visit: No Status: Acute Per the primary team. Qualifiers: Qualified Code(s): E11.9 - Type 2 diabetes mellitus without complications (5) HTN (hypertension) Current Visit: No Status: Chronic Titrate blood pressure medications as needed. Qualifiers: Hypertension type: essential hypertension Qualified Code(s): I10 - Essential (primary) hypertension (6) Morbid obesity with BMI of 40.0-44.9, adult Current Visit: No Status: Chronic History of Present Illness - Reason for Consult Consult date: 03/17/19 end stage renal disease - Chief Complaint esrd - History of Present Illness Mrs. Loza is a 63-year-old lady with a history of end-stage renal disease who presents secondary to shortness of breath. She was diagnosed with COPD exacerbation. The patient was seen on dialysis. She was asleep and very comfortable. She was not awakened. Past Med Surg Social Fam HX - Past Medical History Medical history: atrial fibrillation, CHF, COPD, coronary artery disease, diabetes, dialysis, hyperlipidemia, hypertension, renal disease, thyroid disease Additional medical history: LUMBAGO, DYSURIA, DISKITIS, OBESITY, DIABETIC NEUROPATHY, GOUT, SLEEP APNEA Psychiatric history: anxiety, depression - Past Surgical History Surgical History: cholecystectomy, heart valve replacement, orthopedic, other Additional surgical history: BACK SURGERY, NASAL SX, CARPAL TUNNEL SX, DIALYSIS CATH, VEIN SX, LABIA SX - Social History Smoking Status: Former smoker Smokeless Tobacco Status: No Alcohol use: none Drug use: none - Family History Mother Living Status: Hx Family Cardiac Disorders: Yes (HTN) Hx Family Respiratory Disorders: No Hx Family Cancer: No Hx Family GI Disorders: No Hx Family Endocrine Disorder: Yes (DM) Hx Family Neuromuscular Disorders: No Hx Family Neurologic Disorders: No Hx Family HEENT Disorders: No Hx Family Autoimmune Disorders: No Father Living Status: Hx Family Cardiac Disorders: Yes (HTN) Hx Family Respiratory Disorders: No Hx Family Cancer: Yes (lung cancer) Hx Family GI Disorders: No Hx Family Endocrine Disorder: Yes (DM) Hx Family Neuromuscular Disorders: No Hx Family Neurologic Disorders: No Hx Family HEENT Disorders: No Hx Family Autoimmune Disorders: No Medications and Allergies Levothyroxine [Synthroid] 88 mcg PO DAILY 06/30/15 [History] Aspirin 81 mg PO DAILY 08/07/16 [History] Atorvastatin [Lipitor] 10 mg PO HS 08/07/16 [History] Folic Acid 1 mg PO DAILY 08/07/16 [History] Oxycodone HCl 15 mg PO BID PRN 08/07/16 [History] Pantoprazole Sodium [Protonix] 40 mg PO DAILY 08/07/16 [History] Sertraline [Zoloft] 100 mg PO DAILY 08/07/16 [History] Renal Vitamin [Renal Caps Softgel] 1 mg PO DAILY 05/04/17 [History] Ropinirole HCl [Requip Xl] 4 mg PO HS 05/04/17 [History] Levalbuterol HCl [Xopenex Neb] 1.25 mg IH Q6HR PRN 08/16/18 [History] Allopurinol [Zyloprim 100 MG] 200 mg PO DAILY 10/28/18 [History] Pregabalin [Lyrica] 50 mg PO BID 10/28/18 [History] Ergocalciferol (VITAMIN D2) [Vitamin D2] 50,000 unit PO SA 11/06/18 [History] Levalbuterol Tartrate [Xopenex Hfa] 1 puff IH Q4H PRN 11/06/18 [History] [place]-3 Acid Ethyl Esters [Lovaza] 2 gm PO BID 11/06/18 [History] Nortriptyline [Pamelor] 10 mg PO HS 01/16/19 [History] Biotin 1,000 mcg PO DAILY 02/16/19 [History] Lactulose 30 gm PO DAILY PRN 02/16/19 [History] Sucroferric Oxyhydroxide [Velphoro] 500 mg PO TIDWM 02/16/19 [History] amLODIPine [Norvasc] 5 mg PO DAILY #30 tablet 02/28/19 [Rx] Docusate Sodium [Dulcolax Stool Softener] 100 mg PO DAILY PRN 03/04/19 [History] Amiodarone [Cordarone] 200 mg PO DAILY 30 Days #30 tablet 03/10/19 [Rx] Insulin ASPART [NovoLOG] 0 units SQ TIDWM 03/16/19 [History] Allergy/AdvReac Type Severity Reaction Status Date / Time MALACHI Inhibitors Allergy Hives Verified 03/16/19 16:15 cephalexin [From Keflex] Allergy Hives Verified 03/16/19 16:15 cephalothin Allergy Hives Verified 03/16/19 16:15 ciprofloxacin [From Cipro] Allergy See Verified 03/16/19 16:15 Comments clindamycin Allergy Swelling Verified 03/16/19 16:15 of Lip/Tongue/Throat codeine Allergy Hives Verified 03/16/19 16:15 doxycycline Allergy Nausea Verified 03/16/19 16:15 fentanyl Allergy See Verified 03/16/19 16:15 Comments hydromorphone [From Dilaudid] Allergy See Verified 03/16/19 16:15 Comments metoclopramide [From Reglan] Allergy Hives Verified 03/16/19 16:15 metronidazole Allergy Difficulty Verified 03/16/19 16:15 Breathing NSAIDS (Non-Steroidal Allergy Difficulty Verified 03/16/19 16:15 Anti-Inflamma Breathing Penicillins [PCN] Allergy Swelling Verified 03/16/19 16:15 of Lip/Tongue/Throat Sulfa (Sulfonamide Allergy Difficulty Verified 03/16/19 16:15 Antibiotics) Breathing sulfamethoxazole Allergy Difficulty Verified 03/16/19 16:15 [From Bactrim] Breathing trimethoprim Allergy Hives Verified 03/16/19 16:15 Review of Systems ROS unobtainable: other Exam - Vital Signs Vital signs: Initial Vital Signs Temp Pulse Resp BP Pulse Ox 100.9 F H 111 28 207/88 100 03/16/19 15:58 03/16/19 15:58 03/16/19 15:58 03/16/19 15:58 03/16/19 15:58 Vital Signs - Last 8 Hours Temp Pulse Resp BP Pulse Ox 03/17/19 07:07 97.6 F 86 20 115/92 90 03/17/19 05:10 67 03/17/19 04:21 12 98 03/17/19 03:57 97.7 F 68 20 129/53 94 Intake and Output 03/16/19 03/17/19 03/17/19 23:59 07:59 15:59 Intake Total 400 / 400 60 / 300 240 / 300 Balance 400 / 400 60 / 300 240 / 300 Intake: IV Fluids 400 / 400 60 / 60 Heparin 25,000 UNIT/250 ML D5W 60 / 60 25,000 unit In 250 ml @ 7.88 UNIT/KG/HR 10.008 mls/hr IVC . Q24H BALTA Rx#:[id number] Zithromax 500 mg In Dextrose 5% 250 / 250 250 ML @ 252 mls/hr IVPB ONCE ONE Rx#:[id number] Levaquin Premix 750mg/150 mL 150 / 150 750 mg In 150 ml @ 100 mls/hr IVPB ONCE ONE Rx#:[id number] Oral 240 / 240 Other: Meal Breakfast Percent of Meal Consumed 100% - General Appearance General appearance: well-developed, well-nourished, obese EENT: ATNC Neck: supple Respiratory: course breath sounds Cardiology: no edema, regular rate Gastrointestinal: obese Integumentary: warm and dry Additional Comments: Patient was asleep and resting comfortably Musculoskeletal: no cyanosis Results - Lab Results 03/17/19 00:57 03/17/19 05:53 Most recent lab results 03/17/19 05:53 Calcium 8.4 L Consult Discharge Plan - Plan Referrals: NONE,PCP [Primary Care Provider] -
--- NOTE | 2019-03-17 14:18 | Internal Med Progress Note ---
Hospitalist Progress Note - Encounter Date of Encounter: 03/17/19 Time of Encounter: 13:16 - Subjective Interval History: Feeling better and shortness of breath. Cough from BiPAP. Dialysis today. Review the labs and senior sales consultant notes Vitals reviewed. Denies fever chills nausea vomiting dizziness or chest pain abdominal pain diarrhea - Exam Vitals: Temp Pulse Resp BP Pulse Ox 97 F L 86 15 113/58 90 03/17/19 13:45 03/17/19 07:07 03/17/19 13:45 03/17/19 13:45 03/17/19 07:07 Exam: General appearance: NAD. No BiPAP. morbidly obese Head exam: Atraumatic Eye exam: EOMI, PERRLA ENT exam: Moist oral mucosa Neck nontender, supple Respiratory exam: Decreased breath sound bilaterally with few scattered expiratory wheezing-improving Cardiovascular exam: Regular rate and rhythm, no systolic murmur Abdominal exam: Soft, nontender, nondistended, positive bowel sounds Extremities exam: No calf tenderness, +1/2 pedal edema Present: Skin-no rash, warm, dry, intact Neurological exam: Alert, awake, oriented 3, CN II-XII intact, no focal deficits. No facial droop. Normal speech. - Summary of Assessment and Plan Summary of Assessment and Plan: SOB- multiple differential cardiac versus pulmonary as mentioned below COPD EXACERBATION-improving .in ER IV Solu-Medrol 125 mg loading dose given along with DuoNeb. Patient is on prednisone 40 mg daily at this time. Will taper down solu-Medrol 40 mg every 8 hours, DuoNeb, BiPAP, oxygen supplementatio n. Will consult angiographer if needed PNEUMONIA-fever, cough, shortness of breath, abnormal chest x-ray. Is started vancomycin and cefepime. Patient had MRSA nasal swab positive during last admission. Will repeat MRSA nasal swab +. Respiratory panel ordered-parainfluenza positive, contact and droplet precautions per hospital policy Urine Legionella and streptococcal pneumonia antigen ordered Blood culture drawn in the ER XR/XR chest 1V portable IMPRESSION: Ill-defined increased density in the left lung base raising the question of pneumonia. Prominent markings bilaterally is likely technical from low volume portable technique. Sepsis-meeting sepsis criteria fever, tachypnea and tachycardia. Most likely due to pneumonia. Lactic acid normal. Continue above mentioned antibiotic ID on board and he recommended- Await blood cultures to finalize. Await S. pneumo and Legionella UATs. Since sputum for culture if the patient is able to provide an adequate specimen. Contact and droplet precautions per hospital policy. Continue cefepime 1 g IV daily (dose adjusted for ESRD status). Continue vancomycin IV. Pharmacy to dose. Goal trough approximately 15. Fever of unknown origin-patient had extensive workup during last admission. She was fever free since last admission until today. Will rule out any new source of infection. consulted ID and criminal legal assistant. NST [place] -raised troponin but no chest pain could be demand ischemia but will rule out underlying cardiac etiology as patient has underlying complicated cardiac history. Patient had sudden onset of shortness of breath. Serial troponin. Consulted cardiology and advised to stop heparin drip as less likely cardiac event and therapeutic INR. On aspirin, statin, beta james. Has allergy to ACEI. ESRD-consulted nephrology. Dialysis Sunday Hypertensive urgency -on admission high blood pressure but better controlled now. Continue home medicine Close monitoring Diabetes bmihejjf-Irzv-Dock, sliding scale insulin high. Diabetic diet when able to eat Atrial fibrillation-stable. Continue amiodarone and Coumadin. Pharmacy consultation for Coumadin dose as subtherapeutic INR. INR daily. Status post TAVR transcatheter aortic valve replacement)-(Bioprosthetic AVR OHS 2005, TAVR 2016)- stable.Has pending follow-up with cardiology this week, we will reschedule for this hospital stay. DVT Px-therapeutic INR. On-Q medicine - Time Spent with Patient Total time spent is greater than 50% in coordination of care (as documented) at patient's floor/unit and/or counseling patient: 25 - 35 minutes Plan of Care Discussed with: patient Internal Medicine: Result - Labs CBC & Chem 7: 03/17/19 00:57 03/17/19 05:53 Labs: Short CBC 03/16/19 03/16/19 03/17/19 Range/Units 15:58 19:14 00:57 WBC 9.6 7.6 6.2 (4.3-11.1) K/mcL Hgb 9.3 L 8.3 L 7.8 L (11.5-15.4) g/dL Hct 29.8 L 26.3 L 25.0 L (35.3-44.9) % Plt Count 118 L D 98 L 84 L (140-400) K/mcL Neutrophils # 7.9 5.8 (1.6-8.9) K/mcL BMP 03/16/19 03/17/19 15:58 05:53 Sodium 136 133 L Potassium 4.2 5.5 H D Chloride 92 L 92 L Carbon Dioxide 28 27 BUN 80 H 89 H Creatinine 5.67 H 6.12 H Glucose 330 H 411 H Calcium 8.5 L 8.4 L Cardiac Enzymes 03/16/19 03/16/19 03/17/19 Range/Units 15:58 19:14 00:57 Troponin I 0.10 H* 0.11 H* 0.13 H* (< 0.04) ng/mL - ABG Interpretation ABG results: PT/INR, D-dimer PT 22.6 Seconds (9.4-12.1) H 03/17/19 00:57 - Impressions Impressions Chest X-Ray 03/16/19 15:58 IMPRESSION: Ill-defined increased density in the left lung base raising the question of pneumonia. Prominent markings bilaterally is likely technical from low volume portable technique. D/ / Brien Graves / Brien Graves Interpreting Provider: Brien Graves Consult Discharge Plan - Plan Referrals: NONE,PCP [Primary Care Provider] -
[2019-03-17] MEDS: Nystatin SUSP 5 ML UD.LIQ PO SCH ×2 (16:15→21:33)
[2019-03-17] MEDS: Cefepime HCl 1,000 MG in Water for inj. (sterile) 20 ML 10 ML IVP SCH (16:15)
[2019-03-17] MEDS: MethylPREDNISolone 40 MG/ML VIAL IVP SCH (16:15)
[2019-03-17] MEDS: (Sucroferric Oxyhydroxide [Velphoro] 500 MG) PO SCH (17:05)
--- NOTE | 2019-03-17 17:25 | Rheumatology Consult Note ---
Date of Encounter: 03/17/19 Time of Encounter: 14:00 Rheumatology Assess and Plan (1) Other headache syndrome Current Visit: Yes Status: Acute - Consulted for fever workup, but infectious source seems to otherwise be found. - At last hospitalization, there was a concern for giant cell arteritis. Her biopsy was negative, she is back to baseline. - Given all of her comorbidities and overall negative workup, I would recommend tapering the prednisone and clinically monitoring. The sedimentation rate though may not be very reliable given may of her comorbiditis. - Prednisone 30 mg x 1 week, 20 mg x 1 week, 10 mg thereafter and will see her in clinic in 4 weeks. (2) Sepsis Current Visit: No Status: Acute - Now being treated for pneumonia, infectious cultures pending. - More likely cause of fever, though afebrile at this time. Will sign off and call if new questions arise. Qualifiers: Sepsis type: sepsis due to unspecified organism Qualified Code(s): A41.9 - Sepsis, unspecified organism (3) Pneumonia Current Visit: No Status: Acute Qualifiers: Pneumonia type: due to unspecified organism Laterality: unspecified laterality Lung location: unspecified part of lung Qualified Code(s): J18.9 - Pneumonia, unspecified organism Rheumatology HPI Consult date: 03/17/19 Requesting physician: Cari Medina Consult reason: fever Chief complaint: Cough, fever History of present illness: Ms. Loza is a 63 year old female with PMH of atrial fibrillation, cardiomyopathy, CAD, COPD, DM2, ESRD on HD, HLD, HTN who presents to [facility] with fevers, shortness of breath and cough. Patient reports that she had shortness of breath, cough and felt feverish. She came to the emergency room in which a CXR was checked with concern for pneumonia, viral studies showed parainfluenza. Started on antibiotics. At last appointment, she had a acute on chronic headache, facial bruising. She had an elevated inflammation marker, negative temporal artery biopsy and started on prednisone. Over the last 2 weeks, she reports that her headache is back to normal. She reports for years, she has had headaches, temporal headaches and she feels that she is at her baseline. She does think prednisone may have helped, but she is not sure. She has no new vision changes, no jaw pain, but reports soreness to touch of her bilateral temples. No chest pain, no oral ulcerations, no new rashes. Past Med Surg Social Fam HX - Past Medical History Medical history: atrial fibrillation, CHF, COPD, coronary artery disease, diabetes, dialysis, hyperlipidemia, hypertension, renal disease, thyroid disease Additional medical history: LUMBAGO, DYSURIA, DISKITIS, OBESITY, DIABETIC NEUROPATHY, GOUT, SLEEP APNEA Psychiatric history: anxiety, depression - Past Surgical History Surgical History: cholecystectomy, heart valve replacement, orthopedic, other Additional surgical history: BACK SURGERY, NASAL SX, CARPAL TUNNEL SX, DIALYSIS CATH, VEIN SX, LABIA SX - Social History Smoking Status: Former smoker Smokeless Tobacco Status: No Alcohol use: none Drug use: none - Family History Mother Living Status: Hx Family Cardiac Disorders: Yes (HTN) Hx Family Respiratory Disorders: No Hx Family Cancer: No Hx Family GI Disorders: No Hx Family Endocrine Disorder: Yes (DM) Hx Family Neuromuscular Disorders: No Hx Family Neurologic Disorders: No Hx Family HEENT Disorders: No Hx Family Autoimmune Disorders: No Father Living Status: Hx Family Cardiac Disorders: Yes (HTN) Hx Family Respiratory Disorders: No Hx Family Cancer: Yes (lung cancer) Hx Family GI Disorders: No Hx Family Endocrine Disorder: Yes (DM) Hx Family Neuromuscular Disorders: No Hx Family Neurologic Disorders: No Hx Family HEENT Disorders: No Hx Family Autoimmune Disorders: No Medications and Allergies Levothyroxine [Synthroid] 88 mcg PO DAILY 06/30/15 [History] Aspirin 81 mg PO DAILY 08/07/16 [History] Atorvastatin [Lipitor] 10 mg PO HS 08/07/16 [History] Folic Acid 1 mg PO DAILY 08/07/16 [History] Oxycodone HCl 15 mg PO BID PRN 08/07/16 [History] Pantoprazole Sodium [Protonix] 40 mg PO DAILY 08/07/16 [History] Sertraline [Zoloft] 100 mg PO DAILY 08/07/16 [History] Renal Vitamin [Renal Caps Softgel] 1 mg PO DAILY 05/04/17 [History] Ropinirole HCl [Requip Xl] 4 mg PO HS 05/04/17 [History] Levalbuterol HCl [Xopenex Neb] 1.25 mg IH Q6HR PRN 08/16/18 [History] Allopurinol [Zyloprim 100 MG] 200 mg PO DAILY 10/28/18 [History] Pregabalin [Lyrica] 50 mg PO BID 10/28/18 [History] Ergocalciferol (VITAMIN D2) [Vitamin D2] 50,000 unit PO SA 11/06/18 [History] Levalbuterol Tartrate [Xopenex Hfa] 1 puff IH Q4H PRN 11/06/18 [History] [place]-3 Acid Ethyl Esters [Lovaza] 2 gm PO BID 11/06/18 [History] Nortriptyline [Pamelor] 10 mg PO HS 01/16/19 [History] Biotin 1,000 mcg PO DAILY 02/16/19 [History] Lactulose 30 gm PO DAILY PRN 02/16/19 [History] Sucroferric Oxyhydroxide [Velphoro] 500 mg PO TIDWM 02/16/19 [History] amLODIPine [Norvasc] 5 mg PO DAILY #30 tablet 02/28/19 [Rx] Docusate Sodium [Dulcolax Stool Softener] 100 mg PO DAILY PRN 03/04/19 [History] Amiodarone [Cordarone] 200 mg PO DAILY 30 Days #30 tablet 03/10/19 [Rx] Insulin ASPART [NovoLOG] 0 units SQ TIDWM 03/16/19 [History] Allergy/AdvReac Type Severity Reaction Status Date / Time MALACHI Inhibitors Allergy Hives Verified 03/16/19 16:15 cephalexin [From Keflex] Allergy Hives Verified 03/16/19 16:15 cephalothin Allergy Hives Verified 03/16/19 16:15 ciprofloxacin [From Cipro] Allergy See Verified 03/16/19 16:15 Comments clindamycin Allergy Swelling Verified 03/16/19 16:15 of Lip/Tongue/Throat codeine Allergy Hives Verified 03/16/19 16:15 doxycycline Allergy Nausea Verified 03/16/19 16:15 fentanyl Allergy See Verified 03/16/19 16:15 Comments hydromorphone [From Dilaudid] Allergy See Verified 03/16/19 16:15 Comments metoclopramide [From Reglan] Allergy Hives Verified 03/16/19 16:15 metronidazole Allergy Difficulty Verified 03/16/19 16:15 Breathing NSAIDS (Non-Steroidal Allergy Difficulty Verified 03/16/19 16:15 Anti-Inflamma Breathing Penicillins [PCN] Allergy Swelling Verified 03/16/19 16:15 of Lip/Tongue/Throat Sulfa (Sulfonamide Allergy Difficulty Verified 03/16/19 16:15 Antibiotics) Breathing sulfamethoxazole Allergy Difficulty Verified 03/16/19 16:15 [From Bactrim] Breathing trimethoprim Allergy Hives Verified 03/16/19 16:15 All Systems Review: The remainder of the systems were reviewed and are negative Review of Systems: General - no recent weight loss, +fevers Eyes - no redness, loss of vision, photophobia ENT - no oral ulcerations, nasal ulcerations, sore throat Cardiovascular - no chest pain, palpitations, lightheadedness, syncope Respiratory - + shortness of breath, no difficulty breathing at night, pleuritic chest pain , +cough Gastrointestinal - no nausea, vomiting, diarrhea, bloating, black/tarry stools, blood in stools Genitourinary - no pain on urination, hematuria, frothy urine or ulcerations. Musculoskeletal - + chronic morning stiffness,no joint swelling, + chronic muscle aches Integumentary - no easy bruising, rashes, hives Neurological - no muscle weakness or + chronic paresthesias Hematologic/lymphatic - no tender or swollen glands, history of anemia or blood clots Rheumatology Exam Vital Signs, Last 4 Hours Temp Pulse Resp BP Pulse Ox 03/17/19 16:19 98.7 F 75 19 110/66 91 03/17/19 13:45 97 F L 15 113/58 Exam: General - Alert and oriented x 3, no acute distress and appears comfortable HEENT - Conjunctiva clear, no alopecia or hair thinning, no facial rash, no nasal or oral mucosal lesions/ulcerations Heme/Lymph - No cervical or supraclavicular lymph node enlargement or tenderness. No pallor. Heart - S1S2 regular in rate and rhythm without murmurs, clicks or rubs. No peripheral edema. Lungs - Unlabored breathing, clear to auscultation bilaterally on anterior exam without wheezes or crackles; no decrease in chest expansion Gastrointestinal - Soft, nontender, nondistended. Unable to palpate any hepatosplenomegaly Skin - No nodules, tophi, psoriasis, erythema, malar rash, telangiectasias, sclerodactyly, digital ulcers, induration Neurological - Gait normal, muscle strength 5/5 in all four extremities, sensation intact. + temporal tenderness Musculoskeletal - Full ROM, no synovitis, no joint tenderness, no tenderness to palpation of spine. No petichiae, nail pitting, clubbing or onycholysis. Rheumatology Results 03/17/19 00:57 03/17/19 05:53 All other labs normal. Consult Discharge Plan - Plan Referrals: NONE,PCP [Primary Care Provider] -
[2019-03-17] MEDS ORDERED: Warfarin perPT PO PRN (18:00)
[2019-03-17] MEDS ORDERED: *HR* Warfarin 5 MG TABLET PO ONE (18:00)
[2019-03-17] MEDS: rOPINIRole 1 MG TABLET PO SCH (21:33)
[2019-03-18] MEDS: MethylPREDNISolone 40 MG/ML VIAL IVP SCH ×2 (01:38→09:36)
[2019-03-18] MEDS: *HR* OxyCODONE Immed Rel 15 MG TABLET PO PRN (04:52)
[2019-03-18 06:23] LABS: Hematocrit 26.9 % (35.3-44.9); Hemoglobin 8.3 g/dL (11.5-15.4); Immature Platelets 13.7 % (1.1-6.1); Mean Corpuscular HGB Conc 30.9 g/dL (31.6-35.5); Mean Corpuscular Hemoglobin 29.6 pg (28.0-33.3); Mean Corpuscular Volume 96.1 fL (83.0-100.0); Red Blood Count 2.8 M/mcL (3.82-4.97); Red Cell Distribution Width 16.2 % (11.5-14.5)
[2019-03-18 06:34] LABS: INR 2.2; Prothrombin Time 24.6 Seconds (9.4-12.1)
[2019-03-18 06:36] LABS: Calcium 8.4 mg/dL (8.6-10.3); Potassium 4.5 mEq/L (3.5-5.1)
[2019-03-18] MEDS: Insulin LISPRO 300 UNITS/3 ML VIAL SQ SCH ×4 (09:44→20:04)
[2019-03-18] MEDS: (Sucroferric Oxyhydroxide [Velphoro] 500 MG) PO SCH ×3 (09:45→18:13)
[2019-03-18] MEDS: Renal Vitamin 1 CAP CAPSULE PO SCH (09:46)
[2019-03-18] MEDS: Pregabalin 50 MG CAPSULE PO SCH ×2 (09:46→20:06)
[2019-03-18] MEDS: Nystatin SUSP 5 ML UD.LIQ PO SCH ×4 (09:46→20:05)
[2019-03-18] MEDS: *HR* Amiodarone 200 MG TABLET PO SCH (09:46)
[2019-03-18] MEDS: Aspirin 81 MG TAB.CHEW PO SCH (09:46)
[2019-03-18] MEDS: rOPINIRole 1 MG TABLET PO SCH ×2 (09:46→20:05)
[2019-03-18] MEDS: Folic Acid 1 MG TABLET PO SCH (09:46)
[2019-03-18] MEDS: predniSONE 20 MG TABLET PO SCH (10:39)
[2019-03-18] MEDS ORDERED: Vancomycin 500 MG in 0.9 % Sodium Chloride Mini Bag 100 ML IVPB ONE (11:00)
--- NOTE | 2019-03-18 11:20 | Infectious Disease Progress No ---
ID Progress Note Date of Encounter: 03/18/19 Time of Encounter: 10:00 - Subjective Subjective: Patient seen and examined. No acute events noted overnight. Patient states she feels better. She denies any fevers or chills or rigors. Denies chest pain. Reports shortness of breath and a moist nonproductive cough. Denies nausea, vomiting, diarrhea, or constipation. Reports her last bowel movement was Sunday. She has anuric secondary to her end-stage renal disease. She denies abdominal pain and states her appetite is good. She denies any oral thrush or new skin lesions. - Objective CBC & Chem 7: 03/20/19 06:23 03/20/19 06:23 - Exam Vitals: Temp Pulse Resp BP Pulse Ox 98.3 F 68 18 151/70 94 03/18/19 07:43 03/18/19 07:43 03/18/19 07:43 03/18/19 07:43 03/18/19 07:43 Exam: Head: Atraumatic, normal inspection, normocephalic. Temporal artery biopsy site noted to the left temporal area with mild ecchymosis noted. No surrounding er ythema, warmth, tenderness, or drainage noted. Eye: EOMI, PERRLA, no scleral icterus noted. ENT: Mucous membranes moist. No odontogenic infection noted. Neck: Normal inspection, no meningismus. Respiratory: Clear to auscultation. No rales, respiratory distress, rhonchi, or wheezes noted. Cardiovascular: Regular rate and rhythm, S1 and S2 audible. No murmurs, rubs, or gallops. GI: Soft, obese, normal bowel sounds. Extremities: No joint swelling, pedal edema, or tenderness noted. AV fistula no ju to the left forearm, +/+. Back: Normal inspection. No vertebral tenderness noted. Neurological: Alert, oriented 3, no focal deficits. Psychiatric: normal affect, normal mood. Skin: Dry, intact, warm. Normal color. No rashes. - Assessment and Plan (1) Sepsis Status: Acute The patient had 3 sepsis criteria on admission. Likely secondary to pneumonia. Improved. Afebrile overnight. Tachycardia and tachypnea have resolved. Blood cultures drawn 03/16/19 are NGTD 2 sets. Qualifiers: Sepsis type: sepsis due to unspecified organism Qualified Code(s): A41.9 - Sepsis, unspecified organism SNOMED Code(s): 69289266 (2) HCAP (healthcare-associated pneumonia) Status: Acute Location: Left base. Causative organism: Parainfluenza 3, but cannot rule out superimposed bacterial infection. Chest x-ray showed a left lung base density concerning for pneumonia. MRSA screen was positive. Respiratory infectious panel was positive for parainfluenza 3. Strep pneumococcal legionella urinary antigens have been ordered and are pending collection, but the patient is anuric so they have not been collected. Low index of suspicion for aspiration. The patient was recently hospitalized which puts her at high risk for MDR o rganisms. Currently on vancomycin and cefepime. SNOMED Code(s): 736485153, 289333658 (3) Acute exacerbation of chronic obstructive airways disease Status: Acute Management per the primary team. SNOMED Code(s): 027078310 (4) Acute respiratory failure with hypoxia Status: Acute Likely secondary to pneumonia and COPD. Required BiPAP in the ER. Improved. Management per the primary team. SNOMED Code(s): 41318704, 389895046 (5) Allergy to multiple antibiotics Status: Acute Keflex-hives. Cipro-unknown. Clindamycin-swelling of the lips, tongue, face. Doxycycline-nausea Flagyl-shortness of breath. Penicillin-swelling of the lips, tongue, face. Sulfa-shortness of breath SNOMED Code(s): 059473564100235 (6) Afib Status: Chronic Qualifiers: Atrial fibrillation type: unspecified Qualified Code(s): I48.91 - Unspecified atrial fibrillation SNOMED Code(s): 53513575 (7) Thrombocytopenia Status: Chronic SNOMED Code(s): 395099380 (8) CHF (congestive heart failure) Status: Chronic Qualifiers: Heart failure chronicity: unspecified Qualified Code(s): I50.9 - Heart fa ilure, unspecified SNOMED Code(s): 69396455 (9) History of heart valve replacement Status: Chronic Status post TAPVR 2016. SNOMED Code(s): 626756326, 082510107 (10) Morbid obesity with BMI of 40.0-44.9, adult Status: Chronic SNOMED Code(s): 853238341, 54669628972293 (11) Temporal arteritis Status: Resolved Status post biopsy that was negative. Evaluated by rheumatology who opted to continue treatment preemptively. SNOMED Code(s): 134208856 (12) ESRD (end stage renal disease) on dialysis Status: Chronic Nephrology consult and following. SNOMED Code(s): 378448904 - Recommendations Recommendations: Await blood cultures to finalize. Await S. pneumo and Legionella UATs if able to collect Since sputum for culture if the patient is able to provide an adequate specimen. Contact and droplet precautions per hospital policy. Continue cefepime 1 g IV daily (dose adjusted for ESRD status). Continue vancomycin IV. Pharmacy to dose. Goal trough approximately 15. Duration of treatment depends on the clinical picture. Can likely transition to PO Omnicef and doxycycline when ready for discharge. She does have allergies listed to these medications, but doxycycline reaction listed as nausea and she is tolerating Cefepime so I don't think she is truly allergic to cephalosporins. Monitor for drug toxicity and dose adjust antibiotics. Consult Discharge Plan - Plan Instructions: Doxycycline (By mouth), Warfarin (By mouth), Cefdinir (By mouth), Chronic Obstructive Pulmonary Disease (DC), Sepsis (DC), Pneumonia (DC) Additional Instructions: Please follow-up with your PCP within one week. Please resume your home medications. Please take your antibiotics until complete. Please take your Coumadin daily as prescribed. Please have your INR checked on Sunday. Please continue your regular scheduled dialysis sessions. Please return for any new or worsening symptoms Referrals: Enrique Strange MD [Partnered Physician] - 03/25/19 1:15 pm (1 week) Flavio Jasso DO [Partnered Physician] - 04/07/19 4:15 pm Prescriptions: Warfarin [Coumadin] 7.5 mg PO 1800 #30 tablet Doxycycline 100 mg PO BID #6 capsule Cefdinir [Omnicef] 300 mg PO Q48H #1 capsule - Attending Attestation I have personally performed a face to face evaluation on this patient. I have reviewed and agree with the care plan. History and Exam by me shows: Assessment and plan: 1.Sepsis 2.Healthcare associated pneumonia causative organism parainfluenza virus 3. MRS A screen positive. 3.Acute exacerbation of COPD 4.Acute failure with hypoxia 5.Recent temporal arteritis with retinal artery emboli I believe 6.History of heart valve replacement 7.congestive heart failure 8.End-stage renal disease on hemodialysis. Has a fistula in the left upper extremity Recommendations will continue current antibiotics for now continue vancomycin/cefepim duration of treatment depends on clinical picture
--- NOTE | 2019-03-18 12:30 | Nephrology Progress Note ---
Date of Encounter: 03/18/19 Time of Encounter: 12:30 - Assessment and Plan (1) ESRD (end stage renal disease) on dialysis Current Visit: Yes Status: Chronic HD MWF. Renal vitamins. Renal dose medications. Renal diet. Additional dialysis and ultrafiltration as needed. (2) Acute exacerbation of chronic obstructive airways disease Current Visit: Yes Status: Acute Per the primary team. . (3) Anemia Current Visit: No Status: Acute Qualifiers: Anemia type: unspecified type Qualified Code(s): D64.9 - Anemia, unspecified (4) Diabetes Current Visit: No Status: Acute Qualifiers: Qualified Code(s): E11.9 - Type 2 diabetes mellitus without complications (5) HTN (hypertension) Current Visit: No Status: Chronic Qualifiers: Hypertension type: essential hypertension Qualified Code(s): I10 - Ess ential (primary) hypertension (6) Morbid obesity with BMI of 40.0-44.9, adult Current Visit: No Status: Chronic Subjective Principal diagnosis: esrd Interval history: Patient was seen. She was sitting in a chair. No new complaint. Review of system otherwise is stable. Objective - Vital Signs Vital signs: Vital Signs Temp Pulse Resp BP Pulse Ox 03/18/19 11:45 69 20 88 03/18/19 11:41 98.3 F 66 18 148/73 90 03/18/19 09:20 68 20 91 03/18/19 07:43 98.3 F 68 18 151/70 94 03/18/19 05:27 69 03/18/19 03:35 98.5 F 68 18 140/65 99 03/18/19 00:42 67 03/17/19 23:43 98.3 F 72 16 123/58 95 03/17/19 21:05 71 03/17/19 19:17 98.1 F 66 18 134/69 93 03/17/19 16:19 98.7 F 75 19 110/66 91 03/17/19 13:45 97 F L 15 113/58 03/17/19 13:15 160/73 03/17/19 13:00 147/68 03/17/19 12:45 126/71 Intake and Output 03/17/19 03/18/19 03/18/19 23:59 07:59 15:59 Intake Total 540 / 1480 0 / 0 Output Total 0 / 3500 Balance 540 / -2020 0 / 0 Intake: Oral 540 / 840 0 / 0 Output: Urine 0 / 0 Other: Meal Dinner Percent of Meal Consumed 100% Weight 127.8 kg Blood Glucose* 242 358 363 Patient Weight 03/18/19 23:59 Weight 127.8 kg - General Appearance General appearance: Present: well-developed, well-nourished EENT: Present: ATNC Neck: Present: supple Cardiology: Present: regular rate Gastrointestinal: Present: no tenderness Integumentary: Present: warm and dry Neurologic: Present: alert and oriented x3 Musculoskeletal: Present: no cyanosis Psychiatric: Present: mood/affect appropriate - Lab 03/19/19 04:11 03/19/19 04:11 Most recent lab results 03/18/19 05:56 Calcium 8.4 L Consult Discharge Plan - Plan Referrals: Enrique Strange MD [Partnered Physician] - ()
--- NOTE | 2019-03-18 15:45 | Internal Med Progress Note ---
Hospitalist Progress Note - Encounter Date of Encounter: 03/18/19 Time of Encounter: 15:43 - Subjective Interval History: Patient seen and examined at bedside. Patient states that she feels better today. She feels like her shortness of breath is improved. She does report a continued cough that is minimally productive and states her sputum production has decreased. She denies any fevers or chills. - Exam Vitals: Temp Pulse Resp BP Pulse Ox 98.3 F 69 20 148/73 88 03/18/19 11:41 03/18/19 11:45 03/18/19 11:45 03/18/19 11:41 03/18/19 11:45 Exam: Gen.: Oriented 3, no acute distress Heart: Regular rate and rhythm, no murmurs, rubs, gallops Lungs: Diminished bibasilar, no rales, rhonchi, rare scattered wheeze noted - Assessment and Plan (1) Acute and chronic respiratory failure Current Visit: Yes Status: Acute Assessment and Plan: Secondary to pneumonia and COPD exacerbation. Continue to wean down oxygen to maintain saturation greater than 88%. (2) Hospital-acquired pneumonia Current Visit: No Status: Resolved Assessment and Plan: Chest x-ray reviewed reveals opacity in the left lung base. Treating for healthcare associated pneumonia with Vanco and cefepime. Appreciate infectious disease recommendations. Continue Vanco and cefepime for now, we will transition to by mouth discharge. Clinically improving. Patient also noted to have positive parainfluenza 3 PCR but there is Concern for Superimposed Bacterial Infection. (3) Acute exacerbation of chronic obstructive airways disease Current Visit: Yes Status: Acute Assessment and Plan: Secondary to pneumonia as above. Continue steroids, transition to by mouth prednisone today. Continue antibiotics as above. (4) ESRD on hemodialysis Current Visit: Yes Status: Chronic Assessment and Plan: Continue Sunday, Sunday, Sunday dialysis. - Time Spent with Patient Total time spent is greater than 50% in coordination of care (as documented) at patient's floor/unit and/or counseling patient: Internal Medicine: Result - Labs CBC & Chem 7: 03/18/19 05:56 03/18/19 05:56 Labs: Short CBC 03/18/19 Range/Units 05:56 WBC 6.1 (4.3-11.1) K/mcL Hgb 8.3 L (11.5-15.4) g/dL Hct 26.9 L (35.3-44.9) % Plt Count 85 L (140-400) K/mcL BMP 03/18/19 05:56 Sodium 134 L Potassium 4.5 Chloride 95 L Carbon Dioxide 29 BUN 53 H Creatinine 4.19 H Glucose 337 H Calcium 8.4 L - ABG Interpretation ABG results: PT/INR, D-dimer PT 24.6 Seconds (9.4-12.1) H 03/18/19 05:56 Consult Discharge Plan - Plan Referrals: Enrique Strange MD [Partnered Physician] - (1) Acute and chronic respiratory failure Qualifiers: Respiratory failure complication: hypoxia Qualified Code(s): J96.21 - Acute and chronic respiratory failure with hypoxia
[2019-03-18 16:00] LABS: Bilirubin,Urine Small (Negative); Blood,Urine Large (Negative); Clarity,Urine Cloudy (Clear); Color,Urine Yellow (Yellow); Glucose,Urine (UA) 500 mg/dL (Normal); Ketones,Urine Negative (Negative); Leukocyte Esterase,Urine Moderate (Negative); Nitrite,Urine Negative (Negative); Protein,Urine 100 mg/dL (Neg-Trace); Specific Gravity,Urine 1.014 (1.010-1.025); Urobilinogen,Urine Normal (Normal)
[2019-03-18 16:05] LABS: Hyaline Casts,Urine None Seen per lpf (None-Few); RBC,Urine 15-30 per hpf (0-3); Squamous Epithelial Cell,Urine Many per lpf (None-Few); WBC,Urine TNTC per hpf (0-3)
[2019-03-18 16:24] LABS: Bacteria,Urine Many per hpf (None-Few)
--- NOTE | 2019-03-18 16:24 | Electrocardiograph Report ---
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
[2019-03-18] MEDS: Cefepime HCl 1,000 MG in Water for inj. (sterile) 20 ML 10 ML IVP SCH (18:11)
[2019-03-19 05:12] LABS: Mean Corpuscular Volume 97.4 fL (83.0-100.0)
[2019-03-19 05:14] LABS: Hematocrit 29.8 % (35.3-44.9); Hemoglobin 9.3 g/dL (11.5-15.4); Immature Platelets 15.3 % (1.1-6.1); Mean Corpuscular HGB Conc 31.2 g/dL (31.6-35.5); Mean Corpuscular Hemoglobin 30.4 pg (28.0-33.3); Mean Platelet Volume 14.2 fL (9.4-12.4); Red Blood Count 3.06 M/mcL (3.82-4.97); Red Cell Distribution Width 16.1 % (11.5-14.5)
[2019-03-19 05:27] LABS: Prothrombin Time 22.1 Seconds (9.4-12.1)
[2019-03-19 05:28] LABS: Calcium 8.1 mg/dL (8.6-10.3); Potassium 4.6 mEq/L (3.5-5.1)
[2019-03-19] MEDS ORDERED: Aminoglycoside Consult 1 EACH MC ONE (07:44)
[2019-03-19] MEDS ORDERED: 0.9 % Sodium Chloride 250 ML IVC PRN (08:01)
[2019-03-19] MEDS: predniSONE 20 MG TABLET PO SCH (08:13)
[2019-03-19] MEDS: *HR* OxyCODONE Immed Rel 15 MG TABLET PO PRN (08:13)
[2019-03-19] MEDS: Nystatin SUSP 5 ML UD.LIQ PO SCH ×4 (08:13→20:00)
[2019-03-19] MEDS: rOPINIRole 1 MG TABLET PO SCH ×2 (08:14→20:00)
[2019-03-19] MEDS: Folic Acid 1 MG TABLET PO SCH (08:14)
[2019-03-19] MEDS: Aspirin 81 MG TAB.CHEW PO SCH (08:14)
[2019-03-19] MEDS: Renal Vitamin 1 CAP CAPSULE PO SCH (08:14)
[2019-03-19] MEDS: Pregabalin 50 MG CAPSULE PO SCH ×2 (08:14→20:00)
[2019-03-19] MEDS: Insulin LISPRO 300 UNITS/3 ML VIAL SQ SCH ×4 (08:17→20:00)
[2019-03-19] MEDS: (Sucroferric Oxyhydroxide [Velphoro] 500 MG) PO SCH ×3 (08:18→16:32)
--- NOTE | 2019-03-19 10:21 | Infectious Disease Progress No ---
ID Progress Note Date of Encounter: 03/19/19 Time of Encounter: 09:30 - Subjective Subjective: Patient seen and examined in the HD unit. No acute events noted overnight. Patient states she feels better, but still weak and tired. She denies any fevers or chills or rigors. Denies chest pain. Reports shortness of breath, worse with exertion, and a moist cough that is productive of yellow sputum today. Denies nausea, vomiting, diarrhea, or constipation. Reports her last bowel movement was yesterday. She is anuric secondary to her end-stage renal disease. She denies abdominal pain and states her appetite is okay. She denies any oral thrush or new skin lesions. - Objective CBC & Chem 7: 03/19/19 04:11 03/19/19 04:11 - Exam Vitals: Temp Pulse Resp BP Pulse Ox 97.9 F 54 18 125/96 98 03/19/19 08:15 03/19/19 08:15 03/19/19 08:15 03/19/19 08:15 03/19/19 08:15 Exam: Head: Atraumatic, normal inspection, normocephalic. Temporal artery biopsy site noted to the left temporal area with mild ecchymosis noted. No surrounding erythema, warmth, tenderness, or drainage noted. Eye: EOMI, PERRLA, no scleral icterus noted. ENT: Mucous membranes moist. No odontogenic infection noted. Neck: Normal inspection, no meningismus. Respiratory: Scattered rhonchi. No rales, respiratory distress, or wheezes noted. Cardiovascular: Regular rate and rhythm, S1 and S2 audible. No murmurs, rubs, or gallops. GI: Soft, obese, normal bowel sounds. Extremities: No joint swelling, pedal edema, or tenderness noted. AV fistula noted to the left forearm, currently accessed for HD. Neurological: Alert, oriented 3, no focal deficits. Psychiatric: normal affect, normal mood. Skin: Dry, intact, warm. Normal color. No rashes. - Assessment and Plan (1) Sepsis Current Visit: Yes Status: Acute The patient had 3 sepsis criteria on admission. Likely secondary to pneumonia. Improved. Afebrile overnight. Tachycardia and tachypnea have resolved. Blood cultures drawn 03/16/19 are NGTD 2 sets. Qualifiers: Sepsis type: sepsis due to unspecified organism Qualified Code(s): A41.9 - Sepsis, unspecified organism SNOMED Code(s): 64560157 (2) HCAP (healthcare-associated pneumonia) Current Visit: No Status: Acute Location: Left base. Causative organism: Parainfluenza 3, but cannot rule out superimposed bacterial infection. Chest x-ray showed a left lung base density concerning for pneumonia. MRSA screen was positive. Respiratory infectious panel was positive for parainfluenza 3. Strep pneumococcal legionella urinary antigens pending. Low index of suspicion for aspiration. The patient was recently hospitalized which puts her at high risk for MDR organisms. Currently on vancomycin and cefepime. SNOMED Code(s): 672856715, 258473337 (3) Acute exacerbation of chronic obstructive airways disease Current Visit: Yes Status: Acute Management per the primary team. SNOMED Code(s): 036689694 (4) Acute respiratory failure with hypoxia Current Visit: No Status: Acute Likely secondary to pneumonia and COPD. Required BiPAP in the ER. Improved. Management per the primary team. SNOMED Code(s): 66023167, 762149566 (5) Allergy to multiple antibiotics Current Visit: No Status: Acute Keflex-hives. Cipro-unknown. Clindamycin-swelling of the lips, tongue, face. Doxycycline-nausea Flagyl-shortness of breath. Penicillin-swelling of the lips, tongue, face. Sulfa-shortness of breath SNOMED Code(s): 932171518822379 (6) Afib Current Visit: No Status: Chronic Qualifiers: Atrial fibrillation type: unspecified Qualified Code(s): I48.91 - Unspecified atrial fibrillation SNOMED Code(s): 98680071 (7) Thrombocytopenia Current Visit: No Status: Chronic SNOMED Code(s): 723668870 (8) CHF (congestive heart failure) Current Visit: No Status: Chronic Qualifiers: Heart failure chronicity: unspecified Qualified Code(s): I50.9 - Heart failure, unspecified SNOMED Code(s): 21598933 (9) History of heart valve replacement Current Visit: No Status: Chronic Status post TAPVR 2016. SNOMED Code(s): 462889743, 694274560 (10) Morbid obesity with BMI of 40.0-44.9, adult Current Visit: No Status: Chronic SNOMED Code(s): 272104152, 29091608136698 (11) Temporal arteritis Current Visit: No Status: Resolved Status post biopsy that was negative. Evaluated by rheumatology who opted to continue treatment preemptively. SNOMED Code(s): 120054177 (12) ESRD (end stage renal disease) on dialysis Current Visit: Yes Status: Chronic Nephrology consult and following. SNOMED Code(s): 957073101 - Recommendations Recommendations: Await blood cultures to finalize. Await S. pneumo and Legionella UATs--> pending. Send sputum for culture if the patient is able to provide an adequate specimen. Discussed with the patient and nursing. Contact and droplet precautions per hospital policy. Continue cefepime 1 g IV daily (dose adjusted for ESRD status). Continue vancomycin IV. Pharmacy to dose. Goal trough approximately 15. Duration of treatment depends on the clinical picture. Can likely transition to PO Omnicef and doxycycline when ready for discharge to complete a 10 day course of treatment. She does have allergies listed to these medications, but doxycycline reaction listed as nausea and she is tolerating Cefepime so I don't think she is truly allergic to cephalosporins. Monitor for drug toxicity and dose adjust antibiotics. Consult Discharge Plan - Plan Referrals: Enrique Strange MD [Partnered Physician] -
--- NOTE | 2019-03-19 11:43 | Nephrology Progress Note ---
Date of Encounter: 03/19/19 Time of Encounter: 11:43 - Assessment and Plan (1) ESRD (end stage renal disease) on dialysis Current Visit: Yes Status: Chronic HD MWF. Renal vitamins. Renal dose medications. Renal diet. Additional dialysis and ultrafiltration as needed. Patient was seen on dialysis. (2) Acute exacerbation of chronic obstructive airways disease Current Visit: Yes Status: Acute Per the primary team. . (3) Anemia Current Visit: No Status: Acute Transfuse as needed. Qualifiers: Anemia type: unspecified type Qualified Code(s): D64.9 - Anemia, unspecified (4) Diabetes Current Visit: No Status: Acute Qualifiers: Qualified Code(s): E11.9 - Type 2 diabetes mellitus without complications (5) HTN (hypertension) Current Visit: No Status: Chronic Qualifiers: Hypertension type: essential hypertension Qualified Code(s): I10 - Essential (primary) hypertension (6) Morbid obesity with BMI of 40.0-44.9, adult Current Visit: No Status: Chronic Subjective Principal diagnosis: esrd Interval history: Patient was seen. She was on dialysis. No new complaint. Objective - Vital Signs Vital signs: Vital Signs Temp Pulse Resp BP Pulse Ox 03/19/19 11:40 116/47 03/19/19 11:25 126/75 03/19/19 11:10 143/72 03/19/19 10:55 153/69 03/19/19 10:40 156/80 03/19/19 10:25 142/78 03/19/19 10:10 138/85 03/19/19 09:55 160/51 03/19/19 09:40 155/85 03/19/19 09:25 96.8 F L 19 151/83 03/19/19 08:15 97.9 F 54 18 125/96 98 03/19/19 06:54 97.9 F 54 18 125/96 98 03/19/19 04:17 59 03/19/19 03:58 98.2 F 69 16 156/91 99 03/19/19 00:09 61 03/18/19 23:38 98.3 F 57 16 156/88 95 03/18/19 20:19 64 03/18/19 19:59 98.0 F 63 16 159/80 94 03/18/19 17:54 70 18 90 03/18/19 16:38 97.7 F 64 18 152/86 98 03/18/19 15:40 68 18 99 03/18/19 13:15 72 18 89 03/18/19 11:45 69 20 88 Intake and Output 03/18/19 03/19/19 03/19/19 23:59 07:59 15:59 Intake Total 120 / 480 740 / 740 Output Total 0 / 0 Balance 120 / 480 740 / 740 Intake: Oral 120 / 480 240 / 240 Intake, Rinseback and Flushes 500 / 500 Output: Urine 0 / 0 Other: Meal Dinner Breakfast Percent of Meal Consumed 10% 80% Weight 130.9 kg Blood Glucose* 168 131 131 Hemodialysis Net Fluid Removed 2254 (mL) Patient Weight 03/19/19 23:59 Weight 130.9 kg - General Appearance General appearance: Present: well-developed, well-nourished, obese EENT: Present: ATNC Neck: Present: supple Cardiology: Present: regular rate Gastrointestinal: Present: obese Psychiatric: Present: mood/affect appropriate - Lab 03/19/19 04:11 03/19/19 04:11 Most recent lab results 03/19/19 04:11 Calcium 8.1 L Consult Discharge Plan - Plan Referrals: Enrique Strange MD [Partnered Physician] - ()
[2019-03-19] MEDS: *HR* Amiodarone 200 MG TABLET PO SCH (13:55)
[2019-03-19] MEDS: Doxycycline 100 MG CAPSULE PO SCH ×2 (13:56→20:00)
--- NOTE | 2019-03-19 15:10 | Internal Med Progress Note ---
Hospitalist Progress Note - Encounter Date of Encounter: 03/19/19 Time of Encounter: 15:08 - Subjective Interval History: Patient seen and examined at bedside. Patient states that her shortness of breath feels better today however today she states she feels extremely weak. She states she has not been able to get out of bed. She denies any chest pain, shortness of breath, fever, chills. - Exam Vitals: Temp Pulse Resp BP Pulse Ox 96.4 F L 54 14 159/79 98 03/19/19 13:25 03/19/19 08:15 03/19/19 13:25 03/19/19 13:25 03/19/19 08:15 Exam: Gen.: Alert and Oriented 3, no acute distress Heart: Regular rate and rhythm, no murmurs, rubs, gallops Lungs: Diminished bibasilar, no rales, rhonchi, or wheezes noted - Assessment and Plan (1) Acute and chronic respiratory failure Current Visit: Yes Status: Acute Assessment and Plan: Secondary to pneumonia and COPD exacerbation. Continue to wean down oxygen to maintain saturation greater than 88%. (2) Acute exacerbation of chronic obstructive airways disease Current Visit: Yes Status: Acute Assessment and Plan: Secondary to pneumonia as above. Continue steroids, transition to by mouth prednisone yesterday, continue for total 5 days (3) ESRD on hemodialysis Current Visit: Yes Status: Chronic Assessment and Plan: Continue Sunday, Sunday, Sunday dialysis. (4) Elevated troponin Current Visit: No Status: Acute Assessment and Plan: Secondary to type II [place] and demand ischemia in the setting of COPD exacerbation. Cardiology evaluated the patient and feels as no further intervention necessary. (5) Generalized weakness Current Visit: No Status: Acute Assessment and Plan: Patient complains of significant weakness. At this point she is concerned about her safety and returning home. Will have PT/OT evaluate the patient. Patient may require ECF placement. - Time Spent with Patient Total time spent is greater than 50% in coordination of care (as documented) at patient's floor/unit and/or counseling patient: Internal Medicine: Result - Labs CBC & Chem 7: 03/19/19 04:11 03/19/19 04:11 Labs: Short CBC 03/19/19 Range/Units 04:11 WBC 8.5 (4.3-11.1) K/mcL Hgb 9.3 L (11.5-15.4) g/dL Hct 29.8 L (35.3-44.9) % Plt Count 94 L (140-400) K/mcL BMP 03/19/19 04:11 Sodium 134 L Potassium 4.6 Chloride 95 L Carbon Dioxide 26 BUN 71 H Creatinine 5.19 H Glucose 139 H Calcium 8.1 L Urine 03/18/19 Range/Units 15:10 Urine Color Yellow (Yellow) Urine Clarity Cloudy A (Clear) Urine pH 6.0 (5.0-8.0) pH Units Ur Specific [place] 1.014 (1.010-1.025) Urine Protein 100 H (Neg-Trace) mg/dL Urine Glucose (UA) 500 H (Normal) mg/dL - ABG Interpretation ABG results: PT/INR, D-dimer PT 22.1 Seconds (9.4-12.1) H 03/19/19 04:11 Consult Discharge Plan - Plan Referrals: Enrique Strange MD [Partnered Physician] - (1) Acute and chronic respiratory failure Qualifiers: Respiratory failure complication: hypoxia Qualified Code(s): J96.21 - Acute and chronic respiratory failure with hypoxia
[2019-03-19] MEDS ORDERED: Cefdinir 300 MG CAPSULE PO SCH (16:00)
[2019-03-19] MEDS ORDERED: *HR* Warfarin 7.5 MG TABLET PO ONE (18:00)
[2019-03-20 06:37] LABS: Basophils % 0.2 %; Eosinophils # 0.1 K/mcL (0.0-0.6); Eosinophils % 0.8 %; Hematocrit 29.6 % (35.3-44.9); Hemoglobin 9.1 g/dL (11.5-15.4); Immature Granulocytes % 0.3 % (0-4); Lymphocytes # 0.8 K/mcL (0.6-4.6); Lymphocytes % 11.9 %; Mean Corpuscular HGB Conc 30.7 g/dL (31.6-35.5); Mean Corpuscular Volume 97.7 fL (83.0-100.0); Mean Platelet Volume 13.7 fL (9.4-12.4); Monocytes # 0.7 K/mcL (0.0-1.3); Monocytes % 10.3 %; Neutrophils # 4.9 K/mcL (1.6-8.9); Platelet Count 100 K/mcL (140-400); Red Blood Count 3.03 M/mcL (3.82-4.97); Red Cell Distribution Width 16.2 % (11.5-14.5); Segmented Neutrophils % 76.5 %
[2019-03-20 06:47] LABS: INR 1.5; Prothrombin Time 16.9 Seconds (9.4-12.1)
[2019-03-20 06:55] LABS: Calcium 8.2 mg/dL (8.6-10.3)
[2019-03-20 07:33] VITALS: BP 111/60
[2019-03-20] MEDS: Aspirin 81 MG TAB.CHEW PO SCH (09:01)
[2019-03-20] MEDS: Pregabalin 50 MG CAPSULE PO SCH (09:01)
[2019-03-20] MEDS: (Sucroferric Oxyhydroxide [Velphoro] 500 MG) PO SCH (09:01)
[2019-03-20] MEDS: rOPINIRole 1 MG TABLET PO SCH (09:01)
[2019-03-20] MEDS: Folic Acid 1 MG TABLET PO SCH (09:01)
[2019-03-20] MEDS: predniSONE 20 MG TABLET PO SCH (09:01)
[2019-03-20] MEDS: Renal Vitamin 1 CAP CAPSULE PO SCH (09:01)
[2019-03-20] MEDS: Insulin LISPRO 300 UNITS/3 ML VIAL SQ SCH (09:02)
[2019-03-20] MEDS: Doxycycline 100 MG CAPSULE PO SCH (09:02)
[2019-03-20] MEDS: Nystatin SUSP 5 ML UD.LIQ PO SCH (09:02)
[2019-03-20] MEDS: *HR* Amiodarone 200 MG TABLET PO SCH (09:02)
--- NOTE | 2019-03-20 10:07 | Infectious Disease Progress No ---
ID Progress Note Date of Encounter: 03/20/19 Time of Encounter: 09:40 - Subjective Subjective: Patient seen and examined. No acute events noted overnight. Patient states she feels much better today and is less weak and tired and was able to ambulate from the bed to the window with her walker. She denies any fevers or chills or rigors. Denies chest pain. Reports shortness of breath is improved, worse with exertion, and a moist cough that is productive of yellow sputum today. Denies nausea, vomiting, diarrhea, or constipation. Reports her last bowel movement was two days ago She is anuric secondary to her end-stage renal disease. She denies abdominal pain and states her appetite is okay. She denies any oral thrush or new skin lesions. - Objective CBC & Chem 7: 03/20/19 06:23 03/20/19 06:23 - Exam Vitals: Temp Pulse Resp BP Pulse Ox 97.7 F 60 18 111/60 100 03/20/19 07:32 03/20/19 07:32 03/20/19 07:32 03/20/19 07:32 03/20/19 07:32 Exam: Head: Atraumatic, normal inspection, normocephalic. Temporal artery biopsy site noted to the left temporal area with mild ecchymosis noted. No surrounding erythema, warmth, tenderness, or drainage noted. Eye: EOMI, PERRLA, no scleral icterus noted. ENT: Mucous membranes moist. No odontogenic infection noted. Neck: Normal inspection, no meningismus. Respiratory: Scattered rhonchi. No rales, respiratory distress, or wheezes noted. Cardiovascular: Regular rate and rhythm, S1 and S2 audible. No murmurs, rubs, or gallops. GI: Soft, obese, normal bowel sounds. Extremities: No joint swelling, pedal edema, or tenderness noted. AV fistula noted to the left forearm, +/+. Neurological: Alert, oriented 3, no focal deficits. Psychiatric: normal affect, normal mood. Skin: Dry, intact, warm. Normal color. No rashes. - Assessment and Plan (1) Sepsis Status: Acute The patient had 3 sepsis criteria on admission. Likely secondary to pneumonia. Resolved. Afebrile overnight. Tachycardia and tachypnea have resolved. Blood cultures drawn 03/16/19 are NGTD 2 sets. Qualifiers: Sepsis type: sepsis due to unspecified organism Qualified Code(s): A41.9 - Sepsis, unspecified organism SNOMED Code(s): 31097242 (2) HCAP (healthcare-associated pneumonia) Status: Acute Location: Left base. Causative organism: Parainfluenza 3, but cannot rule out superimposed bacterial infection. Chest x-ray showed a left lung base density concerning for pneumonia. MRSA screen was positive. Respiratory infectious panel was positive for parainfluenza 3. Strep pneumococcal legionella urinary antigens negative. Low index of suspicion for aspiration. The patient was recently hospitalized which puts her at high risk for MDR organisms. Currently on Omnicef and doxycycline. SNOMED Code(s): 092042916, 108996708 (3) Acute exacerbation of chronic obstructive airways disease Status: Acute Management per the primary team. SNOMED Code(s): 053902898 (4) Acute respiratory failure with hypoxia Status: Acute Likely secondary to pneumonia and COPD. Required BiPAP in the ER. Improved. Management per the primary team. SNOMED Code(s): 07427582, 725609991 (5) Allergy to multiple antibiotics Status: Acute Keflex-hives. Cipro-unknown. Clindamycin-swelling of the lips, tongue, face. Doxycycline-nausea Flagyl-shortness of breath. Penicillin-swelling of the lips, tongue, face. Sulfa-shortness of breath SNOMED Code(s): 620546018655959 (6) Afib Status: Chronic Qualifiers: Atrial fibrillation type: unspecified Qualified Code(s): I48.91 - Unspecified atrial fibrillation SNOMED Code(s): 08232019 (7) Thrombocytopenia Status: Chronic SNOMED Code(s): 579126035 (8) CHF (congestive heart failure) Status: Chronic Qualifiers: Heart failure chronicity: unspecified Qualified Code(s): I50.9 - Heart failure, unspecified SNOMED Code(s): 66648068 (9) History of heart valve replacement Status: Chronic Status post TAPVR 2016. SNOMED Code(s): 957097481, 482360936 (10) Morbid obesity with BMI of 40.0-44.9, adult Status: Chronic SNOMED Code(s): 385533741, 14755726798323 (11) Temporal arteritis Status: Resolved Status post biopsy that was negative. Evaluated by rheumatology who opted to continue treatment preemptively. SNOMED Code(s): 699655462 (12) ESRD (end stage renal disease) on dialysis Status: Chronic Nephrology consult and following. SNOMED Code(s): 006381017 - Recommendations Recommendations: Await blood cultures to finalize. Contact and droplet precautions per hospital policy. Continue Omnicef 300mg PO Q48H (dose-adjusted for HD status). Continue doxycycline 100mg PO BID. Duration of treatment depends on the clinical picture, but a total of 10 days should be adequate. Treat through 03/25/19. She does have allergies listed to these medications, but doxycycline reaction listed as nausea and she is tolerating Cefepime so I don't think she is truly allergic to cephalosporins. Monitor for drug toxicity and dose adjust antibiotics. Consult Discharge Plan - Plan Instructions: Doxycycline (By mouth), Warfarin (By mouth), Cefdinir (By mouth), Chronic Obstructive Pulmonary Disease (DC), Sepsis (DC), Pneumonia (DC) Additional Instructions: Please follow-up with your PCP within one week. Please resume your home medications. Please take your antibiotics until complete. Please take your Coumadin daily as prescribed. Please have your INR checked on Sunday. Please continue your regular scheduled dialysis sessions. Please return for any new or worsening symptoms Referrals: Enrique Strange MD [Partnered Physician] - 03/25/19 1:15 pm (1 week) Flavio Jasso DO [Partnered Physician] - 04/07/19 4:15 pm Prescriptions: Warfarin [Coumadin] 7.5 mg PO 1800 #30 tablet Doxycycline 100 mg PO BID #6 capsule Cefdinir [Omnicef] 300 mg PO Q48H #1 capsule - Attending Attestation I have personally performed a face to face evaluation on this patient. I have reviewed and agree with the care plan. History and Exam by me shows: Assessment and plan: 1.Sepsis 2.Healthcare associated pneumonia causative organism parainfluenza virus 3. MRSA screen positive. 3.Acute exacerbation of COPD 4.Acute failure with hypoxia 5.Recent temporal arteritis with retinal artery emboli I believe 6.History of heart valve replacement 7.congestive heart failure 8.End-stage renal disease on hemodialysis. Has a fistula in the left upper extremity Recommendations will continue current antibiotics for now DC vancomycin/cefepim Start Omnicef 300mg PO Q48H (dose-adjusted for HD status). Start doxycycline 100mg PO BID. duration of treatment depends on clinical picture
--- NOTE | 2019-03-20 10:42 | Discharge Summary ---
Orders not resulted at time of discharge: Pending orders 03/16/19 16:24 Culture,Blood [BC] Stat 03/17/19 07:16 Stool guiac [Occult Blood,Stool] [BF] Routine 03/18/19 15:10 Culture,Urine [RM] Stat 03/21/19 04:00 Basic Metabolic Panel AM 0400 Complete Blood Count w/o Diff [HEME] AM 0400 INR/PT [Prothrombin Time INR] [COAG] AM 04003/22/19 04:00 Basic Metabolic Panel AM 0400 Complete Blood Count w/o Diff [HEME] AM 04003/23/19 04:00 Basic Metabolic Panel AM 0400 Complete Blood Count w/o Diff [HEME] AM 04003/24/19 04:00 Basic Metabolic Panel AM 0400 Complete Blood Count w/o Diff [HEME] AM 04003/25/19 04:00 Basic Metabolic Panel AM 0400 Complete Blood Count w/o Diff [HEME] AM 04003/26/19 04:00 Basic Metabolic Panel AM 0400 Complete Blood Count w/o Diff [HEME] AM 0400 03/27/19 04:00 Basic Metabolic Panel AM 0400 Complete Blood Count w/o Diff [HEME] AM 0400 Date of Encounter: 03/20/19 Time of Encounter: 10:35 - Discharge Diagnosis (1) Acute and chronic respiratory failure Priority: Primary Status: Resolved Qualifiers: Respiratory failure complication: hypoxia Qualified Code(s): J96.21 - Acute and chronic respiratory failure with hypoxia (2) HCAP (healthcare-associated pneumonia) Priority: Primary Status: Acute (3) Acute exacerbation of chronic obstructive airways disease Priority: Secondary Status: Acute (4) ESRD on hemodialysis Priority: Secondary Status: Chronic (5) Elevated troponin Priority: Secondary Status: Acute (6) Generalized weakness Priority: Secondary Status: Acute Hospital course: Ms. Loza is a 63 year old female with history of COPD, end-stage renal disease presented with shortness of breath and cough. She was treated for COPD exacerbation secondary to pneumonia. She was started on Solu-Medrol and antibiotics, these were de-escalated to prednisone and doxycycline and Omnicef. Patient improved. She did feel weak but was able to get out of bed and walk around. Patient will be discharged home in stable condition. Discharge discussed with: family - Time Spent with Patient Total time spent providing and/or coordinating discharge services: Time spent: Greater than 30 minutes (40 minutes) - Discharge Medications Prescriptions: New Warfarin [Coumadin] 7.5 mg PO 1800 #30 tablet Doxycycline 100 mg PO BID #6 capsule Cefdinir [Omnicef] 300 mg PO Q48H #1 capsule Continued Aspirin 81 mg PO DAILY Atorvastatin [Lipitor] 10 mg PO HS Oxycodone HCl 15 mg PO BID PRN PRN Reason: Moderate Pain Folic Acid 1 mg PO DAILY Pantoprazole Sodium [Protonix] 40 mg PO DAILY Sertraline [Zoloft] 100 mg PO DAILY Ropinirole HCl [Requip Xl] 4 mg PO HS Renal Vitamin [Renal Caps Softgel] 1 mg PO DAILY Pregabalin [Lyrica] 50 mg PO BID Allopurinol [Zyloprim 100 MG] 200 mg PO DAILY Ergocalciferol (VITAMIN D2) [Vitamin D2] 50,000 unit PO SA Levalbuterol Tartrate [Xopenex Hfa] 1 puff IH Q4H PRN PRN Reason: Dyspnea [place]-3 Acid Ethyl Esters [Lovaza] 2 gm PO BID Nortriptyline [Pamelor] 10 mg PO HS Biotin 1,000 mcg PO DAILY Lactulose 30 gm PO DAILY PRN PRN Reason: Constipation Sucroferric Oxyhydroxide [Velphoro] 500 mg PO TIDWM amLODIPine [Norvasc] 5 mg PO DAILY #30 tablet Docusate Sodium [Dulcolax Stool Softener] 100 mg PO DAILY PRN PRN Reason: STOOL SOFTENER Amiodarone [Cordarone] 200 mg PO DAILY 30 Days #30 tablet Insulin ASPART [NovoLOG] 0 units SQ TIDWM Levothyroxine [Synthroid] 88 mcg PO DAILY Levalbuterol HCl [Xopenex Neb] 1.25 mg IH Q6HR PRN PRN Reason: Shortness Of Breath Home Medications: Levothyroxine [Synthroid] 88 mcg PO DAILY 06/30/15 [History] Aspirin 81 mg PO DAILY 08/07/16 [History] Atorvastatin [Lipitor] 10 mg PO HS 08/07/16 [History] Folic Acid 1 mg PO DAILY 08/07/16 [History] Oxycodone HCl 15 mg PO BID PRN 08/07/16 [History] Pantoprazole Sodium [Protonix] 40 mg PO DAILY 08/07/16 [History] Sertraline [Zoloft] 100 mg PO DAILY 08/07/16 [History] Renal Vitamin [Renal Caps Softgel] 1 mg PO DAILY 05/04/17 [History] Ropinirole HCl [Requip Xl] 4 mg PO HS 05/04/17 [History] Levalbuterol HCl [Xopenex Neb] 1.25 mg IH Q6HR PRN 08/16/18 [History] Allopurinol [Zyloprim 100 MG] 200 mg PO DAILY 10/28/18 [History] Pregabalin [Lyrica] 50 mg PO BID 10/28/18 [History] Ergocalciferol (VITAMIN D2) [Vitamin D2] 50,000 unit PO SA 11/06/18 [History] Levalbuterol Tartrate [Xopenex Hfa] 1 puff IH Q4H PRN 11/06/18 [History] [place]-3 Acid Ethyl Esters [Lovaza] 2 gm PO BID 11/06/18 [History] Nortriptyline [Pamelor] 10 mg PO HS 01/16/19 [History] Biotin 1,000 mcg PO DAILY 02/16/19 [History] Lactulose 30 gm PO DAILY PRN 02/16/19 [History] Sucroferric Oxyhydroxide [Velphoro] 500 mg PO TIDWM 02/16/19 [History] amLODIPine [Norvasc] 5 mg PO DAILY #30 tablet 02/28/19 [Rx] Docusate Sodium [Dulcolax Stool Softener] 100 mg PO DAILY PRN 03/04/19 [History] Amiodarone [Cordarone] 200 mg PO DAILY 30 Days #30 tablet 03/10/19 [Rx] Insulin ASPART [NovoLOG] 0 units SQ TIDWM 03/16/19 [History] Cefdinir [Omnicef] 300 mg PO Q48H #1 capsule 03/20/19 [Rx] Doxycycline 100 mg PO BID #6 capsule 03/20/19 [Rx] Warfarin [Coumadin] 7.5 mg PO 1800 #30 tablet 03/20/19 [Rx] Allergies/Adverse Reactions: Allergy/AdvReac Type Severity Reaction Status Date / Time MALACHI Inhibitors Allergy Hives Verified 03/16/19 16:15 cephalexin [From Keflex] Allergy Hives Verified 03/16/19 16:15 cephalothin Allergy Hives Verified 03/16/19 16:15 ciprofloxacin [From Cipro] Allergy See Verified 03/16/19 16:15 Comments clindamycin Allergy Swelling Verified 03/16/19 16:15 of Lip/Tongue/Throat codeine Allergy Hives Verified 03/16/19 16:15 doxycycline Allergy Nausea Verified 03/16/19 16:15 fentanyl Allergy See Verified 03/16/19 16:15 Comments hydromorphone [From Dilaudid] Allergy See Verified 03/16/19 16:15 Comments metoclopramide [From Reglan] Allergy Hives Verified 03/16/19 16:15 metronidazole Allergy Difficulty Verified 03/16/19 16:15 Breathing NSAIDS (Non-Steroidal Allergy Difficulty Verified 03/16/19 16:15 Anti-Inflamma Breathing Penicillins [PCN] Allergy Swelling Verified 03/16/19 16:15 of Lip/Tongue/Throat Sulfa (Sulfonamide Allergy Difficulty Verified 03/16/19 16:15 Antibiotics) Breathing sulfamethoxazole Allergy Difficulty Verified 03/16/19 16:15 [From Bactrim] Breathing trimethoprim Allergy Hives Verified 03/16/19 16:15 Date of admission: 03/19/19 15:36 Primary care physician: PCP NONE Consults: 03/16/19 18:29 Consult to Cardiology [CONS] Routine Comment: Consulting Provider: Cardiology Brenda Reason for Consult: NSTEMI Call Completed: Yes Consult to Nephrology [CONS] Routine Consulting Provider: Kidney Brenda/KEYONNA/MANJU/KAMRON Reason for Consult: ESRD Call Completed: Yes 03/16/19 18:34 Consult to Rheumatology [CONS] Routine Consulting Provider: Flavio Jasso Reason for Consult: FUO Call Completed: No 03/16/19 18:42 Consult to Infectious Diseases [CONS] Routine Consulting Provider: Infectious Disease Brenda Reason for Consult: SEPSIS, FUO Call Completed: No 03/17/19 08:21 Consult to Dialysis [CONS] Stat 03/19/19 08:15 Consult to Dialysis [CONS] ONCE 03/19/19 08:16 Consult to Occupational Therapy [CONS] Routine Comment: Evaluate, develop and implement POC Reason for Consult: Weakness Does patient have active BEDREST order?: No Is patient medically & hemodynamically stable?: Yes Consult to Physical Therapy [CONS] Routine Comment: Evaluate, develop and implement POC Reason for Consult: Weakness Does patient have active BEDREST order?: Yes Is patient medically & hemodynamically stable?: No Discharging clinician: Adrian Portillo Anticipated date of discharge: 03/20/19 - Constitutional Vitals: Temp Pulse Resp BP Pulse Ox 97.7 F 60 18 111/60 100 03/20/19 07:32 03/20/19 07:32 03/20/19 07:32 03/20/19 07:32 03/20/19 07:32 General appearance: Present: A&O X 3, pleasant, no acute distress Exam: . - Respiratory Respiratory exam: Present: CTAB. Absent: rales, rhonchi, wheezes - Cardiovascular Cardiovascular exam: Present: RRR. Absent: gallop, rubs, systolic murmur - Patient Status Disposition: Home, Self-Care Condition: Serious Functional capacity at discharge: independent ambulation Overall status at discharge: patient is progressing back to baseline - Ambulatory Orders Ambulatory Orders: Prothrombin Time INR [COAG] Time Frame: 03/24/19, Facility: [facility], Location: Lab - Discharge Instructions Follow Up With: Enrique Strange MD [Partnered Physician] - (1 week) Additional Instructions: Please follow-up with your PCP within one week. Please resume your home medications. Please take your antibiotics until complete. Please take your Coumadin daily as prescribed. Please have your INR checked on Sunday. Please continue your regular scheduled dialysis sessions. Please return for any new or worsening symptoms - Diet and Activity Activity: increase activity as tolerated Diet: diabetic diet, low salt diet
--- NOTE | 2019-03-20 10:47 | Nephrology Progress Note ---
Date of Encounter: 03/20/19 Time of Encounter: 10:45 - Assessment and Plan (1) ESRD (end stage renal disease) on dialysis Current Visit: Yes Status: Chronic Plan for HD tomorrow Continue renal diet Avoid nephrotoxins if possible (2) Anemia Current Visit: No Status: Acute Hgb 9.1 Goal hgb 10-11 Qualifiers: Qualified Code(s): D64.9 - Anemia, unspecified (3) HTN (hypertension) Current Visit: No Status: Chronic per primary team Qualifiers: Qualified Code(s): I10 - Essential (primary) hypertension Subjective Principal diagnosis: esrd Interval history: Patient seen and examined. States she is feeling better today Objective - Vital Signs Vital signs: Vital Signs Temp Pulse Resp BP Pulse Ox 03/20/19 07:32 97.7 F 60 18 111/60 100 03/20/19 05:37 18 99 03/20/19 03:56 97.8 F 58 16 153/95 99 03/19/19 23:27 98.5 F 67 17 143/71 96 03/19/19 19:35 63 03/19/19 19:30 97 03/19/19 18:55 98.2 F 69 18 141/81 95 03/19/19 16:30 98.2 F 76 18 122/84 94 03/19/19 16:21 98.2 F 76 18 122/84 94 03/19/19 13:25 96.4 F L 14 159/79 03/19/19 12:55 134/73 03/19/19 12:40 146/77 03/19/19 12:25 132/66 03/19/19 12:10 123/58 03/19/19 11:55 138/72 03/19/19 11:40 116/47 03/19/19 11:25 126/75 03/19/19 11:10 143/72 03/19/19 10:55 153/69 Intake and Output 03/19/19 03/20/19 03/20/19 23:59 07:59 15:59 Intake Total 350 / 1210 0 / 240 240 / 240 Output Total 0 / 3500 0 / 0 Balance 350 / -2290 0 / 240 240 / 240 Intake: IV Fluids 110 / 110 Maxipime 1,000 MG In Water for 10 inj. (sterile) 10 ML @ 300 mls/ hr IVP Q24H [facility] Rx#:[id number] Vancocin 500 MG In 0.9 % Sodium 100 / 100 Chloride (Mini-Bag +) 100 ML @ 100 mls/hr IVPB ONCE ONE Rx#: [id number] Oral 240 / 600 0 / 240 240 / 240 Output: Urine 0 / 0 0 / 0 Other: Meal Dinner Breakfast Percent of Meal Consumed 30% 100% Weight 128.5 kg Blood Glucose* 433 205 Patient Weight 03/20/19 23:59 Weight 128.5 kg - General Appearance General appearance: Present: obese EENT: Present: ATNC, mucous membranes moist, hearing intact, vision intact Neck: Present: supple Respiratory: Present: clear Cardiology: Present: no edema, normal S1, normal S2 Dialysis Vascular Access: Arteriovenous Fistula Gastrointestinal: Present: no tenderness, no guarding Integumentary: Present: warm and dry Neurologic: Present: alert and oriented x3 Psychiatric: Present: mood/affect appropriate, cooperative - Lab 03/20/19 06:23 03/20/19 06:23 Most recent lab results 03/20/19 06:23 Calcium 8.2 L Consult Discharge Plan - Plan Referrals: Enrique Strange MD [Partnered Physician] - (1 week) Prescriptions: Warfarin [Coumadin] 7.5 mg PO 1800 #30 tablet Doxycycline 100 mg PO BID #6 capsule Cefdinir [Omnicef] 300 mg PO Q48H #1 capsule
--- NOTE | 2019-03-20 11:59 | Physician Discharge Referral ---
Home Health/Hosp Referral Info Transfer to: Home Health - Diagnosis (1) Acute and chronic respiratory failure Priority: Primary Status: Resolved (2) HCAP (healthcare-associated pneumonia) Priority: Primary Status: Acute (3) Acute exacerbation of chronic obstructive airways disease Priority: Primary Status: Acute (4) ESRD on hemodialysis Priority: Secondary Status: Chronic (5) Elevated troponin Priority: Secondary Status: Acute (6) Generalized weakness Priority: Secondary Status: Acute - Respiratory Orders Oxygen / L per min (2) Smoking Cessation: Smoking cessation has been advised. For more information, call the [place] Tobacco Quit Line at 3-443-PSRX-NOW. - Diet/Nutrition Diet/Nutrition Orders: Renal, Cardiac - Activity Activity Orders: Ambulate - Services Needed Following services are medically necessary services: Nursing, Home Health Aide, Physical Therapy, Occupational Therapy, Med Social Work - Transfer Medications Prescriptions: Warfarin [Coumadin] 7.5 mg PO 1800 #30 tablet Doxycycline 100 mg PO BID #6 capsule Cefdinir [Omnicef] 300 mg PO Q48H #1 capsule Home Medications: Levothyroxine [Synthroid] 88 mcg PO DAILY 06/30/15 [History] Aspirin 81 mg PO DAILY 08/07/16 [History] Atorvastatin [Lipitor] 10 mg PO HS 08/07/16 [History] Folic Acid 1 mg PO DAILY 08/07/16 [History] Oxycodone HCl 15 mg PO BID PRN 08/07/16 [History] Pantoprazole Sodium [Protonix] 40 mg PO DAILY 08/07/16 [History] Sertraline [Zoloft] 100 mg PO DAILY 08/07/16 [History] Renal Vitamin [Renal Caps Softgel] 1 mg PO DAILY 05/04/17 [History] Ropinirole HCl [Requip Xl] 4 mg PO HS 05/04/17 [History] Levalbuterol HCl [Xopenex Neb] 1.25 mg IH Q6HR PRN 08/16/18 [History] Allopurinol [Zyloprim 100 MG] 200 mg PO DAILY 10/28/18 [History] Pregabalin [Lyrica] 50 mg PO BID 10/28/18 [History] Ergocalciferol (VITAMIN D2) [Vitamin D2] 50,000 unit PO SA 11/06/18 [History] Levalbuterol Tartrate [Xopenex Hfa] 1 puff IH Q4H PRN 11/06/18 [History] [place]-3 Acid Ethyl Esters [Lovaza] 2 gm PO BID 11/06/18 [History] Nortriptyline [Pamelor] 10 mg PO HS 01/16/19 [History] Biotin 1,000 mcg PO DAILY 02/16/19 [History] Lactulose 30 gm PO DAILY PRN 02/16/19 [History] Sucroferric Oxyhydroxide [Velphoro] 500 mg PO TIDWM 02/16/19 [History] amLODIPine [Norvasc] 5 mg PO DAILY #30 tablet 02/28/19 [Rx] Docusate Sodium [Dulcolax Stool Softener] 100 mg PO DAILY PRN 03/04/19 [History] Amiodarone [Cordarone] 200 mg PO DAILY 30 Days #30 tablet 03/10/19 [Rx] Insulin ASPART [NovoLOG] 0 units SQ TIDWM 03/16/19 [History] Cefdinir [Omnicef] 300 mg PO Q48H #1 capsule 03/20/19 [Rx] Doxycycline 100 mg PO BID #6 capsule 03/20/19 [Rx] Warfarin [Coumadin] 7.5 mg PO 1800 #30 tablet 03/20/19 [Rx] Allergies/Adverse Reactions: Allergy/AdvReac Type Severity Reaction Status Date / Time MALACHI Inhibitors Allergy Hives Verified 03/16/19 16:15 cephalexin [From Keflex] Allergy Hives Verified 03/16/19 16:15 cephalothin Allergy Hives Verified 03/16/19 16:15 ciprofloxacin [From Cipro] Allergy See Verified 03/16/19 16:15 Comments clindamycin Allergy Swelling Verified 03/16/19 16:15 of Lip/Tongue/Throat codeine Allergy Hives Verified 03/16/19 16:15 doxycycline Allergy Nausea Verified 03/16/19 16:15 fentanyl Allergy See Verified 03/16/19 16:15 Comments hydromorphone [From Dilaudid] Allergy See Verified 03/16/19 16:15 Comments metoclopramide [From Reglan] Allergy Hives Verified 03/16/19 16:15 metronidazole Allergy Difficulty Verified 03/16/19 16:15 Breathing NSAIDS (Non-Steroidal Allergy Difficulty Verified 03/16/19 16:15 Anti-Inflamma Breathing Penicillins [PCN] Allergy Swelling Verified 03/16/19 16:15 of Lip/Tongue/Throat Sulfa (Sulfonamide Allergy Difficulty Verified 03/16/19 16:15 Antibiotics) Breathing sulfamethoxazole Allergy Difficulty Verified 03/16/19 16:15 [From Bactrim] Breathing trimethoprim Allergy Hives Verified 03/16/19 16:15 Certification: Further, I certify that my clinical findings support that this patient is homebound (i.e. absences from home require considerable and taxing effort and are for medical reasons or protestant services or infrequently or short duration when for other reasons) because: Homebound Reason: Patient requires assistance of a person or device to safely leave home, Leaving home requires considerable and taxing effort due to condition, Severity of cardiac or pulmonary status limits activity tolerance Attestation: My signature below is to certify that this patient is under my care and that I, or nurse practitioner, or a physician's preschool teacher assistant working with me, has a [id number] encounter with this patient.
[2019-03-20] MEDS ORDERED: *HR* Warfarin 7.5 MG TABLET PO ONE (18:00)
== END 2019-03-20 13:34 | disposition home or self-care (01) | DRG 871 ==
LOC: EMEROOARM 15:51 → 2NNU 15:51 → SUATTDRO 19:32 → 2NNU 20:30
PROVIDERS: ADMIT Student in an Organized Health Care Education/Training Program; ATTEND Internal Medicine

== ENCOUNTER 2019-09-10 17:56 | Observation (INO) ==
[2019-09-10 20:28] LABS: Basophils % 0.4 %; Eosinophils % 0.1 %; Hematocrit 36.6 % (35.3-44.9); Hemoglobin 12.2 g/dL (11.5-15.4); Immature Granulocytes % 0.4 % (0-4); Lymphocytes # 0.6 K/mcL (0.6-4.6); Lymphocytes % 7.2 %; Mean Corpuscular HGB Conc 33.3 g/dL (31.6-35.5); Mean Corpuscular Hemoglobin 31.2 pg (28.0-33.3); Mean Corpuscular Volume 93.6 fL (83.0-100.0); Mean Platelet Volume 11.9 fL (9.4-12.4); Monocytes # 0.5 K/mcL (0.0-1.3); Monocytes % 5.4 %; Neutrophils # 7.2 K/mcL (1.6-8.9); Platelet Count 152 K/mcL (140-400); Red Blood Count 3.91 M/mcL (3.82-4.97); Red Cell Distribution Width 17.7 % (11.5-14.5); Segmented Neutrophils % 86.5 %; White Blood Count 8.3 K/mcL (4.3-11.1)
[2019-09-10 20:29] LABS: INR 3.2
[2019-09-10 20:48] LABS: Albumin 4.4 g/dL (3.5-5.7); Albumin/Globulin Ratio 1.6 (1.1-2.2); Bilirubin,Total 0.5 mg/dL (0.3-1.0); Calcium 9.2 mg/dL (8.6-10.3); Globulin 2.7 g/dL (2.4-3.5); Potassium 4.6 mEq/L (3.5-5.1); Total Protein 7.1 g/dL (6.4-8.9)
[2019-09-10] MEDS ORDERED: DESMOPRESSIN ACETATE IVPB SCH (23:30)
[2019-09-10] MEDS ORDERED: SODIUM CHLORIDE 0.9% IVPB SCH (23:30)
[2019-09-11] MEDS ORDERED: Levalbuterol 1 PUFF INHALER IH PRN (03:19)
[2019-09-11] MEDS ORDERED: Levalbuterol Neb 1.25 MG/3 ML IH PRN (03:19)
[2019-09-11] MEDS ORDERED: *HR* Dextrose 50 % in Water (Syg) 50 ML SYRINGE IVP PRN (03:30)
[2019-09-11] MEDS ORDERED: Dextrose Gel 15 GM/37.5 ML TUBE PO PRN ×2 (03:30)
[2019-09-11] MEDS ORDERED: D5% in Water 1,000 ML IVC PRN (03:30)
[2019-09-11 05:27] LABS: INR 2.6; Prothrombin Time 29.1 Seconds (9.4-12.1)
[2019-09-11 05:34] LABS: Basophils % 0.3 %; Eosinophils % 0.1 %; Hematocrit 34.9 % (35.3-44.9); Hemoglobin 11.2 g/dL (11.5-15.4); Immature Granulocytes % 0.3 % (0-4); Lymphocytes # 0.8 K/mcL (0.6-4.6); Lymphocytes % 9.6 %; Mean Corpuscular HGB Conc 32.1 g/dL (31.6-35.5); Mean Corpuscular Hemoglobin 31.1 pg (28.0-33.3); Mean Corpuscular Volume 96.9 fL (83.0-100.0); Mean Platelet Volume 12.6 fL (9.4-12.4); Monocytes # 0.5 K/mcL (0.0-1.3); Monocytes % 6.2 %; Neutrophils # 6.6 K/mcL (1.6-8.9); Platelet Count 144 K/mcL (140-400); Red Cell Distribution Width 17.9 % (11.5-14.5); Segmented Neutrophils % 83.5 %; White Blood Count 7.9 K/mcL (4.3-11.1)
[2019-09-11 05:45] LABS: Calcium 9.1 mg/dL (8.6-10.3); Magnesium 2.2 mg/dL (1.6-2.6); Phosphorous 3.5 mg/dL (2.7-4.5); Potassium 4.8 mEq/L (3.5-5.1)
[2019-09-11] MEDS: Insulin LISPRO 300 UNITS/3 ML VIAL SQ SCH ×2 (08:43→12:12)
[2019-09-11] MEDS ORDERED: amLODIPine 5 MG TABLET PO SCH (09:00)
[2019-09-11 09:20] LABS: Estimated Average Glucose 148 mg/dl
[2019-09-11 11:18] VITALS: BP 158/66
[2019-09-11] MEDS ORDERED: Insulin LISPRO 300 UNITS/3 ML VIAL SQ SCH (21:00)
== END 2019-09-11 14:29 | disposition home or self-care (01) ==
LOC: 2ANU 17:56 → EMEROOARM 17:56 → SUATTDRO 09-11 01:35 → 2ANU 09-11 01:55
PROVIDERS: ADMIT Internal Medicine; ATTEND Family Medicine

== ENCOUNTER 2019-10-22 08:31 | Inpatient (IN) ==
[2019-10-22] MEDS ORDERED: Naloxone 0.4 MG/ML INJ IVP PRN ×2 (13:55→15:38)
[2019-10-22 15:12] LABS: Magnesium 2.1 mg/dL (1.6-2.6); Phosphorous 5.5 mg/dL (2.7-4.5)
[2019-10-22] MEDS ORDERED: Ipratropium/Albuterol Neb 3 ML IH PRN (15:34)
[2019-10-22] MEDS ORDERED: Ondansetron ODT 4 MG TAB.RAPDIS SL PRN (15:38)
[2019-10-22] MEDS ORDERED: D5% in Water 1,000 ML IVC PRN (15:57)
[2019-10-22] MEDS ORDERED: Dextrose Gel 15 GM/37.5 ML TUBE PO PRN ×2 (15:57)
[2019-10-22] MEDS ORDERED: *HR* Dextrose 50 % in Water (Syg) 50 ML SYRINGE IVP PRN (15:57)
[2019-10-22 16:40] LABS: Phosphorous 5.5 mg/dL (2.7-4.5); Potassium 4.3 mEq/L (3.5-5.1)
[2019-10-22] MEDS ORDERED: *HR* Heparin 5,000 UNIT/ML VIAL IVP PRN ×2 (16:56)
[2019-10-22] MEDS ORDERED: *HR* Heparin 5,000 UNIT/ML VIAL IVP ONE (16:56)
[2019-10-22] MEDS ORDERED: Heparin 25,000 UNIT/250 ML D5W 25,000 UNIT/250 ML IV.SOLN IVC SCH (17:00)
[2019-10-22] MEDS: MethylPREDNISolone 40 MG/ML VIAL IVP SCH (17:06)
[2019-10-22] MEDS: Insulin LISPRO 300 UNITS/3 ML VIAL SQ SCH ×2 (17:07→22:02)
[2019-10-22] MEDS: Ipratropium/Albuterol Neb 3 ML IH SCH ×2 (20:50→23:58)
[2019-10-23] MEDS: MethylPREDNISolone 40 MG/ML VIAL IVP SCH ×4 (01:51→18:42)
[2019-10-23 02:24] LABS: Basophils % 0.1 %; Hemoglobin 11.1 g/dL (11.5-15.4); Immature Granulocytes % 0.4 % (0-4); Lymphocytes # 0.3 K/mcL (0.6-4.6); Lymphocytes % 2.9 %; Mean Corpuscular HGB Conc 32.6 g/dL (31.6-35.5); Mean Corpuscular Hemoglobin 31.8 pg (28.0-33.3); Mean Corpuscular Volume 97.4 fL (83.0-100.0); Mean Platelet Volume 13.6 fL (9.4-12.4); Monocytes # 0.3 K/mcL (0.0-1.3); Monocytes % 3.1 %; Neutrophils # 9.1 K/mcL (1.6-8.9); Platelet Count 112 K/mcL (140-400); Red Blood Count 3.49 M/mcL (3.82-4.97); Red Cell Distribution Width 17.2 % (11.5-14.5); Segmented Neutrophils % 93.5 %; White Blood Count 9.7 K/mcL (4.3-11.1)
[2019-10-23 02:30] LABS: Heparin anti-factor XA UFH 0.25 IU/mL (0.30-0.70); INR 3.4; Prothrombin Time 38.9 Seconds (9.4-12.1)
[2019-10-23 02:33] LABS: Activated Partial Thrombo Time 70.4 Seconds (26.0-36.0)
[2019-10-23 02:58] LABS: Albumin 3.6 g/dL (3.5-5.7); Albumin/Globulin Ratio 1.6 (1.1-2.2); Bilirubin,Total 0.6 mg/dL (0.3-1.0); Calcium 7.7 mg/dL (8.6-10.3); Globulin 2.2 g/dL (2.4-3.5); Potassium 4.8 mEq/L (3.5-5.1); Total Protein 5.8 g/dL (6.4-8.9)
[2019-10-23 04:40] LABS: Hepatitis B Surface Antibody < 3.10 mIU/mL
[2019-10-23 04:51] LABS: Hepatitis B Surface Antigen Nonreactive (Nonreactive)
[2019-10-23] MEDS: Ipratropium/Albuterol Neb 3 ML IH SCH ×5 (05:13→20:34)
[2019-10-23] MEDS ORDERED: 0.9 % Sodium Chloride 250 ML IVC PRN (06:58)
[2019-10-23] MEDS ORDERED: 0.9 % Sodium Chloride 1,000 ML PRIME SCH (07:00)
[2019-10-23] MEDS: Insulin LISPRO 300 UNITS/3 ML VIAL SQ SCH ×4 (08:35→20:54)
[2019-10-23] MEDS ORDERED: Azithromycin 250 MG TABLET PO SCH (10:45)
[2019-10-23] MEDS ORDERED: Perflutren Lipid Microsphere 1.3 ML in 0.9 % Sodium Chloride 8.7 ML IVP ONE (12:33)
[2019-10-23] MEDS ORDERED: levoFLOXacin 750 MG TABLET PO ONE (13:47)
[2019-10-23] MEDS: Aspirin Enteric Coated 81 MG Tablet PO SCH (14:56)
[2019-10-23] MEDS: rOPINIRole 1 MG TABLET PO SCH (20:41)
[2019-10-23] MEDS: Pregabalin 50 MG CAPSULE PO SCH (20:41)
[2019-10-24] MEDS: MethylPREDNISolone 40 MG/ML VIAL IVP SCH ×4 (00:04→17:40)
[2019-10-24] MEDS: Ipratropium/Albuterol Neb 3 ML IH SCH ×6 (00:26→20:01)
[2019-10-24] MEDS ORDERED: 0.9 % Sodium Chloride 250 ML IVC PRN (06:19)
[2019-10-24 08:11] LABS: INR 1.7; Prothrombin Time 19.5 Seconds (9.4-12.1)
[2019-10-24 08:18] LABS: Hematocrit 36.2 % (35.3-44.9); Hemoglobin 11.7 g/dL (11.5-15.4); Mean Corpuscular HGB Conc 32.3 g/dL (31.6-35.5); Mean Corpuscular Hemoglobin 31.5 pg (28.0-33.3); Mean Corpuscular Volume 97.3 fL (83.0-100.0); Mean Platelet Volume 12.9 fL (9.4-12.4); Platelet Count 111 K/mcL (140-400); Red Blood Count 3.72 M/mcL (3.82-4.97); Red Cell Distribution Width 17.1 % (11.5-14.5); White Blood Count 8.1 K/mcL (4.3-11.1)
[2019-10-24 08:27] LABS: Albumin/Globulin Ratio 1.7 (1.1-2.2); Bilirubin,Total 0.7 mg/dL (0.3-1.0); Calcium 8.6 mg/dL (8.6-10.3); Globulin 2.4 g/dL (2.4-3.5); Potassium 4.4 mEq/L (3.5-5.1); Total Protein 6.4 g/dL (6.4-8.9)
[2019-10-24] MEDS: Insulin LISPRO 300 UNITS/3 ML VIAL SQ SCH ×4 (08:51→21:28)
[2019-10-24] MEDS: Aspirin Enteric Coated 81 MG Tablet PO SCH (08:52)
[2019-10-24] MEDS: Pregabalin 50 MG CAPSULE PO SCH ×2 (08:52→20:17)
[2019-10-24] MEDS: Sennosides/Docusate Sodium TABLET PO SCH ×2 (08:53→20:18)
[2019-10-24] MEDS: Lactobacillus 1 EACH CAP.SPRINK PO SCH (08:53)
[2019-10-24] MEDS: Folic Acid 1 MG TABLET PO SCH (08:53)
[2019-10-24] MEDS: amLODIPine 5 MG TABLET PO SCH (08:53)
[2019-10-24] MEDS ORDERED: *HR* Heparin 5,000 UNIT/ML VIAL IVP PRN ×2 (10:08)
[2019-10-24] MEDS: Budesonide/Formoterol 160/4.5 1 PUFF INH IH SCH ×2 (11:45→20:01)
[2019-10-24] MEDS: Renal Vitamin 1 CAP CAPSULE PO SCH (15:51)
[2019-10-24] MEDS: Heparin 25,000 UNIT/250 ML D5W 25,000 UNIT/250 ML IV.SOLN IVC SCH (16:01)
[2019-10-24] MEDS ORDERED: *HR* OxyCODONE/APAP 7.5/325 TABLET PO PRN (16:49)
[2019-10-24] MEDS ORDERED: *HR* OxyCODONE Immed Rel 5 MG TABLET PO ONE (16:51)
[2019-10-24] MEDS: *HR* OxyCODONE Immed Rel 15 MG TABLET PO PRN (20:17)
[2019-10-24] MEDS: rOPINIRole 1 MG TABLET PO SCH (20:17)
[2019-10-25] MEDS: Ipratropium/Albuterol Neb 3 ML IH SCH ×6 (00:19→20:22)
[2019-10-25 05:27] LABS: INR 1.4; Prothrombin Time 15.6 Seconds (9.4-12.1)
[2019-10-25] MEDS: MethylPREDNISolone 40 MG/ML VIAL IVP SCH ×2 (05:41→17:27)
[2019-10-25 05:44] LABS: Albumin 3.5 g/dL (3.5-5.7); Albumin/Globulin Ratio 1.6 (1.1-2.2); Bilirubin,Total 0.8 mg/dL (0.3-1.0); Calcium 8.4 mg/dL (8.6-10.3); Globulin 2.2 g/dL (2.4-3.5); Potassium 3.7 mEq/L (3.5-5.1); Total Protein 5.7 g/dL (6.4-8.9)
[2019-10-25 05:51] LABS: Hematocrit 29.8 % (35.3-44.9); Hemoglobin 9.9 g/dL (11.5-15.4); Mean Corpuscular HGB Conc 33.2 g/dL (31.6-35.5); Mean Corpuscular Hemoglobin 32.1 pg (28.0-33.3); Mean Corpuscular Volume 96.8 fL (83.0-100.0); Mean Platelet Volume 13.2 fL (9.4-12.4); Platelet Count 170 K/mcL (140-400); Red Blood Count 3.08 M/mcL (3.82-4.97); Red Cell Distribution Width 16.9 % (11.5-14.5); White Blood Count 10.4 K/mcL (4.3-11.1)
[2019-10-25] MEDS: Budesonide/Formoterol 160/4.5 1 PUFF INH IH SCH ×2 (07:26→20:22)
[2019-10-25] MEDS: Insulin LISPRO 300 UNITS/3 ML VIAL SQ SCH ×4 (09:18→21:25)
[2019-10-25] MEDS: Sennosides/Docusate Sodium TABLET PO SCH ×3 (10:16→21:34)
[2019-10-25] MEDS: Lactobacillus 1 EACH CAP.SPRINK PO SCH (10:16)
[2019-10-25] MEDS: *HR* OxyCODONE Immed Rel 15 MG TABLET PO SCH (10:17)
[2019-10-25] MEDS: Aspirin Enteric Coated 81 MG Tablet PO SCH (10:17)
[2019-10-25] MEDS: Pregabalin 50 MG CAPSULE PO SCH ×2 (10:17→21:36)
[2019-10-25] MEDS: Cholecalciferol (D-3) 1,000 UNIT (25MCG) TABLET PO SCH (10:17)
[2019-10-25] MEDS: amLODIPine 5 MG TABLET PO SCH (10:17)
[2019-10-25] MEDS: Folic Acid 1 MG TABLET PO SCH (10:17)
[2019-10-25] MEDS: Renal Vitamin 1 CAP CAPSULE PO SCH (13:57)
[2019-10-25] MEDS ORDERED: levoFLOXacin 500 MG TABLET PO SCH (16:00)
[2019-10-25] MEDS: *HR* OxyCODONE Immed Rel 15 MG TABLET PO PRN (20:35)
[2019-10-25] MEDS: Heparin 25,000 UNIT/250 ML D5W 25,000 UNIT/250 ML IV.SOLN IVC SCH ×2 (21:10→21:12)
[2019-10-25] MEDS: rOPINIRole 1 MG TABLET PO SCH (21:35)
[2019-10-26] MEDS: MethylPREDNISolone 40 MG/ML VIAL IVP SCH ×4 (00:25→23:57)
[2019-10-26] MEDS: Ipratropium/Albuterol Neb 3 ML IH SCH ×6 (00:26→20:43)
[2019-10-26 00:43] LABS: Hematocrit 28.2 % (35.3-44.9); Hemoglobin 9.1 g/dL (11.5-15.4); Mean Corpuscular HGB Conc 32.3 g/dL (31.6-35.5); Mean Corpuscular Hemoglobin 31.7 pg (28.0-33.3); Mean Corpuscular Volume 98.3 fL (83.0-100.0); Mean Platelet Volume 12.4 fL (9.4-12.4); Platelet Count 179 K/mcL (140-400); Red Blood Count 2.87 M/mcL (3.82-4.97); Red Cell Distribution Width 16.7 % (11.5-14.5); White Blood Count 14.4 K/mcL (4.3-11.1)
[2019-10-26 01:01] LABS: Albumin 3.6 g/dL (3.5-5.7); Albumin/Globulin Ratio 1.6 (1.1-2.2); Bilirubin,Total 0.8 mg/dL (0.3-1.0); Calcium 8.3 mg/dL (8.6-10.3); Globulin 2.2 g/dL (2.4-3.5); Total Protein 5.8 g/dL (6.4-8.9)
[2019-10-26] MEDS: Heparin 25,000 UNIT/250 ML D5W 25,000 UNIT/250 ML IV.SOLN IVC SCH (06:00)
[2019-10-26] MEDS: Budesonide/Formoterol 160/4.5 1 PUFF INH IH SCH ×2 (07:32→20:44)
[2019-10-26] MEDS: Lactobacillus 1 EACH CAP.SPRINK PO SCH (08:38)
[2019-10-26] MEDS: Aspirin Enteric Coated 81 MG Tablet PO SCH (08:38)
[2019-10-26] MEDS: Renal Vitamin 1 CAP CAPSULE PO SCH (08:39)
[2019-10-26] MEDS: *HR* OxyCODONE Immed Rel 15 MG TABLET PO SCH (08:39)
[2019-10-26] MEDS: Sennosides/Docusate Sodium TABLET PO SCH ×3 (08:40→23:06)
[2019-10-26] MEDS: Pregabalin 50 MG CAPSULE PO SCH ×2 (08:40→23:06)
[2019-10-26] MEDS: Folic Acid 1 MG TABLET PO SCH (08:40)
[2019-10-26] MEDS: amLODIPine 5 MG TABLET PO SCH (08:40)
[2019-10-26] MEDS: Cholecalciferol (D-3) 1,000 UNIT (25MCG) TABLET PO SCH (08:40)
[2019-10-26] MEDS: Insulin LISPRO 300 UNITS/3 ML VIAL SQ SCH ×4 (08:57→22:44)
[2019-10-26 16:38] LABS: Heparin anti-factor XA UFH 0.18 IU/mL (0.30-0.70)
[2019-10-26] MEDS ORDERED: Isovue-370 500 ML BOTTLE IVP ONE (17:27)
[2019-10-26 17:47] LABS: Basophils % 0.1 %; Eosinophils % 0.1 %; Hematocrit 20.8 % (35.3-44.9); Immature Granulocytes % 2.7 % (0-4); Lymphocytes # 0.7 K/mcL (0.6-4.6); Lymphocytes % 3.1 %; Mean Corpuscular HGB Conc 33.2 g/dL (31.6-35.5); Mean Corpuscular Hemoglobin 31.9 pg (28.0-33.3); Mean Corpuscular Volume 96.3 fL (83.0-100.0); Mean Platelet Volume 12.8 fL (9.4-12.4); Monocytes # 1.6 K/mcL (0.0-1.3); Monocytes % 6.8 %; Nucleated Red Blood Cells 1.2 /100 WBC (0); Platelet Count 213 K/mcL (140-400); Red Blood Count 2.16 M/mcL (3.82-4.97); Red Cell Distribution Width 16.8 % (11.5-14.5); Segmented Neutrophils % 87.2 %
[2019-10-26 17:49] LABS: Hemoglobin 6.9 g/dL (11.5-15.4); Neutrophils # 20.7 K/mcL (1.6-8.9); White Blood Count 23.7 K/mcL (4.3-11.1)
[2019-10-26 18:12] LABS: INR 1.2; Prothrombin Time 14.1 Seconds (9.4-12.1)
[2019-10-26] MEDS ORDERED: 0.9 % Sodium Chloride 250 ML ONE ×2 (20:12→23:36)
[2019-10-26 20:32] LABS: Hematocrit 19.4 % (35.3-44.9); Hemoglobin 6.4 g/dL (11.5-15.4); Mean Corpuscular Hemoglobin 31.5 pg (28.0-33.3); Mean Corpuscular Volume 95.6 fL (83.0-100.0); Platelet Count 184 K/mcL (140-400); Red Blood Count 2.03 M/mcL (3.82-4.97); Red Cell Distribution Width 16.9 % (11.5-14.5); White Blood Count 20.3 K/mcL (4.3-11.1)
[2019-10-26] MEDS ORDERED: Heparin 1,000 UNITS/500 mL 500 ML ONE (21:00)
[2019-10-26] MEDS ORDERED: 0.9 % Sodium Chloride 500 ML ONE (21:01)
[2019-10-26] MEDS ORDERED: 0.9 % Sodium Chloride 1,000 ML ONE (21:13)
[2019-10-26] MEDS ORDERED: Isovue-300 50ML VIAL IVP ONE (22:06)
[2019-10-26] MEDS: rOPINIRole 1 MG TABLET PO SCH (23:06)
[2019-10-27] MEDS: Ipratropium/Albuterol Neb 3 ML IH SCH ×4 (00:27→11:13)
[2019-10-27 05:33] LABS: Basophils % 0.1 %; Eosinophils % 0.1 %; Hematocrit 25.4 % (35.3-44.9); Immature Granulocytes % 1.9 % (0-4); Lymphocytes # 0.6 K/mcL (0.6-4.6); Lymphocytes % 2.8 %; Mean Corpuscular HGB Conc 34.3 g/dL (31.6-35.5); Mean Corpuscular Hemoglobin 32.1 pg (28.0-33.3); Mean Corpuscular Volume 93.7 fL (83.0-100.0); Mean Platelet Volume 12.5 fL (9.4-12.4); Neutrophils # 18.8 K/mcL (1.6-8.9); Nucleated Red Blood Cells 0.5 /100 WBC (0); Platelet Count 151 K/mcL (140-400); Red Blood Count 2.71 M/mcL (3.82-4.97); Red Cell Distribution Width 16.1 % (11.5-14.5); Segmented Neutrophils % 90.1 %; White Blood Count 20.9 K/mcL (4.3-11.1)
[2019-10-27 05:34] LABS: Hemoglobin 8.7 g/dL (11.5-15.4)
[2019-10-27 05:42] LABS: INR 1.4; Prothrombin Time 15.8 Seconds (9.4-12.1)
[2019-10-27 06:12] LABS: Calcium 7.4 mg/dL (8.6-10.3)
[2019-10-27] MEDS ORDERED: 0.9 % Sodium Chloride 250 ML ONE (06:16)
[2019-10-27] MEDS: MethylPREDNISolone 40 MG/ML VIAL IVP SCH (07:23)
[2019-10-27] MEDS: Renal Vitamin 1 CAP CAPSULE PO SCH (07:24)
[2019-10-27] MEDS: Sennosides/Docusate Sodium TABLET PO SCH ×2 (07:25→07:42)
[2019-10-27] MEDS: Cholecalciferol (D-3) 1,000 UNIT (25MCG) TABLET PO SCH (07:25)
[2019-10-27] MEDS: Folic Acid 1 MG TABLET PO SCH (07:25)
[2019-10-27] MEDS: Pregabalin 50 MG CAPSULE PO SCH ×2 (07:26→20:20)
[2019-10-27] MEDS: Lactobacillus 1 EACH CAP.SPRINK PO SCH (07:26)
[2019-10-27] MEDS: Budesonide/Formoterol 160/4.5 1 PUFF INH IH SCH ×2 (07:41→21:32)
[2019-10-27] MEDS: Insulin LISPRO 300 UNITS/3 ML VIAL SQ SCH ×3 (07:47→20:12)
[2019-10-27] MEDS ORDERED: 0.9 % Sodium Chloride 250 ML IVC PRN (08:25)
[2019-10-27] MEDS: Calcium Gluconate 1gm/50mL 1 GM/50 ML BAG IVPB SCH ×2 (13:11→13:42)
[2019-10-27] MEDS ORDERED: 0.9 % Sodium Chloride 1,000 ML ONE (14:08)
[2019-10-27 15:03] LABS: Hematocrit 27.2 % (35.3-44.9); Hemoglobin 9.4 g/dL (11.5-15.4)
[2019-10-27] MEDS ORDERED: Levalbuterol Neb 1.25 MG/3 ML IH PRN (15:46)
[2019-10-27] MEDS ORDERED: Levalbuterol 1 PUFF INHALER IH PRN (15:46)
[2019-10-27] MEDS ORDERED: Sennosides/Docusate Sodium TABLET PO PRN (15:57)
[2019-10-27] MEDS ORDERED: Naloxone 0.4 MG/ML INJ IVP PRN (15:58)
[2019-10-27] MEDS ORDERED: D5% in Water 1,000 ML IVC PRN (16:00)
[2019-10-27] MEDS ORDERED: *HR* Dextrose 50 % in Water (Syg) 50 ML SYRINGE IVP PRN (16:00)
[2019-10-27] MEDS ORDERED: Dextrose Gel 15 GM/37.5 ML TUBE PO PRN ×2 (16:00)
[2019-10-27 16:28] LABS: Hematocrit 29.6 % (35.3-44.9); Hemoglobin 10.2 g/dL (11.5-15.4)
[2019-10-27] MEDS: *HR* OxyCODONE Immed Rel 15 MG TABLET PO PRN (20:31)
[2019-10-27] MEDS ORDERED: NON-FORMULARY MEDICATION 1 EACH EACH (Omega-3 Acid Ethyl Esters [Lovaza] 2 GM) PO SCH (21:00)
[2019-10-27] MEDS ORDERED: BIOTIN 10000 MCG PO SCH (21:00)
[2019-10-28 04:41] LABS: Hematocrit 24.9 % (35.3-44.9); Mean Corpuscular HGB Conc 33.7 g/dL (31.6-35.5); Mean Corpuscular Hemoglobin 31.9 pg (28.0-33.3); Mean Corpuscular Volume 94.7 fL (83.0-100.0); Platelet Count 117 K/mcL (140-400); Red Blood Count 2.63 M/mcL (3.82-4.97); Red Cell Distribution Width 16.3 % (11.5-14.5)
[2019-10-28 04:47] LABS: Calcium 7.2 mg/dL (8.6-10.3)
[2019-10-28 04:49] LABS: Hemoglobin 8.4 g/dL (11.5-15.4)
[2019-10-28] MEDS: Budesonide/Formoterol 160/4.5 1 PUFF INH IH SCH ×2 (07:40→22:46)
[2019-10-28] MEDS ORDERED: 0.9 % Sodium Chloride 1,000 ML ONE (07:41)
[2019-10-28] MEDS ORDERED: 0.9 % Sodium Chloride 250 ML IVC PRN (07:50)
[2019-10-28] MEDS ORDERED: 0.9 % Sodium Chloride 1,000 ML PRIME SCH (08:00)
[2019-10-28] MEDS: Lactobacillus 1 EACH CAP.SPRINK PO SCH (08:15)
[2019-10-28] MEDS: *HR* OxyCODONE Immed Rel 15 MG TABLET PO SCH (08:16)
[2019-10-28] MEDS: Folic Acid 1 MG TABLET PO SCH (08:16)
[2019-10-28] MEDS: Pregabalin 50 MG CAPSULE PO SCH ×2 (08:16→21:26)
[2019-10-28] MEDS: Insulin LISPRO 300 UNITS/3 ML VIAL SQ SCH ×4 (08:17→21:17)
[2019-10-28] MEDS ORDERED: amLODIPine 5 MG TABLET PO SCH (09:00)
[2019-10-28] MEDS ORDERED: predniSONE 20 MG TABLET PO SCH (09:00)
[2019-10-28 10:51] LABS: INR 1.3; Prothrombin Time 14.7 Seconds (9.4-12.1)
[2019-10-28 11:01] LABS: Bilirubin,Direct 0.2 mg/dL (0.0-0.2); Bilirubin,Indirect 0.4 mg/dL (0.0-1.0); Bilirubin,Total 0.6 mg/dL (0.3-1.0); Globulin 1.5 g/dL (2.4-3.5); Total Protein 4.5 g/dL (6.4-8.9)
[2019-10-28 12:39] LABS: Hematocrit 24.4 % (35.3-44.9); Hemoglobin 7.9 g/dL (11.5-15.4)
[2019-10-28] MEDS ORDERED: 0.9 % Sodium Chloride 250 ML ONE ×2 (13:13→21:19)
[2019-10-28] MEDS: predniSONE 20 MG TABLET PO SCH (14:00)
[2019-10-28 17:12] LABS: Hematocrit 25.5 % (35.3-44.9); Hemoglobin 8.7 g/dL (11.5-15.4); Mean Corpuscular HGB Conc 34.1 g/dL (31.6-35.5); Mean Corpuscular Hemoglobin 31.8 pg (28.0-33.3); Mean Corpuscular Volume 93.1 fL (83.0-100.0); Mean Platelet Volume 11.9 fL (9.4-12.4); Platelet Count 107 K/mcL (140-400); Red Blood Count 2.74 M/mcL (3.82-4.97); White Blood Count 18.3 K/mcL (4.3-11.1)
[2019-10-28] MEDS: Sennosides/Docusate Sodium TABLET PO SCH (21:26)
[2019-10-29 04:58] LABS: Mean Corpuscular Hemoglobin 31.7 pg (28.0-33.3); Mean Platelet Volume 12.3 fL (9.4-12.4)
[2019-10-29 05:00] LABS: Hematocrit 27.1 % (35.3-44.9); Hemoglobin 9.2 g/dL (11.5-15.4); Immature Platelets 9.1 % (1.1-6.1); Mean Corpuscular HGB Conc 33.9 g/dL (31.6-35.5); Mean Corpuscular Volume 93.4 fL (83.0-100.0); Red Blood Count 2.9 M/mcL (3.82-4.97); Red Cell Distribution Width 16.1 % (11.5-14.5); White Blood Count 17.8 K/mcL (4.3-11.1)
[2019-10-29 05:12] LABS: Albumin 3.1 g/dL (3.5-5.7); Albumin/Globulin Ratio 1.7 (1.1-2.2); Bilirubin,Total 0.7 mg/dL (0.3-1.0); Calcium 7.6 mg/dL (8.6-10.3); Globulin 1.8 g/dL (2.4-3.5); Potassium 4.4 mEq/L (3.5-5.1); Total Protein 4.9 g/dL (6.4-8.9)
[2019-10-29 05:13] LABS: Calcium 7.7 mg/dL (8.6-10.3); Potassium 4.4 mEq/L (3.5-5.1)
[2019-10-29] MEDS: Budesonide/Formoterol 160/4.5 1 PUFF INH IH SCH ×2 (07:45→20:37)
[2019-10-29] MEDS: Sennosides/Docusate Sodium TABLET PO SCH ×2 (09:55→21:40)
[2019-10-29] MEDS: Lactobacillus 1 EACH CAP.SPRINK PO SCH (09:55)
[2019-10-29] MEDS: *HR* OxyCODONE Immed Rel 15 MG TABLET PO SCH (09:55)
[2019-10-29] MEDS: Folic Acid 1 MG TABLET PO SCH (09:56)
[2019-10-29] MEDS: predniSONE 20 MG TABLET PO SCH (09:56)
[2019-10-29] MEDS: Pregabalin 50 MG CAPSULE PO SCH ×2 (09:56→21:40)
[2019-10-29] MEDS: Insulin LISPRO 300 UNITS/3 ML VIAL SQ SCH ×5 (10:01→21:41)
[2019-10-30 03:51] LABS: Hematocrit 26.6 % (35.3-44.9); Hemoglobin 8.9 g/dL (11.5-15.4); Mean Corpuscular HGB Conc 33.5 g/dL (31.6-35.5)
[2019-10-30 03:53] LABS: Immature Platelets 10.2 % (1.1-6.1); Mean Corpuscular Hemoglobin 31.8 pg (28.0-33.3); Mean Platelet Volume 12.3 fL (9.4-12.4); Red Blood Count 2.8 M/mcL (3.82-4.97); Red Cell Distribution Width 16.6 % (11.5-14.5); White Blood Count 17.7 K/mcL (4.3-11.1)
[2019-10-30 04:04] LABS: Albumin 3.1 g/dL (3.5-5.7); Albumin/Globulin Ratio 1.6 (1.1-2.2); Bilirubin,Total 0.7 mg/dL (0.3-1.0); Calcium 7.8 mg/dL (8.6-10.3); Globulin 1.9 g/dL (2.4-3.5); Potassium 4.8 mEq/L (3.5-5.1)
[2019-10-30] MEDS: Lactobacillus 1 EACH CAP.SPRINK PO SCH (09:56)
[2019-10-30] MEDS: predniSONE 20 MG TABLET PO SCH (09:56)
[2019-10-30] MEDS: Pregabalin 50 MG CAPSULE PO SCH ×2 (09:56→22:46)
[2019-10-30] MEDS: Folic Acid 1 MG TABLET PO SCH (09:58)
[2019-10-30] MEDS: *HR* OxyCODONE Immed Rel 15 MG TABLET PO SCH (09:58)
[2019-10-30] MEDS: Sennosides/Docusate Sodium TABLET PO SCH ×2 (09:59→22:46)
[2019-10-30] MEDS: Insulin LISPRO 300 UNITS/3 ML VIAL SQ SCH ×4 (10:03→22:45)
[2019-10-30] MEDS: Budesonide/Formoterol 160/4.5 1 PUFF INH IH SCH ×2 (11:45→22:08)
[2019-10-31 04:55] LABS: Hematocrit 28.9 % (35.3-44.9); Hemoglobin 9.7 g/dL (11.5-15.4); Mean Corpuscular HGB Conc 33.6 g/dL (31.6-35.5); Mean Corpuscular Volume 95.4 fL (83.0-100.0); Mean Platelet Volume 12.7 fL (9.4-12.4); Red Blood Count 3.03 M/mcL (3.82-4.97); Red Cell Distribution Width 17.1 % (11.5-14.5); White Blood Count 14.7 K/mcL (4.3-11.1)
[2019-10-31 04:59] LABS: Albumin 3.2 g/dL (3.5-5.7); Albumin/Globulin Ratio 1.6 (1.1-2.2); Bilirubin,Total 0.7 mg/dL (0.3-1.0); Calcium 7.9 mg/dL (8.6-10.3); Platelet Count 82 K/mcL (140-400); Total Protein 5.2 g/dL (6.4-8.9)
[2019-10-31] MEDS: Budesonide/Formoterol 160/4.5 1 PUFF INH IH SCH ×2 (07:59→20:45)
[2019-10-31] MEDS ORDERED: 0.9 % Sodium Chloride 250 ML IVC PRN (08:46)
[2019-10-31] MEDS: Sennosides/Docusate Sodium TABLET PO SCH ×2 (09:52→22:04)
[2019-10-31] MEDS: *HR* OxyCODONE Immed Rel 15 MG TABLET PO SCH (09:52)
[2019-10-31] MEDS: Folic Acid 1 MG TABLET PO SCH (09:52)
[2019-10-31] MEDS: Lactobacillus 1 EACH CAP.SPRINK PO SCH (09:53)
[2019-10-31] MEDS: Pregabalin 50 MG CAPSULE PO SCH ×2 (09:53→22:04)
[2019-10-31] MEDS: predniSONE 20 MG TABLET PO SCH (09:53)
[2019-10-31] MEDS: Insulin LISPRO 300 UNITS/3 ML VIAL SQ SCH ×4 (09:57→22:05)
[2019-10-31] MEDS ORDERED: Insulin DETEMIR 100 UNIT/ML X5UNITS SQ SCH (21:00)
[2019-10-31] MEDS: *HR* OxyCODONE Immed Rel 15 MG TABLET PO PRN (22:53)
[2019-11-01 05:03] LABS: Hemoglobin 8.8 g/dL (11.5-15.4)
[2019-11-01 05:04] LABS: Hematocrit 26.3 % (35.3-44.9); Immature Platelets 11.3 % (1.1-6.1); Mean Corpuscular HGB Conc 33.5 g/dL (31.6-35.5); Mean Corpuscular Hemoglobin 32.4 pg (28.0-33.3); Mean Corpuscular Volume 96.7 fL (83.0-100.0); Mean Platelet Volume 12.7 fL (9.4-12.4); Red Blood Count 2.72 M/mcL (3.82-4.97); Red Cell Distribution Width 17.5 % (11.5-14.5); White Blood Count 13.6 K/mcL (4.3-11.1)
[2019-11-01 05:21] LABS: Albumin 3.1 g/dL (3.5-5.7); Albumin/Globulin Ratio 1.6 (1.1-2.2); Bilirubin,Total 0.7 mg/dL (0.3-1.0); Calcium 7.8 mg/dL (8.6-10.3); Globulin 1.9 g/dL (2.4-3.5); Potassium 4.6 mEq/L (3.5-5.1)
[2019-11-01] MEDS: Budesonide/Formoterol 160/4.5 1 PUFF INH IH SCH (07:47)
[2019-11-01] MEDS: Insulin LISPRO 300 UNITS/3 ML VIAL SQ SCH ×3 (08:25→16:32)
[2019-11-01] MEDS: Folic Acid 1 MG TABLET PO SCH (08:26)
[2019-11-01] MEDS: *HR* OxyCODONE Immed Rel 15 MG TABLET PO SCH (08:26)
[2019-11-01] MEDS: Pregabalin 50 MG CAPSULE PO SCH (08:26)
[2019-11-01] MEDS: Sennosides/Docusate Sodium TABLET PO SCH (08:27)
[2019-11-01] MEDS: Lactobacillus 1 EACH CAP.SPRINK PO SCH (08:27)
[2019-11-01] MEDS ORDERED: predniSONE 20 MG TABLET PO SCH (09:00)
[2019-11-01 16:11] VITALS: BP 153/55
== END 2019-11-01 18:01 | DRG 270 ==
LOC: 2NNU 12:11 → INTOOBSV 12:11 → SUATTDRO 12:11 → 3ANU 10-23 17:32 → ICNU 10-26 18:15 → 2ANU 10-27 12:06
PROVIDERS: ADMIT Internal Medicine; ATTEND Internal Medicine

== ENCOUNTER 2020-01-03 18:35 | Inpatient (IN) ==
[2020-01-03] MEDS ORDERED: Naloxone 0.4 MG/ML INJ IVP PRN (21:30)
[2020-01-03] MEDS ORDERED: Ondansetron 4 MG/2 ML VIAL IVP PRN (21:30)
[2020-01-03] MEDS ORDERED: Ipratropium/Albuterol Neb 3 ML IH PRN (23:07)
[2020-01-03 23:47] LABS: ABG Base Excess 3 mEq/L (-2 to 3); ABG HCO3 32 mEq/L (21-27); ABG Oxygen Saturation 93 % (95-98); ABG PCO2 75 mmHg (35-45); ABG PH 7.25 pH Units (7.32-7.45); ABG PO2 81 mmHg (85-104); ABG TCO2 35 mEq/L (20-26); Blood Gas Modality NIV
[2020-01-04] MEDS: Ipratropium/Albuterol Neb 3 ML IH SCH ×7 (00:06→23:54)
[2020-01-04] MEDS: Cefepime HCl 1,000 MG in 0.9 % Sodium Chloride Mini Bag 100 ML IVPB SCH (00:52)
[2020-01-04] MEDS: MethylPREDNISolone 40 MG/ML VIAL IVP SCH ×3 (00:53→16:30)
[2020-01-04] MEDS: Doxycycline 100 MG in 0.9 % Sodium Chloride Mini Bag 100 ML IVPB SCH ×2 (05:25→17:13)
[2020-01-04 05:50] LABS: Adenovirus Not Detected (Not Detect)
[2020-01-04 05:51] LABS: Bordetella Pertussis Not Detected (Not Detect); Chlamydophila pneumoniae Not Detected (Not Detect); Coronavirus 229E Not Detected (Not Detect); Coronavirus HKU1 Not Detected (Not Detect); Coronavirus NL63 Not Detected (Not Detect); Coronavirus OC43 Not Detected (Not Detect); Human Metapneumovirus Not Detected (Not Detect); Human Rhinovirus/Enterovirus Not Detected (Not Detect); Influenza A Subtype 2009 H1 DETECTED (Not Detect); Influenza B Not Detected (Not Detect); Mycoplasma pneumoniae Not Detected (Not Detect); Parainfluenza Virus 1 Not Detected (Not Detect); Parainfluenza Virus 2 Not Detected (Not Detect); Parainfluenza Virus 3 Not Detected (Not Detect); Parainfluenza Virus 4 Not Detected (Not Detect); Respiratory Syncytial Virus Not Detected (Not Detect)
[2020-01-04 10:57] LABS: Basophils % 0.2 %; Hematocrit 33.3 % (35.3-44.9); Hemoglobin 9.9 g/dL (11.5-15.4); Immature Granulocytes % 0.6 % (0-4); Lymphocytes # 0.3 K/mcL (0.6-4.6); Lymphocytes % 4.9 %; Mean Corpuscular HGB Conc 29.7 g/dL (31.6-35.5); Mean Corpuscular Hemoglobin 32.1 pg (28.0-33.3); Mean Corpuscular Volume 108.1 fL (83.0-100.0); Mean Platelet Volume 11.2 fL (9.4-12.4); Monocytes # 0.2 K/mcL (0.0-1.3); Monocytes % 4.2 %; Neutrophils # 4.7 K/mcL (1.6-8.9); Nucleated Red Blood Cells 0.4 /100 WBC (0); Platelet Count 163 K/mcL (140-400); Red Blood Count 3.08 M/mcL (3.82-4.97); Red Cell Distribution Width 17.3 % (11.5-14.5); Segmented Neutrophils % 90.1 %; White Blood Count 5.3 K/mcL (4.3-11.1)
[2020-01-04 11:09] LABS: INR 6.8; Prothrombin Time 77.8 Seconds (9.4-12.1)
[2020-01-04 11:26] LABS: Calcium 8.7 mg/dL (8.6-10.3); Potassium 3.7 mEq/L (3.5-5.1); Troponin I 0.54 ng/mL (< 0.04)
[2020-01-04] MEDS ORDERED: *HR* Phytonadione 5 MG TABLET PO ONE (11:45)
[2020-01-04] MEDS: Budesonide/Formoterol 160/4.5 1 PUFF INH IH SCH ×2 (15:51→19:35)
[2020-01-04] MEDS ORDERED: *HR* Dextrose 50 % in Water (Syg) 50 ML SYRINGE IVP PRN (16:57)
[2020-01-04] MEDS ORDERED: D5% in Water 1,000 ML IVC PRN (16:57)
[2020-01-04] MEDS ORDERED: Dextrose Gel 15 GM/37.5 ML TUBE PO PRN ×2 (16:57)
[2020-01-04] MEDS: Insulin LISPRO 300 UNITS/3 ML VIAL SQ SCH ×2 (17:10→21:04)
[2020-01-05] MEDS: MethylPREDNISolone 40 MG/ML VIAL IVP SCH ×3 (00:11→18:22)
[2020-01-05] MEDS: Cefepime HCl 1,000 MG in 0.9 % Sodium Chloride Mini Bag 100 ML IVPB SCH (00:11)
[2020-01-05] MEDS: Ipratropium/Albuterol Neb 3 ML IH SCH ×5 (04:19→20:26)
[2020-01-05] MEDS: Doxycycline 100 MG in 0.9 % Sodium Chloride Mini Bag 100 ML IVPB SCH ×2 (06:37→18:25)
[2020-01-05 06:38] LABS: Hematocrit 28.6 % (35.3-44.9); Hemoglobin 8.7 g/dL (11.5-15.4); Immature Granulocytes % 0.6 % (0-4); Lymphocytes # 0.2 K/mcL (0.6-4.6); Lymphocytes % 3.3 %; Mean Corpuscular HGB Conc 30.4 g/dL (31.6-35.5); Mean Corpuscular Hemoglobin 32.1 pg (28.0-33.3); Mean Corpuscular Volume 105.5 fL (83.0-100.0); Mean Platelet Volume 11.3 fL (9.4-12.4); Monocytes # 0.3 K/mcL (0.0-1.3); Monocytes % 5.9 %; Neutrophils # 4.6 K/mcL (1.6-8.9); Nucleated Red Blood Cells 0.4 /100 WBC (0); Platelet Count 148 K/mcL (140-400); Red Blood Count 2.71 M/mcL (3.82-4.97); Red Cell Distribution Width 17.1 % (11.5-14.5); Segmented Neutrophils % 90.2 %; White Blood Count 5.1 K/mcL (4.3-11.1)
[2020-01-05 06:48] LABS: INR 2.5; Prothrombin Time 28.5 Seconds (9.4-12.1)
[2020-01-05 06:59] LABS: Calcium 8.2 mg/dL (8.6-10.3); Magnesium 2.1 mg/dL (1.6-2.6); Phosphorous 4.5 mg/dL (2.7-4.5); Potassium 3.7 mEq/L (3.5-5.1)
[2020-01-05] MEDS: Budesonide/Formoterol 160/4.5 1 PUFF INH IH SCH ×2 (07:13→20:26)
[2020-01-05 07:14] LABS: Anisocytosis 1+ (Not Present); Microcytosis Present (Not Present); Platelet Estimate Normal (Normal)
[2020-01-05] MEDS ORDERED: 0.9 % Sodium Chloride 250 ML IVC PRN (07:21)
[2020-01-05 07:56] LABS: Hepatitis B Surface Antibody < 3.10 mIU/mL
[2020-01-05 08:07] LABS: Hepatitis B Surface Antigen Nonreactive (Nonreactive)
[2020-01-05] MEDS: Insulin LISPRO 300 UNITS/3 ML VIAL SQ SCH ×4 (08:07→19:58)
[2020-01-05 09:22] LABS: Estimated Average Glucose 80 mg/dl
[2020-01-05] MEDS ORDERED: Sennosides/Docusate Sodium TABLET PO PRN (12:11)
[2020-01-05] MEDS ORDERED: 0.9 % Sodium Chloride 1,000 ML PRIME SCH (12:15)
[2020-01-05] MEDS: polyethylene glycoL 3350 17 GM POWD.PACK PO SCH (14:50)
[2020-01-06] MEDS: MethylPREDNISolone 40 MG/ML VIAL IVP SCH ×2 (00:23→07:27)
[2020-01-06] MEDS: Cefepime HCl 1,000 MG in 0.9 % Sodium Chloride Mini Bag 100 ML IVPB SCH ×2 (00:23→20:06)
[2020-01-06] MEDS: Ipratropium/Albuterol Neb 3 ML IH SCH ×7 (03:16→23:44)
[2020-01-06 05:09] LABS: INR 1.4; Prothrombin Time 16.3 Seconds (9.4-12.1)
[2020-01-06 05:10] LABS: Hematocrit 30.3 % (35.3-44.9); Hemoglobin 9.2 g/dL (11.5-15.4); Immature Granulocytes % 0.2 % (0-4); Lymphocytes # 0.2 K/mcL (0.6-4.6); Lymphocytes % 3.8 %; Mean Corpuscular HGB Conc 30.4 g/dL (31.6-35.5); Mean Corpuscular Hemoglobin 32.6 pg (28.0-33.3); Mean Corpuscular Volume 107.4 fL (83.0-100.0); Mean Platelet Volume 11.5 fL (9.4-12.4); Monocytes # 0.1 K/mcL (0.0-1.3); Monocytes % 2.9 %; Neutrophils # 4.5 K/mcL (1.6-8.9); Platelet Count 129 K/mcL (140-400); Red Blood Count 2.82 M/mcL (3.82-4.97); Red Cell Distribution Width 17.2 % (11.5-14.5); Segmented Neutrophils % 93.1 %; White Blood Count 4.8 K/mcL (4.3-11.1)
[2020-01-06 05:36] LABS: Calcium 8.4 mg/dL (8.6-10.3); Magnesium 1.9 mg/dL (1.6-2.6); Phosphorous 2.9 mg/dL (2.7-4.5); Potassium 3.6 mEq/L (3.5-5.1)
[2020-01-06] MEDS: Doxycycline 100 MG in 0.9 % Sodium Chloride Mini Bag 100 ML IVPB SCH ×2 (06:16→17:03)
[2020-01-06] MEDS: polyethylene glycoL 3350 17 GM POWD.PACK PO SCH (07:28)
[2020-01-06] MEDS: Budesonide/Formoterol 160/4.5 1 PUFF INH IH SCH ×2 (07:47→19:49)
[2020-01-06] MEDS: Insulin LISPRO 300 UNITS/3 ML VIAL SQ SCH ×4 (08:07→20:02)
[2020-01-06] MEDS ORDERED: Acetaminophen 325 MG TABLET PO PRN (10:54)
[2020-01-06 17:40] LABS: ABG Base Excess 6 mEq/L (-2 to 3); ABG HCO3 31 mEq/L (21-27); ABG Oxygen Saturation 90 % (95-98); ABG PCO2 46 mmHg (35-45); ABG PH 7.43 pH Units (7.32-7.45); ABG PO2 57 mmHg (85-104); ABG TCO2 33 mEq/L (20-26)
[2020-01-07] MEDS: Ipratropium/Albuterol Neb 3 ML IH SCH ×6 (03:43→23:42)
[2020-01-07 03:47] LABS: Eosinophils % 0.3 %; Hematocrit 31.2 % (35.3-44.9); Hemoglobin 9.5 g/dL (11.5-15.4); Immature Granulocytes % 0.5 % (0-4); Lymphocytes # 0.5 K/mcL (0.6-4.6); Mean Corpuscular HGB Conc 30.4 g/dL (31.6-35.5); Mean Corpuscular Hemoglobin 32.2 pg (28.0-33.3); Mean Corpuscular Volume 105.8 fL (83.0-100.0); Mean Platelet Volume 11.7 fL (9.4-12.4); Monocytes # 0.5 K/mcL (0.0-1.3); Monocytes % 7.5 %; Neutrophils # 5.3 K/mcL (1.6-8.9); Platelet Count 131 K/mcL (140-400); Red Blood Count 2.95 M/mcL (3.82-4.97); Red Cell Distribution Width 17.1 % (11.5-14.5); Segmented Neutrophils % 83.7 %; White Blood Count 6.4 K/mcL (4.3-11.1)
[2020-01-07 03:52] LABS: INR 1.3; Prothrombin Time 14.3 Seconds (9.4-12.1)
[2020-01-07 04:08] LABS: Calcium 8.4 mg/dL (8.6-10.3); Magnesium 1.9 mg/dL (1.6-2.6); Phosphorous 2.7 mg/dL (2.7-4.5); Potassium 3.7 mEq/L (3.5-5.1)
[2020-01-07] MEDS: Doxycycline 100 MG in 0.9 % Sodium Chloride Mini Bag 100 ML IVPB SCH (05:49)
[2020-01-07] MEDS: Budesonide/Formoterol 160/4.5 1 PUFF INH IH SCH ×2 (07:21→19:47)
[2020-01-07] MEDS ORDERED: 0.9 % Sodium Chloride 250 ML IVC PRN (07:28)
[2020-01-07] MEDS ORDERED: 0.9 % Sodium Chloride 1,000 ML PRIME SCH (07:30)
[2020-01-07] MEDS: Insulin LISPRO 300 UNITS/3 ML VIAL SQ SCH ×4 (08:05→21:05)
[2020-01-07] MEDS ORDERED: predniSONE 20 MG TABLET PO SCH (09:00)
[2020-01-07] MEDS: polyethylene glycoL 3350 17 GM POWD.PACK PO SCH (13:14)
[2020-01-08] MEDS: Ipratropium/Albuterol Neb 3 ML IH SCH ×3 (03:25→11:31)
[2020-01-08 04:53] LABS: Hematocrit 33.1 % (35.3-44.9); Hemoglobin 9.9 g/dL (11.5-15.4); Immature Granulocytes % 0.4 % (0-4); Lymphocytes # 0.2 K/mcL (0.6-4.6); Lymphocytes % 4.9 %; Mean Corpuscular HGB Conc 29.9 g/dL (31.6-35.5); Mean Corpuscular Hemoglobin 31.6 pg (28.0-33.3); Mean Corpuscular Volume 105.8 fL (83.0-100.0); Mean Platelet Volume 11.9 fL (9.4-12.4); Monocytes # 0.2 K/mcL (0.0-1.3); Monocytes % 3.1 %; Neutrophils # 4.5 K/mcL (1.6-8.9); Platelet Count 104 K/mcL (140-400); Red Blood Count 3.13 M/mcL (3.82-4.97); Red Cell Distribution Width 17.4 % (11.5-14.5); Segmented Neutrophils % 91.6 %; White Blood Count 4.9 K/mcL (4.3-11.1)
[2020-01-08 05:08] LABS: Calcium 8.5 mg/dL (8.6-10.3); Potassium 4.4 mEq/L (3.5-5.1)
[2020-01-08] MEDS: Budesonide/Formoterol 160/4.5 1 PUFF INH IH SCH (07:24)
[2020-01-08] MEDS ORDERED: Cefdinir 300 MG CAPSULE PO SCH (09:00)
[2020-01-08] MEDS ORDERED: predniSONE 20 MG TABLET PO SCH (09:00)
[2020-01-08] MEDS: polyethylene glycoL 3350 17 GM POWD.PACK PO SCH (09:21)
[2020-01-08] MEDS: Insulin LISPRO 300 UNITS/3 ML VIAL SQ SCH ×2 (09:28→12:00)
[2020-01-08 10:30] VITALS: BP 138/66
== END 2020-01-08 14:39 | DRG 177 ==
LOC: 2NNU → SUATTDRO 21:30 → 2ANU 01-06 18:55
PROVIDERS: ADMIT Internal Medicine; ATTEND Internal Medicine

== ENCOUNTER 2020-01-16 20:27 | Inpatient (IN) ==
[2020-01-16] MEDS ORDERED: Naloxone 0.4 MG/ML INJ IVP PRN (23:07)
[2020-01-16] MEDS ORDERED: Ertapenem 1,000 MG in 0.9 % Sodium Chloride Mini Bag 100 ML IVPB SCH (23:45)
[2020-01-17 02:15] LABS: Basophils # 0.1 K/mcL (0.0-0.2); Basophils % 0.7 %; Eosinophils # 0.2 K/mcL (0.0-0.6); Eosinophils % 2.6 %; Hematocrit 34.5 % (35.3-44.9); Hemoglobin 10.6 g/dL (11.5-15.4); Immature Granulocytes % 0.3 % (0-4); Lymphocytes # 0.7 K/mcL (0.6-4.6); Lymphocytes % 9.3 %; Mean Corpuscular HGB Conc 30.7 g/dL (31.6-35.5); Mean Corpuscular Hemoglobin 32.4 pg (28.0-33.3); Mean Corpuscular Volume 105.5 fL (83.0-100.0); Mean Platelet Volume 12.4 fL (9.4-12.4); Monocytes # 0.6 K/mcL (0.0-1.3); Monocytes % 8.9 %; Neutrophils # 5.5 K/mcL (1.6-8.9); Platelet Count 148 K/mcL (140-400); Red Blood Count 3.27 M/mcL (3.82-4.97); Red Cell Distribution Width 16.5 % (11.5-14.5); Segmented Neutrophils % 78.2 %
[2020-01-17 02:28] LABS: Calcium 8.6 mg/dL (8.6-10.3); Potassium 3.3 mEq/L (3.5-5.1)
[2020-01-17] MEDS: Ondansetron 4 MG/2 ML VIAL IVP PRN (04:00)
[2020-01-17] MEDS: *HR* Heparin 5,000 UNIT/ML VIAL SQ SCH ×3 (06:07→21:19)
[2020-01-17] MEDS ORDERED: *HR* Heparin 5,000 UNIT/ML VIAL ONE (15:02)
[2020-01-17] MEDS ORDERED: Dextrose Gel 15 GM/37.5 ML TUBE PO PRN ×2 (19:58)
[2020-01-17] MEDS ORDERED: D5% in Water 1,000 ML IVC PRN (19:58)
[2020-01-17] MEDS ORDERED: *HR* Dextrose 50 % in Water (Syg) 50 ML SYRINGE IVP PRN (19:58)
[2020-01-17] MEDS: Insulin LISPRO 300 UNITS/3 ML VIAL SQ SCH (21:15)
[2020-01-18 03:38] LABS: Basophils # 0.1 K/mcL (0.0-0.2); Eosinophils # 0.2 K/mcL (0.0-0.6); Eosinophils % 2.6 %; Hematocrit 35.2 % (35.3-44.9); Hemoglobin 10.3 g/dL (11.5-15.4); Immature Granulocytes % 0.6 % (0-4); Lymphocytes # 0.7 K/mcL (0.6-4.6); Lymphocytes % 9.6 %; Mean Corpuscular HGB Conc 29.3 g/dL (31.6-35.5); Mean Corpuscular Hemoglobin 31.4 pg (28.0-33.3); Mean Corpuscular Volume 107.3 fL (83.0-100.0); Mean Platelet Volume 12.2 fL (9.4-12.4); Monocytes # 0.6 K/mcL (0.0-1.3); Monocytes % 7.9 %; Neutrophils # 5.4 K/mcL (1.6-8.9); Platelet Count 143 K/mcL (140-400); Red Blood Count 3.28 M/mcL (3.82-4.97); Red Cell Distribution Width 16.7 % (11.5-14.5); Segmented Neutrophils % 78.3 %
[2020-01-18 04:03] LABS: Calcium 8.8 mg/dL (8.6-10.3); Potassium 3.4 mEq/L (3.5-5.1)
[2020-01-18] MEDS: *HR* Heparin 5,000 UNIT/ML VIAL SQ SCH ×3 (05:53→22:46)
[2020-01-18] MEDS: Insulin LISPRO 300 UNITS/3 ML VIAL SQ SCH ×4 (08:19→22:58)
[2020-01-18] MEDS ORDERED: 0.9 % Sodium Chloride 1,000 ML IVC SCH (09:45)
[2020-01-18] MEDS ORDERED: Vancomycin 1 EACH in 0.9 % Sodium Chloride 250 ML IVPB SCH (11:00)
[2020-01-18] MEDS: Potassium Chloride Elixir 20 MEQ/15 ML UDC PO SCH ×2 (11:50→15:16)
[2020-01-18] MEDS: Ipratropium/Albuterol Neb 3 ML IH SCH ×2 (15:37→21:17)
[2020-01-18] MEDS: MethylPREDNISolone 40 MG/ML VIAL IVP SCH (18:09)
[2020-01-18] MEDS: Budesonide/Formoterol 160/4.5 1 PUFF INH IH SCH (21:17)
[2020-01-19 01:46] LABS: Basophils % 0.3 %; Hematocrit 35.5 % (35.3-44.9); Hemoglobin 10.8 g/dL (11.5-15.4); Immature Granulocytes % 0.7 % (0-4); Lymphocytes # 0.2 K/mcL (0.6-4.6); Lymphocytes % 3.1 %; Mean Corpuscular HGB Conc 30.4 g/dL (31.6-35.5); Mean Corpuscular Hemoglobin 32.9 pg (28.0-33.3); Mean Corpuscular Volume 108.2 fL (83.0-100.0); Mean Platelet Volume 12.4 fL (9.4-12.4); Monocytes # 0.1 K/mcL (0.0-1.3); Monocytes % 0.7 %; Neutrophils # 6.4 K/mcL (1.6-8.9); Platelet Count 117 K/mcL (140-400); Red Blood Count 3.28 M/mcL (3.82-4.97); Red Cell Distribution Width 16.9 % (11.5-14.5); Segmented Neutrophils % 95.2 %; White Blood Count 6.7 K/mcL (4.3-11.1)
[2020-01-19 02:07] LABS: Calcium 8.9 mg/dL (8.6-10.3); Phosphorous 4.9 mg/dL (2.7-4.5); Potassium 4.6 mEq/L (3.5-5.1)
[2020-01-19 02:40] LABS: Magnesium 2.3 mg/dL (1.6-2.6)
[2020-01-19] MEDS: Ipratropium/Albuterol Neb 3 ML IH SCH ×4 (03:49→22:11)
[2020-01-19] MEDS: MethylPREDNISolone 40 MG/ML VIAL IVP SCH ×2 (06:24→16:44)
[2020-01-19] MEDS: *HR* Heparin 5,000 UNIT/ML VIAL SQ SCH ×3 (06:24→21:12)
[2020-01-19] MEDS: Insulin LISPRO 300 UNITS/3 ML VIAL SQ SCH ×4 (07:39→21:23)
[2020-01-19] MEDS ORDERED: 0.9 % Sodium Chloride 250 ML IVC PRN (07:59)
[2020-01-19] MEDS ORDERED: 0.9 % Sodium Chloride 1,000 ML PRIME SCH (08:00)
[2020-01-19] MEDS ORDERED: Aminoglycoside Consult 1 EACH MC ONE (08:35)
[2020-01-19] MEDS: Budesonide/Formoterol 160/4.5 1 PUFF INH IH SCH ×2 (10:44→22:11)
[2020-01-19] MEDS ORDERED: levoFLOXacin 750 MG TABLET PO ONE (13:51)
[2020-01-19] MEDS ORDERED: polyethylene glycoL 3350 17 GM POWD.PACK PO PRN (14:30)
[2020-01-19] MEDS: Aspirin Enteric Coated 81 MG Tablet PO SCH (16:06)
[2020-01-19] MEDS: Cefepime HCl 2,000 MG in 0.9 % Sodium Chloride Mini Bag 100 ML IVPB SCH (16:44)
[2020-01-19] MEDS: Ondansetron 4 MG/2 ML VIAL IVP PRN (19:18)
[2020-01-19] MEDS ORDERED: NON-FORMULARY MEDICATION 1 EACH EACH (Ropinirole Hcl [Requip Xl] 4 MG) PO SCH (21:00)
[2020-01-19] MEDS: rOPINIRole 1 MG TABLET PO SCH (21:12)
[2020-01-19] MEDS: Pregabalin 50 MG CAPSULE PO SCH (21:12)
[2020-01-20] MEDS: Ipratropium/Albuterol Neb 3 ML IH SCH ×4 (04:04→22:47)
[2020-01-20 04:55] LABS: Hemoglobin 10.5 g/dL (11.5-15.4); INR 1.8; Mean Platelet Volume 11.6 fL (9.4-12.4); Prothrombin Time 20.1 Seconds (9.4-12.1); Red Cell Distribution Width 16.8 % (11.5-14.5)
[2020-01-20 04:57] LABS: Basophils % 0.2 %; Eosinophils % 0.2 %; Hematocrit 35.5 % (35.3-44.9); Immature Granulocytes % 0.5 % (0-4); Immature Platelets 7.3 % (1.1-6.1); Lymphocytes # 0.4 K/mcL (0.6-4.6); Lymphocytes % 6.2 %; Mean Corpuscular HGB Conc 29.6 g/dL (31.6-35.5); Mean Corpuscular Hemoglobin 31.3 pg (28.0-33.3); Monocytes # 0.4 K/mcL (0.0-1.3); Monocytes % 5.9 %; Platelet Count 109 K/mcL (140-400); Red Blood Count 3.35 M/mcL (3.82-4.97); White Blood Count 5.9 K/mcL (4.3-11.1)
[2020-01-20 05:00] LABS: Neutrophils # 5.1 K/mcL (1.6-8.9)
[2020-01-20 05:16] LABS: Magnesium 2.1 mg/dL (1.6-2.6); Phosphorous 3.4 mg/dL (2.7-4.5); Potassium 4.1 mEq/L (3.5-5.1)
[2020-01-20] MEDS: MethylPREDNISolone 40 MG/ML VIAL IVP SCH ×2 (06:23→17:47)
[2020-01-20] MEDS: *HR* Heparin 5,000 UNIT/ML VIAL SQ SCH ×3 (06:23→21:32)
[2020-01-20] MEDS ORDERED: Lidocaine -MPF 4% 5 ML AMPUL ONE (08:08)
[2020-01-20] MEDS ORDERED: Dexamethasone 4 MG/ML VIAL ONE (08:08)
[2020-01-20] MEDS ORDERED: Lidocaine -MPF 2% 2 ML VIAL ONE (08:08)
[2020-01-20] MEDS ORDERED: Ondansetron 4 MG/2 ML VIAL ONE (08:08)
[2020-01-20] MEDS ORDERED: *HR* Succinylcholine 200 MG/10 ML VIAL IVP ONE (08:09)
[2020-01-20] MEDS ORDERED: *HR* FentaNYL (PF) 100 MCG/2 ML VIAL ONE (08:09)
[2020-01-20] MEDS ORDERED: *HR* Propofol 200 MG/20 ML VIAL IVP ONE ×2 (08:09→08:16)
[2020-01-20] MEDS ORDERED: *HR* Vasopressin 20 UNIT/ML VIAL ONE (09:06)
[2020-01-20] MEDS: Budesonide/Formoterol 160/4.5 1 PUFF INH IH SCH ×2 (10:05→22:47)
[2020-01-20] MEDS: Insulin LISPRO 300 UNITS/3 ML VIAL SQ SCH ×4 (10:40→22:01)
[2020-01-20] MEDS: Aspirin Enteric Coated 81 MG Tablet PO SCH (11:00)
[2020-01-20] MEDS: rOPINIRole 1 MG TABLET PO SCH ×3 (11:00→21:32)
[2020-01-20] MEDS: Sennosides/Docusate Sodium TABLET PO SCH (11:00)
[2020-01-20 11:53] LABS: Appearance of Body Fluid Cloudy (Clear); Volume of Body Fluid 16 mL
[2020-01-20 12:00] LABS: Appearance of Body Fluid Hazy (Clear); Volume of Body Fluid 8 mL
[2020-01-20] MEDS: Pregabalin 50 MG CAPSULE PO SCH (21:32)
[2020-01-21 01:43] LABS: Immature Granulocytes % 0.2 % (0-4)
[2020-01-21 01:45] LABS: Hematocrit 33.6 % (35.3-44.9); Hemoglobin 10.4 g/dL (11.5-15.4); Immature Platelets 4.9 % (1.1-6.1); Lymphocytes # 0.3 K/mcL (0.6-4.6); Lymphocytes % 5.6 %; Mean Corpuscular Volume 106.7 fL (83.0-100.0); Mean Platelet Volume 11.8 fL (9.4-12.4); Monocytes # 0.2 K/mcL (0.0-1.3); Monocytes % 3.8 %; Neutrophils # 4.7 K/mcL (1.6-8.9); Red Blood Count 3.15 M/mcL (3.82-4.97); Red Cell Distribution Width 17.1 % (11.5-14.5); Segmented Neutrophils % 90.4 %; White Blood Count 5.2 K/mcL (4.3-11.1)
[2020-01-21 01:59] LABS: Platelet Count 96 K/mcL (140-400)
[2020-01-21 02:02] LABS: Calcium 8.9 mg/dL (8.6-10.3); Magnesium 2.2 mg/dL (1.6-2.6); Phosphorous 3.6 mg/dL (2.7-4.5); Potassium 4.5 mEq/L (3.5-5.1)
[2020-01-21] MEDS: Ipratropium/Albuterol Neb 3 ML IH SCH ×4 (03:18→21:43)
[2020-01-21] MEDS: MethylPREDNISolone 40 MG/ML VIAL IVP SCH (06:24)
[2020-01-21] MEDS: *HR* Heparin 5,000 UNIT/ML VIAL SQ SCH ×2 (06:24→14:25)
[2020-01-21] MEDS ORDERED: 0.9 % Sodium Chloride 250 ML IVC PRN (08:57)
[2020-01-21] MEDS: Aspirin Enteric Coated 81 MG Tablet PO SCH (09:23)
[2020-01-21] MEDS: rOPINIRole 1 MG TABLET PO SCH ×3 (09:23→21:40)
[2020-01-21] MEDS: Sennosides/Docusate Sodium TABLET PO SCH (09:23)
[2020-01-21] MEDS: Insulin LISPRO 300 UNITS/3 ML VIAL SQ SCH ×4 (09:23→21:39)
[2020-01-21] MEDS: Budesonide/Formoterol 160/4.5 1 PUFF INH IH SCH ×2 (10:15→21:43)
[2020-01-21] MEDS ORDERED: levoFLOXacin 500 MG TABLET PO SCH (14:00)
[2020-01-21] MEDS: Cefepime HCl 2,000 MG in 0.9 % Sodium Chloride Mini Bag 100 ML IVPB SCH (14:21)
[2020-01-21] MEDS ORDERED: levoFLOXacin 500 MG/100 ML 500 MG/100 ML BAG IVPB SCH (16:00)
[2020-01-21] MEDS ORDERED: Vancomycin 500 MG in 0.9 % Sodium Chloride Mini Bag 100 ML IVPB ONE (16:00)
[2020-01-21] MEDS: Pregabalin 50 MG CAPSULE PO SCH (21:40)
[2020-01-21] MEDS: allopurinoL 100 MG TABLET PO SCH (21:47)
[2020-01-22 01:32] LABS: Red Cell Distribution Width 16.9 % (11.5-14.5)
[2020-01-22 01:34] LABS: Basophils % 0.2 %; Eosinophils % 0.5 %; Hematocrit 33.8 % (35.3-44.9); Hemoglobin 10.2 g/dL (11.5-15.4); Immature Granulocytes % 0.5 % (0-4); Immature Platelets 6.2 % (1.1-6.1); Lymphocytes # 0.6 K/mcL (0.6-4.6); Lymphocytes % 9.7 %; Mean Corpuscular HGB Conc 30.2 g/dL (31.6-35.5); Mean Corpuscular Hemoglobin 31.9 pg (28.0-33.3); Mean Corpuscular Volume 105.6 fL (83.0-100.0); Mean Platelet Volume 11.9 fL (9.4-12.4); Monocytes # 0.6 K/mcL (0.0-1.3); Monocytes % 8.9 %; Neutrophils # 5.3 K/mcL (1.6-8.9); Segmented Neutrophils % 80.2 %; White Blood Count 6.6 K/mcL (4.3-11.1)
[2020-01-22 01:35] LABS: Platelet Count 91 K/mcL (140-400); Platelet Estimate Decreased (Normal)
[2020-01-22 01:51] LABS: Calcium 8.8 mg/dL (8.6-10.3); Phosphorous 2.5 mg/dL (2.7-4.5); Potassium 3.9 mEq/L (3.5-5.1)
[2020-01-22] MEDS: Ipratropium/Albuterol Neb 3 ML IH SCH ×4 (03:22→21:56)
[2020-01-22] MEDS: Insulin LISPRO 300 UNITS/3 ML VIAL SQ SCH ×4 (07:46→20:48)
[2020-01-22] MEDS ORDERED: predniSONE 10 MG TABLET PO SCH (09:00)
[2020-01-22] MEDS: Aspirin Enteric Coated 81 MG Tablet PO SCH (10:10)
[2020-01-22] MEDS: predniSONE 20 MG TABLET PO SCH (10:12)
[2020-01-22] MEDS: rOPINIRole 1 MG TABLET PO SCH ×3 (10:18→20:45)
[2020-01-22] MEDS: Sennosides/Docusate Sodium TABLET PO SCH (10:19)
[2020-01-22] MEDS: amLODIPine 5 MG TABLET PO SCH (10:23)
[2020-01-22] MEDS: Budesonide/Formoterol 160/4.5 1 PUFF INH IH SCH ×2 (10:29→21:56)
[2020-01-22] MEDS ORDERED: Warfarin perPT PO PRN (18:00)
[2020-01-22 19:39] LABS: Influenza B PCR Body Fluid NOT DETECTED; RVP Body Fluid Source BAL
[2020-01-22 19:40] LABS: Influenza B PCR Body Fluid NOT DETECTED; RVP Body Fluid Source BAL
[2020-01-22] MEDS: Pregabalin 50 MG CAPSULE PO SCH (20:45)
[2020-01-22] MEDS: Miconazole 2% ointment 141 APPL/141 GM TUBE TP SCH (20:45)
[2020-01-22] MEDS: allopurinoL 100 MG TABLET PO SCH (20:45)
[2020-01-23 02:04] LABS: Lymphocytes % 6.4 %; Red Cell Distribution Width 16.6 % (11.5-14.5)
[2020-01-23 02:06] LABS: Hematocrit 33.3 % (35.3-44.9); Hemoglobin 10.1 g/dL (11.5-15.4); Immature Granulocytes % 0.3 % (0-4); Immature Platelets 6.3 % (1.1-6.1); Lymphocytes # 0.4 K/mcL (0.6-4.6); Mean Corpuscular HGB Conc 30.3 g/dL (31.6-35.5); Mean Corpuscular Hemoglobin 31.9 pg (28.0-33.3); Mean Platelet Volume 12.7 fL (9.4-12.4); Monocytes # 0.2 K/mcL (0.0-1.3); Neutrophils # 5.2 K/mcL (1.6-8.9); Red Blood Count 3.17 M/mcL (3.82-4.97); Segmented Neutrophils % 89.3 %; White Blood Count 5.8 K/mcL (4.3-11.1)
[2020-01-23 02:07] LABS: Platelet Count 78 K/mcL (140-400)
[2020-01-23 02:08] LABS: Platelet Estimate Decreased (Normal)
[2020-01-23 02:25] LABS: Calcium 8.9 mg/dL (8.6-10.3); Phosphorous 3.5 mg/dL (2.7-4.5); Potassium 4.8 mEq/L (3.5-5.1)
[2020-01-23] MEDS: Ipratropium/Albuterol Neb 3 ML IH SCH ×3 (03:38→16:14)
[2020-01-23] MEDS: Sennosides/Docusate Sodium TABLET PO SCH (07:34)
[2020-01-23] MEDS: Aspirin Enteric Coated 81 MG Tablet PO SCH (07:34)
[2020-01-23] MEDS: rOPINIRole 1 MG TABLET PO SCH ×2 (07:34→13:59)
[2020-01-23] MEDS: predniSONE 20 MG TABLET PO SCH (07:35)
[2020-01-23] MEDS: Insulin LISPRO 300 UNITS/3 ML VIAL SQ SCH ×2 (07:43→11:29)
[2020-01-23] MEDS ORDERED: 0.9 % Sodium Chloride 250 ML IVC PRN (07:55)
[2020-01-23 09:24] LABS: RSV PCR Body Fluid NOT DETECTED
[2020-01-23 09:25] LABS: RSV PCR Body Fluid NOT DETECTED
[2020-01-23 09:43] LABS: Influenza A PCR Body Fluid DETECTED
[2020-01-23 09:44] LABS: Influenza A PCR Body Fluid DETECTED
[2020-01-23] MEDS: Budesonide/Formoterol 160/4.5 1 PUFF INH IH SCH (10:46)
[2020-01-23] MEDS: Miconazole 2% ointment 141 APPL/141 GM TUBE TP SCH (13:57)
[2020-01-23] MEDS: amLODIPine 5 MG TABLET PO SCH (13:58)
[2020-01-23 14:09] VITALS: BP 139/72
[2020-01-23] MEDS ORDERED: allopurinoL 100 MG TABLET PO SCH (15:00)
[2020-01-23] MEDS ORDERED: levoFLOXacin 500 MG TABLET PO SCH ×2 (15:00)
== END 2020-01-23 19:00 | DRG 193 ==
LOC: 3BNU → 2NENU 01-17 16:04 → SUATTDRO 01-18 12:46
PROVIDERS: ADMIT Internal Medicine; ATTEND Internal Medicine
PROC: ENDOBRF (2020-01-20 17:30)

== ENCOUNTER 2020-05-05 13:01 | Inpatient (IN) ==
[2020-05-05] MEDS ORDERED: Ondansetron ODT 4 MG TAB.RAPDIS SL PRN (16:34)
[2020-05-05] MEDS ORDERED: Naloxone 0.4 MG/ML INJ IVP PRN (16:34)
[2020-05-05] MEDS ORDERED: Albumin 25% 25gram/100mL 25 GM/100 ML IV.SOLN IVPB ONE (18:01)
[2020-05-05] MEDS ORDERED: Ipratropium/Albuterol Neb 3 ML IH PRN (18:09)
[2020-05-05 18:12] LABS: Troponin I 0.04 ng/mL (< 0.04)
[2020-05-05 18:16] LABS: Calcium 8.4 mg/dL (8.6-10.3); Magnesium 1.9 mg/dL (1.6-2.6); Potassium 3.2 mEq/L (3.5-5.1)
[2020-05-05] MEDS ORDERED: Furosemide 80 MG in 0.9 % Sodium Chloride 50 ML IV ONE (18:30)
[2020-05-05] MEDS ORDERED: *HR* Dextrose 50 % in Water (Vial) 50 ML VIAL IVP PRN (19:15)
[2020-05-05] MEDS ORDERED: Dextrose Gel 15 GM/37.5 ML TUBE PO PRN ×2 (19:15)
[2020-05-05] MEDS ORDERED: D5% in Water 1,000 ML IVC PRN (19:15)
[2020-05-05 19:39] LABS: VBG HCO3 34 mEq/L (21-27); VBG PCO2 76 mmHg (41-51); VBG PH 7.26 pH Units (7.32-7.42); VBG PO2 55 mmHg (25-50)
[2020-05-05 20:10] LABS: ABG Base Excess 5 mEq/L (-2 to 3); ABG HCO3 33 mEq/L (21-27); ABG Oxygen Saturation 92 % (95-98); ABG PCO2 64 mmHg (35-45); ABG PH 7.31 pH Units (7.32-7.45); ABG PO2 72 mmHg (85-104); ABG TCO2 35 mEq/L (20-26)
[2020-05-05] MEDS: Insulin LISPRO 300 UNITS/3 ML VIAL SQ SCH (20:27)
[2020-05-06 05:07] LABS: Mean Corpuscular Volume 104.2 fL (83.0-100.0)
[2020-05-06 05:09] LABS: Hematocrit 27.5 % (35.3-44.9); Immature Platelets 6.7 % (1.1-6.1); Mean Corpuscular HGB Conc 29.1 g/dL (31.6-35.5); Mean Corpuscular Hemoglobin 30.3 pg (28.0-33.3); Mean Platelet Volume 11.2 fL (9.4-12.4); Red Blood Count 2.64 M/mcL (3.82-4.97); Red Cell Distribution Width 18.7 % (11.5-14.5); White Blood Count 7.1 K/mcL (4.3-11.1)
[2020-05-06 05:15] LABS: INR 4.7; Prothrombin Time 53.2 Seconds (9.4-12.1)
[2020-05-06 05:27] LABS: Calcium 8.5 mg/dL (8.6-10.3); Potassium 3.6 mEq/L (3.5-5.1)
[2020-05-06] MEDS ORDERED: 0.9 % Sodium Chloride 250 ML IVC PRN (07:21)
[2020-05-06] MEDS ORDERED: 0.9 % Sodium Chloride 1,000 ML PRIME SCH (07:30)
[2020-05-06 09:21] LABS: Hepatitis B Surface Antibody < 3.10 mIU/mL
[2020-05-06] MEDS: Insulin LISPRO 300 UNITS/3 ML VIAL SQ SCH ×3 (09:46→16:44)
[2020-05-06 11:07] LABS: Hepatitis B Surface Antigen Nonreactive (Nonreactive)
[2020-05-06] MEDS ORDERED: Sennosides/Docusate Sodium TABLET PO SCH (14:00)
[2020-05-06] MEDS ORDERED: polyethylene glycoL 3350 17 GM POWD.PACK PO PRN (16:56)
[2020-05-06] MEDS ORDERED: Aspirin Enteric Coated 81 MG Tablet PO ONE (17:28)
[2020-05-06] MEDS ORDERED: Aspirin Enteric Coated 81 MG Tablet PO SCH (18:00)
[2020-05-06] MEDS: rOPINIRole 1 MG TABLET PO SCH (20:33)
[2020-05-06] MEDS ORDERED: Pregabalin 50 MG CAPSULE PO SCH (21:00)
[2020-05-06] MEDS ORDERED: allopurinoL 100 MG TABLET PO SCH (21:00)
[2020-05-06] MEDS ORDERED: amLODIPine 5 MG TABLET PO SCH (21:00)
[2020-05-07 04:23] LABS: Prothrombin Time 45.6 Seconds (9.4-12.1)
[2020-05-07 04:30] LABS: Calcium 8.3 mg/dL (8.6-10.3); Potassium 3.7 mEq/L (3.5-5.1)
[2020-05-07 04:34] LABS: Hematocrit 26.2 % (35.3-44.9); Hemoglobin 7.8 g/dL (11.5-15.4); Mean Corpuscular HGB Conc 29.8 g/dL (31.6-35.5); Mean Corpuscular Hemoglobin 31.1 pg (28.0-33.3); Mean Corpuscular Volume 104.4 fL (83.0-100.0); Red Blood Count 2.51 M/mcL (3.82-4.97); White Blood Count 6.8 K/mcL (4.3-11.1)
[2020-05-07 04:35] LABS: Mean Platelet Volume 11.6 fL (9.4-12.4); Platelet Count 142 K/mcL (140-400); Red Cell Distribution Width 18.7 % (11.5-14.5)
[2020-05-07] MEDS: rOPINIRole 1 MG TABLET PO SCH (08:05)
[2020-05-07] MEDS: Insulin LISPRO 300 UNITS/3 ML VIAL SQ SCH ×2 (08:06→11:37)
[2020-05-07] MEDS ORDERED: 0.9 % Sodium Chloride 250 ML IVC PRN (08:20)
[2020-05-07] MEDS ORDERED: Folic Acid 1 MG TABLET PO SCH (09:00)
[2020-05-07] MEDS ORDERED: Sennosides/Docusate Sodium TABLET PO SCH (09:00)
[2020-05-07] MEDS ORDERED: Renal Vitamin 1 CAP CAPSULE PO SCH (09:00)
[2020-05-07] MEDS ORDERED: Budesonide/Formoterol 80/4.5 1 PUFF INH IH SCH (10:00)
[2020-05-07 13:15] VITALS: BP 119/72
[2020-05-08] MEDS ORDERED: Ergocalciferol (VIT D2) 50,000 UNIT (1.25MG) CAP PO SCH (09:00)
== END 2020-05-07 15:25 | DRG 291 ==
LOC: 2ANU
PROVIDERS: ADMIT Internal Medicine; ATTEND Internal Medicine

== ENCOUNTER 2020-05-10 18:13 | Inpatient (IN) ==
[2020-05-10 21:32] LABS: Hematocrit 21.1 % (35.3-44.9); Hemoglobin 6.4 g/dL (11.5-15.4)
[2020-05-10] MEDS ORDERED: Naloxone 0.4 MG/ML INJ IVP PRN (21:43)
[2020-05-10] MEDS ORDERED: *HR* Dextrose 50 % in Water (Vial) 50 ML VIAL IVP PRN (22:10)
[2020-05-10] MEDS ORDERED: Dextrose Gel 15 GM/37.5 ML TUBE PO PRN ×2 (22:10)
[2020-05-10] MEDS ORDERED: D5% in Water 1,000 ML IVC PRN (22:10)
[2020-05-10] MEDS: Pantoprazole 40 MG VIAL IVP SCH (23:51)
[2020-05-11 00:50] LABS: Basophils # 0.1 K/mcL (0.0-0.2); Basophils % 1.6 %; Eosinophils # 0.8 K/mcL (0.0-0.6); Eosinophils % 16.8 %; Hematocrit 18.3 % (35.3-44.9); Immature Granulocytes % 0.4 % (0-4); Lymphocytes # 0.6 K/mcL (0.6-4.6); Lymphocytes % 13.1 %; Mean Corpuscular HGB Conc 31.1 g/dL (31.6-35.5); Mean Corpuscular Hemoglobin 32.2 pg (28.0-33.3); Mean Corpuscular Volume 103.4 fL (83.0-100.0); Mean Platelet Volume 11.3 fL (9.4-12.4); Monocytes # 0.6 K/mcL (0.0-1.3); Monocytes % 12.1 %; Neutrophils # 2.7 K/mcL (1.6-8.9); Platelet Count 130 K/mcL (140-400); Red Blood Count 1.77 M/mcL (3.82-4.97); Red Cell Distribution Width 18.8 % (11.5-14.5); White Blood Count 4.9 K/mcL (4.3-11.1)
[2020-05-11 01:02] LABS: INR 1.9; Prothrombin Time 21.8 Seconds (9.4-12.1)
[2020-05-11 01:04] LABS: Hemoglobin 5.7 g/dL (11.5-15.4)
[2020-05-11 01:08] LABS: Albumin 2.6 g/dL (3.5-5.7); Albumin/Globulin Ratio 1.4 (1.1-2.2); Bilirubin,Total 0.7 mg/dL (0.3-1.0); Calcium 7.9 mg/dL (8.6-10.3); Globulin 1.9 g/dL (2.4-3.5); Magnesium 1.8 mg/dL (1.6-2.6); Phosphorous 1.6 mg/dL (2.7-4.5); Potassium 3.6 mEq/L (3.5-5.1); Total Protein 4.5 g/dL (6.4-8.9)
[2020-05-11 01:24] LABS: Hypochromasia Present (Not Present)
[2020-05-11 01:25] LABS: Basophilic Stippling 1+ (Not Present)
[2020-05-11 01:26] LABS: Platelet Estimate Normal (Normal)
[2020-05-11] MEDS ORDERED: 0.9 % Sodium Chloride 250 ML ONE (02:52)
[2020-05-11 03:24] LABS: Hematocrit 20.5 % (35.3-44.9); Hemoglobin 6.4 g/dL (11.5-15.4)
[2020-05-11] MEDS: Acetaminophen 325 MG TABLET PO PRN (04:42)
[2020-05-11] MEDS: Insulin LISPRO 300 UNITS/3 ML VIAL SQ SCH ×4 (05:33→18:07)
[2020-05-11] MEDS: Ipratropium/Albuterol Neb 3 ML AER SCH (05:34)
[2020-05-11] MEDS ORDERED: 0.9 % Sodium Chloride 250 ML IVC SCH (07:45)
[2020-05-11] MEDS: Budesonide/Formoterol 80/4.5 1 PUFF INH IH SCH ×2 (08:09→21:04)
[2020-05-11] MEDS: Pantoprazole 40 MG VIAL IVP SCH ×2 (08:25→23:14)
[2020-05-11] MEDS: 0.9 % Sodium Chloride 500 ML IVC SCH ×2 (11:21→23:25)
[2020-05-11] MEDS ORDERED: *HR* Propofol 200 MG/20 ML VIAL IVP ONE (11:28)
[2020-05-11] MEDS ORDERED: Lidocaine -MPF 2% 2 ML VIAL ONE (11:28)
[2020-05-11] MEDS ORDERED: *HR* Etomidate 40 MG/20 ML VIAL IVP ONE (11:34)
[2020-05-11] MEDS ORDERED: *HR* PHENYLEPHRINE 1,000 MCG/10 ML SYRINGE IVP ONE (11:52)
[2020-05-11 13:06] LABS: Hematocrit 24.3 % (35.3-44.9); Hemoglobin 7.4 g/dL (11.5-15.4)
[2020-05-11] MEDS ORDERED: polyethylene glycoL 3350 17 GM POWD.PACK PO PRN (16:47)
[2020-05-11] MEDS: allopurinoL 100 MG TABLET PO SCH (23:13)
[2020-05-11] MEDS: Pregabalin 50 MG CAPSULE PO SCH (23:13)
[2020-05-11] MEDS: rOPINIRole 1 MG TABLET PO SCH (23:13)
[2020-05-11] MEDS: Lactobacillus 1 EACH CAP.SPRINK PO SCH (23:13)
[2020-05-12] MEDS: Insulin LISPRO 300 UNITS/3 ML VIAL SQ SCH ×4 (00:02→17:09)
[2020-05-12 05:45] LABS: Basophils # 0.1 K/mcL (0.0-0.2); Basophils % 1.6 %; Eosinophils # 0.7 K/mcL (0.0-0.6); Eosinophils % 11.2 %; Hematocrit 25.2 % (35.3-44.9); Hemoglobin 7.8 g/dL (11.5-15.4); Immature Granulocytes % 0.2 % (0-4); Lymphocytes # 0.7 K/mcL (0.6-4.6); Lymphocytes % 10.9 %; Mean Corpuscular Hemoglobin 30.2 pg (28.0-33.3); Mean Corpuscular Volume 97.7 fL (83.0-100.0); Mean Platelet Volume 11.8 fL (9.4-12.4); Monocytes # 0.6 K/mcL (0.0-1.3); Monocytes % 9.7 %; Platelet Count 148 K/mcL (140-400); Red Blood Count 2.58 M/mcL (3.82-4.97); Red Cell Distribution Width 22.1 % (11.5-14.5); Segmented Neutrophils % 66.4 %; White Blood Count 6.1 K/mcL (4.3-11.1)
[2020-05-12 05:48] LABS: INR 1.3; Prothrombin Time 14.4 Seconds (9.4-12.1)
[2020-05-12 06:05] LABS: Calcium 8.4 mg/dL (8.6-10.3); Magnesium 1.9 mg/dL (1.6-2.6); Phosphorous 2.4 mg/dL (2.7-4.5); Potassium 3.8 mEq/L (3.5-5.1)
[2020-05-12] MEDS: Budesonide/Formoterol 80/4.5 1 PUFF INH IH SCH ×2 (07:53→22:35)
[2020-05-12] MEDS: Ipratropium/Albuterol Neb 3 ML AER SCH ×4 (08:04→17:29)
[2020-05-12] MEDS ORDERED: 0.9 % Sodium Chloride 2,000 ML ONE (08:05)
[2020-05-12] MEDS: 0.9 % Sodium Chloride 500 ML IVC SCH ×2 (08:05→08:07)
[2020-05-12] MEDS: Pantoprazole 40 MG VIAL IVP SCH ×2 (08:08→20:01)
[2020-05-12] MEDS: Renal Vitamin 1 CAP CAPSULE PO SCH (08:09)
[2020-05-12] MEDS: Sennosides/Docusate Sodium TABLET PO SCH (08:09)
[2020-05-12] MEDS: Folic Acid 1 MG TABLET PO SCH (08:09)
[2020-05-12] MEDS: Lactobacillus 1 EACH CAP.SPRINK PO SCH ×2 (08:09→19:59)
[2020-05-12] MEDS ORDERED: 0.9 % Sodium Chloride 250 ML IVC PRN (08:13)
[2020-05-12] MEDS ORDERED: 0.9 % Sodium Chloride 1,000 ML PRIME SCH (08:15)
[2020-05-12] MEDS ORDERED: NON-FORMULARY MEDICATION 1 EACH EACH (Pantoprazole Sodium [Protonix] 40 MG) PO SCH (09:00)
[2020-05-12 11:20] LABS: Estimated Average Glucose 97 mg/dl
[2020-05-12] MEDS ORDERED: Lidocaine -MPF 2% 2 ML VIAL ONE (14:14)
[2020-05-12] MEDS ORDERED: *HR* Etomidate 40 MG/20 ML VIAL IVP ONE (14:16)
[2020-05-12] MEDS ORDERED: *HR* PHENYLEPHRINE 1,000 MCG/10 ML SYRINGE IVP ONE (14:26)
[2020-05-12] MEDS ORDERED: polyethylene glycoL 3350 17 GM POWD.PACK PO PRN (15:15)
[2020-05-12 16:28] LABS: Hemoglobin 7.2 g/dL (11.5-15.4)
[2020-05-12] MEDS ORDERED: Isovue-370 500 ML BOTTLE IVP ONE (17:16)
[2020-05-12] MEDS: *HR* Promethazine 25 MG/ML VIAL IVP PRN (18:07)
[2020-05-12] MEDS: Pregabalin 50 MG CAPSULE PO SCH (19:59)
[2020-05-12] MEDS: rOPINIRole 1 MG TABLET PO SCH (20:01)
[2020-05-12] MEDS: allopurinoL 100 MG TABLET PO SCH (20:01)
[2020-05-12 21:50] LABS: Hematocrit 26.1 % (35.3-44.9); Hemoglobin 8.2 g/dL (11.5-15.4)
[2020-05-13] MEDS: Insulin LISPRO 300 UNITS/3 ML VIAL SQ SCH ×4 (00:21→16:51)
[2020-05-13] MEDS: 0.9 % Sodium Chloride 500 ML IVC SCH ×3 (04:20→22:58)
[2020-05-13] MEDS: Budesonide/Formoterol 80/4.5 1 PUFF INH IH SCH ×2 (08:03→19:56)
[2020-05-13] MEDS: Folic Acid 1 MG TABLET PO SCH (08:47)
[2020-05-13] MEDS: Pantoprazole 40 MG VIAL IVP SCH (08:47)
[2020-05-13] MEDS: Renal Vitamin 1 CAP CAPSULE PO SCH (08:47)
[2020-05-13] MEDS: Lactobacillus 1 EACH CAP.SPRINK PO SCH ×2 (08:47→20:05)
[2020-05-13] MEDS: Sennosides/Docusate Sodium TABLET PO SCH (08:48)
[2020-05-13] MEDS ORDERED: *HR* Propofol 200 MG/20 ML VIAL IVP ONE (09:47)
[2020-05-13] MEDS ORDERED: Lidocaine -MPF 2% 2 ML VIAL ONE (09:47)
[2020-05-13] MEDS: 0.9 % Sodium Chloride 1,000 ML IVC SCH (09:51)
[2020-05-13] MEDS ORDERED: *HR* PHENYLEPHRINE 1,000 MCG/10 ML SYRINGE IVP ONE ×2 (11:00→11:27)
[2020-05-13 15:34] LABS: Basophils # 0.2 K/mcL (0.0-0.2); Basophils % 2.1 %; Eosinophils # 0.9 K/mcL (0.0-0.6); Eosinophils % 11.3 %; Hematocrit 27.3 % (35.3-44.9); Hemoglobin 8.2 g/dL (11.5-15.4); Immature Granulocytes % 0.2 % (0-4); Lymphocytes # 0.7 K/mcL (0.6-4.6); Lymphocytes % 8.5 %; Mean Corpuscular Hemoglobin 29.5 pg (28.0-33.3); Mean Corpuscular Volume 98.2 fL (83.0-100.0); Mean Platelet Volume 10.8 fL (9.4-12.4); Monocytes # 0.7 K/mcL (0.0-1.3); Monocytes % 8.7 %; Neutrophils # 5.6 K/mcL (1.6-8.9); Platelet Count 159 K/mcL (140-400); Red Blood Count 2.78 M/mcL (3.82-4.97); Red Cell Distribution Width 22.5 % (11.5-14.5); Segmented Neutrophils % 69.2 %
[2020-05-13 15:37] LABS: INR 1.2; Prothrombin Time 13.7 Seconds (9.4-12.1)
[2020-05-13 16:37] LABS: Calcium 7.9 mg/dL (8.6-10.3); Magnesium 1.7 mg/dL (1.6-2.6); Potassium 3.4 mEq/L (3.5-5.1)
[2020-05-13] MEDS: rOPINIRole 1 MG TABLET PO SCH (20:05)
[2020-05-13] MEDS: allopurinoL 100 MG TABLET PO SCH (20:08)
[2020-05-13] MEDS: Pregabalin 50 MG CAPSULE PO SCH (20:08)
[2020-05-14 03:03] LABS: Calcium 7.6 mg/dL (8.6-10.3); Mean Corpuscular Hemoglobin 29.4 pg (28.0-33.3)
[2020-05-14 03:05] LABS: Hematocrit 23.8 % (35.3-44.9); Hemoglobin 7.3 g/dL (11.5-15.4); Mean Corpuscular HGB Conc 30.7 g/dL (31.6-35.5); Mean Platelet Volume 11.6 fL (9.4-12.4); Red Blood Count 2.48 M/mcL (3.82-4.97); Red Cell Distribution Width 21.9 % (11.5-14.5); White Blood Count 6.8 K/mcL (4.3-11.1)
[2020-05-14] MEDS: 0.9 % Sodium Chloride 1,000 ML IVC SCH (04:07)
[2020-05-14] MEDS ORDERED: 0.9 % Sodium Chloride 250 ML IVC PRN (07:42)
[2020-05-14] MEDS ORDERED: 0.9 % Sodium Chloride 250 ML IVC SCH (07:45)
[2020-05-14] MEDS: Insulin LISPRO 300 UNITS/3 ML VIAL SQ SCH ×4 (07:53→18:16)
[2020-05-14] MEDS: Renal Vitamin 1 CAP CAPSULE PO SCH (08:02)
[2020-05-14] MEDS: Lactobacillus 1 EACH CAP.SPRINK PO SCH ×2 (08:02→20:18)
[2020-05-14] MEDS: Folic Acid 1 MG TABLET PO SCH (08:02)
[2020-05-14] MEDS: Sennosides/Docusate Sodium TABLET PO SCH (08:03)
[2020-05-14] MEDS: Acetaminophen 325 MG TABLET PO PRN ×2 (08:06→21:54)
[2020-05-14] MEDS ORDERED: Isovue-370 500 ML BOTTLE IVP ONE (10:00)
[2020-05-14] MEDS: Budesonide/Formoterol 80/4.5 1 PUFF INH IH SCH ×2 (10:21→21:59)
[2020-05-14] MEDS: Ipratropium/Albuterol Neb 3 ML IH SCH ×4 (10:21→21:59)
[2020-05-14] MEDS: 0.9 % Sodium Chloride 500 ML IVC SCH ×2 (12:38→17:50)
[2020-05-14 16:05] LABS: ABG Base Excess 4 mEq/L (-2 to 3); ABG HCO3 30 mEq/L (21-27); ABG Oxygen Saturation 93 % (95-98); ABG PCO2 53 mmHg (35-45); ABG PH 7.36 pH Units (7.32-7.45); ABG PO2 71 mmHg (85-104); ABG TCO2 32 mEq/L (20-26)
[2020-05-14 16:19] LABS: Hematocrit 30.9 % (35.3-44.9)
[2020-05-14 16:20] LABS: Hemoglobin 9.6 g/dL (11.5-15.4)
[2020-05-14] MEDS: rOPINIRole 1 MG TABLET PO SCH ×2 (20:17→21:54)
[2020-05-14] MEDS: allopurinoL 100 MG TABLET PO SCH (20:18)
[2020-05-14] MEDS: Pregabalin 50 MG CAPSULE PO SCH (20:18)
[2020-05-15] MEDS: 0.9 % Sodium Chloride 1,000 ML IVC SCH (02:00)
[2020-05-15 03:14] LABS: Mean Platelet Volume 10.6 fL (9.4-12.4)
[2020-05-15] MEDS: Ipratropium/Albuterol Neb 3 ML IH SCH ×4 (03:14→21:56)
[2020-05-15 03:15] LABS: Hematocrit 26.8 % (35.3-44.9); Hemoglobin 8.3 g/dL (11.5-15.4); Immature Platelets 4.5 % (1.1-6.1); Mean Corpuscular Hemoglobin 29.4 pg (28.0-33.3); Red Blood Count 2.82 M/mcL (3.82-4.97); Red Cell Distribution Width 19.9 % (11.5-14.5); White Blood Count 5.8 K/mcL (4.3-11.1)
[2020-05-15 03:36] LABS: Acetaminophen < 10 mcg/mL (10-20); Alanine Aminotransferase 9 Units/L (7-52); Albumin 2.5 g/dL (3.5-5.7); Albumin/Globulin Ratio 1.4 (1.1-2.2); Alkaline Phosphatase 59 Units/L (34-104); Aspartate Amino Transferase 22 Units/L (13-39); Bilirubin,Direct 0.2 mg/dL (0.0-0.2); Bilirubin,Indirect 0.5 mg/dL (0.0-1.0); Bilirubin,Total 0.7 mg/dL (0.3-1.0); Calcium 7.6 mg/dL (8.6-10.3); Globulin 1.8 g/dL (2.4-3.5); Potassium 3.7 mEq/L (3.5-5.1); Total Protein 4.3 g/dL (6.4-8.9)
[2020-05-15] MEDS: 0.9 % Sodium Chloride 500 ML IVC SCH (06:06)
[2020-05-15] MEDS: Insulin LISPRO 300 UNITS/3 ML VIAL SQ SCH ×4 (06:07→16:39)
[2020-05-15] MEDS: Renal Vitamin 1 CAP CAPSULE PO SCH (08:16)
[2020-05-15] MEDS: Sennosides/Docusate Sodium TABLET PO SCH (08:16)
[2020-05-15] MEDS: Lactobacillus 1 EACH CAP.SPRINK PO SCH ×2 (08:17→21:20)
[2020-05-15] MEDS: Folic Acid 1 MG TABLET PO SCH (08:17)
[2020-05-15] MEDS: Lactulose Oral Soln 20 GM/30 ML UDC PO SCH ×2 (08:17→21:23)
[2020-05-15] MEDS: Budesonide/Formoterol 80/4.5 1 PUFF INH IH SCH ×2 (10:10→21:56)
[2020-05-15] MEDS: *HR* Promethazine 25 MG/ML VIAL IVP PRN (14:28)
[2020-05-15] MEDS ORDERED: Isovue-370 500 ML BOTTLE IVP ONE (14:51)
[2020-05-15 20:47] LABS: Hematocrit 27.1 % (35.3-44.9); Hemoglobin 8.4 g/dL (11.5-15.4); Immature Platelets 4.8 % (1.1-6.1); Mean Corpuscular Hemoglobin 29.6 pg (28.0-33.3); Mean Corpuscular Volume 95.4 fL (83.0-100.0); Mean Platelet Volume 10.8 fL (9.4-12.4); Red Blood Count 2.84 M/mcL (3.82-4.97); Red Cell Distribution Width 19.9 % (11.5-14.5); White Blood Count 6.2 K/mcL (4.3-11.1)
[2020-05-15 20:50] LABS: INR 1.2; Prothrombin Time 13.9 Seconds (9.4-12.1)
[2020-05-15 21:05] LABS: Calcium 7.8 mg/dL (8.6-10.3)
[2020-05-15] MEDS: rOPINIRole 1 MG TABLET PO SCH (21:20)
[2020-05-15] MEDS: allopurinoL 100 MG TABLET PO SCH (21:20)
[2020-05-15] MEDS: Pregabalin 50 MG CAPSULE PO SCH (21:21)
[2020-05-15] MEDS: Acetaminophen 325 MG TABLET PO PRN (21:35)
[2020-05-16 02:36] LABS: Hematocrit 25.3 % (35.3-44.9); Immature Platelets 3.7 % (1.1-6.1); Mean Corpuscular HGB Conc 31.6 g/dL (31.6-35.5); Mean Corpuscular Hemoglobin 30.7 pg (28.0-33.3); Mean Corpuscular Volume 96.9 fL (83.0-100.0); Mean Platelet Volume 10.9 fL (9.4-12.4); Red Blood Count 2.61 M/mcL (3.82-4.97)
[2020-05-16 02:50] LABS: Magnesium 1.7 mg/dL (1.6-2.6); Phosphorous 2.3 mg/dL (2.7-4.5)
[2020-05-16 02:51] LABS: Calcium 8.2 mg/dL (8.6-10.3)
[2020-05-16] MEDS: Ipratropium/Albuterol Neb 3 ML IH SCH ×4 (03:46→21:40)
[2020-05-16] MEDS: 0.9 % Sodium Chloride 1,000 ML IVC SCH (09:05)
[2020-05-16] MEDS: 0.9 % Sodium Chloride 500 ML IVC SCH (09:05)
[2020-05-16] MEDS: Insulin LISPRO 300 UNITS/3 ML VIAL SQ SCH ×3 (09:12→16:16)
[2020-05-16] MEDS: Lactobacillus 1 EACH CAP.SPRINK PO SCH ×2 (09:13→20:37)
[2020-05-16] MEDS: Lactulose Oral Soln 20 GM/30 ML UDC PO SCH ×2 (09:13→20:38)
[2020-05-16] MEDS: Renal Vitamin 1 CAP CAPSULE PO SCH (09:13)
[2020-05-16] MEDS: Sennosides/Docusate Sodium TABLET PO SCH (09:13)
[2020-05-16] MEDS: Folic Acid 1 MG TABLET PO SCH (09:13)
[2020-05-16] MEDS: Budesonide/Formoterol 80/4.5 1 PUFF INH IH SCH ×2 (10:09→21:40)
[2020-05-16 17:12] LABS: Hematocrit 25.7 % (35.3-44.9); Hemoglobin 7.8 g/dL (11.5-15.4)
[2020-05-16] MEDS: Pregabalin 50 MG CAPSULE PO SCH (20:37)
[2020-05-16] MEDS: allopurinoL 100 MG TABLET PO SCH (20:37)
[2020-05-16] MEDS: Nystatin POWDER 30 GM BOTTLE TP SCH (20:38)
[2020-05-16] MEDS: rOPINIRole 1 MG TABLET PO SCH (20:38)
[2020-05-16 22:41] LABS: Hematocrit 24.8 % (35.3-44.9); Hemoglobin 7.7 g/dL (11.5-15.4)
[2020-05-17] MEDS: Ipratropium/Albuterol Neb 3 ML IH SCH ×3 (03:45→15:47)
[2020-05-17 03:52] LABS: Immature Granulocytes % 0.3 % (0-4); Mean Corpuscular HGB Conc 30.6 g/dL (31.6-35.5)
[2020-05-17 03:54] LABS: Basophils # 0.1 K/mcL (0.0-0.2); Basophils % 1.7 %; Eosinophils # 0.6 K/mcL (0.0-0.6); Eosinophils % 9.3 %; Hematocrit 24.5 % (35.3-44.9); Hemoglobin 7.5 g/dL (11.5-15.4); Immature Platelets 3.7 % (1.1-6.1); Lymphocytes # 0.7 K/mcL (0.6-4.6); Lymphocytes % 10.8 %; Mean Corpuscular Hemoglobin 29.9 pg (28.0-33.3); Mean Corpuscular Volume 97.6 fL (83.0-100.0); Mean Platelet Volume 11.2 fL (9.4-12.4); Monocytes # 0.6 K/mcL (0.0-1.3); Monocytes % 9.3 %; Platelet Count 121 K/mcL (140-400); Red Blood Count 2.51 M/mcL (3.82-4.97); Red Cell Distribution Width 19.5 % (11.5-14.5); Segmented Neutrophils % 68.6 %; White Blood Count 6.5 K/mcL (4.3-11.1)
[2020-05-17 03:56] LABS: Neutrophils # 4.5 K/mcL (1.6-8.9)
[2020-05-17 04:11] LABS: Calcium 8.1 mg/dL (8.6-10.3); Magnesium 1.5 mg/dL (1.6-2.6); Phosphorous 2.2 mg/dL (2.7-4.5); Potassium 4.4 mEq/L (3.5-5.1)
[2020-05-17] MEDS ORDERED: Magnesium Sulfate 1 GM/102 ML PIGGYBACK IVPB ONE (07:28)
[2020-05-17] MEDS ORDERED: 0.9 % Sodium Chloride 250 ML IVC PRN (07:40)
[2020-05-17] MEDS: Lactobacillus 1 EACH CAP.SPRINK PO SCH (08:06)
[2020-05-17] MEDS: Folic Acid 1 MG TABLET PO SCH (08:06)
[2020-05-17] MEDS: Lactulose Oral Soln 20 GM/30 ML UDC PO SCH (08:07)
[2020-05-17] MEDS: Renal Vitamin 1 CAP CAPSULE PO SCH (08:07)
[2020-05-17] MEDS: Sennosides/Docusate Sodium TABLET PO SCH (08:07)
[2020-05-17] MEDS: Nystatin POWDER 30 GM BOTTLE TP SCH (08:12)
[2020-05-17] MEDS: Insulin LISPRO 300 UNITS/3 ML VIAL SQ SCH ×3 (08:35→17:55)
[2020-05-17] MEDS: Budesonide/Formoterol 80/4.5 1 PUFF INH IH SCH (11:33)
[2020-05-17] MEDS ORDERED: 0.9 % Sodium Chloride 500 ML ONE (12:24)
[2020-05-17] MEDS ORDERED: levoFLOXacin 500 MG/100 ML 500 MG/100 ML BAG IVPB ONE (12:38)
[2020-05-17] MEDS ORDERED: Isovue-370 500 ML BOTTLE IVP ONE (16:43)
[2020-05-17 16:47] LABS: Hematocrit 22.1 % (35.3-44.9); Hemoglobin 6.9 g/dL (11.5-15.4)
[2020-05-17] MEDS ORDERED: 0.9 % Sodium Chloride 250 ML IVC SCH (17:15)
[2020-05-17] MEDS ORDERED: 0.9 % Sodium Chloride 250 ML ONE (18:01)
[2020-05-17 19:03] VITALS: BP 85/50
== END 2020-05-17 19:00 | disposition short-term general hospital (02) | DRG 377 ==
LOC: 2NNU → SUATTDRO 19:59 → 2NNU 21:41 → 2ANU 05-15 11:00
PROVIDERS: ADMIT Internal Medicine; ATTEND Internal Medicine
PROC: ENDOEBX (2020-05-11 19:50)